=== PATIENT | male | born 1960 | race Caucasian/White ===

== ENCOUNTER 2016-07-08 11:37 | Emergency (ER) | payer BC ==
[2016-07-08 11:49] VITALS: BP 127/83
[2016-07-08] MEDS ORDERED: Albuterol 2.5 MG/3 ML NEB.SOL* (0.083%) INH ONE (12:28)
--- NOTE | 2016-07-08 12:34 | UC ---
Respiratory Complaint HPI - HPI Summary HPI Summary: patient has hx of lymphoma, was recently treated for a sinus infection with a z pack. is having sob and cough, chest feels tight. - History of Current Complaint Chief Complaint: UCRespiratory Stated Complaint: RESP COMPLAINT Time Seen by Provider: 07/08/16 12:20 Hx Obtained From: Patient Onset/Duration: Sudden Onset, Lasting Days Timing: Constant Severity Initially: Mild Severity Currently: Moderate Pain Intensity: 6 Pain Scale Used: 0-10 Numeric Character: Cough: Productive Aggravating Factors: Deep Breaths, Recumbent Position Associated Signs And Symptoms: Positive: Fever, Chills, URI - Risk Factors Pulmonary Embolism Risk Factors: Negative Cardiac Risk Factors: Negative Pseudomonas Risk Factors: Negative Tuberculosis Risk Factors: Immune Deficienty - Allergies/Home Medications Allergies/Adverse Reactions: Allergies Allergy/AdvReac Type Severity Reaction Status Date / Time Clavulanic Acid Allergy Intermediate Rash Verified 05/06/16 15:36 Tobramycin Allergy Intermediate Swelling Verified 05/06/16 15:36 Home Medications: Home Medications Albuterol HFA INHALER* [Ventolin HFA Inhaler*] 1 - 2 puff INH Q6H PRN 07/08/16 [ History Confirmed 07/08/16] Ibuprofen TAB* [Advil TAB*] 400 mg PO PRN 07/08/16 [History] PMH/Surg Hx/FS Hx/Imm Hx Previously Healthy: Yes Endocrine History Of: Denies: Diabetes, Thyroid Disease Cardiovascular History Of: Reports: Hypertension Denies: Cardiac Disorders, Congestive Heart Failure Respiratory History Of: Denies: COPD, Asthma GI/ History Of: Denies: Ulcer, Renal Disease Psychological History Of: Reports: Depression - Surgical History Surgical History: Yes Surgery Procedure, Year, and Place: Acromianplasty - Family History Known Family History: Positive: None, Cardiac Disease, Hypertension Negative: Diabetes - Social History Alcohol Use: Rare Substance Use Type: None Smoking Status (MU): Former Smoker Type: Cigarettes - Immunization History Most Recent Influenza Vaccination: 2016 Review of Systems Constitutional: Fever, Chills Skin: Negative Eyes: Negative ENT: Negative Respiratory: Shortness Of Breath, Cough Cardiovascular: Negative Gastrointestinal: Negative Genitourinary: Negative Motor: Negative Neurovascular: Negative Musculoskeletal: Myalgia Neurological: Headache Psychological: Negative All Other Systems Reviewed And Are Negative: Yes Physical Exam Triage Information Reviewed: Yes Appearance: No Pain Distress, Well-Nourished, Ill-Appearing Vital Signs: Initial Vital Signs Temp 98.7 F 07/08/16 11:45 Pulse 84 07/08/16 11:45 Resp 18 07/08/16 11:45 BP 127/83 07/08/16 11:45 Pulse Ox 98 07/08/16 11:45 Vital Signs Reviewed: Yes Eye Exam: Normal Eyes: Positive: Conjunctiva Clear ENT: Positive: Hearing grossly normal, Pharyngeal erythema, Nasal congestion, Nasal drainage, TMs normal, TM red - right Dental Exam: Normal Neck exam: Normal Neck: Positive: Supple, Nontender, No Lymphadenopathy Respiratory Exam: Normal Respiratory: Positive: Chest non-tender, No respiratory distress, No accessory muscle use, Wheezing, Inspiration Cardiovascular Exam: Normal Cardiovascular: Positive: RRR, No Murmur, Pulses Normal Abdominal Exam: Normal Abdomen Description: Positive: Nontender, No Organomegaly, Soft Bowel Sounds: Positive: Present Musculoskeletal Exam: Normal Musculoskeletal: Positive: Strength Intact, ROM Intact, No Edema Neurological Exam: Normal Neurological: Positive: Alert, Muscle Tone Normal Psychological Exam: Normal Skin Exam: Normal UC Diagnostic Evaluation - Laboratory O2 Sat by Pulse Oximetry: 98 Respiratory Course/Dx - Course Course Of Treatment: hx obtained, exam performed, albuterol treament administered with good results, flu swab obtained neg, treated with doxycycline for sinus infection and refill of ventolin given. - Differential Dx/Diagnosis Differential Diagnosis/HQI/PQRI: Asthma, Bronchitis, Influenza, Laryngitis, Sinusitis Provider Diagnoses: sinusitis. asthma. lymphoma hx Discharge - Discharge Plan Condition: Stable Disposition: HOME Patient Education Materials: Sinusitis (ED)
== END 2016-07-08 13:33 | disposition home or self-care (01) ==
LOC: UCEAST 11:37
DX: J45.909 Unspecified asthma, uncomplicated (principal); J32.9 Chronic sinusitis, unspecified; Z85.72 Personal history of non-Hodgkin lymphomas; Z88.1 Allergy status to other antibiotic agents; Z87.891 Personal history of nicotine dependence
CPT/HCPCS: 87502; 99212; G0463

== ENCOUNTER 2016-10-12 07:26 | Emergency (ER) | payer BC ==
[2016-10-12 07:51] VITALS: BP 128/65
--- NOTE | 2016-10-12 08:25 | UC ---
General HPI - HPI Summary HPI Summary: 56 yo male with the onset of severe muscle cramps that started yesterday AM worse finger/biceps/abd/inner thighs about 1 1/2 weeks ago he had a 4 day illness (n/v/d) felt dehydrated during illness has felt fatigued since them hx lymphoma no PT or chemo is follow 6 6 mos - History of Current Complaint Chief Complaint: UCGeneralIllness Stated Complaint: BODY CRAMPS Time Seen by Provider: 10/12/16 08:08 Hx Obtained From: Patient Onset/Duration: Gradual Onset, Lasting Hours Timing: Constant Onset Severity: Moderate Current Severity: Moderate Pain Intensity: 2 Pain Location at: see above discussion Associated Signs & Symptoms: Positive: Other - muscle spasms Related Hx: Recent Illness - Allergy/Home Medications Allergies/Adverse Reactions: Allergies Allergy/AdvReac Type Severity Reaction Status Date / Time Clavulanic Acid Allergy Intermediate Rash Verified 05/06/16 15:36 Tobramycin Allergy Intermediate Swelling Verified 05/06/16 15:36 Home Medications: Home Medications Hydrochlorothiazide TAB* [Hydrodiuril TAB*] 10/12/16 [History] PMH/Surg Hx/FS Hx/Imm Hx Endocrine History Of: Denies: Diabetes, Thyroid Disease Cardiovascular History Of: Reports: Cardiac Disorders - high triglycerides, Hypertension Denies: Congestive Heart Failure Respiratory History Of: Reports: Asthma Denies: COPD GI/ History Of: Denies: Ulcer, Renal Disease Psychological History Of: Reports: Depression - Surgical History Surgical History: Yes Surgery Procedure, Year, and Place: Acromianplasty right shoulder, multiple bone marrow bx - Family History Known Family History: Positive: Cardiac Disease, Hypertension Negative: Diabetes - Social History Alcohol Use: Occasionally Substance Use Type: None Smoking Status (MU): Former Smoker Type: Cigarettes - Immunization History Most Recent Influenza Vaccination: 2016 Review of Systems Constitutional: Negative Skin: Negative Eyes: Negative ENT: Negative Respiratory: Negative Cardiovascular: Negative Gastrointestinal: Negative Genitourinary: Negative Motor: Negative Neurovascular: Negative Musculoskeletal: Other: - muscle cramps Neurological: Negative Psychological: Negative All Other Systems Reviewed And Are Negative: Yes Physical Exam Triage Information Reviewed: Yes Appearance: Well-Appearing, No Pain Distress, Well-Nourished Vital Signs: Initial Vital Signs Temp 98.7 F 10/12/16 07:35 Pulse 84 10/12/16 07:35 Resp 16 10/12/16 07:35 BP 128/65 10/12/16 07:35 Pulse Ox 98 10/12/16 07:35 Vital Signs Reviewed: Yes Eyes: Positive: Conjunctiva Clear ENT: Positive: Hearing grossly normal. Negative: Nasal drainage, Tonsillar swelling, Tonsillar exudate, Trismus, Muffled/hoarse voice Dental: Negative: Gross Decay/Caries @ Neck: Positive: Supple, Nontender, No Lymphadenopathy Respiratory: Positive: Lungs clear, Normal breath sounds, No respiratory distress, No accessory muscle use Cardiovascular: Positive: RRR, No Murmur Abdomen Description: Positive: Nontender, Hepatomegaly - ??? Bowel Sounds: Positive: Present Musculoskeletal: Positive: ROM Intact, No Edema, Other: - currently no muscle spasms Neurological: Positive: Alert Psychological Exam: Normal Skin Exam: Normal Course/Dx - Differential Dx - Multi-Symptom Provider Diagnoses: muscle cramps of uncertain cause Discharge - Discharge Plan Condition: Stable Disposition: HOME Patient Education Materials: Muscle Cramp (ED) Referrals: Shemar Thacker ADMINISTRATIVE SERVICES MANAGER [Primary Care Provider] - 1 Day (if not better) Additional Instructions: I am unsure of the cause of your severe muscle cramps blood work is pending (we may have results later today) I suggest you get rechecked tomorrow
[2016-10-12 13:57] LABS: Hematocrit 42 % (42-52); Hemoglobin 14.3 g/dl (14.0-18.0); Mean Corpuscular HGB Conc 34 g/dl (31-36); Mean Corpuscular Hemoglobin 33 pg (27-31); Mean Corpuscular Volume 94 fL (80-94); Mean Platelet Volume 7 um3 (7.4-10.4); Red Cell Distribution Width 13 % (10.5-15); White Blood Count 11.4 10^3/ul (3.5-10.8)
[2016-10-12 14:06] LABS: Albumin 4.1 g/dL (3.2-5.2); Calcium 9.3 mg/dL (8.6-10.3); EGFR African American 99.4 (>60); EGFR Non-African American 77.3 (>60); Globulin 3.1 g/dL (2-4); Total Bilirubin 0.4 mg/dL (0.2-1.0); Total Protein 7.2 g/dL (6.4-8.9)
== END 2016-10-12 08:40 | disposition home or self-care (01) ==
LOC: UCEAST 07:26
DX: R25.2 Cramp and spasm (principal); E78.1 Pure hyperglyceridemia; I10 Essential (primary) hypertension; J45.909 Unspecified asthma, uncomplicated; F32.9 Major depressive disorder, single episode, unspecified; Z87.891 Personal history of nicotine dependence
CPT/HCPCS: 36415; 80053; 83735; 85025; 99212; G0463

== ENCOUNTER 2016-10-21 19:26 | Emergency (ER) | payer BC ==
[2016-10-21 19:33] VITALS: BP 118/72
--- NOTE | 2016-10-21 19:43 | UC ---
Lower Extremity/Ankle HPI - HPI Summary HPI Summary: SEVERAL DAYS OF RIGHT FOOT REDNESS AND SWELLING. HAS CHRONICALLY THICKENED SKIN ON BOTTOM OF FOOT AT METATARSAL HEADS THAT IS SPLITTING. REDNESS IS EXTENDING UP LEG. WAS HERE 10/12/16 FOR BODY CRAMPS AND HAD ABNORMAL LABS. HAS NOT FOLLOWED UP FOR REPEAT LABS YET. NO FEVER. - History of Current Complaint Chief Complaint: UCLowerExtremity Stated Complaint: RED SWOLLEN FOOT Time Seen by Provider: 10/21/16 19:36 Hx Obtained From: Patient Onset/Duration: Gradual Onset, Lasting Days, Still Present Severity Initially: Mild Severity Currently: Moderate Pain Intensity: 2 Pain Scale Used: 0-10 Numeric Aggravating Factor(s): Nothing Alleviating Factor(s): Nothing Able to Bear Weight: Yes - Allergies/Home Medications Allergies/Adverse Reactions: Allergies Allergy/AdvReac Type Severity Reaction Status Date / Time Clavulanic Acid Allergy Intermediate Rash Verified 10/21/16 19:33 Tobramycin Allergy Intermediate Swelling Verified 10/21/16 19:33 PMH/Surg Hx/FS Hx/Imm Hx Endocrine History Of: Denies: Diabetes, Thyroid Disease Cardiovascular History Of: Reports: Hypertension - LVH Denies: Cardiac Disorders, Congestive Heart Failure Respiratory History Of: Reports: Asthma Denies: COPD GI/ History Of: Denies: Ulcer, Renal Disease Psychological History Of: Reports: Depression - Surgical History Surgical History: Yes Surgery Procedure, Year, and Place: Acromianplasty - Family History Known Family History: Positive: Cardiac Disease, Hypertension Negative: Diabetes - Social History Alcohol Use: Occasionally Substance Use Type: None Smoking Status (MU): Former Smoker Type: Cigarettes - Immunization History Most Recent Influenza Vaccination: 2016 Review of Systems Constitutional: Negative Skin: Other - ERYTHEMA, CRACKED, THICKENED SKIN ON RIGHT FOOT Respiratory: Negative Cardiovascular: Negative Gastrointestinal: Negative All Other Systems Reviewed And Are Negative: Yes Physical Exam Triage Information Reviewed: Yes Appearance: Well-Appearing, No Pain Distress, Well-Nourished Vital Signs: Initial Vital Signs Temp 97.5 F 10/21/16 19:30 Pulse 88 10/21/16 19:30 Resp 16 10/21/16 19:30 BP 118/72 10/21/16 19:30 Pulse Ox 97 10/21/16 19:30 Vital Signs Reviewed: Yes Eyes: Positive: Conjunctiva Clear ENT: Positive: Hearing grossly normal Neck: Positive: Supple Respiratory: Positive: No respiratory distress, No accessory muscle use Cardiovascular: Positive: Pulses Normal Abdomen Description: Positive: Soft Musculoskeletal: Positive: Edema @ - 1+ PITTING EDEMA LEFT ANKLE/FOOT. 2+ PITTING EDEMA RIGHT ANKLE/FOOT. Neurological: Positive: Alert Psychological: Positive: Age Appropriate Behavior Skin: Positive: Other - ERYTHEMA RIGHT FOOT EXTENDING UP LEG TO JUST BELOW KNEE. PLANTAR SURFACE OF FOOT OVER METATARSAL HEADS IS THICKENED AND CRACKING. APPARENT INSECT BITE DORSUM OF RIGHT FOOT Lower Extremity Course/Dx - Differential Dx/Diagnosis Provider Diagnoses: 1. RIGHT FOOT CELLULITIS. 2. ELECTROLYE ABNORMALITIES. 3. ELEVATED TRANSAMINASES Discharge - Discharge Plan Condition: Stable Disposition: HOME Prescriptions: Cephalexin CAP* [Keflex 500 CAP*] 1,000 mg PO BID #40 cap Patient Education Materials: Cellulitis (ED) Referrals: Shemar Thacker SHAFTING WORKER [Primary Care Provider] - 1 Week Additional Instructions: SEEK FOLLOW-UP IF YOU DO NOT NOTICE IMPROVEMENT IN YOUR FOOT OVER THE NEXT 2-3 DAYS. LABS DRAWN TODAY TO RE-EVALUATE ABNORMALITIES SEEN 10/12/16 (LOW CHLORIDE, SODIUM AND ELEVATED LFTS). FOLLOW-UP WITH YOUR PCP IN 1 WEEK. FOLLOW-UP WITH PODIATRY TO DISCUSS YOUR CHRONIC FOOT WOUNDS AND SKIN THICKENING. PODIATRY IN [facility] Dr. Alejandro Eli [address] Yoandy Sue. Please call his office at [phone] to make an appointment to be seen Dr. Jason Saul. Please call his office at [phone] to make an appointment to be seen
[2016-10-22 17:33] LABS: Albumin 4.2 g/dL (3.2-5.2); Calcium 9.3 mg/dL (8.6-10.3); EGFR African American 106.8 (>60); Globulin 3.1 g/dL (2-4); Total Bilirubin 0.5 mg/dL (0.2-1.0); Total Protein 7.3 g/dL (6.4-8.9)
[2016-10-22 18:12] LABS: Potassium 6.9 mmol/L (3.5-5.0)
--- NOTE | 2016-10-22 18:28 | UC ---
Progress - Progress Note Progress Note: CMP SHOWED PERSISTENTLY LOW SODIUM AND CHLORIDE. LFTS NORMALIZED BUT POTASSIUM 6.9. SPOKE TO PT AND ADVISED IMMEDIATE PRESENTATION TO ER FOR FURTHER EVALUATION. PT STATES HE WILL GO.
== END 2016-10-21 20:17 | disposition home or self-care (01) ==
LOC: UCEAST 19:26
DX: L03.115 Cellulitis of right lower limb (principal); E87.8 Other disorders of electrolyte and fluid balance, not elsewhere classified; R74.0 Nonspecific elevation of levels of transaminase and lactic acid dehydrogenase [LDH]; I10 Essential (primary) hypertension; J45.909 Unspecified asthma, uncomplicated; F32.9 Major depressive disorder, single episode, unspecified; Z88.1 Allergy status to other antibiotic agents; Z87.891 Personal history of nicotine dependence
CPT/HCPCS: 36415; 80053; 99212; G0463

== ENCOUNTER 2016-10-22 18:30 | Emergency (ER) | payer BC ==
[2016-10-22] MEDS ORDERED: NS 0.9% 1000 ML* 1,000 ML IV ONE (19:45)
[2016-10-22] MEDS ORDERED: ceFAZolin 1 GM in Dextrose (*) 1 GM/50 ML BAG IVPB ONE (20:14)
[2016-10-22 20:36] LABS: Hematocrit 40 % (42-52); Hemoglobin 13.4 g/dl (14.0-18.0); Mean Corpuscular HGB Conc 34 g/dl (31-36); Mean Corpuscular Hemoglobin 32 pg (27-31); Mean Corpuscular Volume 94 fL (80-94); Mean Platelet Volume 7 um3 (7.4-10.4); Red Blood Count 4.22 10^6/ul (4.0-5.4); Red Cell Distribution Width 13 % (10.5-15); White Blood Count 12.1 10^3/ul (3.5-10.8)
[2016-10-22 20:52] LABS: Albumin 4.1 g/dL (3.2-5.2); BUN/Creatinine Ratio 13.5 (8-20); C Reactive Protein 15.39 mg/L (< 5.00); Calcium 9.2 mg/dL (8.6-10.3); EGFR African American 113.7 (>60); EGFR Non-African American 88.4 (>60); Globulin 3.5 g/dL (2-4); Magnesium 1.9 mg/dL (1.9-2.7); Phosphorus 3.4 mg/dL (2.5-5.0); Potassium 4.1 mmol/L (3.5-5.0); Total Bilirubin 0.4 mg/dL (0.2-1.0); Total Protein 7.6 g/dL (6.4-8.9)
--- NOTE | 2016-10-22 21:37 | ED ---
Jessica Swift Rebecca, scribed for Sherice Ochoa MD on 10/22/16 at 1954 . Complex/Multi-Sys Presentation - HPI Summary HPI Summary: Pt is a 56 y/o M who presents to the ED accompanied by a friend with a CC of abnormal labs. On October [address] [facility] with a CC of unexplained muscle cramps the day previous (October 11) during work. Labs showed slightly low sodium and normal renal function and normal potassium. Returned to [facility] yesterday, was seen by Dr. Mendoza, following up with the abnormal labs. Had a potassium of 6.9 on labs taken yesterday which were not fasting. Pt was D/C to home with a prescription for Cephalexin for cellulitis of right foot. Has taken 2 doses thus far, a total of 2 grams. C/o constant muscle cramps since October 11, currently ranked as 2/10. Cramps are diffuse, present in his back, legs and hands. Cramps are aggravated by exertion , alleviated by nothing. Additionally c/o increased urinary frequency and polyuria. Unsure of whether he has been experiencing fevers. Notes cellulitis on R foot in a crack that opened on October 11 (11 days ago). Swelling has decreased since starting Abx. PCP is Dr. Shemar Thacker. Has an appt in 5 days. Takes magnesium and potassium. PMHx HTN, stage I lymphoma. Lymphoma Dx by Dr. Dyer, has known about dx for 1 year, in his neck. Did not have any surgeries, radiation or chemotherapy. No PMHx DM. No FHx DM. - History Of Current Complaint Chief Complaint: EDGeneral Time Seen by Provider: 10/22/16 19:16 Hx Obtained From: Patient Onset/Duration: Gradual Onset, Lasting Days - 11 days, Still Present Timing: Constant Severity Currently: Mild Severity Initially: Mild Location: Pain At: - Diffuse muscle cramping Aggravating Factor(s): Exertion Alleviating Factor(s): Nothing Associated Signs And Symptoms: Positive: Other - Increased urinary frequency, polyuria, open crack in right foot, muscle cramps. Negative: Fever - Allergies/Home Medications Allergies/Adverse Reactions: Allergies Allergy/AdvReac Type Severity Reaction Status Date / Time Clavulanic Acid Allergy Intermediate Rash Verified 10/22/16 18:38 Tobramycin Allergy Intermediate Swelling Verified 10/22/16 18:38 PMH/Surg Hx/FS Hx/Imm Hx Previously Healthy: No - lymphoma, right neck Endocrine/Hematology History: Denies: Hx Diabetes, Hx Systemic Lupus Erythematosus, Hx Thyroid Disease Cardiovascular History: Reports: Hx Hypertension - LVH Denies: Hx Congestive Heart Failure Respiratory History: Reports: Hx Asthma Denies: Hx Chronic Obstructive Pulmonary Disease (COPD) GI History: Reports: Hx Gastroesophageal Reflux Disease Denies: Hx Ulcer History: Denies: Hx Dialysis, Hx Renal Disease Musculoskeletal History: Denies: Hx Rheumatoid Arthritis, Hx Osteoporosis, Hx Scoliosis Sensory History: Reports: Hx Contacts or Glasses Opthamlomology History: Reports: Hx Contacts or Glasses Neurological History: Reports: Hx Headaches Denies: Other Neuro Impairments/Disorders Psychiatric History: Reports: Hx Depression - Cancer History Cancer Type, Location and Year: LYMPHOMA 2015 - Surgical History Surgery Procedure, Year, and Place: Acromianplasty - Immunization History Date of Tetanus Vaccine: unknown Date of Influenza Vaccine: 2014 Infectious Disease History: No Infectious Disease History: Denies: Hx Clostridium Difficile, Hx Hepatitis, Hx Human Immunodeficiency Virus (HIV), Hx of Known/Suspected MRSA, Hx Shingles, Hx Tuberculosis, Hx Known/ Suspected VRE, Hx Known/Suspected VRSA, History Other Infectious Disease, Traveled Outside the [place] in Last 30 Days - Family History Known Family History: Positive: Cardiac Disease, Hypertension Negative: Diabetes - Social History Occupation: Employed Full-time Alcohol Use: Occasionally Hx Substance Use: Yes Substance Use Type: Reports: None Hx Tobacco Use: Yes Smoking Status (MU): Former Smoker Type: Cigarettes Review of Systems Constitutional: Negative Cardiovascular: Negative Respiratory: Negative Positive: frequency, other - Polyuria Positive: Myalgia - Diffuse muscle cramps (2/10) Positive: Other - Opened crack on the R foot , redness right lower leg All Other Systems Reviewed And Are Negative: Yes Physical Exam Triage Information Reviewed: Yes Vital Signs On Initial Exam: Initial Vitals Temp 98.7 F 10/22/16 18:38 Vital Signs Reviewed: Yes Appearance: Positive: No Pain Distress, Well-Nourished, Ill-Appearing - Mild Skin: Positive: Warm, Other - 3 cm abraded area on the ventral aspect of the R foot, between the great toe and 2nd toe. It is open with minimal drainage and there is redness extending from the wound to the midcalf. Eyes: Positive: Conjunctiva Clear ENT: Positive: Normal ENT inspection Neck: Positive: Supple Respiratory/Lung Sounds: Positive: Clear to Auscultation, Breath Sounds Present , Other - No respiratory distress Cardiovascular: Positive: RRR, Other - Pulses normal, brisk capillary refill. Negative: Murmur Abdomen Description: Positive: Nontender, No Organomegaly, Soft. Negative: Distended, Guarding Musculoskeletal: Positive: Strength/ROM Intact Neurological: Positive: Alert, Oriented to Person Place, Time, Other - Muscle tone normal. Negative: Focal Deficit @, Slurred Speech Psychiatric: Positive: Normal Diagnostics - Vital Signs Vital Signs Temp Pulse Resp BP Pulse Ox 10/22/16 18:41 98.7 F 88 18 164/83 98 10/22/16 18:38 98.7 F - Laboratory Lab Results: Lab Results 10/22/16 10/22/16 10/22/16 Range/Units 20:20 20:20 20:20 WBC 12.1 H (3.5-10.8) 10^3/ul RBC 4.22 (4.0-5.4) 10^6/ul Hgb 13.4 L (14.0-18.0) g/dl Hct 40 L (42-52) % MCV 94 (80-94) fL MCH 32 H (27-31) pg MCHC 34 (31-36) g/dl RDW 13 (10.5-15) % Plt Count 348 (150-450) 10^3/ul MPV 7 L (7.4-10.4) um3 Neut % (Auto) 63.7 (38-83) % Lymph % (Auto) 24.2 L (25-47) % Barber % (Auto) 9.5 H (1-9) % Eos % (Auto) 1.4 (0-6) % Baso % (Auto) 1.2 (0-2) % Absolute Neuts (auto) 7.7 (1.5-7.7) 10^3/ul Absolute Lymphs (auto) 2.9 (1.0-4.8) 10^3/ul Absolute Monos (auto) 1.1 H (0-0.8) 10^3/ul Absolute Eos (auto) 0.2 (0-0.6) 10^3/ul Absolute Basos (auto) 0.1 (0-0.2) 10^3/ul Absolute Nucleated RBC 0.01 10^3/ul Nucleated RBC % 0.1 INR (Anticoag Therapy) 0.98 (0.89-1.11) APTT 30.0 (26.0-36.3) seconds Sodium (133-145) mmol/L Potassium (3.5-5.0) mmol/L Chloride (101-111) mmol/L Carbon Dioxide (22-32) mmol/L Anion Gap (2-11) mmol/L BUN (6-24) mg/dL Creatinine (0.67-1.17) mg/dL Est GFR ( Amer) (>60) Est GFR (Non-Af Amer) (>60) BUN/Creatinine Ratio (8-20) Glucose (70-100) mg/dL Lactic Acid 2.4 H* (0.5-2.0) mmol/L Calcium (8.6-10.3) mg/dL Phosphorus (2.5-5.0) mg/dL Magnesium (1.9-2.7) mg/dL Total Bilirubin (0.2-1.0) mg/dL AST (13-39) U/L ALT (7-52) U/L Alkaline Phosphatase (34-104) U/L C-Reactive Protein (< 5.00) mg/L Total Protein (6.4-8.9) g/dL Albumin (3.2-5.2) g/dL Globulin (2-4) g/dL Albumin/Globulin Ratio (1-3) 10/22/16 Range/Units 20:20 WBC (3.5-10.8) 10^3/ul RBC (4.0-5.4) 10^6/ul Hgb (14.0-18.0) g/dl Hct (42-52) % MCV (80-94) fL MCH (27-31) pg MCHC (31-36) g/dl RDW (10.5-15) % Plt Count (150-450) 10^3/ul MPV (7.4-10.4) um3 Neut % (Auto) (38-83) % Lymph % (Auto) (25-47) % Barber % (Auto) (1-9) % Eos % (Auto) (0-6) % Baso % (Auto) (0-2) % Absolute Neuts (auto) (1.5-7.7) 10^3/ul Absolute Lymphs (auto) (1.0-4.8) 10^3/ul Absolute Monos (auto) (0-0.8) 10^3/ul Absolute Eos (auto) (0-0.6) 10^3/ul Absolute Basos (auto) (0-0.2) 10^3/ul Absolute Nucleated RBC 10^3/ul Nucleated RBC % INR (Anticoag Therapy) (0.89-1.11) APTT (26.0-36.3) seconds Sodium 129 L (133-145) mmol/L Potassium 4.1 D (3.5-5.0) mmol/L Chloride 95 L (101-111) mmol/L Carbon Dioxide 26 (22-32) mmol/L Anion Gap 8 (2-11) mmol/L BUN 12 (6-24) mg/dL Creatinine 0.89 (0.67-1.17) mg/dL Est GFR ( Amer) 113.7 (>60) Est GFR (Non-Af Amer) 88.4 (>60) BUN/Creatinine Ratio 13.5 (8-20) Glucose 102 H (70-100) mg/dL Lactic Acid (0.5-2.0) mmol/L Calcium 9.2 (8.6-10.3) mg/dL Phosphorus 3.4 (2.5-5.0) mg/dL Magnesium 1.9 (1.9-2.7) mg/dL Total Bilirubin 0.40 (0.2-1.0) mg/dL AST 31 (13-39) U/L ALT 36 (7-52) U/L Alkaline Phosphatase 66 (34-104) U/L C-Reactive Protein 15.39 H (< 5.00) mg/L Total Protein 7.6 (6.4-8.9) g/dL Albumin 4.1 (3.2-5.2) g/dL Globulin 3.5 (2-4) g/dL Albumin/Globulin Ratio 1.2 (1-3) Result Diagrams: 10/22/16 20:20 10/22/16 20:20 Lab Statement: Any lab studies that have been ordered have been reviewed, and results considered in the medical decision making process. - EKG 2031 Cardiac Rate: NL - 76 bpm EKG Rhythm: Sinus Rhythm EKG Interpretation: Normal AV and normal IV conduction times, normal axis 26 EKG Comparison: No Significant Change - No acute changes from EKG on 07/21/12 Re-Evaluation - Re-Evaluation First Eval Re-Evaluation Time: 21:13 Change: Unchanged Comment: No new complaints, advised of results. Abx are hanging. Complex Multi-Symp Course/Dx Course Of Treatment: Pt medications reviewed this visit. Allergies noted. Lactic acid 2.4. Pt is a 56 y/o M who presents to the ED with a CC of abnormal labs. Pt was evaluated on October [address] [facility] showing low sodium with normal renal function. Evaluated again yesterday to follow up on abnormal labs, showing a potassium of 6.9. Presents to ED upon advise to f/u on 6.99 K+ c/o diffuse muscle cramps since October 11, increased urinary frequency and polyuria. Lactic acid 2.4. EKG reveals no acute findings. Received fluids and Kefzol via IV. Pt will be D/C to home with Dx of cellulitis and hyponatremia with a followup with his PCP in 2 days. - Diagnoses Differential Diagnoses/HQI/PQRI: Metabolic Abnormality, Sepsis, Other - cellulitis Provider Diagnoses: Cellulitis, Hyponatremia Discharge - Discharge Plan Condition: Stable Disposition: HOME Patient Education Materials: Cellulitis (ED), Hyponatremia (ED) Referrals: Shemar Thacker, FORK TRUCK OPERATOR [Primary Care Provider] - 2 Days Additional Instructions: You were given one gram a cephazolin IV while in the ED. You were given a copy of your labs drawn today. There is no metabolic cause for your muscle cramps based on today's labs. Keep your appointment with Shemar Thacker. Continue your cephalexin as directed. We have sent a wound culture of your foot. We will notify you if you need a change in your antibiotics based on this result. Return to the ED for any new or worsening symptoms. The documentation as recorded by the Jessica dowling Rebecca accurately reflects the service I personally performed and the decisions made by , Sherice Ochoa MD.
[2016-10-22 21:51] VITALS: BP 126/65
--- NOTE | 2016-10-24 09:22 | PN ---
Progress Note - Progress Note Note: Patient was diagnosed with cellulitis while in ED. Given Kefzol IV while in ED. No antibiotics at discharge. Wound culture results were unremarkable, 1+ staph aureus preliminary growth. Will wait for final results. No further treatment necessary. Patient was aware of worsening or persisting symptoms. No changes need at this time.
== END 2016-10-22 21:55 | disposition home or self-care (01) ==
LOC: ED 18:30
DX: L03.90 Cellulitis, unspecified (principal); E87.1 Hypo-osmolality and hyponatremia; M79.1 Myalgia; Z87.891 Personal history of nicotine dependence
CPT/HCPCS: 36415; 80053; 83605; 83735; 84100; 85025; 85610; 85730; 86140; 87040; 87070; 87077; 87186; 87205; 93005; 99283; J0690

== ENCOUNTER 2016-11-26 13:42 | Emergency (ER) | payer BC ==
[2016-11-26 14:13] VITALS: BP 144/96
--- NOTE | 2016-11-27 02:30 | UC ---
Laura Swift Edward, scribed for Sherice Ochoa MD on 11/26/16 at 1502 . Throat Pain/Nasal Isaías HPI - HPI Summary HPI Summary: 56 y/o male presents to ED with throat pain and sinus pressure on the right side. Patient's symptoms worsened yesterday morning from general cold-like symptoms. Associated symptoms: eye drainage, nasal congestion, rhinorrhea, HTN and chronic diarrhea. Denies fever. PMHx lymphoma in 2016. Patient stated that he took a Pseudoephedrine for his nasal congestion and states this probably raised his BP. 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 - History of Current Complaint Chief Complaint: UCRespiratory Stated Complaint: SINUS/EYES/SORE THROAT, Time Seen by Provider: 11/26/16 14:55 Hx Obtained From: Patient Onset/Duration: Lasting Days, Still Present Severity: Moderate Pain Intensity: 5 Pain Scale Used: 0-10 Numeric Cough: Nonproductive Associated Signs & Symptoms: Positive: Sinus Discomfort, Nasal Discharge Related History: Smoking - Former smoker, Other (Noted In Comments) - Lymphoma 2016 - Allergies/Home Medications Allergies/Adverse Reactions: Allergies Allergy/AdvReac Type Severity Reaction Status Date / Time Clavulanic Acid Allergy Intermediate Rash Verified 10/22/16 18:38 Tobramycin Allergy Intermediate Swelling Verified 10/22/16 18:38 PMH/Surg Hx/FS Hx/Imm Hx Cardiovascular History: Hypertension Respiratory History: Asthma Cancer History: Other - Lymphoma 2016 Other Cancer History: lymphoma 2016 - Surgical History Surgical History: Yes Surgery Procedure, Year, and Place: Acromioplasty - Family History Known Family History: Positive: Cardiac Disease, Hypertension Negative: Diabetes - Social History Occupation: Employed Full-time Lives: With Family Alcohol Use: Occasionally Substance Use Type: None Smoking Status (MU): Former Smoker Type: Cigarettes - Immunization History Most Recent Influenza Vaccination: 2016 Review of Systems Constitutional: Negative Skin: Negative Eyes: Drainage ENT: Sore Throat - Right side, Ear Ache, Nasal Discharge, Sinus Congestion, Sinus Pain/Tenderness - Right side Respiratory: Negative Cardiovascular: Negative Gastrointestinal: Diarrhea - Chronic Genitourinary: Negative Motor: Negative Neurovascular: Negative Musculoskeletal: Negative Neurological: Negative Psychological: Negative All Other Systems Reviewed And Are Negative: Yes Physical Exam Triage Information Reviewed: Yes Appearance: Well-Appearing, Well-Nourished, Pain Distress - Mild pain distress Vital Signs: Initial Vital Signs Temp 99.1 F 11/26/16 14:10 Pulse 71 11/26/16 14:10 Resp 20 11/26/16 14:10 BP 144/96 11/26/16 14:10 Pulse Ox 98 11/26/16 14:10 Vital Signs Reviewed: Yes Eyes: Positive: Conjunctiva Clear ENT: Positive: Hearing grossly normal, Pharyngeal erythema, TMs normal, Other: - Turbinate swelling, Maxillary sinus right tenderness. Negative: Tonsillar swelling, Tonsillar exudate, Muffled/hoarse voice Neck: Positive: Supple, Nontender, No Lymphadenopathy Respiratory: Positive: Lungs clear, Normal breath sounds, No respiratory distress Cardiovascular: Positive: RRR, No Murmur, Pulses Normal, Brisk Capillary Refill Abdomen Description: Positive: Nontender, Soft. Negative: Distended, Guarding Musculoskeletal: Positive: Strength Intact, ROM Intact Neurological: Positive: Alert, Muscle Tone Normal Psychological Exam: Normal Skin Exam: Normal Throat Pain/Nasal Course/Dx - Course Course Of Treatment: High blood pressure noted Assessment/Plan: 56 y/o male presents to ED with throat pain and sinus pressure on the right side. Patient's symptoms worsened yesterday morning from general cold-like symptoms. Associated symptoms: eye drainage, nasal congestion, rhinorrhea, HTN and chronic diarrhea. Denies fever. PMHx lymphoma in 2016. Patient stated that he took a Pseudoephedrine for his nasal congestion which may have induced the HTN. After performing a full PE I diagnosed the patient with Sinunitis and prescribed DOXYcycline 100 mg PO BID. The patient understands and agrees. - Differential Dx/Diagnosis Differential Diagnosis/HQI/PQRI: Otitis Media, Pharyngitis, Sinusitis, URI Provider Diagnoses: Sinusitis, Blood pressure in poor control Discharge - Discharge Plan Condition: Stable Disposition: HOME Prescriptions: DOXYcycline CAP(*) [DOXYcycline 100MG CAP(*)] 100 mg PO BID #28 cap Patient Education Materials: Sinusitis (ED) Referrals: Shemar Thacker, [facility] [Primary Care Provider] - 2 Days The documentation as recorded by the Laura dowling Edward accurately reflects the service I personally performed and the decisions made by , Sherice Ochoa MD.
== END 2016-11-26 15:13 | disposition home or self-care (01) ==
LOC: UCEAST 13:42
DX: J32.9 Chronic sinusitis, unspecified (principal); I10 Essential (primary) hypertension; Z85.72 Personal history of non-Hodgkin lymphomas; Z87.891 Personal history of nicotine dependence
CPT/HCPCS: 99212; G0463

== ENCOUNTER 2017-04-29 09:51 | Emergency (ER) | payer BC ==
[2017-04-29 10:12] VITALS: BP 105/57
--- NOTE | 2017-04-29 11:03 | UC ---
Lower Extremity/Ankle HPI - HPI Summary HPI Summary: Pt presents with right foot pain. He tells me that he has an extensive history of plantar calluses and that every once in awhile they will crack and split - this is what happened about a month ago to the right plantar aspect. He normally just soaks the foot and it heals overtime, but it has not done so this time. He complains of redness and pain on the dorsal aspect of his right foot near the 2nd MTP. He is able to ambulate. Denies fever, chills, drainage or discharge, or recent injury. - History of Current Complaint Chief Complaint: UCLowerExtremity Stated Complaint: FOOT PAIN Time Seen by Provider: 04/29/17 11:02 Hx Obtained From: Patient Onset/Duration: Gradual Onset Severity Initially: Mild Severity Currently: Moderate - Allergies/Home Medications Allergies/Adverse Reactions: Allergies Allergy/AdvReac Type Severity Reaction Status Date / Time Clavulanic Acid Allergy Intermediate Rash Verified 10/22/16 18:38 Tobramycin Allergy Intermediate Swelling Verified 10/22/16 18:38 Home Medications: Home Medications Fluticasone NASAL SPRAY 50MCG* [Flonase NASAL SPRAY 50MCG*] 04/29/17 [History] PMH/Surg Hx/FS Hx/Imm Hx Previously Healthy: Yes Endocrine History: Dyslipidemia Cardiovascular History: Hypertension - Surgical History Surgical History: Yes Surgery Procedure, Year, and Place: Acromioplasty - Family History Known Family History: Positive: Cardiac Disease, Hypertension Negative: Diabetes - Social History Occupation: Employed Full-time Lives: With Family Alcohol Use: Weekly Substance Use Type: None Smoking Status (MU): Former Smoker Type: Cigarettes - Immunization History Most Recent Influenza Vaccination: 2016 Review of Systems Constitutional: Negative Skin: Other - callus b/l feet - right with open sore Respiratory: Negative Cardiovascular: Negative Gastrointestinal: Negative Musculoskeletal: Negative Neurological: Negative Psychological: Negative All Other Systems Reviewed And Are Negative: Yes Physical Exam Triage Information Reviewed: Yes Appearance: Well-Appearing, Well-Nourished Vital Signs: Initial Vital Signs Temp 99.4 F 04/29/17 10:06 Pulse 80 04/29/17 10:06 Resp 18 04/29/17 10:06 BP 105/57 04/29/17 10:06 Pulse Ox 96 04/29/17 10:06 Vital Signs Reviewed: Yes Musculoskeletal: Positive: Strength Intact, ROM Intact, No Edema Neurological: Positive: Alert Psychological: Positive: Age Appropriate Behavior Skin: Positive: Other - There is a significant callus on the right plantar pad measauring approx 4cm by 3cm. In the center of this callus there is a linear break in the skin approx 2cm long, 2mm wide, and 0.5mm in depth. There is no erythema, drainage, or streaking around this area. On the dorsal aspect of the right foot there is mild erythema at the base of the 2nd digit. The right dorsal forefoot is mildly warm to touch compared to left. Lower Extremity Course/Dx - Course Course Of Treatment: Foot XR dt concern for osteomyelitis - Soft tissue swelling. No compelling radiographic evidence for osteomyelitis. Pt dresses the wound himself and applies triple antibiotic ointment. Will rx for Bactrim for what appears to be early stages of cellulitis - Differential Dx/Diagnosis Differential Diagnosis/HQI/PQRI: Cellulitis, Foreign Body, Infection, Osteomyelitis Provider Diagnoses: Cellulitis right foot. Right foot callus Discharge - Discharge Plan Condition: Stable Disposition: HOME Prescriptions: Sulfamethox/Trimethoprim DS* [Bactrim DS 800/160 TAB*] 1 tab PO BID #14 tab Patient Education Materials: Cellulitis (ED) Referrals: Shemar Thacker NP [Primary Care Provider] - Additional Instructions: 1) Keep area clean and dry. Use gauze or bandage material for added cushion and support 2) Triple antibiotic ointment twice a day to area If you develop a fever, SOB, chest pain, new or worsening symptoms - please call your PCP or go to the ED.
--- NOTE | 2017-04-29 11:55 | RAD ---
Indication: Open wound bottom of RIGHT foot. Soft tissue swelling. Question osteomyelitis. Comparison: September 11, 2015 radiographs. Technique: AP, lateral, and oblique views RIGHT foot. Report: Soft tissue swelling most prominent along the plantar aspect at the metatarsal phalangeal joint region of the forefoot and at the heel fat pad. No conspicuous foreign body or subcutaneous emphysema evident. No osteolysis, aggressive periosteal reaction, suspicious osteosclerosis, acute fracture, or malalignment. Healed fracture at the diaphysis of the fifth metatarsal noted without change. Chronic accessory ossicle noted dorsal to the head of the talus. 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 IMPRESSION: Soft tissue swelling. No compelling radiographic evidence for osteomyelitis. If there is persistent clinical concern for potential osteomyelitis consider MRI or in setting of contraindication to MRI 3 phase bone scan for further assessment.
== END 2017-04-29 11:55 | disposition home or self-care (01) ==
LOC: UCEAST 09:51
DX: L03.115 Cellulitis of right lower limb (principal); L84 Corns and callosities; Z87.891 Personal history of nicotine dependence
CPT/HCPCS: 99212; G0463

== ENCOUNTER 2017-10-11 07:17 | Emergency (ER) | payer BC ==
--- NOTE | 2017-10-11 08:09 | RAD ---
INDICATION: Right foot erythema, open wound worst pain third toe. COMPARISON: Comparison is made with a prior x-ray study of the right foot from April 29, 2017. TECHNIQUE: 3 views of the right foot were obtained. FINDINGS: There is diffuse soft tissue swelling. There appears be an old healed fracture of the mid diaphysis of the fifth metatarsal which appears unchanged. No erosive changes or periosteal reaction is seen. IMPRESSION: SOFT TISSUE SWELLING, NO SPECIFIC EVIDENCE FOR OSTEOMYELITIS. IF THE CLINICAL INDEX OF SUSPICION IS HIGH FOR OSTEOMYELITIS CONSIDER MR IMAGING WITHOUT CONTRAST FOR FURTHER EVALUATION.
--- NOTE | 2017-10-11 08:49 | ED ---
Edy Swift Tiffany, scribed for Les Russell MD on 10/11/17 at 0751 . Lower Extremity - HPI Summary HPI Summary: This patient is a 57 year old M presenting to [facility] complains of right foot pain since early May 2017, worse since this last week. The pain is described as sharp, burning, stabbing. The patient rates the pain 3/10 in severity. Symptoms aggravated by nothing. Symptoms alleviated by nothing. Reports right foot swelling, right foot erythema, cut on right middle toe. Denies right foot trauma. Has been on antibiotics since May 2017. Finished his last round 3 weeks ago. Denies hx of MRSA. - History of Current Complaint Chief Complaint: EDExtremityLower Stated Complaint: RT FOOT PAIN Time Seen by Provider: 10/11/17 07:27 Hx Obtained From: Patient Onset/Duration: Still Present - Since May 2017 Severity Currently: Mild Pain Intensity: 3 Pain Scale Used: 0-10 Numeric Timing: Constant Character Of Pain: Sharp, Burning Associated Signs And Symptoms: Positive: Negative - Right foot trauma, Other - right foot swelling, right foot erythema, cut on right middle toe Aggravating Factor(s): Nothing Alleviating Factor(s): Nothing - Allergies/Home Medications Allergies/Adverse Reactions: Allergies Allergy/AdvReac Type Severity Reaction Status Date / Time clavulanic acid Allergy Rash Verified 10/11/17 07:35 tobramycin Allergy Swelling Verified 10/11/17 07:35 PMH/Surg Hx/FS Hx/Imm Hx Previously Healthy: No Endocrine/Hematology History: Denies: Hx Diabetes, Hx Systemic Lupus Erythematosus, Hx Thyroid Disease Cardiovascular History: Reports: Hx Hypertension - LVH Denies: Hx Congestive Heart Failure Respiratory History: Reports: Hx Asthma Denies: Hx Chronic Obstructive Pulmonary Disease (COPD) GI History: Reports: Hx Gastroesophageal Reflux Disease Denies: Hx Ulcer History: Denies: Hx Dialysis, Hx Renal Disease Musculoskeletal History: Denies: Hx Rheumatoid Arthritis, Hx Osteoporosis, Hx Scoliosis Sensory History: Reports: Hx Contacts or Glasses Opthamlomology History: Reports: Hx Contacts or Glasses Neurological History: Reports: Hx Headaches Denies: Other Neuro Impairments/Disorders Psychiatric History: Reports: Hx Depression - Cancer History Cancer Type, Location and Year: LYMPHOMA 2016 - Surgical History Surgery Procedure, Year, and Place: Acromioplasty - Immunization History Date of Tetanus Vaccine: unknown Date of Influenza Vaccine: 2014 Infectious Disease History: No Infectious Disease History: Denies: Hx Clostridium Difficile, Hx Hepatitis, Hx Human Immunodeficiency Virus (HIV), Hx of Known/Suspected MRSA, Hx Shingles, Hx Tuberculosis, Hx Known/ Suspected VRE, Hx Known/Suspected VRSA, History Other Infectious Disease, Traveled Outside the [place] in Last 30 Days - Family History Known Family History: Positive: Cardiac Disease, Hypertension Negative: Diabetes - Social History Alcohol Use: Weekly Hx Substance Use: Yes Substance Use Type: Reports: None Hx Tobacco Use: Yes Smoking Status (MU): Former Smoker Type: Cigarettes Review of Systems Musculoskeletal: Negative - Right foot trauma Positive: Other - right foot pain, right foot swelling, right foot erythema Positive: Other - cut on right middle toe All Other Systems Reviewed And Are Negative: Yes Physical Exam - Summary Physical Exam Summary: General: well-appearing, no pain distress Skin: warm, color reflects adequate perfusion, dry Head: normal Eyes: EOMI, MARGARET ENT: normal Neck: supple, nontender Respiratory: CTA, breath sounds present Cardiovascular: RRR Abdomen: soft, nontender Bowel: present Musculoskeletal: Erythema in all 5 toes, is all blanching. Normal capillary refill, good sensation, no drainage. Split open skin on the dorsum of the 3rd toe. Neurological: normal, sensory/motor intact, A&O x3 Psychological: affect/mood appropriate Triage Information Reviewed: Yes Vital Signs On Initial Exam: Initial Vitals Temp Pulse Resp BP Pulse Ox 97.0 F 72 18 124/81 96 10/11/17 07:26 10/11/17 07:26 10/11/17 07:26 10/11/17 07:26 10/11/17 07:26 Vital Signs Reviewed: Yes Diagnostics - Vital Signs Vital Signs Temp Pulse Resp BP Pulse Ox 10/11/17 07:26 97.0 F 72 18 124/81 96 - Laboratory Lab Statement: Any lab studies that have been ordered have been reviewed, and results considered in the medical decision making process. - Radiology Right foot Radiology Interpretation Completed By: Radiologist - SOFT TISSUE SWELLING, NO SPECIFIC EVIDENCE FOR OSTEOMYELITIS. IF THE CLINICAL INDEX OF SUSPICION IS HIGH FOR OSTEOMYELITIS CONSIDER MR IMAGING WITHOUT CONTRAST FOR FURTHER EVALUATION. ED physician has reviewed this report. Re-Evaluation - Re-Evaluation First Eval Re-Evaluation Time: 08:46 Change: Unchanged Comment: Patient given x-ray report. Discussed discharge plan. Is agreeable to discharge. Lower Extremity Course/Dx - Course Course Of Treatment: Medications reviewed. Allergies noted. RX KEFLEX, MUPIROCIN AND TINACTIN POWDER. DISCUSSED KEEPING THE FOOT DRY AND THE NEED FOR CLOSE FOLLOW UP WITH EITHER PMD, PODIATRY OR WOUND CARE CLINIC. RETURN TO [facility] IF WORSE. - Diagnoses Provider Diagnoses: Cellulitis of right foot Discharge - Sign-Out/Discharge Documenting (check all that apply): Discharge/Admit/Transfer - Discharge Plan Condition: Stable Disposition: HOME Prescriptions: Cephalexin CAP* [Keflex CAP*] 500 mg PO QID #40 cap Mupirocin 2% OINT* [Bactroban 2 % Oint*] 1 applic TOPICAL BID #30 gm Tolnaftate [Tinactin] 1 applic TOPICAL BID #108 gm Patient Education Materials: Cellulitis (ED) Referrals: Shemar Thacker NP [Primary Care Provider] - Additional Instructions: FOLLOW UP WITH YOUR DOCTOR. CONSIDER FOLLOW UP WITH PODIATRY AND/OR THE WOUND CARE CLINIC. RETURN TO THE EMERGENCY DEPARTMENT FOR ANY WORSENING OF YOUR CONDITION; FEVER, SPREAD OF INFECTION, YOU FEEL ILL OR QUESTIONS OR CONCERNS. - Billing Disposition and Condition Condition: STABLE Disposition: HOME The documentation as recorded by the Edy dowling Tiffany accurately reflects the service I personally performed and the decisions made by me, Les Russell MD.
[2017-10-11 08:56] VITALS: BP 126/79
== END 2017-10-11 08:55 | disposition home or self-care (01) ==
LOC: ED 07:17
DX: L03.115 Cellulitis of right lower limb (principal); Z85.72 Personal history of non-Hodgkin lymphomas; I10 Essential (primary) hypertension
CPT/HCPCS: 99282

== ENCOUNTER 2018-03-15 19:31 | Emergency (ER) | payer BC, OTHER ==
--- NOTE | 2018-03-15 20:07 | ED ---
Upper Extremity Pain - HPI Summary HPI Summary: 58 year male presents with left shoulder pain for the past couple days. 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 He admits to tingling in his left arm to his left hand. He denies any weakness. He states he feels better when he keeps his shoulder in to his chest. States lidocaine patch has helped with pain. He denies any neck pain. He denies any previous trauma to the area. He has full range of motion with pain. no chest pain or SOB. is right handed. no jaw pain. - History of Current Complaint Chief Complaint: EDExtremityUpper Stated Complaint: LT SHOULDER PAIN Time Seen by Provider: 03/15/18 19:50 - Allergies/Home Medications Allergies/Adverse Reactions: Allergies Allergy/AdvReac Type Severity Reaction Status Date / Time clavulanic acid Allergy Rash Verified 03/15/18 19:41 tobramycin Allergy Swelling Verified 03/15/18 19:41 PMH/Surg Hx/FS Hx/Imm Hx Endocrine/Hematology History: Denies: Hx Diabetes, Hx Systemic Lupus Erythematosus, Hx Thyroid Disease Cardiovascular History: Reports: Hx Hypertension - LVH Denies: Hx Congestive Heart Failure Respiratory History: Reports: Hx Asthma Denies: Hx Chronic Obstructive Pulmonary Disease (COPD) GI History: Reports: Hx Gastroesophageal Reflux Disease Denies: Hx Ulcer History: Denies: Hx Dialysis, Hx Renal Disease Musculoskeletal History: Denies: Hx Rheumatoid Arthritis, Hx Osteoporosis, Hx Scoliosis Sensory History: Reports: Hx Contacts or Glasses Opthamlomology History: Reports: Hx Contacts or Glasses Neurological History: Reports: Hx Headaches Denies: Other Neuro Impairments/Disorders Psychiatric History: Reports: Hx Depression - Cancer History Cancer Type, Location and Year: LYMPHOMA 2016 - Surgical History Surgery Procedure, Year, and Place: Acromioplasty - Immunization History Date of Tetanus Vaccine: unknown Date of Influenza Vaccine: 2014 Infectious Disease History: No Infectious Disease History: Denies: Hx Clostridium Difficile, Hx Hepatitis, Hx Human Immunodeficiency Virus (HIV), Hx of Known/Suspected MRSA, Hx Shingles, Hx Tuberculosis, Hx Known/ Suspected VRE, Hx Known/Suspected VRSA, History Other Infectious Disease, Traveled Outside the [place] in Last 30 Days - Family History Known Family History: Positive: Cardiac Disease, Hypertension Negative: Diabetes - Social History Alcohol Use: Weekly Hx Substance Use: Yes Substance Use Type: Reports: None Hx Tobacco Use: Yes Smoking Status (MU): Former Smoker Type: Cigarettes Review of Systems Negative: Fever Negative: Chest Pain Negative: Shortness Of Breath Positive: Myalgia - left shoulder pain All Other Systems Reviewed And Are Negative: Yes Physical Exam Triage Information Reviewed: Yes Vital Signs On Initial Exam: Initial Vitals Temp Pulse Resp BP Pulse Ox 98.0 F 104 16 153/72 97 03/15/18 19:36 03/15/18 19:36 03/15/18 19:36 03/15/18 19:36 03/15/18 19:36 Vital Signs Reviewed: Yes Appearance: Positive: Well-Appearing Skin: Positive: Warm, Dry Head/Face: Positive: Normal Head/Face Inspection Eyes: Positive: Normal, Conjunctiva Clear ENT: Positive: Pharynx normal Respiratory/Lung Sounds: Positive: Clear to Auscultation, Breath Sounds Present Cardiovascular: Positive: Normal, RRR Musculoskeletal: Positive: Strength/ROM Intact - left shoulder with pain, Other - neg drop arm, good pulses, good glass cutter helper strength, tenderness left shoulder Neurological: Positive: Reflexes Intact - biceps Psychiatric: Positive: Normal Diagnostics - Vital Signs Vital Signs Temp Pulse Resp BP Pulse Ox 03/15/18 19:36 98.0 F 104 16 153/72 97 - Laboratory Lab Statement: Any lab studies that have been ordered have been reviewed, and results considered in the medical decision making process. Course/Dx - Course Course Of Treatment: 58 year male presents with left shoulder pain for the past couple days. 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 He admits to tingling in his left arm to his left hand. He denies any weakness. He states he feels better when he keeps his shoulder in to his chest. States lidocaine patch has helped with pain. He denies any neck pain. He denies any previous trauma to the area. He has full range of motion with pain. no chest pain or SOB. is right handed. no jaw pain. on exam has tenderness left shoulder. full ROM with pain. good glass cutter helper strength, biceps reflex intact. discussed with try short course of muscle relaxer and lidocaine patch. gave referral to ortho. patient understand and agrees with plan. - Diagnoses Differential Diagnosis/HQI/PQRI: Positive: Fracture (Closed), Strain, Sprain Provider Diagnoses: Left shoulder pain Discharge - Sign-Out/Discharge Documenting (check all that apply): Patient Departure - Discharge Plan Condition: Good Disposition: HOME Prescriptions: Cyclobenzaprine TAB* [Flexeril 10 MG TAB*] 10 mg PO TID PRN #21 tab PRN Reason: Pain Lidocaine PATCH 5%* [Lidoderm 5% Patch*] 1 patch TRANSDERM DAILY #12 patch Patient Education Materials: Shoulder Pain (ED) Forms: *Work Release Referrals: Shemar Thacker NP [Primary Care Provider] - Everette Diaz MD [Medical Doctor] - Additional Instructions: Take muscle relaxers three times a day Apply lidocaine patches to area for up to 12 hours in one 24 hour period Use ibuprofen or Tylenol for pain every 6 hours ice/heat area, move as much as possible after couple days of rest Follow up with ortho Return to ED if develop any new or worsening symptoms - Billing Disposition and Condition Condition: GOOD Disposition: Home
[2018-03-15 20:27] VITALS: BP 162/80
== END 2018-03-15 20:27 | disposition home or self-care (01) ==
LOC: ED 19:31
DX: M25.512 Pain in left shoulder (principal); Z87.891 Personal history of nicotine dependence; I10 Essential (primary) hypertension
CPT/HCPCS: 99282

== ENCOUNTER 2018-03-22 10:33 | Emergency (ER) | payer BC, OTHER ==
[2018-03-22 10:57] VITALS: BP 153/96
--- NOTE | 2018-03-22 12:50 | UC ---
Skin Complaint HPI - HPI Summary HPI Summary: 58-year-old male comes in with some swelling and redness and drainage of the right distal foot. Patient's had infection in this area before. Everything improved about 5 or 6 months ago with antibiotics. Symptoms started returning in the last 1 month. She reports the Keflex makes it better. He has follow-up with the wound clinic that he plans on setting up. He is not sure if he has had fevers. - History of Current Complaint Chief Complaint: UCLowerExtremity Time Seen by Provider: 03/22/18 12:37 Stated Complaint: SWOLLEN FOOT Pain Intensity: 3 - Allergy/Home Medications Allergies/Adverse Reactions: Allergies Allergy/AdvReac Type Severity Reaction Status Date / Time clavulanic acid Allergy Rash Verified 03/22/18 10:57 tobramycin Allergy Swelling Verified 03/22/18 10:57 Review of Systems Constitutional: Other - SEE HPI Skin: Other - SEE HPI Eyes: Negative ENT: Negative Respiratory: Negative Cardiovascular: Negative Gastrointestinal: Negative Motor: Negative Neurovascular: Negative Musculoskeletal: Negative Neurological: Negative Psychological: Negative Is Patient Immunocompromised?: No All Other Systems Reviewed And Are Negative: Yes PMH/Surg Hx/FS Hx/Imm Hx Cancer History: Other - LYMPHOMA Other Cancer History: . - Surgical History Surgical History: Yes Surgery Procedure, Year, and Place: Acromioplasty - Family History Known Family History: Positive: Cardiac Disease, Hypertension Negative: Diabetes - Social History Alcohol Use: Weekly Substance Use Type: None Smoking Status (MU): Former Smoker Type: Cigarettes - Immunization History Most Recent Influenza Vaccination: 2015 Physical Exam Triage Information Reviewed: Yes Appearance: Well-Appearing, No Pain Distress, Well-Nourished Vital Signs: Initial Vital Signs Temp 98.8 F 03/22/18 10:53 Pulse 81 03/22/18 10:53 Resp 18 03/22/18 10:53 BP 153/96 03/22/18 10:53 Pulse Ox 98 03/22/18 10:53 Vital Signs Reviewed: Yes Eye Exam: Normal Eyes: Positive: Conjunctiva Clear Neck exam: Normal Neck: Positive: Supple Respiratory: Positive: No respiratory distress Cardiovascular: Positive: RRR Musculoskeletal: Positive: Strength Intact, ROM Intact, Edema @ - Distal right foot Neurological: Positive: Alert, Muscle Tone Normal Psychological Exam: Normal Psychological: Positive: Age Appropriate Behavior Skin: Positive: Other - Distal right foot has some swelling and erythema there is some crusting in between the smaller toes no drainage at this time there is no streaking. Course/Dx - Course Course Of Treatment: I discussed getting an x-ray with the patient. He declined at this time. The plan is to be on Keflex for 14 days as continue the mupirocin and follow-up for care clinic. Get reevaluated in the emergency department if worse or here if not improving. - Diagnoses Provider Diagnoses: CELLULITIS RIGHT FOOT Discharge - Sign-Out/Discharge Documenting (check all that apply): Patient Departure All imaging exams completed and their final reports reviewed: No Studies - Discharge Plan Condition: Stable Disposition: HOME Prescriptions: Cephalexin CAP* [Keflex CAP*] 500 mg PO QID #56 cap Mupirocin 1 applic TOPICAL TID #22 gm Patient Education Materials: Cellulitis (ED) Referrals: Shemar Thacker NP [Primary Care Provider] - Additional Instructions: FOLLOW UP WITH YOUR DOCTOR IF NOT COMPLETELY IMPROVED. GO TO THE EMERGENCY DEPARTMENT FOR ANY WORSENING OF YOUR CONDITION; PAIN, FEVER , SPREAD OF INFECTION, YOU FEEL ILL OR QUESTIONS OR CONCERNS. - Billing Disposition and Condition Condition: STABLE Disposition: Home
== END 2018-03-22 12:54 | disposition home or self-care (01) ==
LOC: UCEAST 10:33
DX: L03.115 Cellulitis of right lower limb (principal); Z85.72 Personal history of non-Hodgkin lymphomas; Z87.891 Personal history of nicotine dependence; Z88.1 Allergy status to other antibiotic agents
CPT/HCPCS: 99212; G0463

== ENCOUNTER 2018-04-06 06:33 | Emergency (ER) | payer BC, OTHER ==
--- OUTSIDE RECORDS SUMMARY | 2018-04-06 06:43 | XMS REPORT ---
:1960 External Reference #:[id number] Author Organization [facility] Address [address] [place] [address] [place] [address] Phone [phone] Care Team Providers Name Role Phone Maisha Us MD Primary Care Physician Unavailable Payers Type Date Identification Numbers Payment Provider Subscriber Commercial Effective: Policy Number: BS Facets Augustine Benitez 2012 [id number] PayID: [id number] [address] [address] [place] [address] Problems Date Description Provider Status Onset: 06/07/2015 Chronic lymphoid leukemia, Arcadio Evans M.D.,FACP Active disease Note: on FNA node neck Onset: 08/03/2012 FH: Cardiovascular disease Coco Stone M.D. Active Onset: 08/03/2012 Mixed hyperlipidemia Coco Stone M.D. Active Onset: 08/03/2012 Obesity Coco Stone M.D. Active Onset: 08/03/2012 Benign essential hypertension Coco Stone M.D. Active Onset: 08/03/2012 Testicular hypofunction Coco Stone M.D. Active Onset: 08/03/2012 Diarrhea Coco Stone M.D. 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 [employer] Cigarette Use cigar once per month ETOH Use Currently consumes alcohol ETOH Use consumes 3 beers per week ETOH Use former high 8 per day Recreational Drug Use Denies Drug Use Smoking Patient is a former smoker quit 1982 - less than 1/2 ppd x 1.5 yrs Daily Caffeine Consumes on average 5-10 cups of hot tea per day Exercise Type/Frequency Exercises regularly Exercise Type/Frequency walks dog 3-4 x per week Allergies, Adverse Reactions, Alerts Date Description Reaction Status Severity Comments 08/03/2012 Tobramycin Contact dermatitis, Redness, active Swelling 08/03/2012 Clavulanic Acid Nausea and Vomiting active Medications Medication Date Status Form Strength Qnty SIG Indications Ordering Provider Methylprednisolon 03/25 Active TBPK 4mg 21uni medrol M54.12 Josh ts dosepak F take as spencer Elliott MD Metoprolol 03/06 Active Tablets ER 50mg 30tab Take 1 Shemar Succinate ER 24HR s Tablet By MARY Thacker Mouth Every Day Slow Magnesium 10/[address] 70-117mg 30tab 1 by mouth Shemar Chloride/ Calcium s every day MAYR Thacker Vitamin D3 Ultra 10/27 Active Capsules 5000Unit 1 by mouth Shemar Strength /2016 every day MARY Thacker Celexa 07/19 Active Tablets 40mg 30tab Take 1 F41.1 Shemar s Tablet By MARY Thacker Mouth Every Day Hydrochlorothiazi 10/03 Active Capsules 12.5mg 30cap Take 1 I10 Shemar s Capsule By MARY Thacker Mouth Every Day as Needed Gemfibrozil 03/03 Active Tablets 600mg 180ta Take 1 E78.2 Shemar bs Tablet By MARY Thacker Mouth Two Times Daily Proair HFA 12/27 Active Aerosol 108(90Bas 1unit 2 puffs po Coco /2013 e) s q4h prkevin Kim/Christine Nguyen Lidoderm 00 Active Patches 5% 30uni topical 12 Coco / ts hours prrachel Stone M.D. Fluticasone Active Suspension 50mcg/Act 1unit 2 spray Shemar Propionate / s each MARY Thacker nostril daily as needed Ibuprofen Active Tablets 200mg as needed 0000 Lisinopril Active Tablets 10mg 90tab Take 1 Shemar s Tablet By MARY Thacker Mouth Every Day Cephalexin 05/21 Hx Tablets 500mg 56tab take one L03.115 Shemar s tablet Kedar, TEENAGE PROGRAM DIRECTOR - every 6 12/28 hours for 14 days Cephalexin 10/27 Hx Tablets 500mg 16tab take one L03.115 Shemar s tablet Kedar, TEENAGE PROGRAM DIRECTOR - every 6 12/11 hours for 4 more days Mobic 04/03 Hx Tablets 7.5mg 30tab one tablet M46.1 Shemar s once Kedar, TEENAGE PROGRAM DIRECTOR - daily. October 10 take once daily if one is ineffectiv e. With food Methocarbamol 04/03 Hx Tablets 750mg 60tab take 1 M46.1 s tablet Kedar, TEENAGE PROGRAM DIRECTOR - every six 10/27 hours as needed for pain. may take second tablet if first not effective. Medrol 03/24 Hx TBPK 4mg 21uni as M46.1 ts directed Kedar, TEENAGE PROGRAM DIRECTOR - on package 03/25 Tramadol HCL 03/24 Hx Tablets 50mg 30tab 1-2 M46.1 s tablets Kedar, TEENAGE PROGRAM DIRECTOR - every 8 04/02 hours needed for pain. Keflex 12/24 Hx Capsules 500mg 10cap 1 by mouth L03.116 Nimesh E. s twice a Inna, - day M.D. 03/24 Doxycycline 10/24 Hx Capsules 100mg 28cap 1 cap by J32.1 Marcos Hyclate s mouth D. - twice a , 03/24 day with M.D. food Astelin 09/03 Hx Solution 137mcg/Sp 30uni Use 2 ray ts Sprays In Chase, - Nose Two M.D. 03/24 Daily Doxycycline 07/23 Hx Capsules 100mg 90cap 1 cap by J32.1 Marcos Hyclate s mouth D. - twice a [place], 09/10 day with M.D. food Biaxin 07/19 Hx Tablets 250mg 20tab 1 by mouth J01.90 s twice a [place], - day M.D. 08/03 Astelin 07/19 Hx Solution 137mcg/Sp 1unit 2 sprays J01.90 ray s 2x per day James Stone M.D. 08/03 Oxygen 07/19 Hx Misc 1unit 2 l nc at G47.33 s bedtime Chase, - 414.9 dx M.D. 03/24 Azithromycin 10/27 Hx Tablets 250mg 6tabs 2 tab by mouth day Chase, - 1 then 1 M.D. 06/07 tab by mouth day 2-5 Flonase 09/09 Hx Suspension 50mcg/Act 16uni Inhale 2 ts Sprays Chase, - Into Each M.D. 02/12 Nostril One Time Daily as Needed Celexa 06/30 Hx Tablets 20mg 90tab take 1 F41.1 s tablet by Chase, - mouth one M.D. 07/19 time daily /2015 Penicillin V 01/09 Hx Tablets 500mg 28tab qid for 7 Arcadio s days James Montes M.D.,[facility] 01/16 Omeprazole 10/[address] 20mg 90cap Take 1 s Capsule By MARY Thacker - Mouth 05/18 Every Day /2016 Fish Oil Hx Capsules 1000mg 2 po qd - 03/03 Multi Vitamin Hx Tablets 1 po qd Unknown - 02/16 Slow-Mag Hx Tablets DR 1 po qd - 03/24 Folic Acid Hx Tablets 400mcg 1 po qd - 07/[address] 40mg 90cap 1 po qd Coco s James Stone M.D. 10/01 Proair HFA Hx Aerosol 108(90Bas 1unit 2 puffs po Unknown / e) mcg/ac s q4h prn - 12/27 Sudafed Hx Tablets 30mg 20tab 1 po bid Unknown / s hs - 06/30 B Complex /00 Hx Tablets every day Unknown / - 03/24 Acetaminophen-Cod Hx Tablets 300-30mg Unknown eine #3 / - 04/27 Amoxicillin 00/ Hx Capsules 500mg Unknown /0000 - 06/07 Metoprolol 00 Hx Tablets ER 25mg 90tab take 1 Shemar Succinate ER /0000 24HR s tablet by Kedar [employer]EENAGE PROGRAM DIRECTOR - mouth 03/06 Bupropion HCL ER 00/ Hx Tablets ER 300mg 90tab Take 1 Shemar (XL) /0000 24HR s Tablet By Kedar TEENAGE PROGRAM DIRECTOR - Mouth 10/27 Immunizations CPT Code Status Date Vaccine Lot # [id number] Given 08/03/2015 Pneumonia Vaccine [id number] Given 08/03/2015 Pneumonia Vaccine [id number] 99995 Given 03/12/2015 Influenza Virus Vaccine, Quadrivalent, Split, Preservative Free 23735 Given 03/03/2013 Flu Vaccine Split Virus Preservative Free For [id number] Indiv [id number] Older 98543 Given 08/03/2012 Tdap - Tetanus/Diptheria/Acellular Pertussis [id number] Vital Signs Date Vital Result Comment 03/25/2018 Weight 259.75 lb Heart Rate 72 /min BP Systolic 168 mmHg BP Diastolic 98 mmHg Respiratory Rate 16 /min Body Temperature 98.1 F 05/21/2017 Height 70 inches 5'10" Weight 255.00 lb Heart Rate 84 /min BP Systolic Sitting 116 mmHg BP Diastolic Sitting 74 mmHg Body Temperature 99.2 F O2 % BldC Oximetry 97 % BMI (Body Mass Index) 36.6 kg/m2 10/27/2016 Weight 259.50 lb Heart Rate 96 /min BP Systolic 140 mmHg BP Diastolic 70 mmHg BP Systolic Recheck 136 mmHg BP Diastolic Recheck 88 mmHg Body Temperature 97.8 F O2 % BldC Oximetry 96 % 04/03/2016 Weight 244.00 lb Heart Rate 80 /min BP Systolic Sitting 128 mmHg BP Diastolic Sitting 84 mmHg Respiratory Rate 15 /min Body Temperature 97.9 F O2 % BldC Oximetry 98 % 03/24/2016 Weight 252.00 lb Heart Rate 78 /min BP Systolic Sitting 146 mmHg BP Diastolic Sitting 84 mmHg Respiratory Rate 15 /min Body Temperature 98.4 F O2 % BldC Oximetry 98 % 12/25/2015 Height 71 inches 5'11" Weight 260.25 lb Heart Rate 80 /min BP Systolic 114 mmHg BP Diastolic 68 mmHg Body Temperature 98.7 F O2 % BldC Oximetry 98 % BMI (Body Mass Index) 36.3 kg/m2 09/19/2015 Height 71 inches 5'11" Weight 260.00 lb Heart Rate 75 /min BP Systolic 138 mmHg BP Diastolic 75 mmHg BMI (Body Mass Index) 36.3 kg/m2 09/12/2015 Height 71 inches 5'11" Weight 260.00 lb Heart Rate 76 /min BP Systolic Sitting 138 mmHg BP Diastolic Sitting 80 mmHg Respiratory Rate 14 /min Body Temperature 97.1 F BMI (Body Mass Index) 36.3 kg/m2 08/03/2015 Height 71 inches 5'11" Weight 265.50 lb Heart Rate 66 /min BP Systolic 122 mmHg BP Diastolic 84 mmHg Body Temperature 97.3 F O2 % BldC Oximetry 96 % BMI (Body Mass Index) 37.0 kg/m2 07/23/2015 Height 71 inches 5'11" Weight 259.00 lb Heart Rate 72 /min BP Systolic Sitting 142 mmHg BP Diastolic Sitting 88 mmHg Respiratory Rate 14 /min Body Temperature 97.0 F O2 % BldC Oximetry 96 % BMI (Body Mass Index) 36.1 kg/m2 07/19/2015 Weight 260.50 lb Heart Rate 78 /min BP Systolic Sitting 119 mmHg BP Diastolic Sitting 72 mmHg Body Temperature 98.1 F O2 % BldC Oximetry 93 % 10/12/2014 Height 70 inches 5'10" Weight 270.00 lb Heart Rate 66 /min BP Systolic 94 mmHg BP Diastolic 62 mmHg Pain Level 3 BMI (Body Mass Index) 38.7 kg/m2 10/03/2014 Height 70 inches 5'10" Weight 270.00 lb Heart Rate 78 /min BP Systolic Sitting 142 mmHg BP Diastolic Sitting 84 mmHg O2 % BldC Oximetry 96 % BMI (Body Mass Index) 38.7 kg/m2 04/19/2014 Height 70 inches 5'10" Weight 260.00 lb Heart Rate 105 /min BP Systolic 154 mmHg BP Diastolic 100 mmHg BMI (Body Mass Index) 37.3 kg/m2 04/06/2014 Height 70 inches 5'10" Heart Rate 82 /min BP Systolic 140 mmHg BP Diastolic 102 mmHg 03/01/2014 Height 70 inches 5'10" Heart Rate 79 /min BP Systolic 131 mmHg BP Diastolic 85 mmHg 02/13/2014 Height 70 inches 5'10" Weight 260.00 lb Heart Rate 70 /min BP Systolic 96 mmHg BP Diastolic 60 mmHg BMI (Body Mass Index) 37.3 kg/m2 06/30/2013 Weight 260.25 lb Heart Rate 75 /min BP Systolic Sitting 126 mmHg BP Diastolic Sitting 80 mmHg 03/03/2013 Height 70.75 inches 5'10.75" Weight 253.50 lb Heart Rate 79 /min BP Systolic Sitting 153 mmHg BP Diastolic Sitting 97 mmHg BMI (Body Mass Index) 35.6 kg/m2 08/03/2012 Height 70.25 inches 5'10.25" Weight 255.00 lb Heart Rate 79 /min BP Systolic Sitting 121 mmHg BP Diastolic Sitting 82 mmHg BMI (Body Mass Index) 36.3 kg/m2 Results Test Date Test Result H/L Range Note CBC Auto Diff 05/21/2017 White Blood Count 12.0 10^3/uL High 3.5-10.8 Red Blood Count 3.96 10^6/uL Low 4.0-5.4 Hemoglobin 12.7 g/dL Low 14.0-18.0 Hematocrit 38 % Low 42-52 Mean Corpuscular Volume 95 fL High 80-94 Mean Corpuscular Hemoglobin 32 pg High 27-31 Mean Corpuscular HGB Conc 34 g/dL 31-36 Red Cell Distribution Width 14 % 10.5-15 Platelet Count 439 10^3/uL 150-450 Mean Platelet Volume 7 um3 Low 7.4-10.4 Abs Neutrophils 8.6 10^3/uL High 1.5-7.7 Abs Lymphocytes 2.1 10^3/uL 1.0-4.8 Abs Monocytes 1.1 10^3/uL High 0-0.8 Abs Eosinophils 0.2 10^3/uL 0-0.6 Abs Basophils 0 10^3/uL 0-0.2 Abs Nucleated RBC 0 10^3/uL Granulocyte % 71.3 % 38-83 Lymphocyte % 17.6 % Low 25-47 Monocyte % 9.0 % 1-9 Eosinophil % 1.7 % 0-6 Basophil % 0.4 % 0-2 Nucleated Red Blood Cells % 0 Comp Metabolic Panel 05/21/2017 Sodium 132 mmol/L Low 133-145 Potassium 4.2 mmol/L 3.5-5.0 Chloride 100 mmol/L Low 101-111 Co2 Carbon Dioxide 26 mmol/L 22-32 Anion Gap 6 mmol/L 2-11 Glucose 109 mg/dL High 70-100 Blood Urea Nitrogen 12 mg/dL 6-24 Creatinine 0.79 mg/dL 0.67-1.17 BUN/Creatinine Ratio 15.2 8-20 Calcium 8.8 mg/dL 8.6-10.3 Total Protein 7.4 g/dL 6.4-8.9 Albumin 3.4 g/dL 3.2-5.2 Globulin 4.0 g/dL 2-4 Albumin/Globulin Ratio 0.9 Low 1-3 Total Bilirubin 0.50 mg/dL 0.2-1.0 Alkaline Phosphatase 69 U/L 34-104 Alt 52 U/L 7-52 Ast 54 U/L High 13-39 Egfr Non- 101.1 >60 Egfr 130.0 >60 1 Laboratory test finding 05/21/2017 Blood Culture SEE RESULT BELOW 2 Wound Culture/Sensi 10/22/2016 Wound/Misc SEE RESULT BELOW 3 Culture-Gram Stain Comp Metabolic Panel 10/21/2016 Sodium 129 mmol/L Low 133-145 4 Chloride 95 mmol/L Low 101-111 4 Co2 Carbon Dioxide 23 mmol/L 22-32 4 Glucose 93 mg/dL 70-100 4 Blood Urea Nitrogen 16 mg/dL 6-24 4 Creatinine 0.94 mg/dL 0.67-1.17 4 BUN/Creatinine Ratio 17.0 8-20 4 Calcium 9.3 mg/dL 8.6-10.3 4 Total Protein 7.3 g/dL 6.4-8.9 4 Albumin 4.2 g/dL 3.2-5.2 4 Globulin 3.1 g/dL 2-4 4 Albumin/Globulin Ratio 1.4 1-3 4 Total Bilirubin 0.50 mg/dL 0.2-1.0 4 Alkaline Phosphatase 69 U/L 34-104 4 Alt 39 U/L 7-52 4 Ast 34 U/L 13-39 4 Egfr Non- 83.0 >60 4 Egfr 106.8 >60 4, 5 Potassium 6.9 mmol/L High 3.5-5.0 4, 6 Anion Gap 11 mmol/L 2-11 4 Laboratory test finding 10/12/2016 Magnesium 2.0 mg/dL 1.9-2.7 Comp Metabolic Panel 10/12/2016 Sodium 128 mmol/L Low 133-145 Chloride 93 mmol/L Low 101-111 Co2 Carbon Dioxide 25 mmol/L 22-32 Glucose 92 mg/dL 70-100 Blood Urea Nitrogen 18 mg/dL 6-24 Creatinine 1.00 mg/dL 0.67-1.17 BUN/Creatinine Ratio 18.0 8-20 Calcium 9.3 mg/dL 8.6-10.3 7 Total Protein 7.2 g/dL 6.4-8.9 Albumin 4.1 g/dL 3.2-5.2 Globulin 3.1 g/dL 2-4 Albumin/Globulin Ratio 1.3 1-3 Total Bilirubin 0.40 mg/dL 0.2-1.0 Alkaline Phosphatase 86 U/L 34-104 Alt 55 U/L High 7-52 Egfr Non- 77.3 >60 Egfr 99.4 >60 8 Potassium 4.0 mmol/L 3.5-5.0 9 Anion Gap 10 mmol/L 2-11 Ast 46 U/L High 13-39 10 CBC Auto Diff 10/12/2016 White Blood Count 11.4 10^3/uL High 3.5-10.8 Red Blood Count 4.40 10^6/uL 4.0-5.4 Hemoglobin 14.3 g/dL 14.0-18.0 Hematocrit 42 % 42-52 Mean Corpuscular Volume 94 fL 80-94 Mean Corpuscular Hemoglobin 33 pg High 27-31 Mean Corpuscular HGB Conc 34 g/dL 31-36 Red Cell Distribution Width 13 % 10.5-15 Platelet Count 368 10^3/uL 150-450 Mean Platelet Volume 7 um3 Low 7.4-10.4 Abs Neutrophils 7.4 10^3/uL 1.5-7.7 Abs Lymphocytes 2.9 10^3/uL 1.0-4.8 Abs Monocytes 0.8 10^3/uL 0-0.8 Abs Eosinophils 0.2 10^3/uL 0-0.6 Abs Basophils 0.1 10^3/uL 0-0.2 Abs Nucleated RBC 0.01 10^3/uL Granulocyte % 65.2 % 38-83 Lymphocyte % 25.9 % 25-47 Monocyte % 6.7 % 1-9 Eosinophil % 1.3 % 0-6 Basophil % 0.9 % 0-2 Nucleated Red Blood Cells % 0.1 Laboratory test finding 09/03/2016 LDL Cholesterol Direct 53 mg/dL 11 Comp Metabolic Panel 09/03/2016 Sodium 134 mmol/L 133-145 Potassium 3.9 mmol/L 3.5-5.0 Chloride 99 mmol/L Low 101-111 Co2 Carbon Dioxide 29 mmol/L 22-32 Anion Gap 6 mmol/L 2-11 Glucose 88 mg/dL 70-100 Blood Urea Nitrogen 18 mg/dL 6-24 Creatinine 1.04 mg/dL 0.67-1.17 BUN/Creatinine Ratio 17.3 8-20 Calcium 9.3 mg/dL 8.6-10.3 Total Protein 7.1 g/dL 6.4-8.9 Albumin 4.1 g/dL 3.2-5.2 Globulin 3.0 g/dL 2-4 Albumin/Globulin Ratio 1.4 1-3 Total Bilirubin 0.30 mg/dL 0.2-1.0 Alkaline Phosphatase 56 U/L 34-104 Alt 50 U/L 7-52 Ast 36 U/L 13-39 Egfr Non- 73.9 >60 Egfr 95.0 >60 12 Lipid Profile (Trig/Chol/HDL) 09/03/2016 Triglycerides 481 mg/dL 13 Cholesterol 160 mg/dL 14 HDL Cholesterol 34.7 mg/dL 15 LDL Cholesterol (SEE NOTE) mg/dL 16 Anca Panel For Vasculitis 08/03/2015 Myeloperoxidase AB <0.2 U 17 Proteinase 3 AB <0.2 U 18 CBC Auto Diff 08/03/2015 White Blood Count 8.2 10^3/uL 3.5-10.8 Red Blood Count 4.65 10^6/uL 4.0-5.4 Hemoglobin 15.0 g/dL 14.0-18.0 Hematocrit 44 % 42-52 Mean Corpuscular Volume 94 fL 80-94 Mean Corpuscular Hemoglobin 32 pg High 27-31 Mean Corpuscular HGB Conc 34 g/dL 31-36 Red Cell Distribution Width 14 % 10.5-15 Platelet Count 333 10^3/uL 150-450 Mean Platelet Volume 7 um3 Low 7.4-10.4 Abs Neutrophils 4.4 10^3/uL 1.5-7.7 Abs Lymphocytes 2.9 10^3/uL 1.0-4.8 Abs Monocytes 0.6 10^3/uL 0-0.8 Abs Eosinophils 0.3 10^3/uL 0-0.6 Abs Basophils 0 10^3/uL 0-0.2 Abs Nucleated RBC 0.02 10^3/uL Granulocyte % 54.1 % 38-83 Lymphocyte % 34.9 % 25-47 Monocyte % 7.6 % 1-9 Eosinophil % 3.1 % 0-6 Basophil % 0.3 % 0-2 Nucleated Red Blood Cells % 0.2 Immunoglobulins Serum Quant 06/19/2015 Immunoglobulin G 2330 mg/dL 767 - 1590 19 Immunoglobulin M 61 mg/dL 37 - 286 Immunoglobulin A 299 mg/dL 61 - 356 Retic Count 06/19/2015 Retic Count 2.8 % High 0.5-1.5 Corrected Retic Count 2.6 % High 0.5-1.5 Maturation Factor Retic 1.0 Retic Index 2.60 Mean Retic Volume 111.5 Immature Retic Fraction 0.49 RBC Retic Count 4.37 10^6/uL Low 4.6-6.2 Hematocrit for Retic CNT 42 % 42-52 CBC Auto Diff 06/19/2015 White Blood Count 10.2 10^3/uL 3.5-10.8 Red Blood Count 4.37 10^6/uL 4.0-5.4 Hemoglobin 14.0 g/dL 14.0-18.0 Hematocrit 42 % 42-52 Mean Corpuscular Volume 95 fL High 80-94 Mean Corpuscular Hemoglobin 32 pg High 27-31 Mean Corpuscular HGB Conc 34 g/dL 31-36 Red Cell Distribution Width 13 % 10.5-15 Platelet Count 374 10^3/uL 150-450 Mean Platelet Volume 7 um3 Low 7.4-10.4 Abs Neutrophils 6.0 10^3/uL 1.5-7.7 Abs Lymphocytes 3.0 10^3/uL 1.0-4.8 Abs Monocytes 0.8 10^3/uL 0-0.8 Abs Eosinophils 0.3 10^3/uL 0-0.6 Abs Basophils 0.2 10^3/uL 0-0.2 Abs Nucleated RBC 0.01 10^3/uL Granulocyte % 58.8 % 38-83 Lymphocyte % 29.0 % 25-47 Monocyte % 8.2 % 1-9 Eosinophil % 2.5 % 0-6 Basophil % 1.5 % 0-2 Nucleated Red Blood Cells % 0.1 Bone Marrow Chromosomes 06/19/2015 BM Result Summary Normal BM Chromosome Specimen Bone Marrow BM Chromosome Source See Comment 20 BM Referral Reason See Comment 21 BM Chromosome Method See Comment 22 BM Chromo Banding Method See Comment 23 BM Cromosome Results See Comment 24 BM Chromosome Interpretation See Comment 25 Released By See Comment 26 CLL ([facility]) 06/19/2015 CLL Specimen Bone Marrow CLL Source See Comment 27 CLL Reason for Referral See Comment 28 CLL Method See Comment 29 CLL Result Table See Comment 30 CLL Result See Comment 31 CLL Result Summary Normal CLL Interpretation See Comment 32 CLL Disclaimer See Comment 33 CLL Released by See Comment 34 Laboratory test finding 06/19/2015 Surgical Pathology SEE RESULT BELOW 35 Leukemia/Lymphoma Flow 06/19/2015 Path Interpretation 2-8 TNP Marker Path Interpret > 16 Marker TNP Path Interpret 9-15 Marker (SEE NOTE) 36 Laboratory test finding 06/19/2015 Surgical Pathology SEE RESULT BELOW 37 Laboratory test finding 06/05/2015 Cytology Non-Head [employer] SEE RESULT BELOW 38 Leukemia/Lymphoma Flow 06/05/2015 Path Interpretation 2-8 TNP Marker Path Interpret > 16 Marker TNP Path Interpret 9-15 Marker (SEE NOTE) 39 Leukemia/Lymphoma Phenot 06/05/2015 Path Interpretation 2-8 Marker TNP Path Interpret > 16 Marker TNP Path Interpret 9-15 Marker (SEE NOTE) 40 Comp Metabolic Panel 05/29/2015 Sodium 133 mmol/L 133-145 Potassium 4.1 mmol/L 3.5-5.0 Chloride 100 mmol/L Low 101-111 Co2 Carbon Dioxide 27 mmol/L 22-32 Anion Gap 6 mmol/L 2-11 Glucose 97 mg/dL 70-100 Blood Urea Nitrogen 10 mg/dL 6-24 Creatinine 0.85 mg/dL 0.67-1.17 BUN/Creatinine Ratio 11.8 8-20 Calcium 9.4 mg/dL 8.6-10.3 Total Protein 8.2 g/dL 6.4-8.9 Albumin 4.1 g/dL 3.2-5.2 Globulin 4.1 g/dL High 2-4 Albumin/Globulin Ratio 1.0 1-3 Total Bilirubin 0.80 mg/dL 0.2-1.0 Alkaline Phosphatase 75 U/L 34-104 Alt 24 U/L 7-52 Ast 21 U/L 13-39 Egfr Non- 93.6 >60 Egfr 120.4 >60 41 Laboratory test finding 05/29/2015 C Reactive Protein 129.00 mg/L High < 5.00 42 CBC Auto Diff 05/29/2015 White Blood Count 14.4 10^3/uL High 3.5-10.8 Red Blood Count 4.41 10^6/uL 4.0-5.4 Hemoglobin 13.9 g/dL Low 14.0-18.0 Hematocrit 42 % 42-52 Mean Corpuscular Volume 95 fL High 80-94 Mean Corpuscular Hemoglobin 31 pg 27-31 Mean Corpuscular HGB Conc 33 g/dL 31-36 Red Cell Distribution Width 13 % 10.5-15 Platelet Count 285 10^3/uL 150-450 Mean Platelet Volume 7 um3 Low 7.4-10.4 Abs Neutrophils 11.1 10^3/uL High 1.5-7.7 Abs Lymphocytes 1.8 10^3/uL 1.0-4.8 Abs Monocytes 1.2 10^3/uL High 0-0.8 Abs Eosinophils 0.3 10^3/uL 0-0.6 Abs Basophils 0.1 10^3/uL 0-0.2 Abs Nucleated RBC 0 10^3/uL Granulocyte % 76.9 % 38-83 Lymphocyte % 12.6 % Low 25-47 Monocyte % 8.0 % 1-9 Eosinophil % 2.0 % 0-6 Basophil % 0.5 % 0-2 Nucleated Red Blood Cells % 0 Comp Metabolic Panel 09/28/2014 Sodium 138 mmol/L 133-145 43 Potassium 4.3 mmol/L 3.5-5.0 43 Chloride 103 mmol/L 101-111 43 Co2 Carbon Dioxide 26 mmol/L 22-32 43 Anion Gap 9 mmol/L 2-11 43 Glucose 98 mg/dL 70-100 43 Blood Urea Nitrogen 12 mg/dL 6-24 43 Creatinine 0.89 mg/dL 0.67-1.17 43 BUN/Creatinine Ratio 13.5 8-20 43 Calcium 9.3 mg/dL 8.6-10.3 43 Total Protein 7.3 g/dL 6.4-8.9 43 Albumin 4.4 g/dL 3.2-5.2 43 Globulin 2.9 g/dL 2-4 43 Albumin/Globulin Ratio 1.5 1-3 43 Total Bilirubin 0.30 mg/dL 0.2-1.0 43 Alkaline Phosphatase 62 U/L 34-104 43 Alt 79 U/L High 7-52 43 Ast 62 U/L High 13-39 43 Egfr Non- 89.1 >60 43 Egfr 114.6 >60 43, 44 Lipid Profile (Trig/Chol/HDL) 09/28/2014 Triglycerides 266 mg/dL 43, 45 Cholesterol 156 mg/dL 43, 46 HDL Cholesterol 40.5 mg/dL 43, 47 LDL Cholesterol 62 mg/dL 43, 48 Comp Metabolic Panel 06/30/2013 Sodium 136 mmol/L 133-145 Potassium 4.4 mmol/L 3.5-5.0 Chloride 101 mmol/L 101-111 Co2 Carbon Dioxide 26.0 mmol/L 22-32 Anion Gap 9.0 mmol/L 2-11 Glucose 98 mg/dL 70-100 Blood Urea Nitrogen 15 mg/dL 6-24 Creatinine 0.90 mg/dL 0.50-1.40 BUN/Creatinine Ratio 16.7 8-20 Calcium 9.4 mg/dL 8.1-9.9 Total Protein 7.1 g/dL 6.2-8.1 Albumin 4.1 g/dL 3.6-5.4 Globulin 3.0 g/dL 2-4 Albumin/Globulin Ratio 1.4 1-3 Total Bilirubin 0.8 mg/dL 0.4-1.5 Alkaline Phosphatase 66 U/L 30-110 Alt 34 U/L 14-54 Ast 30 U/L 12-42 Egfr Non- 88.3 >60 Egfr 113.5 >60 49 Lipid Profile (Trig/Chol/HDL) 06/30/2013 Triglycerides 223 mg/dL High 40- 200 Cholesterol 176 mg/dL Less than 200 HDL Cholesterol 51 mg/dL 40-60 50 Cholesterol/HDL Ratio 3.5 Average 1-4.44 LDL Cholesterol 80.4 Less Than 100 51 CBC Auto Diff 06/30/2013 White Blood Count 9.2 10^3/uL 4.8-10.8 Red Blood Count 4.74 10^6/uL 4.0-5.4 Hemoglobin 15.6 g/dL 14.0-18.0 Hematocrit 43 % 42-52 Mean Corpuscular Volume 92 fL 80-94 Mean Corpuscular Hemoglobin 33 pg High 27-31 Mean Corpuscular HGB Conc 36 g/dL 31-36 Red Cell Distribution Width 13 % 10.5-15 Platelet Count 354 10^3/uL 150-450 Mean Platelet Volume 7 um3 Low 7.4-10.4 Abs Neutrophils 5.4 10^3/uL 1.5-7.7 Abs Lymphocytes 2.7 10^3/uL 1.0-4.8 Abs Monocytes 0.7 10^3/uL 0-0.8 Abs Eosinophils 0.3 10^3/uL 0-0.6 Abs Basophils 0 10^3/uL 0-0.2 Abs Nucleated RBC 0.01 10^3/uL Granulocyte % 59.1 % 38-83 Lymphocyte % 29.9 % 25-47 Monocyte % 7.8 % 1-9 Eosinophil % 2.8 % 0-6 Basophil % 0.4 % 0-2 Nucleated Red Blood Cells % 0.1 Laboratory test finding 06/30/2013 TSH (Thyroid Stimulating 2.45 miu/mL 0.34-5.60 Horm) Laboratory test finding 06/30/2013 PSA Screening 0.636 ng/mL 0-4.000 Laboratory test finding 02/09/2013 PSA Screening 0.5 ng/mL 0-4.0 52 CMP Panel 02/09/2013 Sodium 136 mmol/L 133-145 Potassium 4.3 mmol/L 3.5-5.0 Chloride 103 mmol/L 101-111 Co2 Carbon Dioxide 26.0 mmol/L 22-32 Anion Gap 7.0 mmol/L 2-11 Glucose 95 mg/dL 70-100 Blood Urea Nitrogen 15 mg/dL 6-24 Creatinine 1.00 mg/dL 0.50-1.40 BUN/Creatinine Ratio 15.0 8-20 Calcium 9.3 mg/dL 8.1-9.9 Total Protein 6.5 g/dL 6.2-8.1 Albumin 3.8 g/dL 3.6-5.4 Globulin 2.7 g/dL 2-4 Albumin/Globulin Ratio 1.4 1-3 Total Bilirubin 0.6 mg/dL 0.4-1.5 Alkaline Phosphatase 79 U/L 30-110 Alt 45 U/L 14-54 Ast 37 U/L 12-42 Egfr Non- 78.2 >60 Egfr 100.5 >60 53 Lipid Panel 02/09/2013 Triglycerides 947 mg/dL High 40-200 Cholesterol 208 mg/dL High Less than 200 HDL Cholesterol 33 mg/dL Low 40-60 54 Cholesterol/HDL Ratio 6.3 Average High 1-4.44 LDL Cholesterol (SEE NOTE) Less Than 100 55 1 Because ethnic data is not always readily available, this report includes an eGFR for both -Americans and non- Americans. The National Kidney Disease Education Program (NKDEP) does not endorse the use of the MDRD equation for patients that are not between the ages of 18 and 70, are , have extremes of body size, muscle mass, or nutritional status, or are non- or non-. According to the National Kidney Foundation, irrespective of diagnosis, the stage of the disease is based on the level of kidney function: Stage Description GFR(mL/min/1.73 m(2)) 1 Kidney damage with normal or decreased GFR 90 2 Kidney damage with mild decrease in GFR 60-89 3 Moderate decrease in GFR 30-59 4 Severe decrease in GFR 15-29 5 Kidney failure <15 (or dialysis) 2 SEE RESULT BELOW Name: AUGUSTINE BENITEZ John : [address]: Shemar Thacker NP Acct: [id number] Unit: [id number] AGE: 57 Location: [facility] Re05/21/17 SEX: M Status: REG REF SPEC: [id number] ISSAC: 05/21/[address]: Shemar Thacker NP REQ: [id number] RECD: 05/21/17 STATUS: COMP _ SOURCE: BLOOD,VENO SPDESC: ORDERED: Blood Cult Procedure Result Reported Site Aerobic Culture Bottle Final 05/26/17- 1702 ML No Growth Day 5 Anaerobic Culture Bottle Final 05/26/17- 1702 ML No Growth Day 5 * ML - MAIN LAB (PSC1) . END OF REPORT * ML=Testing performed at Main Lab DEPARTMENT OF PATHOLOGY, [address] [place] [address] Sridhar Leung M.D. Director [facility] # [id number] 3 SEE RESULT BELOW Name: AUGUSTINE BENITEZ : [address]: Michael Fraser MD Acct: [id number] Unit: [id number] AGE: 56 Location: ED Re10/22/16 SEX: M Status: DEP ER SPEC: [id number] ISSAC: 10/22/16-[address]: Sherice Ochoa MD REQ: [id number] RECD: 10/22/16 STATUS: BLANKA GLASS DR: Shemar Thacker TEENAGE PROGRAM DIRECTOR _ SOURCE: FOOT,RIGHT SPDESC: ORDERED: Culture Stain Procedure Result Reported Site Wound/Misc Gram Stain Final 10/23/16- 0751 ML 2+ Epithelial Cells No Neutrophils Observed 1+ Gram Negative Bacilli Wound/Misc Culture Final 10/24/16- 0938 ML Organism 1 STAPHYLOCOCCUS AUREUS Quantity 1+ Organism 2 NORMAL VICENTE Quantity 1+ 1. STAPHYLOCOCCUS AUREUS M.I.C. RX --------- ------ Penicillin >=0.5 R Clindamycin <=0.25 S Erythromycin 0.5 S Gentamicin <=0.5 S Linezolid 2 S Nitrofurantoin <=16 S Oxacillin 0.5 S * Quinupristin/Dalfopristin 0.5 S Rifampin <=0.5 S Tetracycline >=16 R Trimethoprim/Sulfamethoxazole <=10 S Vancomycin 1 S Imipenem-Deduced S * Ampicillin/Sulbactam-Deduced S CONTINUED ON NEXT PAGE * ML=Testing performed at Main Lab DEPARTMENT OF PATHOLOGY, [address] [place] [address] Sridhar Leung M.D. Director [facility] # [id number] Patient: AUGUSTINE BENITEZ [id number] (Continued) Specimen: [id number] Collected: 10/22/16 Received: 10/22/16 (Continued) Procedure Result Reported Site Wound/Misc Culture Final (continued) 10/24/16- 937 1. STAPHYLOCOCCUS AUREUS (continued) M.I.C. RX --------- ------ Cefazolin-Deduced S * These antibiotics are not available in the [facility] Formulary Contact the Microbiology Department for any additional antibiotic reporting. * ML - MAIN LAB ([facility]) . END OF REPORT * ML=Testing performed at Main Lab DEPARTMENT OF PATHOLOGY, [address] [place] [address] Sridhar Leung M.D. Director [facility] # [id number] 5 Because ethnic data is not always readily available, this report includes an eGFR for both -Americans and non- Americans. The National Kidney Disease Education Program (NKDEP) does not endorse the use of the MDRD equation for patients that are not between the ages of 18 and 70, are , have extremes of body size, muscle mass, or nutritional status, or are non- or non-. According to the National Kidney Foundation, irrespective of diagnosis, the stage of the disease is based on the level of kidney function: Stage Description GFR(mL/min/1.73 m(2)) 1 Kidney damage with normal or decreased GFR 90 2 Kidney damage with mild decrease in GFR 60-89 3 Moderate decrease in GFR 30-59 4 Severe decrease in GFR 15-29 5 Kidney failure <15 (or dialysis) 6 Critical Result K:6.9 Called to [id number] at: 18:11:22 by:[id number] Read back by:[id number] 7 Specimen Lipemic. Result may not be valid. 8 Because ethnic data is not always readily available, this report includes an eGFR for both -Americans and non- Americans. The National Kidney Disease Education Program (NKDEP) does not endorse the use of the MDRD equation for patients that are not between the ages of 18 and 70, are , have extremes of body size, muscle mass, or nutritional status, or are non- or non-. According to the National Kidney Foundation, irrespective of diagnosis, the stage of the disease is based on the level of kidney function: Stage Description GFR(mL/min/1.73 m(2)) 1 Kidney damage with normal or decreased GFR 90 2 Kidney damage with mild decrease in GFR 60-89 3 Moderate decrease in GFR 30-59 4 Severe decrease in GFR 15-29 5 Kidney failure <15 (or dialysis) 9 Unable to report test result due to hemolysis. 10 Unable to report test result due to hemolysis. 11 Desirable: <100 mg/dL Near Optimal: 100-129 mg/dL Borderline High: 130-159 mg/dL High: 160-189 mg/dL Very High: >189 mg/dL 12 Because ethnic data is not always readily available, this report includes an eGFR for both -Americans and non- Americans. The National Kidney Disease Education Program (NKDEP) does not endorse the use of the MDRD equation for patients that are not between the ages of 18 and 70, are , have extremes of body size, muscle mass, or nutritional status, or are non- or non-. According to the National Kidney Foundation, irrespective of diagnosis, the stage of the disease is based on the level of kidney function: Stage Description GFR(mL/min/1.73 m(2)) 1 Kidney damage with normal or decreased GFR 90 2 Kidney damage with mild decrease in GFR 60-89 3 Moderate decrease in GFR 30-59 4 Severe decrease in GFR 15-29 5 Kidney failure <15 (or dialysis) 13 Desirable <150 Borderline high 150-199 High 200-499 Very High >500 14 Desirable <200 Borderline high 200-239 High >239 15 Low <40 Desirable: 40-60 High: >60 16 Unable to calculate LDL as triglyceride is > 400 17 REFERENCE VALUE <0.4 (Negative) 18 REFERENCE VALUE <0.4 (Negative) Test Performed by: [place] [address] Abseiling Instructor: Les Bernstein II, M.D., Ph.D. 19 Test Performed by: [place] [address] Abseiling Instructor: Les Bernstein II, M.D., Ph.D. 20 RESULT: Left posterior iliac crest 21 RESULT: small cell B-cell lymphoma 22 RESULT: Culture without mitogens 23 Band Resolution: 425 Stain Name Cells Analyzed Cells Cells Counted Karyotyped GTL 30 0 2 Total 30 0 2 24 Unstimulated cell cultures: 46,XY[20] CpG-stimulated cell culture: 46,XY[10] 25 No cytogenetic evidence of a myeloid neoplasm. All 20 metaphases from the unstimulated cultures were normal. No cytogenetic evidence of a lymphoid neoplasm. All 10 metaphases from the CpG-stimulated culture were normal. This result is consistent with the normal CLL FISH studies, reported separately. PDF Report available at: [email or web address] 26 RESULT: Sidney Shahid M.D., Ph.D. Test Performed by: [address] [place] [address] Abseiling Instructor: Les Bernstein II, M.D., Ph.D. 27 RESULT: Left posterior iliac crest 28 RESULT: small cell B-cell lymphoma 29 Locus and probes [Strategy;#Nuclei;Class] 6CEN(D6Z1),6q23.3(MYB) [COPY#;200;ASR] 11CEN(D11Z1),11q22.3(CHUYITA) [COPY#;200;ASR] 12CEN(D12Z3),12q15(MDM2) [COPY#;200;ASR] 13q14(R59R314),13q34(LAMP1) [COPY#;200;ASR] 11q13(CCND1-XT),14q32(IGH-XT) [DFISH;500;ASR] 17p13.1(TP53),17CEN(D17Z1) [COPY#;200;ASR] Probe strategies include: DFISH=dual color, double fusion; COPY#=region gain and loss. 30 Abnormality Name Result % Abn Cutoff (%) -6q23(D6Z1x2,MYBx1) Normal <4.0% -11q22.3(R16Z9k4,ATMx1) Normal <7.5% +12(D12Z3,MDM2)x3 Normal <2.5% -13q14.3(F66X068k8,AGAW8r9) Normal <7.0% -13q14.3x2(B87X857h6,LAMP1x Normal <1.5% 2) t(11;14) CCND1-XT/IGH-XT Normal <0.6% fusion -17p13.1(TP53x1,K31S3m7) Normal <9.5% -17(TP53,D17Z1)x1 Normal <5.5% 31 RESULT: Interphase FISH is normal for all loci studied. 32 The result is within normal limits for the CLL FISH panel and the CCND1 and IGH gene regions. Additional cytogenetic studies are reported separately. PDF Report available at: [email or web address] 33 Applicable to Analyte Specific Reagent (ASR) and Laboratory developed tests (LDT). This test was developed and its performance characteristics determined by [facility]. It has not been cleared or approved by the U.S. Food and Drug Administration. This FISH test does not rule out other chromosome abnormalities. 34 RESULT: Sridhar Peguero, Ph.D. Test Performed by: [place] [address] [employer]seiling Instructor: Les Bernstein II, M.D., Ph.D. 35 SEE RESULT BELOW Name: YISELAUGUSTINE PHILLIPS oJhn : [address]: Tesfaye Oleary MD Acct: [id number] Unit: [id number] AGE: 55 Location: [facility] Re06/19/15 SEX: M Status: REG REF SPEC: [id number] ISSAC: 06/19/[address]: Tesfaye Oleary MD REQ: [id number] RECD: 06/19/15 STATUS: SOUT _ ORDERED: IRON STAIN, Decal, LEVEL IV/2 CLL FISH has been performed at [facility], [place], [place]. The testing reveals: RESULT: Left posterior iliac crest RESULT: small cell B-cell lymphoma Locus and probes [Strategy;#Nuclei;Class] 6CEN(D6Z1),6q23.3(MYB) [COPY#;200;ASR] 11CEN(D11Z1),11q22.3(CHUYITA) [COPY#;200;ASR] 12CEN(D12Z3),12q15(MDM2) [COPY#;200;ASR] 13q14(W98X870),13q34(LAMP1) [COPY#;200;ASR] 11q13(CCND1-XT),14q32(IGH-XT) [DFISH;500;ASR] 17p13.1(TP53),17CEN(D17Z1) [COPY#;200;ASR] Probe strategies include: DFISH=dual color, double fusion; COPY#=region gain and loss. Abnormality Name Result % Abn Cutoff (%) -6q23(D6Z1x2,MYBx1) Normal <4.0% -11q22.3(U45D8f6,ATMx1) Normal <7.5% +12(D12Z3,MDM2)x3 Normal <2.5% -13q14.3(I55I966e0,IHZF1k2) Normal <7.0% -13q14.3x2(Y20F030t3,LAMP1x Normal <1.5% 2) t(11;14) CCND1-XT/IGH-XT Normal <0.6% fusion -17p13.1(TP53x1,K85B0u0) Normal <9.5% -17(TP53,D17Z1)x1 Normal <5.5% RESULT: Interphase FISH is normal for all loci studied. Normal The result is within normal limits for the CLL FISH panel and the CCND1 and IGH gene regions. CONTINUED ON NEXT PAGE * ML=Testing performed at Main Lab DEPARTMENT OF PATHOLOGY, [address] [place] [address] Sridhar Leung M.D. Director [facility] # [id number] RUN DATE: 06/28/15 [facility] LAB LIVE PAGE 2 Patient: ELIAUGUSTINE W [id number] (Continued) ADDENDUM (Continued) Test Performed by: [address] [address] Abseiling Instructor: Les Bernstein II, M.D., Ph.D. Addendum Signed (signature on file) Rita Rosa MD 1209 FINAL DIAGNOSIS 1. Bone marrow, left posterior iliac crest, aspirate smears and clot section: -- Normocellular bone marrow (50%) with preserved trilineage hematopoiesis and no morphologic evidence of a hematologic malignancy. -- Small clonal B-cell population (1% of total marrow cellularity) with a chronic lymphocytic leukemia immunophenotype. 2. Bone marrow, left posterior iliac crest, core needle biopsy: -- Normocellular bone marrow (50%) with preserved trilineage hematopoiesis and no morphologic evidence of a hematologic malignancy. -- Small clonal B-cell population (1% of total marrow cellularity) with a chronic lymphocytic leukemia immunophenotype. COMMENT: The immunophenotype is identical to the clonal B cell population detected in the jugular lymph node specimen ([id number]). SPECIAL STUDIES Flow cytometry has been performed at [facility], [place], [place]. The testing reveals: FINAL DIAGNOSIS: Specimen Source: Bone marrow Flow cytometry immunophenotypic analysis: Involved by a B cell lymphoproliferative disorder with immunophenotypic features of chronic lymphocytic leukemia (1% of total marrow cellularity) CONTINUED ON NEXT PAGE * ML=Testing performed at Main Lab DEPARTMENT OF PATHOLOGY, [address] [place] [address] Sridhar Leung M.D. Director [facility] # [id number] RUN DATE: 06/28/15 [facility] LAB LIVE PAGE 3 Patient: AUGUSTINE BENITEZ [id number] (Continued) SPECIAL STUDIES (Continued) SPECIAL STUDIES (Continued) Interpretative data: Blasts: 1% of gated events Lymphocytes: 14% of gated events B-cells: 20% of lymphocytes; kappa-restricted (dim), CD5 positive, CD10 negative, CD19 positive, CD20 dim, CD23 positive, CD103 negative, CD11c negative, CD38 partial (24% of B cells), CD22 positive T-cells/NK cells: No aberrant population detected. Markers tested: CD3, CD10, CD16, CD19, CD34, CD45, kappa surface light chains , lambda surface light chains, 7-AAD, CD38, CD5, CD11c, CD20, CD22, CD23, CD103. Quality Assessment: Acceptable Viability: Acceptable Viable lymphocytes (7-AAD): 98% Specimen received within validated guidelines. A Corcoran-Giemsa stained slide prepared from the flow cytometry specimen was examined for quality purposes. Electronically signed by: Rita Rosa MD Technical component performed by: [place] [address] Abseiling Instructor: Les Bernstein II, MD, PhD. CLINICAL HISTORY PRE-OPERATIVE DIAGNOSIS Dx: C83.00 GROSS DESCRIPTION 1. The specimen is received in formalin labeled, LPIC, and consists of a 1.8 x 1.1 x 0.4 cm aggregate of red-brown blood clot, which is submitted entirely in one cassette. 2. The specimen is received in formalin labeled, LPIC, and consists of a 0.8 x 0.2 cm mesa-brown bone core, which is submitted entirely in one cassette following decalcification. CONTINUED ON NEXT PAGE * ML=Testing performed at Main Lab DEPARTMENT OF PATHOLOGY, [address] [place] [address] Sridhar Leung M.D. Director [facility] # [id number] RUN DATE: 06/28/15 [facility] LAB LIVE PAGE 4 Patient: AUGUSTINE BENITEZ [id number] (Continued) MICROSCOPIC DESCRIPTION (Continued) MICROSCOPIC DESCRIPTION A CBC and peripheral smear dated 06/19/15 were reviewed. The CBC data are as follows: WBC 10.2, RBC 4.37, hemoglobin 14.0, hematocrit 42, MCV 95, MCH 32, MCHC 34, RDW 13, platelets 374, absolute neutrophils 6.0, absolute lymphocytes 3.0, absolute monocytes 0.8, absolute eosinophils 0.3, absolute basophil 0.2, absolute nucleated erythrocytes 0.01. Review of the peripheral smear shows an adequate leukocyte count with unremarkable differential and leukocyte morphology. Platelets are adequate with unremarkable morphology. Hemoglobin is adequate with unremarkable erythrocyte morphology. The aspirate smears are spicular and cellular. A 200 cell count aspirate smear differential is as follows: blasts 0%, promyelocytes 0%, myelocytes 4.5%, metamyelocytes 7.5%, neutrophils 41%, monocytes 3%, eosinophils 3.5%, basophils 0%, erythroid elements 29.5%, lymphocytes 8.5%, plasma cells 2.5%. Blasts are not increased. Elements of granulocytic lineage demonstrate curb attendant progression to mature forms. Erythroid maturation is predominantly normoblastic. Lymphocytes and plasma cells are not increased and demonstrate mature morphology. The clot section shows approximately 50% cellularity. Trilineage hematopoiesis appears preserved. Megakaryocytes are adequate with unremarkable morphology. There is no evidence of a mononuclear infiltrative cell process. The iron-stained clot section, with appropriately reacting controls, shows adequate storage iron. The core needle biopsy specimen shows approximately 50% cellularity. Trilineage hematopoiesis appears preserved. Megakaryocytes are adequate with unremarkable morphology. There is no evidence of a mononuclear infiltrative cell process. Flow cytometry shows infiltration (approximately 1% of total marrow cellularity) by a clonal B-cell population that is kappa-restricted (dim), CD19 positive, CD20 dim, CD5 positive, CD10 negative, CD38 partial (24% of B cells), CD11c negative, CD103 negative , CD23 positive, and CD22 positive. Signed (signature on file) Rita Rosa MD 9822 END OF REPORT * ML=Testing performed at Main Lab DEPARTMENT OF PATHOLOGY, [address] [place] [address] Sridhar Leung M.D. Director [facility] # [id number] 36 FINAL DIAGNOSIS: Specimen Source: Bone marrow Flow cytometry immunophenotypic analysis: Involved by a B cell lymphoproliferative disorder with immunophenotypic features of chronic lymphocytic leukemia (1% of total marrow cellularity) Interpretative data: Blasts: 1% of gated events Lymphocytes: 14% of gated events B-cells: 20% of lymphocytes; kappa-restricted (dim), CD5 positive, CD10 negative, CD19 positive, CD20 dim, CD23 positive, CD103 negative, CD11c negative, CD38 partial (24% of B cells), CD22 positive T-cells/NK cells: No aberrant population detected. Markers tested: CD3, CD10, CD16, CD19, CD34, CD45, kappa surface light chains, lambda surface light chains, 7-AAD, CD38, CD5, CD11c, CD20, CD22, CD23, CD103. Quality Assessment: Acceptable Viability: Acceptable Viable lymphocytes (7-AAD): 98% Specimen received within validated guidelines. A Corcoran-Giemsa stained slide prepared from the flow cytometry specimen was examined for quality purposes. Electronically signed by: Rita Rosa MD Technical component performed by: [place] [address] Abseiling Instructor: Les Bernstein II, MD, PhD. 37 SEE RESULT BELOW Name: AUGUSTINE BENITEZ : [address]: Tesfaye Oleary MD Acct: [id number] Unit: [id number] AGE: 55 Location: [facility] Re06/19/15 SEX: M Status: REG REF SPEC: [id number] ISSAC: 06/19/[address]: Tesfaye Oleary MD REQ: [id number] RECD: 06/19/15 STATUS: SOUT _ ORDERED: IRON STAIN, Decal, LEVEL IV/2 FINAL DIAGNOSIS 1. Bone marrow, left posterior iliac crest, aspirate smears and clot section: -- Normocellular bone marrow (50%) with preserved trilineage hematopoiesis and no morphologic evidence of a hematologic malignancy. -- Small clonal B-cell population (1% of total marrow cellularity) with a chronic lymphocytic leukemia immunophenotype. 2. Bone marrow, left posterior iliac crest, core needle biopsy: -- Normocellular bone marrow (50%) with preserved trilineage hematopoiesis and no morphologic evidence of a hematologic malignancy. -- Small clonal B-cell population (1% of total marrow cellularity) with a chronic lymphocytic leukemia immunophenotype. COMMENT: The immunophenotype is identical to the clonal B cell population detected in the jugular lymph node specimen ([id number]). SPECIAL STUDIES Flow cytometry has been performed at [facility], [place], [place]. The testing reveals: FINAL DIAGNOSIS: Specimen Source: Bone marrow Flow cytometry immunophenotypic analysis: Involved by a B cell lymphoproliferative disorder with immunophenotypic features of chronic lymphocytic leukemia (1% of total marrow cellularity) Interpretative data: Blasts: 1% of gated events Lymphocytes: 14% of gated events CONTINUED ON NEXT PAGE * ML=Testing performed at Main Lab DEPARTMENT OF PATHOLOGY, [address] [place] [address] Sridhar Leung M.D. Director CLIA # [id number] RUN DATE: 06/21/15 [facility] LAB LIVE PAGE 2 Patient: AUGUSTINE BENITEZ [id number] (Continued) SPECIAL STUDIES (Continued) SPECIAL STUDIES (Continued) B-cells: 20% of lymphocytes; kappa-restricted (dim), CD5 positive, CD10 negative, CD19 positive, CD20 dim, CD23 positive, CD103 negative, CD11c negative, CD38 partial (24% of B cells), CD22 positive T-cells/NK cells: No aberrant population detected. Markers tested: CD3, CD10, CD16, CD19, CD34, CD45, kappa surface light chains , lambda surface light chains, 7-AAD, CD38, CD5, CD11c, CD20, CD22, CD23, CD103. Quality Assessment: Acceptable Viability: Acceptable Viable lymphocytes (7-AAD): 98% Specimen received within validated guidelines. A Ocrcoran-Giemsa stained slide prepared from the flow cytometry specimen was examined for quality purposes. Electronically signed by: Rita Rosa MD Technical component performed by: [place] [address] Abseiling Instructor: Les Bernstein II, MD, PhD. CLINICAL HISTORY PRE-OPERATIVE DIAGNOSIS Dx: C83.00 GROSS DESCRIPTION 1. The specimen is received in formalin labeled, LPIC, and consists of a 1.8 x 1.1 x 0.4 cm aggregate of red-brown blood clot, which is submitted entirely in one cassette. 2. The specimen is received in formalin labeled, LPIC, and consists of a 0.8 x 0.2 cm mesa-brown bone core, which is submitted entirely in one cassette following decalcification. CONTINUED ON NEXT PAGE * ML=Testing performed at Main Lab DEPARTMENT OF PATHOLOGY, [address] [place] [address] Sridhar Leung M.D. Director [facility] # [id number] RUN DATE: 06/21/15 [facility] LAB LIVE PAGE 3 Patient: AUGUSTINE BENITEZ John [id number] (Continued) MICROSCOPIC DESCRIPTION (Continued) MICROSCOPIC DESCRIPTION A CBC and peripheral smear dated 06/19/15 were reviewed. The CBC data are as follows: WBC 10.2, RBC 4.37, hemoglobin 14.0, hematocrit 42, MCV 95, MCH 32, MCHC 34, RDW 13, platelets 374, absolute neutrophils 6.0, absolute lymphocytes 3.0, absolute monocytes 0.8, absolute eosinophils 0.3, absolute basophil 0.2, absolute nucleated erythrocytes 0.01. Review of the peripheral smear shows an adequate leukocyte count with unremarkable differential and leukocyte morphology. Platelets are adequate with unremarkable morphology. Hemoglobin is adequate with unremarkable erythrocyte morphology. The aspirate smears are spicular and cellular. A 200 cell count aspirate smear differential is as follows: blasts 0%, promyelocytes 0%, myelocytes 4.5%, metamyelocytes 7.5%, neutrophils 41%, monocytes 3%, eosinophils 3.5%, basophils 0%, erythroid elements 29.5%, lymphocytes 8.5%, plasma cells 2.5%. Blasts are not increased. Elements of granulocytic lineage demonstrate curb attendant progression to mature forms. Erythroid maturation is predominantly normoblastic. Lymphocytes and plasma cells are not increased and demonstrate mature morphology. The clot section shows approximately 50% cellularity. Trilineage hematopoiesis appears preserved. Megakaryocytes are adequate with unremarkable morphology. There is no evidence of a mononuclear infiltrative cell process. The iron-stained clot section, with appropriately reacting controls, shows adequate storage iron. The core needle biopsy specimen shows approximately 50% cellularity. Trilineage hematopoiesis appears preserved. Megakaryocytes are adequate with unremarkable morphology. There is no evidence of a mononuclear infiltrative cell process. Flow cytometry shows infiltration (approximately 1% of total marrow cellularity) by a clonal B-cell population that is kappa-restricted (dim), CD19 positive, CD20 dim, CD5 positive, CD10 negative, CD38 partial (24% of B cells), CD11c negative, CD103 negative , CD23 positive, and CD22 positive. Signed (signature on file) Rita Rosa MD 1450 END OF REPORT * ML=Testing performed at Main Lab DEPARTMENT OF PATHOLOGY, [address] [place] [address] Sridhar Leung M.D. Director [facility] # [id number] 38 SEE RESULT BELOW Name: AUGUSTINE BENITEZ John : [address]: Juvenal Jeffrey MD Acct: [id number] Unit: [id number] AGE: 55 Location: [facility] Re06/05/15 SEX: M Status: REG REF SPEC: [id number] ISSAC: 06/05/15-[address]: Yahir Dickson MD REQ: [id number] RECD: 06/05/157 STATUS: GERY GLASS DR: Juvenal Jeffrey MD _ ORDERED: FN ASP DEEP, FNA IMMEDIATE S, Leukemia/Lympho THIS IS A CORRECTED REPORT 06/07/15 Corrected Report Flow cytometry has been performed at [facility], [place], [place]. The testing reveals: FINAL DIAGNOSIS: Specimen Source: Lymph node, right jugular ([id number]) Flow cytometry immunophenotypic analysis: Involved by small lymphocytic lymphoma Interpretative data: Lymphocytes: 99% of gated events B-cells: 22% of lymphocytes; kappa-restricted (98%), CD5 positive, CD10 negative, CD23 partial, CD19 dim, CD20 partial dim T-cells/NK cells: No aberrant population detected. Markers tested: CD3, CD5, CD7, CD10, CD19, CD20, CD23, CD45, kappa surface light chains, lambda surface light chains, 7-AAD. Quality Assessment: Acceptable Viability: Acceptable Viable lymphocytes (7-AAD): 99% Specimen received within validated guidelines. A Corcoran-Giemsa stained slide prepared from the flow cytometry specimen was examined for quality purposes. Electronically signed by: Rita Rosa MD Technical component performed by: [facility] [place] [address] Abseiling Instructor: Les Bernstein II, MD, PhD. CONTINUED ON NEXT PAGE * ML=Testing performed at Main Lab DEPARTMENT OF PATHOLOGY, [address] [place] [address] Sridhar Leung M.D. Director [facility] # [id number] RUN DATE: 06/07/15 [facility] LAB LIVE PAGE 2 Patient: ELIAUGUSTINE John [id number] (Continued) ADDENDUM (Continued) Addendum Signed (signature on file) Rita Rosa MD 1621 FINAL DIAGNOSIS Lymph node, right jugular, fine needle aspiration: -- Small lymphocytic lymphoma. COMMENT: Flow cytometry shows a kappa-restricted (dim) population of CD19 dim B cells with partial dim CD20 expression, CD5 expression, partial CD23 expression, and no expression of CD10. The morphology is that of a low grade B cell lymphoproliferative disorder. There is no evidence of large cell or prolymphocytic transformation. A. JUGULAR RIGHT - US GUIDED RIGHT JUGULAR LYMPH NODE FINE NEEDLE ASPIRATION CLINICAL HISTORY Right jugular lymph node. IMMEDIATE INTERPRETATION Pass 1, and 2-adequate GROSS DESCRIPTION Ultrasound guided, fine needle aspiration x 2 passes with 1 Alcohol fixed slide(s) and Specimen sent to [facility] [facility] [place], [place] on 06/05/15 by [id number] at 1049. CONTINUED ON NEXT PAGE * ML=Testing performed at Main Lab DEPARTMENT OF PATHOLOGY, [address] [place] [address] Sridhar Leung M.D. Director [facility] # [id number] RUN DATE: 06/07/15 [facility] LAB LIVE PAGE 3 Patient: AUGUSTINE BENITEZ [id number] (Continued) GROSS DESCRIPTION (Continued) Signed (signature on file) Rita Rosa MD 1621 END OF REPORT * ML=Testing performed at Main Lab DEPARTMENT OF PATHOLOGY, [address] [place] [address] Sridhar Leung M.D. Director [facility] # [id number] 39 FINAL DIAGNOSIS: Specimen Source: Lymph node, right jugular ([id number]) Flow cytometry immunophenotypic analysis: Involved by small lymphocytic lymphoma Interpretative data: Lymphocytes: 99% of gated events B-cells: 22% of lymphocytes; kappa-restricted (98%), CD5 positive, CD10 negative, CD23 partial, CD19 dim, CD20 partial dim T-cells/NK cells: No aberrant population detected. Markers tested: CD3, CD5, CD7, CD10, CD19, CD20, CD23, CD45, kappa surface light chains, lambda surface light chains, 7-AAD. Quality Assessment: Acceptable Viability: Acceptable Viable lymphocytes (7-AAD): 99% Specimen received within validated guidelines. A Corcoran-Giemsa stained slide prepared from the flow cytometry specimen was examined for quality purposes. Electronically signed by: Rita Rosa MD Technical component performed by: [place] [address] [employer]seiling Instructor: Les Bernstein II, MD, PhD. --- 06/07/15 1518 --- Path 02-20 previously reported as: FINAL DIAGNOSIS: Specimen Source: Lymph node, right jugular ([id number]) Flow cytometry immunophenotypic analysis: Involved by chronic lymphocytic leukemia Interpretative data: Lymphocytes: 99% of gated events B-cells: 22% of lymphocytes; kappa-restricted (98%), CD5 positive, CD10 negative, CD23 partial, CD19 dim, CD20 partial dim T-cells/NK cells: No aberrant population detected. Markers tested: CD3, CD5, CD7, CD10, CD19, CD20, CD23, CD45, kappa surface light chains, lambda surface light chains, 7-AAD. Quality Assessment: Acceptable Viability: Acceptable Viable lymphocytes (7-AAD): 99% Specimen received within validated guidelines. A Corcoran-Giemsa stained slide prepared from the flow cytometry specimen was examined for quality purposes. Electronically signed by: Rita Rosa MD Technical component performed by: [place] [address] [employer]seiling Instructor: Les Bernstein II, MD, PhD. 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 Markers tested: CD3, CD5, CD7, CD10, CD19, CD20, CD23, CD45, kappa surface light chains, lambda surface light chains, 7-AAD. Quality Assessment: Acceptable Viability: Acceptable Viable lymphocytes (7-AAD): 99% Specimen received within validated guidelines. A Corcoran-Giemsa stained slide prepared from the flow cytometry specimen was examined for quality purposes. Electronically signed by: Rita Rosa MD Technical component performed by: [place] [address] [employer]seiling Instructor: Les Bernstein II, MD, PhD. --- 06/07/15 1518 --- Path Inter 02-20 previously reported as: FINAL DIAGNOSIS: Specimen Source: Lymph node, right jugular ([id number]) Flow cytometry immunophenotypic analysis: Involved by chronic lymphocytic leukemia Interpretative data: Lymphocytes: 99% of gated events B-cells: 22% of lymphocytes; kappa-restricted (98%), CD5 positive, CD10 negative, CD23 partial, CD19 dim, CD20 partial dim T-cells/NK cells: No aberrant population detected. Markers tested: CD3, CD5, CD7, CD10, CD19, CD20, CD23, CD45, kappa surface light chains, lambda surface light chains, 7-AAD. Quality Assessment: Acceptable Viability: Acceptable Viable lymphocytes (7-AAD): 99% Specimen received within validated guidelines. A Corcoran-Giemsa stained slide prepared from the flow cytometry specimen was examined for quality purposes. Electronically signed by: Rita Rosa MD Technical component performed by: [place] [address] [employer]seiling Instructor: Les Bernstein II, MD, PhD. 41 Because ethnic data is not always readily available, this report includes an eGFR for both -Americans and non- Americans. The National Kidney Disease Education Program (NKDEP) does not endorse the use of the MDRD equation for patients that are not between the ages of 18 and 70, are , have extremes of body size, muscle mass, or nutritional status, or are non- or non-. According to the National Kidney Foundation, irrespective of diagnosis, the stage of the disease is based on the level of kidney function: Stage Description GFR(mL/min/1.73 m(2)) 1 Kidney damage with normal or decreased GFR 90 2 Kidney damage with mild decrease in GFR 60-89 3 Moderate decrease in GFR 30-59 4 Severe decrease in GFR 15-29 5 Kidney failure <15 (or dialysis) 42 Acute inflammation: >10.00 43 FASTING 10 HOUR 44 Because ethnic data is not always readily available, this report includes an eGFR for both -Americans and non- Americans. The National Kidney Disease Education Program (NKDEP) does not endorse the use of the MDRD equation for patients that are not between the ages of 18 and 70, are , have extremes of body size, muscle mass, or nutritional status, or are non- or non-. According to the National Kidney Foundation, irrespective of diagnosis, the stage of the disease is based on the level of kidney function: Stage Description GFR(mL/min/1.73 m(2)) 1 Kidney damage with normal or decreased GFR 90 2 Kidney damage with mild decrease in GFR 60-89 3 Moderate decrease in GFR 30-59 4 Severe decrease in GFR 15-29 5 Kidney failure <15 (or dialysis) 45 Desirable <150 Borderline high 150-199 High 200-499 Very High >500 46 Desirable <200 Borderline high 200-239 High >239 47 Low <40 Desirable: 40-60 High: >60 48 Desirable: <100 mg/dL Near Optimal: 100-129 mg/dL Borderline High: 130-159 mg/dL High: 160-189 mg/dL Very High: >189 mg/dL 49 Because ethnic data is not always readily available, this report includes an eGFR for both -Americans and non- Americans. The National Kidney Disease Education Program (NKDEP) does not endorse the use of the MDRD equation for patients that are not between the ages of 18 and 70, are , have extremes of body size, muscle mass, or nutritional status, or are non- or non-. According to the National Kidney Foundation, irrespective of diagnosis, the stage of the disease is based on the level of kidney function: Stage Description GFR(mL/min/1.73 m(2)) 1 Kidney damage with normal or decreased GFR 90 2 Kidney damage with mild decrease in GFR 60-89 3 Moderate decrease in GFR 30-59 4 Severe decrease in GFR 15-29 5 Kidney failure <15 (or dialysis) 50 HDL Interpretation: Undesirable: High Risk: Less than 40 mg/dL Desirable: Low Risk: Greater than 60 mg/dL 51 LDL Interpretation: Low Risk Optimal Level: LDL Less than 100 mg/dL Near or Above Optimal: LDL 100-129 mg/dL Borderline High Risk: LDL 130-159 mg/dL High Risk: LDL 160-189 mg/dL Very High Risk: LDL Greater than 189 mg/dL 52 Serum levels of PSA measured using the Joanne Radha DXI Hybritech immunoassay should not be interpreted as absolute evidence of the presence or absence of disease. The PSA value should be used in conjunction with other pertinent clinical diagnostic procedures. A PSA value in the range of 0.1 to 0.6 ng/ml is indeterminate if being used as an indicator of recurrent or residual disease. The values obtained with different assay methods or kits cannot be used interchangeably. 53 Because ethnic data is not always readily available, this report includes an eGFR for both -Americans and non- Americans. The National Kidney Disease Education Program (NKDEP) does not endorse the use of the MDRD equation for patients that are not between the ages of 18 and 70, are , have extremes of body size, muscle mass, or nutritional status, or are non- or non-. According to the National Kidney Foundation, irrespective of diagnosis, the stage of the disease is based on the level of kidney function: Stage Description GFR(mL/min/1.73 m(2)) 1 Kidney damage with normal or decreased GFR 90 2 Kidney damage with mild decrease in GFR 60-89 3 Moderate decrease in GFR 30-59 4 Severe decrease in GFR 15-29 5 Kidney failure <15 (or dialysis) 54 HDL Interpretation: Undesirable: High Risk: Less than 40 mg/dL Desirable: Low Risk: Greater than 60 mg/dL 55 Unable to calculate LDL as triglyceride is > 400 Procedures Date CPT Code Description Status 10/18/2014 47949 ECHO Transthoracic, Real-Time 2D With Doppler And Color Completed Flow 10/11/2014 Bone Mineral Density Test Completed 04/06/2014 43937 Rad Exam; Foot Comp Completed 03/01/2014 98564 Rad Exam; Foot Comp Completed 02/13/2014 48615 Rad Exam; Foot Comp Completed 02/13/2014 61941 FX Metatarsal Care Completed Encounters Type Date Location Provider CPT E/M Dx Office Visit 03/25/2018 [facility], [address] M54.12 8:45a Diego SARAVIA M75.52 Office Visit 05/21/2017 4:00p [facility] [place] [address] L03.115 [place] Office Visit 10/27/2016 10:00a [facility] - Shemar Kedar, TEENAGE PROGRAM DIRECTOR 58576 L03.115 [place] I10 E78.5 Office Visit 04/03/2016 11:40a [facility] Shemar Kedar, TEENAGE PROGRAM DIRECTOR 71551 M46.1 - [place] Office Visit 03/24/2016 1:40p [facility] Shemar Kedar, MARY 37987 M46.1 - [place] Office Visit 12/25/2015 2:20p [facility] Nimesh RobJaden Keith, 58642 L03.116 - [place] M.D. Office Visit 09/19/2015 3:30p [facility] [place], [address] M76.821 Diego Nguyen M76.71 Office Visit 09/12/2015 3:00p [facility] Marcos Prakash, [address]25 J32.1 Infectious Diseases M.D. Office Visit 07/23/2015 3:00p [facility] Marcos Prakash, 63866 J32.1 Infectious Diseases M.D. Office Visit 07/19/2015 7:40a [facility] Coco Stone M.D. 54427 G47.33 - [place] C83.00 J01.90 K58.0 F43.21 Office Visit 10/12/2014 3:50p [facility], [address] 815.02 CAnne Nguyen 733.94 Office Visit 10/03/2014 10:00a [facility] Coco Stone M.D. 72026 V70.0 - [place] 272.4 401.1 278.00 257.2 780.79 825.20 327.23 V73.89 V76.44 V76.51 429.3 Office Visit 06/30/2013 4:00p [facility] Coco Stone M.D. 59491 401.1 - [place] 272.2 300.02 Office Visit 03/03/2013 3:00p [facility] Coco Stone M.D. 79421 V70.0 - [place] 278.00 401.1 257.2 461.8 272.2 V76.41 V04.81 Office Visit 08/03/2012 3:00p [facility] Coco Stone M.D. 87386 V17.49 - [place] 272.2 278.00 401.1 257.2 787.91 v06.1 Plan of Care Future Appointment(s):03/31/2018 3:40 pm - Shemar Thacker NP at [facility] - [facility]26/18/2018 - Josh Elliott, MDM54.12 Radiculopathy, cervical regionNew Medication:Methylprednisolone 4 mgNew Xrays:SP Cervical 4+ VWSShoulder Left 2+ VWSNew Therapy:Physical TherapyFollow up:Follow up: 3 nqwpcK14.52 Bursitis of left shoulder
--- NOTE | 2018-04-06 06:54 | ED ---
Throat Pain/Nasal Congestion - HPI Summary HPI Summary: Pt. is a 58 y.o male who presents to the ER for complaints of sore throat and sinus congestion x 1 week. Pt. states that he has been having a lot of post nasal drip at that night that has been very irritating to him and not allowing him to sleep. Pt. states he has been using OTC cough medications. He notes dry cough without SOB or CP. Denies fever but notes chills. Symptoms are mild in severity. No current modifying factors. Hx of strep pharyngitis. - History of Current Complaint Chief Complaint: EDUpperRespComplaint Time Seen by Provider: 04/06/18 06:45 Hx Obtained From: Patient - Allergies/Home Medications Allergies/Adverse Reactions: Allergies Allergy/AdvReac Type Severity Reaction Status Date / Time clavulanic acid Allergy Rash Verified 04/06/18 06:38 tobramycin Allergy Swelling Verified 04/06/18 06:38 PMH/Surg Hx/FS Hx/Imm Hx Previously Healthy: Yes Endocrine/Hematology History: Denies: Hx Diabetes, Hx Systemic Lupus Erythematosus, Hx Thyroid Disease Cardiovascular History: Reports: Hx Hypertension - LVH Denies: Hx Congestive Heart Failure Respiratory History: Reports: Hx Asthma Denies: Hx Chronic Obstructive Pulmonary Disease (COPD) GI History: Reports: Hx Gastroesophageal Reflux Disease Denies: Hx Ulcer History: Denies: Hx Dialysis, Hx Renal Disease Musculoskeletal History: Denies: Hx Rheumatoid Arthritis, Hx Osteoporosis, Hx Scoliosis Sensory History: Reports: Hx Contacts or Glasses Opthamlomology History: Reports: Hx Contacts or Glasses Neurological History: Reports: Hx Headaches Denies: Other Neuro Impairments/Disorders Psychiatric History: Reports: Hx Depression - Cancer History Cancer Type, Location and Year: LYMPHOMA 2016 - Surgical History Surgery Procedure, Year, and Place: Acromioplasty - Immunization History Date of Tetanus Vaccine: unknown Date of Influenza Vaccine: 2014 Infectious Disease History: No Infectious Disease History: Denies: Hx Clostridium Difficile, Hx Hepatitis, Hx Human Immunodeficiency Virus (HIV), Hx of Known/Suspected MRSA, Hx Shingles, Hx Tuberculosis, Hx Known/ Suspected VRE, Hx Known/Suspected VRSA, History Other Infectious Disease, Traveled Outside the [place] in Last 30 Days - Family History Known Family History: Positive: Cardiac Disease, Hypertension Negative: Diabetes - Social History Occupation: Employed Full-time Lives: With Family Alcohol Use: Weekly Hx Substance Use: Yes Substance Use Type: Reports: None Hx Tobacco Use: Yes Smoking Status (MU): Former Smoker Type: Cigarettes Review of Systems Positive: Chills. Negative: Fever Eyes: Negative Positive: Sore Throat, Nasal Discharge Cardiovascular: Negative Negative: Chest Pain Positive: Cough - Dry, nonproductive.. Negative: Shortness Of Breath Skin: Negative Neurological: Negative All Other Systems Reviewed And Are Negative: Yes Physical Exam Triage Information Reviewed: Yes Vital Signs On Initial Exam: Initial Vitals Temp Pulse Resp BP Pulse Ox 96.9 F 78 14 134/70 98 04/06/18 06:34 04/06/18 06:34 04/06/18 06:34 04/06/18 06:34 04/06/18 06:34 Vital Signs Reviewed: Yes Appearance: Positive: Well-Appearing - Pt. sitting on edge of bed in NAD. Skin: Positive: Warm, Dry Head/Face: Positive: Normal Head/Face Inspection Eyes: Positive: Normal, EOMI, Conjunctiva Clear ENT: Positive: TMs normal, Other - Nasal congestion noted. Oral pharynx is injected with mild bilateral tonsilar edema without excudates. Uvula is midline without edema or deviation. Neck: Positive: Supple, Nontender, No Lymphadenopathy. Negative: Nuchal Rigidity Respiratory/Lung Sounds: Positive: Clear to Auscultation, Breath Sounds Present. Negative: Rales, Rhonchi, Wheezes Cardiovascular: Positive: Normal, RRR Neurological: Positive: Normal, CN Intact II-III Psychiatric: Positive: Affect/Mood Appropriate Diagnostics - Vital Signs Vital Signs Temp Pulse Resp BP Pulse Ox 04/06/18 06:34 96.9 F 78 14 134/70 98 - Laboratory Lab Statement: Any lab studies that have been ordered have been reviewed, and results considered in the medical decision making process. EENT Course/Dx - Course Course Of Treatment: Patient presenting with sore throat, sinus congestion and postnasal drip causing a dry cough. He is afebrile with stable vital signs. Negative rapid strep. Suspect viral etiology. Tessalon Perles prescribed for cough. Advised to continue [id number] medication as directed. To increase fluids and rest. Close follow-up with PCP and return to the ear symptoms change or worsen. Patient understands and agrees with plan. - Differential Diagnoses Differential Diagnoses: Laryngitis, Pharyngitis, Sinusitis - Diagnoses Provider Diagnoses: URI (upper respiratory infection), Post-nasal drainage Discharge - Sign-Out/Discharge Documenting (check all that apply): Patient Departure - Discharge Plan Condition: Good Disposition: HOME Prescriptions: Benzonatate CAP* [Tessalon 100 MG CAP*] 100 mg PO TID #20 cap Patient Education Materials: Upper Respiratory Infection (ED), Postnasal Drip ( DC) Referrals: Shemar Thacker PANMAN [Primary Care Provider] - Additional Instructions: Schedule a follow up appointment with PCP if symptoms persist Increase fluids and rest Can continue OTC cold medications as directed Return to ER if symptoms change or worsen - Billing Disposition and Condition Condition: GOOD Disposition: Home
[2018-04-06 08:26] VITALS: BP 124/86
== END 2018-04-06 08:24 | disposition home or self-care (01) ==
LOC: ED 06:33
DX: J06.9 Acute upper respiratory infection, unspecified (principal); R09.82 Postnasal drip; Z85.72 Personal history of non-Hodgkin lymphomas; F32.9 Major depressive disorder, single episode, unspecified; Z87.891 Personal history of nicotine dependence
CPT/HCPCS: 87651; 99282

== ENCOUNTER 2018-04-06 13:52 | Emergency (ER) | payer BC ==
[2018-04-06 14:11] VITALS: BP 131/70
--- NOTE | 2018-04-06 14:39 | UC ---
Throat Pain/Nasal Isaías HPI - HPI Summary HPI Summary: 58 yo M, hx of lymphoma (not currently in treatment) and HTN, p/w 1 week of nasal congestion, nasal drip, cough productive of sputum and sore throat. Patient has been awaking at night gasping and feeling he has difficulty breathing until he is able to cough out mucous glob. States that the gasping sometimes makes him feel he will pass out. He is taking sudaphed, guaifenesin, cough medications. Does not wish to take claritin or zyrtec b/c in past has resulted in sinus infections although it does successfully relieve his nasal drip. He was seen in the ED this morning and discharged w jori castorena and diagnosis of viral pharyngitis. He and his significant other question whether he may have epiglotitis. He is fully vaccinated, has no drooling, intolerance to supine position or voice change - History of Current Complaint Chief Complaint: UCGeneralIllness Stated Complaint: HEAD CONGESTION SORE THROAT Time Seen by Provider: 04/06/18 14:05 Onset/Duration: Gradual Onset Severity: Severe Pain Intensity: 3 Cough: Productive Associated Signs & Symptoms: Positive: Fever. Negative: Drooling, Wheezing, Hoarseness, Sinus Discomfort Related History: Seasonal Allergies - Allergies/Home Medications Allergies/Adverse Reactions: Allergies Allergy/AdvReac Type Severity Reaction Status Date / Time clavulanic acid Allergy Rash Verified 04/06/18 13:59 tobramycin Allergy Swelling Verified 04/06/18 13:59 Home Medications: Home Medications Lidocaine PATCH 5%* [Lidoderm 5% Patch*] 1 patch TRANSDERM DAILY PRN 04/06/18 [ History Confirmed 04/06/18] Vitamin B Complex CAP* [B Complex CAP*] 1 cap PO DAILY 04/06/18 [History Confirmed 04/06/18] PMH/Surg Hx/FS Hx/Imm Hx Cardiovascular History: Hypertension - Surgical History Surgical History: Yes Surgery Procedure, Year, and Place: Acromioplasty 2007 - Family History Known Family History: Positive: Cardiac Disease, Hypertension Negative: Diabetes - Social History Alcohol Use: None Substance Use Type: None Smoking Status (MU): Former Smoker Type: Cigarettes - Immunization History Most Recent Influenza Vaccination: 2016 Review of Systems Constitutional: Fever ENT: Sore Throat Respiratory: Negative Cardiovascular: Negative Gastrointestinal: Negative Neurovascular: Negative Musculoskeletal: Negative All Other Systems Reviewed And Are Negative: Yes Physical Exam Triage Information Reviewed: Yes Appearance: Well-Appearing, No Pain Distress, Well-Nourished Vital Signs: Initial Vital Signs Temp 99.8 F 04/06/18 14:04 Pulse 86 04/06/18 14:04 Resp 22 04/06/18 14:04 BP 131/70 04/06/18 14:04 Pulse Ox 94 04/06/18 14:04 Vital Signs Reviewed: Yes Eyes: Positive: Conjunctiva Clear ENT: Positive: Nasal congestion, Uvula midline. Negative: Pharyngeal erythema, Nasal drainage, TM bulging, TM dull, TM red, Tonsillar swelling, Tonsillar exudate, Trismus, Muffled voice, Hoarse voice, Sinus tenderness Neck exam: Normal Neck: Positive: Supple, Nontender, No Lymphadenopathy Respiratory Exam: Normal Respiratory: Positive: Lungs clear Cardiovascular Exam: Normal Neurological: Positive: Alert Psychological Exam: Normal Throat Pain/Nasal Course/Dx - Differential Dx/Diagnosis Differential Diagnosis/HQI/PQRI: Pharyngitis, Sinusitis, URI Provider Diagnoses: viral pharyngitis, post-nasal drip Discharge - Sign-Out/Discharge Documenting (check all that apply): Patient Departure All imaging exams completed and their final reports reviewed: No Studies - Discharge Plan Condition: Stable Disposition: HOME Referrals: Shemar Thacker NP [Primary Care Provider] - Additional Instructions: Recommend scheduling follow up appointment with ENT given history of recurrent sinusitis and post-nasal drip, and feeling of significant throat pain despite well-appearing pharynx. - Billing Disposition and Condition Condition: STABLE Disposition: Home
== END 2018-04-06 15:08 | disposition home or self-care (01) ==
LOC: UCEAST 13:52
DX: J02.9 Acute pharyngitis, unspecified (principal); R09.82 Postnasal drip; R05 Cough; R09.81 Nasal congestion; I10 Essential (primary) hypertension; Z88.1 Allergy status to other antibiotic agents; Z87.891 Personal history of nicotine dependence
CPT/HCPCS: 99211; G0463

== ENCOUNTER → 2018-06-29 07:22 | Emergency (ER) | payer BC ==
[2018-06-29 08:27] VITALS: BP 122/97
--- NOTE | 2018-06-29 08:58 | UC ---
Skin Complaint HPI - HPI Summary HPI Summary: Patient is a 58-year-old male presenting to the ED with erythematous left foot pain, worse to the heel, however diffuse. He has had cellulitis in his foot several times due to fissures on the plantar side of the foot. He endorses pain with ambulation, but continues to remain ambulatory. He is done well with Keflex in the past. He does have a follow-up to the wound care clinic. He has also seen a software developer mid level for this, however the fissures and cracked skin to the plantar surface of the foot has never been debrided. He endorses redness, pain , swelling with no fevers sweats or chills. He does have B cell lymphoma and has history of complicated wound infections. He has also seen Dr. Prakash in the past. He states he has been feeling otherwise well, however feels due to the fissures there was an introduction of infection into the area causing sxs. - History of Current Complaint Chief Complaint: EDExtremityLower Time Seen by Provider: 06/29/18 07:34 Stated Complaint: POSS INF.IN RIGHT FOOT Hx Obtained From: Patient Onset/Duration: Sudden Onset Skin Exposure Onset/Duration: Hours Ago Timing: Constant Onset Severity: Moderate Current Severity: Moderate Pain Intensity: 3 Pain Scale Used: 0-10 Numeric Location: Diffuse Character: Swelling, Pruritus, Pain, Redness, Raised, Painful Aggravating Factor(s): Nothing Alleviating Factor(s): Nothing Associated Signs & Symptoms: Positive: Negative - Allergy/Home Medications Allergies/Adverse Reactions: Allergies Allergy/AdvReac Type Severity Reaction Status Date / Time clavulanic acid Allergy Rash Verified 06/29/18 07:33 tobramycin Allergy Swelling Verified 06/29/18 07:33 Home Medications: Home Medications Furosemide [Lasix] 20 mg PO DAILY 06/29/18 [History Confirmed 06/29/18] Potassium Chlor TAB* [Klor Con ER TAB*] 20 meq PO DAILY 06/29/18 [History Confirmed 06/29/18] PMH/Surg Hx/FS Hx/Imm Hx Previously Healthy: Yes - Surgical History Surgical History: Yes Surgery Procedure, Year, and Place: Acromioplasty 2007 - Family History Known Family History: Positive: Cardiac Disease, Hypertension Negative: Diabetes - Social History Occupation: Employed Full-time Lives: With Family Alcohol Use: Weekly Alcohol Amount: 3x weekly Substance Use Type: None Smoking Status (MU): Former Smoker Type: Cigarettes - Immunization History Most Recent Influenza Vaccination: 2016 Review of Systems All Other Systems Reviewed And Are Negative: Yes Constitutional: Positive: Negative Skin: Positive: Other - plantar surface foot fissures/ dorsum of the foot with erythema and warmth ENT: Positive: Negative Respiratory: Positive: Negative Motor: Positive: Negative Neurovascular: Positive: Negative Musculoskeletal: Positive: Negative Is Patient Immunocompromised?: Yes Physical Exam Triage Information Reviewed: Yes Appearance: Well-Appearing, Well-Nourished Vital Signs: Initial Vital Signs Temp 98.5 F 06/29/18 07:29 Pulse 77 06/29/18 07:29 Resp 16 06/29/18 07:29 BP 133/81 06/29/18 07:29 Pulse Ox 96 06/29/18 07:29 Vital Signs Reviewed: Yes Eye Exam: Normal Eyes: Positive: Conjunctiva Clear Neck exam: Normal Neck: Positive: Supple, No Lymphadenopathy Respiratory Exam: Normal Respiratory: Positive: Chest non-tender, Lungs clear Cardiovascular Exam: Normal Cardiovascular: Positive: RRR Musculoskeletal Exam: Normal Musculoskeletal: Positive: Strength Intact Psychological: Positive: Normal Response To Family Skin: Positive: Other - plantar surface foot fissures/ dorsum of the foot with erythema and warmth Course/Dx - Course Course Of Treatment: Patient is evaluated for left foot cellulitis. He has had this several times in the past which has always improved with Keflex. He is a follow-up to the wound care clinic. He has also seen Dr. Prakash in the past. He denies any fevers, sweats, chills. Patient has a history of B-cell lymphoma, however denies any fatigue or recent illness. For this, labs were not obtained on this visit. He is given Keflex upon discharge. Discussed with patient at length his return precautions and the possible need for labs and strict follow-up, specifically if symptoms worsen. He understands these and is okay for discharge at this time. - Diagnoses Provider Diagnosis: Cellulitis Discharge - Sign-Out/Discharge Documenting (check all that apply): Patient Departure - Discharge Plan Condition: Stable Disposition: HOME Prescriptions: Cephalexin CAP* [Keflex CAP*] 500 mg PO QID #28 cap MDD 4 Referrals: Shemar Thacker NP [Primary Care Provider] - Additional Instructions: Please follow up with software developer mid level or wound care clinic for further evaluation Keflex 500mg four times daily x 7 days If symptoms become worse, return to the ED - Billing Disposition and Condition Condition: STABLE Disposition: Home
== END | disposition home or self-care (01) ==
LOC: ED 07:22
DX: L03.116 Cellulitis of left lower limb (principal); M79.672 Pain in left foot; Z87.891 Personal history of nicotine dependence
CPT/HCPCS: 99282

== ENCOUNTER 2018-07-17 09:20 | Emergency (ER) | payer BC ==
[2018-07-17 10:01] VITALS: BP 157/81
--- NOTE | 2018-07-17 10:04 | UC ---
Lower Extremity/Ankle HPI - HPI Summary HPI Summary: Patient presents to urgent care with recurrent cellulitis of his right foot. Patient states several years ago he broke his foot. Patient states since that time he has deep fissures and sometimes infected. Patient states at least 4 times a year any sputum antibiotics. Patient states he has lymphoma so he usually requires a longer course of antibiotics. Patient was in the emergency department approximately 3 weeks ago for cellulitis. Patient is a 7 day course of cephalexin. Patient states the redness and swelling resolved. Patient states this past Thursday evening he has some discomfort in the foot. Patient states progressively since Thursday he's had increased redness in the dorsum of his foot and toes. Patient states this is in the same areas last time. No fevers or chills. Patient has not taken any antipyretics. No drainage. Patient states this is typical and how it presents. Patient states locations the same as previous. Patient never had a history of osteomyelitis. Pt did not follow-up with PCP following ED eval. Patient's not on any treatment for his lymphoma. Patient is not a diabetic. No diagnosis of MRSA. 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 Patient's medications reviewed this visit. - History of Current Complaint Chief Complaint: UCLowerExtremity Stated Complaint: FOOT PAIN Time Seen by Provider: 07/17/18 10:03 Hx Obtained From: Patient, Medical Records Onset/Duration: Gradual Onset Severity Initially: Moderate Pain Intensity: 4 Pain Scale Used: 0-10 Numeric Aggravating Factor(s): Ambulation Alleviating Factor(s): Nothing Able to Bear Weight: Yes - Allergies/Home Medications Allergies/Adverse Reactions: Allergies Allergy/AdvReac Type Severity Reaction Status Date / Time clavulanic acid Allergy Rash Verified 07/17/18 09:54 tobramycin Allergy Swelling Verified 07/17/18 09:54 Home Medications: Home Medications Mupirocin 1 applic TOPICAL DAILY 07/17/18 [History] PMH/Surg Hx/FS Hx/Imm Hx Previously Healthy: No Cardiovascular History: Hypertension Cancer History: Other - lymphoma - Surgical History Surgical History: Yes Surgery Procedure, Year, and Place: Acromioplasty 2007 - Family History Known Family History: Positive: Cardiac Disease, Hypertension Negative: Diabetes - Social History 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 Alcohol Use: Weekly Alcohol Amount: 3x weekly Substance Use Type: None Smoking Status (MU): Former Smoker Type: Cigarettes - Immunization History Most Recent Influenza Vaccination: 2016 Review of Systems All Other Systems Reviewed And Are Negative: Yes Constitutional: Positive: Negative Skin: Positive: Other - erythema, dorsum right foot; skin fissures Is Patient Immunocompromised?: Yes - lymphoma - no active treatment Physical Exam - Summary Physical Exam Summary: Vital Signs Reviewed: Yes A+Ox3, no distress Eyes: Conjunctiva Clear ENT: Hearing grossly normal neck: supple Respiratory: Positive: No respiratory distress, No accessory muscle use Cardiovascular: skin color reflect adequate perfusion Musculoskeletal Exam: MENSAH x 4 without difficulty + flex/ext knee, ankle. No pain in calf, ankle, roshan. no crepitus Neurological: Positive: Alert, ambulatory without difficulty Psychological: Positive: Normal Response To Family Skin: Positive: no rash, no ecchymosis, PT with deep, dry, fissures on the bottom of foot No drainage, no erythema. Pt with erythema dorsum right middle, 4th, and 5th toe extending to MTP same. Mild warmth. No fluctuance. Triage Information Reviewed: Yes Vital Signs: Initial Vital Signs Temp 98.4 F 07/17/18 09:56 Pulse 80 07/17/18 09:56 Resp 18 07/17/18 09:56 BP 157/81 07/17/18 09:56 Pulse Ox 98 07/17/18 09:56 Lower Extremity Course/Dx - Course Course Of Treatment: Patient presents for recurrent sinusitis on his right foot. Patient states she's had this previously. Patient recently had a seven- day course of Keflex. Patient states near resolution of erythema. Patient states typically he doesn't 14 day course. Patient states erythema returned and has progressively. Patient has any paresthesias. No fevers or chills. No Pain. Patient is not inial compromise. Discussed with patient at length. We' ll prescribe a course of doxycycline. Patient's taken this in the past without difficulty. Recommend elevation. Patient works night. This will need to be rechecked Thursday or Thursday PCP. Strict return precautions discussed with patient. Patient aware that if erythema increases, been demarcated here. Has fevers or any other concern is reemerged department for lab work and further evaluation. Patient states agreement and is comfortable with plan. - Differential Dx/Diagnosis Provider Diagnosis: Cellulitis Discharge - Sign-Out/Discharge Documenting (check all that apply): Patient Departure All imaging exams completed and their final reports reviewed: No Studies - Discharge Plan Condition: Stable Disposition: HOME Prescriptions: DOXYcycline CAP(*) [DOXYcycline 100MG CAP(*)] 100 mg PO BID #20 cap Patient Education Materials: Cellulitis (ED) Forms: *Work Release Referrals: Shemar Thacker FIXER SUPERVISOR [Primary Care Provider] - Additional Instructions: - Take antibiotics exactly as prescribed until gone - elevate your foot to help with swelling - Take Tylenol every 6 hours as needed for pain - If you develop increased reddness, red streaking, pain, or any other concerns it is recommended you go directly to the emergency department for further evaluation and treatment - You should have your wound rechecked this week - contact your provider on Thursday morning to schedule a re-evaluation - Billing Disposition and Condition Condition: STABLE Disposition: Home
== END 2018-07-17 10:42 | disposition home or self-care (01) ==
LOC: UCEAST 09:20
DX: L03.115 Cellulitis of right lower limb (principal); I10 Essential (primary) hypertension; Z87.891 Personal history of nicotine dependence; Z88.1 Allergy status to other antibiotic agents; Z88.8 Allergy status to other drugs, medicaments and biological substances
CPT/HCPCS: 99212; G0463

== ENCOUNTER 2018-10-17 07:12 | Emergency (ER) | payer BC ==
[2018-10-17] MEDS ORDERED: NS 0.9% 1000 ML** 1,000 ML IV ONE (07:45)
[2018-10-17] MEDS ORDERED: ED Vancomycin 1 GM/250 ML 1 GM/250 ML PREMIX.SET IVPB ONE (07:48)
--- NOTE | 2018-10-17 07:49 | ED ---
Lower Extremity - HPI Summary HPI Summary: This patient is a 58 year old male presenting to [facility] with a chief complaint of right foot swelling and pain since 2 weeks ago. Patient states that he normally gets some sort of foot infection and has had recurring edema issues. Patients right foot has 2 open fissures at the base, which he thinks may be the cause. Patient states that he has gone to the ED and retail sales vitamin consultant for this before and blood clots were ruled out. The pain is rated 5/10 in severity. Symptoms aggravated by nothing. Symptoms alleviated by nothing. Patient additionally reports right foot erythema. - History of Current Complaint Chief Complaint: EDExtremityLower Stated Complaint: POSS INFECTION IN RIGHT ANKLE OR FOOT PER PT Time Seen by Provider: 10/17/18 07:33 Hx Obtained From: Patient Onset of Pain: Days Onset/Duration: Weeks Severity Currently: Moderate Pain Intensity: 5 Pain Scale Used: 0-10 Numeric Timing: Constant Location: Is Discrete @ - right foot/ankle Associated Signs And Symptoms: Positive: Swelling, Redness Aggravating Factor(s): Nothing Alleviating Factor(s): Nothing - Allergies/Home Medications Allergies/Adverse Reactions: Allergies Allergy/AdvReac Type Severity Reaction Status Date / Time clavulanic acid Allergy Rash Verified 10/17/18 07:21 tobramycin Allergy Swelling Verified 10/17/18 07:21 Home Medications: Home Medications Magnesium Oxide [Magnesium] 400 mg PO DAILY 10/17/18 [History Confirmed 10/17/18 ] PMH/Surg Hx/FS Hx/Imm Hx Previously Healthy: No Endocrine/Hematology History: Reports: Hx Blood Disorders - CLL Denies: Hx Diabetes, Hx Systemic Lupus Erythematosus, Hx Thyroid Disease Cardiovascular History: Reports: Hx Hypertension Denies: Hx Congestive Heart Failure Respiratory History: Reports: Hx Asthma Denies: Hx Chronic Obstructive Pulmonary Disease (COPD) GI History: Reports: Hx Gastroesophageal Reflux Disease Denies: Hx Ulcer History: Denies: Hx Dialysis, Hx Renal Disease Musculoskeletal History: Reports: Other Musculoskeletal History - Right Acriomionplasty Denies: Hx Rheumatoid Arthritis, Hx Osteoporosis, Hx Scoliosis Sensory History: Reports: Hx Contacts or Glasses Denies: Hx Hearing Aid Opthamlomology History: Reports: Hx Contacts or Glasses Neurological History: Reports: Hx Headaches Denies: Other Neuro Impairments/Disorders Psychiatric History: Reports: Hx Anxiety, Hx Depression - Cancer History Cancer Type, Location and Year: LYMPHOMA 2016 - Surgical History Surgery Procedure, Year, and Place: Acromioplasty 2007 - Immunization History Date of Tetanus Vaccine: unknown Date of Influenza Vaccine: 2014 Infectious Disease History: No Infectious Disease History: Denies: Hx Clostridium Difficile, Hx Hepatitis, Hx Human Immunodeficiency Virus (HIV), Hx of Known/Suspected MRSA, Hx Shingles, Hx Tuberculosis, Hx Known/ Suspected VRE, Hx Known/Suspected VRSA, History Other Infectious Disease, Traveled Outside the [place] in Last 30 Days - Family History Known Family History: Positive: Cardiac Disease, Hypertension Negative: Diabetes - Social History Lives: With Family Alcohol Use: Weekly Alcohol Amount: 3x weekly Hx Substance Use: No Substance Use Type: Reports: None Hx Tobacco Use: Yes Smoking Status (MU): Former Smoker Type: Cigarettes Review of Systems Negative: Fever Positive: Other - right foot erythema, swelling, pain All Other Systems Reviewed And Are Negative: Yes Physical Exam - Summary Physical Exam Summary: Appearance: The patient is well-nourished in no acute distress and in no acute pain. Skin: The skin is warm and dry and skin color reflects adequate perfusion. HEENT: The head is normocephalic and atraumatic. The pupils are equal and reactive. The conjunctivae are clear and without drainage. Nares are patent and without drainage. Mouth reveals moist mucous membranes and the throat is without erythema and exudate. The external ears are intact. The ear canals are patent and without drainage. The tympanic membranes are intact. Neck: The neck is supple with full range of motion and non-tender. There are no carotid bruits. There is no neck vein distension. Respiratory: Chest is non-tender. Lungs are clear to auscultation and breath sounds are symmetrical and equal. Cardiovascular: Heart is regular rate and rhythm. There is no murmur or rub auscultated. Pulses are symmetrical and equal. Abdomen: The abdomen is soft and non-tender. There are normal bowel sounds heard in all four quadrants and there is no organomegaly palpated. Musculoskeletal: There is no back tenderness noted. Extremities exhibit full range of motion. There is good capillary refill. Edematous right lower extremity , distal to the knee. Erythematous, warm to touch. Few fissures on the plantar surface of foot. Tender to palpation Neurological: Patient is alert and oriented to person, place and time. The patient has symmetrical motor strength in all four extremities. Cranial nerves are grossly intact. Deep tendon reflexes are symmetrical and equal in all four extremities. Psychiatric: The patient has an appropriate affect and does not exhibit any anxiety or depression. Triage Information Reviewed: Yes Vital Signs On Initial Exam: Initial Vitals Temp Pulse Resp BP Pulse Ox 97.6 F 70 16 131/70 99 10/17/18 07:16 10/17/18 07:16 10/17/18 07:16 10/17/18 07:16 10/17/18 07:16 Vital Signs Reviewed: Yes Diagnostics - Vital Signs Vital Signs Temp Pulse Resp BP Pulse Ox 10/17/18 07:16 97.6 F 70 16 131/70 99 - Laboratory Result Diagrams: 10/17/18 07:59 10/17/18 07:59 Lab Statement: Any lab studies that have been ordered have been reviewed, and results considered in the medical decision making process. Lower Extremity Course/Dx - Course Course Of Treatment: Mr. Akins presented complaining of about 2 weeks of right foot gradual swelling, pain and erythema. He has a history of multiple episodes of cellulitis in that leg which is chronically swollen. He's been tested for DVT many times in the past and assures me that that is not the problem. He was nontoxic in appearance with stable vitals but did have an obvious cellulitis developing on his right lower extremity below the knee. He has a couple of open areas on the plantar aspect of his foot. Labs were obtained and were unremarkable, an IV was established and he was given IV vancomycin. He is stable and will be discharged on by mouth Keflex with recommendations for follow-up with his PCP this week. - Diagnoses Provider Diagnoses: Cellulitis Discharge - Sign-Out/Discharge Documenting (check all that apply): Patient Departure Patient Received Moderate/Deep Sedation with Procedure: No - Discharge Plan Condition: Stable Disposition: HOME Prescriptions: Cephalexin CAP* [Keflex CAP*] 500 mg PO QID #40 cap Patient Education Materials: Cellulitis (ED) Referrals: Shemar Thacker NP [Primary Care Provider] - 1 Week Additional Instructions: Return to the ED for any new or worsening symptoms. - Billing Disposition and Condition Condition: STABLE Disposition: Home - Attestation Statements Document Initiated by Scribe: Yes Documenting Scribe: Nivia Wiggins Provider For Whom Scribe is Documenting (Include Credential): Michael Fraser MD Scribe Attestation: INivia, scribed for Michael Fraser MD on 10/17/18 at 1038. Tanoibmorgan Documentation Reviewed: Yes Provider Attestation: The documentation as recorded by the Nivia dowling accurately reflects the service I personally performed and the decisions made by me, Michael Fraser MD Status of Scribmorgan Document: Viewed
[2018-10-17] MEDS ORDERED: Vancomycin(*) 1,000 MG BAG/ADDV IVPB ONE (07:58)
[2018-10-17 08:11] LABS: ABS Basophils 0.1 10^3/ul (0-0.2); ABS Eosinophils 0.3 10^3/ul (0-0.6); ABS Lymphocytes 2.5 10^3/ul (1.0-4.8); ABS Monocytes 0.9 10^3/ul (0-0.8); ABS Neutrophils 5.8 10^3/ul (1.5-7.7); Eosinophil % 3.3 %; Hematocrit 40 % (42-52); Hemoglobin 13.8 g/dL (14.0-18.0); Lymphocyte % 25.8 %; Mean Corpuscular HGB Conc 35 g/dL (31-36); Mean Corpuscular Hemoglobin 32 pg (27-31); Mean Corpuscular Volume 93 fL (80-94); Mean Platelet Volume 6.5 fL (7.4-10.4); Platelet Count 332 10^3/uL (150-450); Red Cell Distribution Width 13 % (10.5-15); White Blood Count 9.6 10^3/uL (3.5-10.8)
[2018-10-17 08:13] LABS: INR 1.09 (0.82-1.09)
[2018-10-17 08:24] LABS: Albumin/Globulin Ratio 1.1 (1-3); BUN/Creatinine Ratio 18.1 (8-20); C Reactive Protein 21.94 mg/L (<8.01); Calcium 9.1 mg/dL (8.6-10.3); EGFR African American 115.1 (>60); EGFR Non-African American 95.2 (>60); Globulin 3.8 g/dL (2-4); Potassium 3.7 mmol/L (3.5-5.0); Total Bilirubin 0.4 mg/dL (0.2-1.0); Total Protein 7.8 g/dL (6.4-8.9)
[2018-10-17 10:44] VITALS: BP 125/65
== END 2018-10-17 10:44 | disposition home or self-care (01) ==
LOC: ED 07:12
DX: L03.115 Cellulitis of right lower limb (principal); I10 Essential (primary) hypertension; Z87.891 Personal history of nicotine dependence; Z85.6 Personal history of leukemia
CPT/HCPCS: 36415; 80053; 83605; 85025; 85610; 86140; 87040; 96361; 96365; 96366; 99282; J3370

== ENCOUNTER 2018-11-19 23:47 | Emergency (ER) | payer BC ==
--- NOTE | 2018-11-20 01:17 | ED ---
HPI Febrile Illness - HPI Summary HPI Summary: This patient is a 58 year old male presenting to [facility] with a chief complaint of fever and chills since one hour ago. The patient states it may be sinusitis. He was diagnosed with a lymphoma but it is still premature to treat. He states he gets infections in his feet and sinuses often. He states he feels pain in his left ankle associated with a progressive neuropathy. He rates his pain 5/10 in severity. - History of Current Complaint Chief Complaint: EDGeneral Time Seen by Provider: 11/20/18 01:06 Hx Obtained From: Patient Onset/Duration: Started Hours Ago Timing: Lasting Hours Initial Severity: Moderate Current Severity: Moderate Pain Intensity: 5 Pain Scale Used: 0-10 Numeric - Additional Pertinent History Primary Care Physician: GURU - Allergy/Home Medications Allergies/Adverse Reactions: Allergies Allergy/AdvReac Type Severity Reaction Status Date / Time clavulanic acid Allergy Rash Verified 10/17/18 07:21 tobramycin Allergy Swelling Verified 10/17/18 07:21 PMH/Surg Hx/FS Hx/Imm Hx Endocrine/Hematology History: Reports: Hx Blood Disorders - CLL Denies: Hx Diabetes, Hx Systemic Lupus Erythematosus, Hx Thyroid Disease Cardiovascular History: Reports: Hx Hypertension Denies: Hx Congestive Heart Failure Respiratory History: Reports: Hx Asthma Denies: Hx Chronic Obstructive Pulmonary Disease (COPD) GI History: Reports: Hx Gastroesophageal Reflux Disease Denies: Hx Ulcer History: Denies: Hx Dialysis, Hx Renal Disease Musculoskeletal History: Reports: Other Musculoskeletal History - Right Acriomionplasty Denies: Hx Rheumatoid Arthritis, Hx Osteoporosis, Hx Scoliosis Sensory History: Reports: Hx Contacts or Glasses Denies: Hx Hearing Aid Opthamlomology History: Reports: Hx Contacts or Glasses Neurological History: Reports: Hx Headaches Denies: Other Neuro Impairments/Disorders Psychiatric History: Reports: Hx Anxiety, Hx Depression - Cancer History Cancer Type, Location and Year: LYMPHOMA 2016 - Surgical History Surgery Procedure, Year, and Place: Acromioplasty 2007 - Immunization History Date of Tetanus Vaccine: unknown Date of Influenza Vaccine: 2014 Infectious Disease History: No Infectious Disease History: Denies: Hx Clostridium Difficile, Hx Hepatitis, Hx Human Immunodeficiency Virus (HIV), Hx of Known/Suspected MRSA, Hx Shingles, Hx Tuberculosis, Hx Known/ Suspected VRE, Hx Known/Suspected VRSA, History Other Infectious Disease, Traveled Outside the [place] in Last 30 Days - Family History Known Family History: Positive: Cardiac Disease, Hypertension Negative: Diabetes - Social History Alcohol Use: Weekly Alcohol Amount: 3x weekly Hx Substance Use: No Substance Use Type: Reports: None Hx Tobacco Use: Yes Smoking Status (MU): Former Smoker Type: Cigarettes Review of Systems Positive: Fever, Chills Positive: Other - right ankle pain All Other Systems Reviewed And Are Negative: Yes Physical Exam - Summary Physical Exam Summary: VITAL SIGNS: Reviewed. GENERAL: Patient is a well-developed and nourished MALE who is lying comfortable in the stretcher. Patient is not in any acute respiratory distress. HEAD AND FACE: No signs of trauma. No ecchymosis, hematomas or skull depressions. No sinus tenderness. left maxillary tenderness. EYES: PERRLA, EOMI x 2, No injected conjunctiva, no nystagmus. EARS: Hearing grossly intact. Ear canals and tympanic membranes are within normal limits. MOUTH: Oropharynx within normal limits. NECK: Supple, trachea is midline, no adenopathy, no JVD, no carotid bruit, no c- spine tenderness, neck with full ROM. CHEST: Symmetric, no tenderness at palpation LUNGS: Clear to auscultation bilaterally. No wheezing or crackles. CVS: Regular rate and rhythm, S1 and S2 present, no murmurs or gallops appreciated. ABDOMEN: Soft, non-tender. No signs of distention. No rebound no guarding, and no masses palpated. Bowel sounds are normal. EXTREMITIES: FROM in all major joints, no edema, no cyanosis or clubbing. Bilateral lower edema with redness. NEURO: Alert and oriented x 3. No acute neurological deficits. Speech is normal and follows commands. SKIN: Dry and warm Triage Information Reviewed: Yes Vital Signs On Initial Exam: Initial Vitals Temp Pulse Resp BP Pulse Ox 102 F 101 20 154/81 95 11/19/18 23:52 11/19/18 23:52 11/19/18 23:52 11/19/18 23:52 11/19/18 23:52 Vital Signs Reviewed: Yes Diagnostics - Vital Signs Vital Signs Temp Pulse Resp BP Pulse Ox 11/19/18 23:52 102 F 101 20 154/81 95 - Laboratory Result Diagrams: 11/20/18 01:50 11/20/18 01:50 Lab Statement: Any lab studies that have been ordered have been reviewed, and results considered in the medical decision making process. - Radiology CXR Radiology Interpretation Completed By: ED Physician Summary of Radiographic Findings: No acute process. Pending official radiologist report. - CT Maxillofacial, Sinus CT Interpretation Completed By: Radiologist Summary of CT Findings: Chronic right maxillary sinusitis. Course/Dx - Course Course Of Treatment: This patient is a 58 year old male presenting to [facility] with a chief complaint of fever and chills since one hour ago. Sinus CT revealed chronic maxillary sinusitis. CXR revealed no acute process. Labs reveal WBC 14.1 H, Absolut Neuts 12.3 H, C-Reactive Protein 78.04 H. The patient will be prescribed antibiotics, nasal spray, ibuprofen, and prednisone and discharged. A plan for discharge was discussed with the patient and he was agreeable with this plan. - Diagnoses Provider Diagnoses: Sinusitis Discharge - Sign-Out/Discharge Documenting (check all that apply): Patient Departure - Discharge Patient Received Moderate/Deep Sedation with Procedure: No - Discharge Plan Condition: Stable Disposition: HOME Prescriptions: Clindamycin Cap(NF) [Clindamycin Cap 300 mg Cap(NF)] 300 mg PO Q6H #40 cap Fluticasone NASAL SPRAY 50MCG* [Flonase NASAL SPRAY 50MCG*] 2 spray BOTH NARES DAILY #1 btl Ibuprofen TAB* [Motrin TAB* 800 MG] 800 mg PO Q6H PRN #30 tab PRN Reason: Pain Or Fever predniSONE TAB* [Deltasone TAB*] 50 mg PO DAILY #5 tab Patient Education Materials: Sinusitis (ED) Forms: *Work Release Referrals: Shemar Thacker, [employer] [Primary Care Provider] - Additional Instructions: Return to ED with any new or worsening symptoms. - Attestation Statements Document Initiated by Scribe: Yes Documenting Scribe: Everette Jose Provider For Whom Mauricio is Documenting (Include Credential): MD Tano Ledezmaibmorgan Attestation: Everette Swift scribed for Marcelina Garcia MD on 11/20/18 at 0420. Status of Scribe Document: Ready
[2018-11-20] MEDS ORDERED: Ketorolac INJ* 30 MG/ML 1 ML VIAL IV PUSH ONE (01:28)
[2018-11-20] MEDS ORDERED: NS 0.9% 1000 ML** 2,000 ML IV ONE (01:28)
[2018-11-20] MEDS ORDERED: Acetaminophen TAB* 325 MG PO ONE (01:28)
[2018-11-20] MEDS ORDERED: Piperacillin/Tazobac ADVAN(*) 3.375 GM in NS 0.9% 100 ML* 100 ML IVPB ONE (01:29)
[2018-11-20 01:57] LABS: ABS Basophils 0.1 10^3/ul (0-0.2); ABS Eosinophils 0.1 10^3/ul (0-0.6); ABS Monocytes 0.7 10^3/ul (0-0.8); ABS Neutrophils 12.3 10^3/ul (1.5-7.7); Eosinophil % 0.4 %; Hematocrit 38 % (42-52); Hemoglobin 13.2 g/dL (14.0-18.0); Lymphocyte % 7.2 %; Mean Corpuscular HGB Conc 35 g/dL (31-36); Mean Corpuscular Hemoglobin 32 pg (27-31); Mean Corpuscular Volume 93 fL (80-94); Mean Platelet Volume 6.7 fL (7.4-10.4); Nucleated Red Blood Cells % 0.1; Platelet Count 280 10^3/uL (150-450); Red Blood Count 4.12 10^6 /uL (4.18-5.48); Red Cell Distribution Width 13 % (10-15); White Blood Count 14.1 10^3/uL (3.5-10.8)
[2018-11-20 02:06] LABS: Activated Partial Thrombo Time 29.3 seconds (26.0-38.0); INR 1.14 (0.82-1.09)
[2018-11-20 02:13] LABS: Albumin 3.8 g/dL (3.2-5.2); BUN/Creatinine Ratio 13.4 (8-20); C Reactive Protein 78.04 mg/L (<8.01); Calcium 8.9 mg/dL (8.6-10.3); EGFR African American 96.2 (>60); EGFR Non-African American 79.5 (>60); Globulin 3.9 g/dL (2-4); Total Bilirubin 0.7 mg/dL (0.2-1.0); Total Protein 7.7 g/dL (6.4-8.9)
[2018-11-20 02:38] LABS: Urine Appearance Cloudy; Urine Bilirubin Negative (Negative); Urine Blood Negative (Negative); Urine Color Yellow; Urine Glucose Negative (Negative); Urine Ketones Negative (Negative); Urine Nitrite Negative (Negative); Urine Protein Negative (Negative); Urine Urobilinogen Negative (Negative)
[2018-11-20] MEDS ORDERED: methylPREDNISolone 125 MG* 2 ML VIAL IV ONE (03:43)
[2018-11-20 04:01] LABS: Influenza A Molecular NEGATIVE (Negative); Influenza B Molecular NEGATIVE (Negative)
[2018-11-20 04:26] VITALS: BP 102/55
== END 2018-11-20 04:25 | disposition home or self-care (01) ==
LOC: ED 23:47
DX: J32.9 Chronic sinusitis, unspecified (principal); R50.9 Fever, unspecified; K21.9 Gastro-esophageal reflux disease without esophagitis; Z85.72 Personal history of non-Hodgkin lymphomas; Z87.891 Personal history of nicotine dependence; M25.571 Pain in right ankle and joints of right foot
CPT/HCPCS: 36415; 70486; 71045; 80053; 81003; 83605; 85025; 85610; 85730; 86140; 87040; 96365; 96375; 99284; A9270-GY; J1885; J2543; J2930

== ENCOUNTER 2018-12-30 20:01 | Emergency (ER) | payer BC ==
--- OUTSIDE RECORDS SUMMARY | 2018-12-30 20:23 | XMS REPORT | Continuity of Care Document ---
:1960 External Reference #:[id number] Author Name Kasie Whitney Care Team Providers Name Role Phone Maisha Us MD Primary Care Physician Unavailable Payers Date Identification Numbers Payment Provider Subscriber Effective: 2012 Policy Number: [id number] [employer] Augustine Benitez PayID: [id number] [address] [address] [place] [address] Onset: 2018 Policy Number: [id number] [facility] Ppo Augustine Benitez Group Name: [address] [place] [address]. [address] PayID: [id number] [place], [place] Problems Active Problems Provider Date Chronic lymphoid leukemia, disease Arcadio Evans M.D.,FACP Onset: 2014 Note: on FNA node neck FH: Cardiovascular disease Coco Stone M.D. Onset: 08/03/2012 Mixed hyperlipidemia Coco Stone M.D. Onset: 08/03/2012 Obesity Coco Stone M.D. Onset: 08/03/2012 Benign essential hypertension Coco Stone M.D. Onset: 08/03/2012 Testicular hypofunction Coco Stone M.D. Onset: 08/03/2012 Diarrhea Coco Stone M.D. 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 Tobacco Use Start: Unknown cigar once per month ETOH Use Currently consumes alcohol ETOH Use consumes 3 beers per week ETOH Use former high 8 per day Recreational Drug Use Denies Drug Use Tobacco Use Start: Unknown End: Patient is a former quit 1983 - less Unknown smoker than 1/2 ppd x 1.5 yrs Smoking Status Reviewed: 12/14/18 Patient is a former quit 1983 - less smoker than 1/2 ppd x 1.5 yrs Exercise Type/Frequency Exercises regularly Exercise Type/Frequency walks dog 3-4 x per week Allergies, Adverse Reactions, Alerts Active Allergies Reaction Severity Comments Date Tobramycin Contact dermatitis, Redness, Swelling 08/03/2012 Clavulanic Acid Rash 08/03/2012 Medications Active Medications SIG Qnty Indications Ordering Provider Date Omeprazole 1 by mouth every 90caps Shemar Thacker NP 11/30/2018 20mg other day Capsules Metoprolol Succinate 1 by mouth every 30tabs Shemar Thacker NP 09/27/2018 ER day 50mg Tablets ER 24HR Potassium Chloride Take 1 Tablet By 30tabs R60.0 Shemar Thacker NP 06/15/2018 Naty ER Mouth Every Day 20Meq Tablets ER Furosemide Take 1 Tablet By 30tabs R60.0 Shemar Thacker NP 04/21/2018 20mg Tablets Mouth Every Day as Needed For Edema Slow Magnesium 1 by mouth every 30tabs Shemar Thacker NP 10/27/2016 Chloride/ Calcium day 70-117mg Tablets Vitamin D3 Ultra 1 by mouth every 30caps Shemar Thacker NP 10/27/2016 Strength day 5000Unit Capsules Proair HFA 2 puffs by mouth 1units Shemar Thacker NP 12/27/2012 108(90Base) every 4 hours as mcg/Act Aerosol needed Fluticasone 2 spray each 1units Shemar Thacker NP Propionate nostril daily as 50mcg/Act needed Suspension Ibuprofen as needed Unknown 200mg Tablets Lisinopril Take 1 Tablet By 90tabs Shemar Thacker NP 10mg Tablets Mouth Every Day Vitamin B Complex 1 by mouth every Unknown day Tablets History Medications Levofloxacin one by mouth 10tabs J32.0 Shemar Thacker 11/30/2018 - 500mg Tablets daily for 10 [employer] 12/05/2018 days Potassium Chloride ER 1 by mouth every 30tabs R60.0 Shemar Thacker, 2017 - 20Meq day for two [employer] 06/15/2018 Tablets ER weeks Methylprednisolone medrol dosepak 21units M54.12 Josh F 03/25/2018 - 4mg TBPK take as MD Lexi 04/21/2018 instructed Cephalexin take one tablet 56tabs L03.115 Shemar Thacker, 05/21/2017 - 500mg Tablets every 6 hours [employer] 06/04/2017 for 14 days Metoprolol Succinate ER take 1 tablet by 30tabs Shemar Thacker, 03/06/2017 - 50mg mouth every day [employer] 09/26/2018 Tablets ER 24HR Cephalexin take one tablet 16tabs L03.115 Shemar Thacker, 10/27/2016 - 500mg Tablets every 6 hours [employer] 05/18/2017 for 4 more days Mobic one tablet once 30tabs M46.1 Shemar Thacker, 04/03/2016 - 7.5mg Tablets daily. May take [employer] 10/27/2016 two once daily if one is ineffective. With food Methocarbamol take 1 tablet 60tabs M46.1 Shemar Thacker, 04/03/2016 - 750mg Tablets every six hours [employer] 10/27/2016 as needed for pain. may take second tablet if first not effective. Medrol as directed on 21units M46.1 Shemar Thacker, 03/24/2016 - 4mg TBPK package [employer] 03/25/2016 Tramadol HCL 1-2 tablets 30tabs M46.1 Shemar Thacker, 03/24/2016 - 50mg Tablets every 8 hours as [employer] 04/02/2016 needed for pain. Keflex 1 by mouth twice 10caps L03.116 Nimesh Cline 12/25/2015 - 500mg Capsules a day Wendy Keith 03/24/2016 Doxycycline Hyclate 1 cap by mouth 28caps J32.1 Marcos Silva 10/25/2015 - 100mg twice a day with Olinda, 03/24/2016 Jeff flynn M.D. Astelin Use 2 Sprays In 30units Coco 09/04/2015 - 137mcg/[place] Solution Nose Two Times Wendy Stone 03/24/2016 Daily Doxycycline Hyclate 1 cap by mouth 90caps J32.1 Marcos Silva 07/23/2015 - 100mg twice a day with Olinda 09/11/2015 Capsules food Wendy Celexa Take 1 Tablet By 30tabs F41.1 Shemar Thacker, 07/19/2015 - 40mg Tablets Mouth Every Day [employer] 04/21/2018 Oxygen 2 l nc at 1units G47.33 Coco 07/19/2015 - [facility] [place] bedtime 414.9 dx Wendy Stone 03/24/2016 Astelin 2 sprays 2x per 1units J01.90 Coco 07/19/2015 - 137mcg/[place] Solution day Wendy Stone 08/03/2015 Biaxin 1 by mouth twice 20tabs J01.90 Coco 07/19/2015 - 250mg Tablets a day Wendy Stone 08/03/2015 Azithromycin 2 tab by mouth 6tabs Coco 10/27/2014 - 250mg Tablets day 1 then 1 tab Wendy Stone 06/07/2015 by mouth day 2-5 Hydrochlorothiazide Take 1 Capsule 30caps R60.0 Shemar Thacker, 10/03/2014 - 12.5mg By Mouth Every [employer] 04/21/2018 Capsules Day as Needed Flonase Inhale 2 Sprays 16units Coco 09/09/2013 - 50mcg/Act Suspension Into Each Wendy Stone 02/12/2014 Nostril One Time Daily as Needed Celexa take 1 tablet by 90tabs F41.1 Coco 06/30/2013 - 20mg Tablets mouth one time Wendy Stone 07/19/2015 daily Gemfibrozil Take 1 Tablet By 180tabs E78.2 Shemar Thacker, 03/03/2013 - 600mg Tablets Mouth Two Times [employer] 04/21/2018 Daily Penicillin V Potassium qid for 7 days 28tabs Arcadio Silva 01/09/2013 - 500mg [place], 01/16/2013 Tablets Wendy,FACP Omeprazole Take 1 Capsule 90caps Shemar Thacker, 10/01/2012 - 20mg Capsules DR By Mouth Every [employer] 05/18/2017 Day Floranex 2 by mouth daily Unknown - Tablets for 12 days 11/30/2018 Clindamycin HCL 11/2 by mouth Unknown - 300mg Capsules three times a 11/30/2018 day for 7 days Pantoprazole Sodium 1 by mouth every Unknown - 40mg day 11/30/[address] Cardenaspirocjean claude apply once daily Unknown - 2% Ointment to rash 11/30/2018 Bupropion HCL ER (XL) Take 1 Tablet By 90tabs Shemar Kedar, - 300mg Mouth Every Day [employer] 10/27/2016 Tablets ER 24HR Metoprolol Succinate ER take 1 tablet by 90tabs Shemar Kedar, - 25mg mouth every day [employer] 03/06/2017 Tablets ER 24HR Amoxicillin Unknown - 500mg Capsules 06/07/2015 Acetaminophen-Codeine #3 Unknown - 04/27/2015 300-30mg Tablets B Complex every day Unknown - Tablets 03/24/2016 Sudafed 1 po bid hs 20tabs Unknown - 30mg Tablets 06/30/2013 Proair HFA 2 puffs po q4h 1units Unknown - 108(90Base) mcg/ac prn 12/27/2012 Aerosol Omeprazole 1 po qd 90caps Coco - 40mg Capsules DR Chase M.D. 10/01/2012 Lidoderm topical 12 hours 30units Shemar Kedar, - 5% Patches as needed [employer] 07/27/2018 Folic Acid 1 po qd Unknown - 400mcg Tablets 07/19/2015 Slow-Mag 1 po qd Unknown - Tablets 03/24/2016 Multi Vitamin Mens 1 po qd Unknown - Tablets 02/16/2015 Fish Oil 2 po qd Unknown - 1000mg Capsules 03/03/2013 Immunizations CPT Code Status Date Vaccine Lot # [id number] Given 08/03/2015 Pneumonia Vaccine [id number] Given 08/03/2015 Pneumonia Vaccine [id number] Given 03/12/2015 Influenza Virus Vaccine, Quadrivalent, Split, Preservative Free [id number] Given 03/03/2013 Flu Vaccine Split Virus Preservative Free For [id number] Indiv [id number] Older [id number] Given 08/03/2012 Tdap - Tetanus/Diptheria/Acellular Pertussis [id number] Vital Signs Date Vital Result Comment 12/14/2018 10:05am Height 70 inches 5'10" Weight 270.00 lb Heart Rate 75 /min Body Temperature 97.6 F O2 % BldC Oximetry 97 % BMI (Body Mass Index) 38.7 kg/m2 11/30/2018 11:02am Height 70 inches 5'10" Weight 272.00 lb Heart Rate 84 /min BP Systolic 146 mmHg 138/72 BP Diastolic 81 mmHg 138/72 Body Temperature 98.0 F O2 % BldC Oximetry 95 % BMI (Body Mass Index) 39.0 kg/m2 04/21/2018 9:32am Height 70 inches 5'10" Weight 259.00 lb Heart Rate 85 /min BP Systolic 117 mmHg BP Diastolic 72 mmHg Body Temperature 97.2 F O2 % BldC Oximetry 96 % BMI (Body Mass Index) 37.2 kg/m2 03/25/2018 9:27am Weight 259.75 lb Heart Rate 72 /min BP Systolic 168 mmHg BP Diastolic 98 mmHg Respiratory Rate 16 /min Body Temperature 98.1 F 05/21/2017 4:19pm Height 70 inches 5'10" Weight 255.00 lb Heart Rate 84 /min BP Systolic Sitting 116 mmHg BP Diastolic Sitting 74 mmHg Body Temperature 99.2 F O2 % BldC Oximetry 97 % BMI (Body Mass Index) 36.6 kg/m2 10/27/2016 9:49am Weight 259.50 lb Heart Rate 96 /min BP Systolic 140 mmHg BP Diastolic 70 mmHg BP Systolic Recheck 136 mmHg BP Diastolic Recheck 88 mmHg Body Temperature 97.8 F O2 % BldC Oximetry 96 % 04/03/2016 11:40am Weight 244.00 lb Heart Rate 80 /min BP Systolic Sitting 128 mmHg BP Diastolic Sitting 84 mmHg Respiratory Rate 15 /min Body Temperature 97.9 F O2 % BldC Oximetry 98 % 03/24/2016 1:37pm Weight 252.00 lb Heart Rate 78 /min BP Systolic Sitting 146 mmHg BP Diastolic Sitting 84 mmHg Respiratory Rate 15 /min Body Temperature 98.4 F O2 % BldC Oximetry 98 % 12/25/2015 2:28pm Height 71 inches 5'11" Weight 260.25 lb Heart Rate 80 /min BP Systolic 114 mmHg BP Diastolic 68 mmHg Body Temperature 98.7 F O2 % BldC Oximetry 98 % BMI (Body Mass Index) 36.3 kg/m2 09/19/2015 3:43pm Height 71 inches 5'11" Weight 260.00 lb Heart Rate 75 /min BP Systolic 138 mmHg BP Diastolic 75 mmHg BMI (Body Mass Index) 36.3 kg/m2 09/12/2015 2:53pm Height 71 inches 5'11" Weight 260.00 lb Heart Rate 76 /min BP Systolic Sitting 138 mmHg BP Diastolic Sitting 80 mmHg Respiratory Rate 14 /min Body Temperature 97.1 F BMI (Body Mass Index) 36.3 kg/m2 08/03/2015 4:41pm Height 71 inches 5'11" Weight 265.50 lb Heart Rate 66 /min BP Systolic 122 mmHg BP Diastolic 84 mmHg Body Temperature 97.3 F O2 % BldC Oximetry 96 % BMI (Body Mass Index) 37.0 kg/m2 07/23/2015 3:24pm Height 71 inches 5'11" Weight 259.00 lb Heart Rate 72 /min BP Systolic Sitting 142 mmHg BP Diastolic Sitting 88 mmHg Respiratory Rate 14 /min Body Temperature 97.0 F O2 % BldC Oximetry 96 % BMI (Body Mass Index) 36.1 kg/m2 07/19/2015 7:46am Weight 260.50 lb Heart Rate 78 /min BP Systolic Sitting 119 mmHg BP Diastolic Sitting 72 mmHg Body Temperature 98.1 F O2 % BldC Oximetry 93 % 10/12/2014 3:23pm Height 70 inches 5'10" Weight 270.00 lb Heart Rate 66 /min BP Systolic 94 mmHg BP Diastolic 62 mmHg Pain Level 3 BMI (Body Mass Index) 38.7 kg/m2 10/03/2014 10:03am Height 70 inches 5'10" Weight 270.00 lb Heart Rate 78 /min BP Systolic Sitting 142 mmHg BP Diastolic Sitting 84 mmHg O2 % BldC Oximetry 96 % BMI (Body Mass Index) 38.7 kg/m2 04/19/2014 10:50am Height 70 inches 5'10" Weight 260.00 lb Heart Rate 105 /min BP Systolic 154 mmHg BP Diastolic 100 mmHg BMI (Body Mass Index) 37.3 kg/m2 04/06/2014 3:12pm Height 70 inches 5'10" Heart Rate 82 /min BP Systolic 140 mmHg BP Diastolic 102 mmHg 03/01/2014 1:11pm Height 70 inches 5'10" Heart Rate 79 /min BP Systolic 131 mmHg BP Diastolic 85 mmHg 02/13/2014 3:33pm Height 70 inches 5'10" Weight 260.00 lb Heart Rate 70 /min BP Systolic 96 mmHg BP Diastolic 60 mmHg BMI (Body Mass Index) 37.3 kg/m2 06/30/2013 4:03pm Weight 260.25 lb Heart Rate 75 /min BP Systolic Sitting 126 mmHg BP Diastolic Sitting 80 mmHg 03/03/2013 3:20pm Height 70.75 inches 5'10.75" Weight 253.50 lb Heart Rate 79 /min BP Systolic Sitting 153 mmHg BP Diastolic Sitting 97 mmHg BMI (Body Mass Index) 35.6 kg/m2 08/03/2012 2:56pm Height 70.25 inches 5'10.25" Weight 255.00 lb Heart Rate 79 /min BP Systolic Sitting 121 mmHg BP Diastolic Sitting 82 mmHg BMI (Body Mass Index) 36.3 kg/m2 Results Test Date Facility Test Result H/L Range Note Laboratory test 11/20/2018 [facility] Blood Culture SEE RESULT [address] [place] [address] [phone] CBC Auto Diff 11/20/2018 [facility] White Blood 14.1 10^3/uL High 3.5-10.[address] [place] [address] [phone] Red Blood Count 4.12 10^6/uL Low 4.18-5.48 Hemoglobin 13.2 g/dL Low 14.0-18.0 Hematocrit 38 % Low 42-52 Mean Corpuscular Volume 93 fL N 80-94 Mean Corpuscular Hemoglobin 32 pg High 27-31 Mean Corpuscular HGB Conc 35 g/dL N 31-36 Red Cell Distribution Width 13 % N 10-15 Platelet Count 280 10^3/uL N 150-450 Mean Platelet Volume 6.7 fL Low 7.4-10.4 Abs Neutrophils 12.3 10^3/uL High 1.5-7.7 Abs Lymphocytes 1.0 10^3/uL N 1.0-4.8 Abs Monocytes 0.7 10^3/uL N 0-0.8 Abs Eosinophils 0.1 10^3/uL N 0-0.6 Abs Basophils 0.1 10^3/uL N 0-0.2 Abs Nucleated RBC 0.0 10^3/uL Granulocyte % 86.9 % Lymphocyte % 7.2 % Monocyte % 5.0 % Eosinophil % 0.4 % Basophil % 0.5 % Nucleated Red Blood Cells % 0.1 Laboratory test 11/20/2018 [facility] Lactic Acid 1.4 mmol/L N 0.5-2.0 2 finding [address] [place] [address] [phone] Influenza A & B 11/20/2018 [facility] Influenza A NEGATIVE Negative 3 Request [address] [facility] [place] [address] [phone] Influenza B Molecular NEGATIVE Negative Inr/Protime 11/20/2018 [facility] Inr 1.14 High 0.82-1.09 4 [address] [place] [address] [phone] Laboratory test 11/20/2018 [facility] Partial 29.3 N 26.0- 38.0 finding [address] [facility] [place] [place] [address] Time PTT [phone] Urinalysis 11/20/2018 [facility] Urine Color Yellow Profile [address] [place] [address] [phone] Urine Appearance Cloudy Urine Specific [place] 1.010 N 1.010-1.030 Urine pH 6.0 N 5-9 Urine Urobilinogen Negative Negative Urine Ketones Negative Negative Urine Protein Negative Negative Urine Leukocytes Negative Negative Urine Blood Negative Negative Urine Nitrite Negative Negative Urine Bilirubin Negative Negative Urine Glucose Negative Negative Laboratory test 11/20/2018 [facility] C Reactive 78.04 mg/L High <8.01 finding [address] [facility] [place] [address] [phone] Comp Metabolic 11/20/2018 [facility] Sodium 133 mmol/L Low 135 -145 Panel [address] [place] [address] [phone] Potassium 4.0 mmol/L N 3.5-5.0 Chloride 101 mmol/L N 101-111 Co2 Carbon Dioxide 22 mmol/L N 22-32 Anion Gap 10 mmol/L N 2-11 Glucose 113 mg/dL High 70-100 Blood Urea Nitrogen 13 mg/dL N 6-24 Creatinine 0.97 mg/dL N 0.67-1.17 BUN/Creatinine Ratio 13.4 N 8-20 Calcium 8.9 mg/dL N 8.6-10.3 Total Protein 7.7 g/dL N 6.4-8.9 Albumin 3.8 g/dL N 3.2-5.2 Globulin 3.9 g/dL N 2-4 Albumin/Globulin Ratio 1.0 N 1-3 Total Bilirubin 0.70 mg/dL N 0.2-1.0 Alkaline Phosphatase 80 U/L N 34-104 Alt 34 U/L N 7-52 Ast 33 U/L N 13-39 Egfr Non- 79.5 >60 Egfr 96.2 >60 5 CBC Auto Diff 10/17/2018 [facility] White Blood 9.6 10^3/uL N 3.5-10.[address] [place] [address] [phone] Red Blood Count 4.30 10^6/uL N 4.18-5.48 Hemoglobin 13.8 g/dL Low 14.0-18.0 Hematocrit 40 % Low 42-52 Mean Corpuscular Volume 93 fL N 80-94 Mean Corpuscular Hemoglobin 32 pg High 27-31 Mean Corpuscular HGB Conc 35 g/dL N 31-36 Red Cell Distribution Width 13 % N 10.5-15 Platelet Count 332 10^3/uL N 150-450 Mean Platelet Volume 6.5 fL Low 7.4-10.4 Abs Neutrophils 5.8 10^3/uL N 1.5-7.7 Abs Lymphocytes 2.5 10^3/uL N 1.0-4.8 Abs Monocytes 0.9 10^3/uL High 0-0.8 Abs Eosinophils 0.3 10^3/uL N 0-0.6 Abs Basophils 0.1 10^3/uL N 0-0.2 Abs Nucleated RBC 0.0 10^3/uL Granulocyte % 60.4 % Lymphocyte % 25.8 % Monocyte % 9.7 % Eosinophil % 3.3 % Basophil % 0.8 % Nucleated Red Blood Cells % 0.0 Inr/Protime 10/17/2018 [facility] Inr 1.09 N 0.82-1.[address] [place] [address] [phone] Comp Metabolic 10/17/2018 [facility] Sodium 134 mmol/L Low 135 -[address] [place] [address] [phone] Potassium 3.7 mmol/L N 3.5-5.0 Chloride 101 mmol/L N 101-111 Co2 Carbon Dioxide 26 mmol/L N 22-32 Anion Gap 7 mmol/L N 2-11 Glucose 99 mg/dL N 70-100 Blood Urea Nitrogen 15 mg/dL N 6-24 Creatinine 0.83 mg/dL N 0.67-1.17 BUN/Creatinine Ratio 18.1 N 8-20 Calcium 9.1 mg/dL N 8.6-10.3 Total Protein 7.8 g/dL N 6.4-8.9 Albumin 4.0 g/dL N 3.2-5.2 Globulin 3.8 g/dL N 2-4 Albumin/Globulin Ratio 1.1 N 1-3 Total Bilirubin 0.40 mg/dL N 0.2-1.0 Alkaline Phosphatase 75 U/L N 34-104 Alt 40 U/L N 7-52 Ast 36 U/L N 13-39 Egfr Non- 95.2 >60 Egfr 115.1 >60 7 Laboratory test 10/17/2018 [facility] C Reactive 21.94 mg/L High <8.[address] [place] [address] [phone] Lactic Acid 1.3 mmol/L N 0.5-2.0 8 Blood Culture SEE RESULT BELOW 9 Comp Metabolic Panel 07/24/2018 [facility] Sodium 134 mmol/L Low 135-[address] [place] [address] [phone] Potassium 4.0 mmol/L N 3.5-5.0 Chloride 101 mmol/L N 101-111 Co2 Carbon Dioxide 25 mmol/L N 22-32 Anion Gap 8 mmol/L N 2-11 Glucose 97 mg/dL N 70-100 Blood Urea Nitrogen 17 mg/dL N 6-24 Creatinine 0.95 mg/dL N 0.67-1.17 BUN/Creatinine Ratio 17.9 N 8-20 Calcium 9.3 mg/dL N 8.6-10.3 Total Protein 8.0 g/dL N 6.4-8.9 Albumin 3.8 g/dL N 3.2-5.2 Globulin 4.2 g/dL High 2-4 Albumin/Globulin Ratio 0.9 Low 1-3 Total Bilirubin 0.50 mg/dL N 0.2-1.0 Alkaline Phosphatase 75 U/L N 34-104 Alt 42 U/L N 7-52 Ast 51 U/L High 13-39 Egfr Non- 81.4 >60 Egfr 98.5 >60 10 Laboratory test 07/24/2018 [facility] Erythrocyte Sed 33 mm/Hr High 0-20 [address] [place] [address] [phone] Blood Culture SEE RESULT BELOW 12 Laboratory test 07/24/2018 [facility] C Reactive 20.76 mg/L High <8.[address] [place] [address] [phone] Lactic Acid 1.3 mmol/L N 0.5-2.0 13 Inr/Protime 07/24/2018 [facility] Inr 1.05 High 0.77-1.[address] [place] [address] [phone] CBC Auto Diff 07/24/2018 [facility] White Blood 9.6 N 3.5- 10.[address] Count 10^3/uL [place], [place] [id number] [phone] Red Blood Count 4.38 10^6/uL N 4.00-5.40 Hemoglobin 14.0 g/dL N 14.0-18.0 Hematocrit 41 % Low 42-52 Mean Corpuscular Volume 94 fL N 80-94 Mean Corpuscular Hemoglobin 32 pg High 27-31 Mean Corpuscular HGB Conc 34 g/dL N 31-36 Red Cell Distribution Width 13 % N 10.5-15 Platelet Count 341 10^3/uL N 150-450 Mean Platelet Volume 6.8 fL Low 7.4-10.4 Abs Neutrophils 5.7 10^3/uL N 1.5-7.7 Abs Lymphocytes 2.6 10^3/uL N 1.0-4.8 Abs Monocytes 0.9 10^3/uL High 0-0.8 Abs Eosinophils 0.4 10^3/uL N 0-0.6 Abs Basophils 0.1 10^3/uL N 0-0.2 Abs Nucleated RBC 0 10^3/uL Granulocyte % 59.1 % Lymphocyte % 26.9 % Monocyte % 9.1 % Eosinophil % 4.3 % Basophil % 0.6 % Nucleated Red Blood Cells % 0 Laboratory test 07/24/2018 [facility] Partial 31.7 seconds N 26.0-36.[address] [place] [address] PTT [phone] Hemoglobin A1c (Glyco HGB) 5.3 % N 4.0-5.6 14 Lipid Profile 04/26/2018 [facility] Triglycerides 282 mg/dL 15 (Trig/Chol/HDL) [address] [place] [address] [phone] Cholesterol 141 mg/dL 16 HDL Cholesterol 46.5 mg/dL 17 LDL Cholesterol 38 mg/dL 18 Comp Metabolic Panel 04/26/2018 [facility] Sodium 136 mmol/L N 135-[address] [place] [address] [phone] Potassium 4.5 mmol/L N 3.5-5.0 Chloride 99 mmol/L Low 101-111 Co2 Carbon Dioxide 30 mmol/L N 22-32 Anion Gap 7 mmol/L N 2-11 Glucose 99 mg/dL N 70-100 Blood Urea Nitrogen 14 mg/dL N 6-24 Creatinine 0.75 mg/dL N 0.67-1.17 BUN/Creatinine Ratio 18.7 N 8-20 Calcium 9.3 mg/dL N 8.6-10.3 Total Protein 7.1 g/dL N 6.4-8.9 Albumin 3.8 g/dL N 3.2-5.2 Globulin 3.3 g/dL N 2-4 Albumin/Globulin Ratio 1.2 N 1-3 Total Bilirubin 0.30 mg/dL N 0.2-1.0 Alkaline Phosphatase 68 U/L N 34-104 Alt 39 U/L N 7-52 Ast 41 U/L High 13-39 Egfr Non- 107.0 >60 Egfr 129.4 >60 19 CBC Auto Diff 04/26/2018 [facility] White Blood 9.6 10^3/uL N 3.5-10.[address] [place] [address] [phone] Red Blood Count 3.97 10^6/uL Low 4.00-5.40 Hemoglobin 13.0 g/dL Low 14.0-18.0 Hematocrit 38 % Low 42-52 Mean Corpuscular Volume 95 fL High 80-94 Mean Corpuscular Hemoglobin 33 pg High 27-31 Mean Corpuscular HGB Conc 34 g/dL N 31-36 Red Cell Distribution Width 14 % N 10.5-15 Platelet Count 400 10^3/uL N 150-450 Mean Platelet Volume 7.0 fL Low 7.4-10.4 Abs Neutrophils 5.6 10^3/uL N 1.5-7.7 Abs Lymphocytes 2.6 10^3/uL N 1.0-4.8 Abs Monocytes 0.9 10^3/uL High 0-0.8 Abs Eosinophils 0.4 10^3/uL N 0-0.6 Abs Basophils 0 10^3/uL N 0-0.2 Abs Nucleated RBC 0 10^3/uL Granulocyte % 58.5 % N 38-83 Lymphocyte % 27.1 % N 25-47 Monocyte % 9.7 % High 0-7 Eosinophil % 4.3 % N 0-6 Basophil % 0.4 % N 0-2 Nucleated Red Blood Cells % 0.1 Laboratory test 04/26/2018 [facility] B-Type 19 pg/mL <=[address] [place] [address] Peptide BNP [phone] TSH (Thyroid Stim Horm) 3.59 mcIU/mL N 0.34-5.60 Laboratory 04/06/2018 [facility] Rapid Strep Negative Negative 20 test finding [address] Molecular [place], [place] [id number] [phone] Laboratory 04/06/2018 [facility] Rapid Strep A SEE RESULT 21 test finding [address] [place] [address] [phone] CBC Auto Diff 05/21/2017 [facility] White Blood 12.0 10^3/uL High 3.5-10.[address] [place] [address] [phone] Red Blood Count 3.96 10^6/uL Low 4.0-5.4 Hemoglobin 12.7 g/dL Low 14.0-18.0 Hematocrit 38 % Low 42-52 Mean Corpuscular Volume 95 fL High 80-94 Mean Corpuscular Hemoglobin 32 pg High 27-31 Mean Corpuscular HGB Conc 34 g/dL N 31-36 Red Cell Distribution Width 14 % N 10.5-15 Platelet Count 439 10^3/uL N 150-450 Mean Platelet Volume 7 um3 Low 7.4-10.4 Abs Neutrophils 8.6 10^3/uL High 1.5-7.7 Abs Lymphocytes 2.1 10^3/uL N 1.0-4.8 Abs Monocytes 1.1 10^3/uL High 0-0.8 Abs Eosinophils 0.2 10^3/uL N 0-0.6 Abs Basophils 0 10^3/uL N 0-0.2 Abs Nucleated RBC 0 10^3/uL Granulocyte % 71.3 % N 38-83 Lymphocyte % 17.6 % Low 25-47 Monocyte % 9.0 % N 1-9 Eosinophil % 1.7 % N 0-6 Basophil % 0.4 % N 0-2 Nucleated Red Blood Cells % 0 Comp Metabolic Panel 05/21/2017 [facility] Sodium 132 mmol/L Low 133-[address] [place] [id number] [phone] Potassium 4.2 mmol/L N 3.5-5.0 Chloride 100 mmol/L Low 101-111 Co2 Carbon Dioxide 26 mmol/L N 22-32 Anion Gap 6 mmol/L N 2-11 Glucose 109 mg/dL High 70-100 Blood Urea Nitrogen 12 mg/dL N 6-24 Creatinine 0.79 mg/dL N 0.67-1.17 BUN/Creatinine Ratio 15.2 N 8-20 Calcium 8.8 mg/dL N 8.6-10.3 Total Protein 7.4 g/dL N 6.4-8.9 Albumin 3.4 g/dL N 3.2-5.2 Globulin 4.0 g/dL N 2-4 Albumin/Globulin Ratio 0.9 Low 1-3 Total Bilirubin 0.50 mg/dL N 0.2-1.0 Alkaline Phosphatase 69 U/L N 34-104 Alt 52 U/L N 7-52 Ast 54 U/L High 13-39 Egfr Non- 101.1 >60 Egfr 130.0 >60 22 Laboratory test 05/21/2017 [facility] Blood Culture SEE RESULT [address] [place], [place] [id number] [phone] Wound 10/22/2016 [facility] Wound/Misc SEE RESULT 24 Culture/Sensi [address] [address] Stain [phone] Comp Metabolic 10/21/2016 [facility] Sodium 129 mmol/L Low 133 -14 [address] [place] [address] [phone] Chloride 95 mmol/L Low 101-111 Co2 Carbon Dioxide 23 mmol/L N 22-32 Glucose 93 mg/dL N 70-100 Blood Urea Nitrogen 16 mg/dL N 6-24 Creatinine 0.94 mg/dL N 0.67-1.17 BUN/Creatinine Ratio 17.0 N 8-20 Calcium 9.3 mg/dL N 8.6-10.3 Total Protein 7.3 g/dL N 6.4-8.9 Albumin 4.2 g/dL N 3.2-5.2 Globulin 3.1 g/dL N 2-4 Albumin/Globulin Ratio 1.4 N 1-3 Total Bilirubin 0.50 mg/dL N 0.2-1.0 Alkaline Phosphatase 69 U/L N 34-104 Alt 39 U/L N 7-52 Ast 34 U/L N 13-39 Egfr Non- 83.0 N >60 Egfr 106.8 N >60 26 Potassium 6.9 mmol/L High 3.5-5.0 27 Anion Gap 11 mmol/L N 2-11 CBC Auto 10/12/2016 [facility] White Blood 11.4 10^3/uL High 3.5-10.[address] [place] [address] [phone] Red Blood Count 4.40 10^6/uL N 4.0-5.4 Hemoglobin 14.3 g/dL N 14.0-18.0 Hematocrit 42 % N 42-52 Mean Corpuscular Volume 94 fL N 80-94 Mean Corpuscular Hemoglobin 33 pg High 27-31 Mean Corpuscular HGB Conc 34 g/dL N 31-36 Red Cell Distribution Width 13 % N 10.5-15 Platelet Count 368 10^3/uL N 150-450 Mean Platelet Volume 7 um3 Low 7.4-10.4 Abs Neutrophils 7.4 10^3/uL N 1.5-7.7 Abs Lymphocytes 2.9 10^3/uL N 1.0-4.8 Abs Monocytes 0.8 10^3/uL N 0-0.8 Abs Eosinophils 0.2 10^3/uL N 0-0.6 Abs Basophils 0.1 10^3/uL N 0-0.2 Abs Nucleated RBC 0.01 10^3/uL N Granulocyte % 65.2 % N 38-83 Lymphocyte % 25.9 % N 25-47 Monocyte % 6.7 % N 1-9 Eosinophil % 1.3 % N 0-6 Basophil % 0.9 % N 0-2 Nucleated Red Blood Cells % 0.1 N Comp Metabolic Panel 10/12/2016 [facility] Sodium 128 mmol/L Low 133-145 [address] [place] [address] [phone] Chloride 93 mmol/L Low 101-111 Co2 Carbon Dioxide 25 mmol/L N 22-32 Glucose 92 mg/dL N 70-100 Blood Urea Nitrogen 18 mg/dL N 6-24 Creatinine 1.00 mg/dL N 0.67-1.17 BUN/Creatinine Ratio 18.0 N 8-20 Calcium 9.3 mg/dL N 8.6-10.3 28 Total Protein 7.2 g/dL N 6.4-8.9 Albumin 4.1 g/dL N 3.2-5.2 Globulin 3.1 g/dL N 2-4 Albumin/Globulin Ratio 1.3 N 1-3 Total Bilirubin 0.40 mg/dL N 0.2-1.0 Alkaline Phosphatase 86 U/L N 34-104 Alt 55 U/L High 7-52 Egfr Non- 77.3 N >60 Egfr 99.4 N >60 29 Potassium 4.0 mmol/L N 3.5-5.0 30 Anion Gap 10 mmol/L N 2-11 Ast 46 U/L High 13-39 31 Laboratory test 10/12/2016 [facility] Magnesium 2.0 mg/dL N 1.9-2.7 finding [address] [place] [address] [phone] Lipid Profile 09/03/2016 [facility] Triglycerides 481 mg/dL N 32 (Trig/Chol/HDL) [address] [place] [address] [phone] Cholesterol 160 mg/dL N 33 HDL Cholesterol 34.7 mg/dL N 34 LDL Cholesterol (SEE NOTE) mg/dL N 35 Comp Metabolic Panel 09/03/2016 [facility] Sodium 134 mmol/L N 133-[address] [place] [address] [phone] Potassium 3.9 mmol/L N 3.5-5.0 Chloride 99 mmol/L Low 101-111 Co2 Carbon Dioxide 29 mmol/L N 22-32 Anion Gap 6 mmol/L N 2-11 Glucose 88 mg/dL N 70-100 Blood Urea Nitrogen 18 mg/dL N 6-24 Creatinine 1.04 mg/dL N 0.67-1.17 BUN/Creatinine Ratio 17.3 N 8-20 Calcium 9.3 mg/dL N 8.6-10.3 Total Protein 7.1 g/dL N 6.4-8.9 Albumin 4.1 g/dL N 3.2-5.2 Globulin 3.0 g/dL N 2-4 Albumin/Globulin Ratio 1.4 N 1-3 Total Bilirubin 0.30 mg/dL N 0.2-1.0 Alkaline Phosphatase 56 U/L N 34-104 Alt 50 U/L N 7-52 Ast 36 U/L N 13-39 Egfr Non- 73.9 N >60 Egfr 95.0 N >60 36 Laboratory test 09/03/2016 [facility] LDL Cholesterol 53 mg/dL N [address] [place] [address] [phone] CBC Auto Diff 08/03/2015 [facility] White Blood Count 8.2 10^3/ uL N 3.5-[address] 0.8 [place] [address] [phone] Red Blood Count 4.65 10^6/uL N 4.0-5.4 Hemoglobin 15.0 g/dL N 14.0-18.0 Hematocrit 44 % N 42-52 Mean Corpuscular Volume 94 fL N 80-94 Mean Corpuscular Hemoglobin 32 pg High 27-31 Mean Corpuscular HGB Conc 34 g/dL N 31-36 Red Cell Distribution Width 14 % N 10.5-15 Platelet Count 333 10^3/uL N 150-450 Mean Platelet Volume 7 um3 Low 7.4-10.4 Abs Neutrophils 4.4 10^3/uL N 1.5-7.7 Abs Lymphocytes 2.9 10^3/uL N 1.0-4.8 Abs Monocytes 0.6 10^3/uL N 0-0.8 Abs Eosinophils 0.3 10^3/uL N 0-0.6 Abs Basophils 0 10^3/uL N 0-0.2 Abs Nucleated RBC 0.02 10^3/uL N Granulocyte % 54.1 % N 38-83 Lymphocyte % 34.9 % N 25-47 Monocyte % 7.6 % N 1-9 Eosinophil % 3.1 % N 0-6 Basophil % 0.3 % N 0-2 Nucleated Red Blood Cells % 0.2 N Anca Panel For 08/03/2015 [facility] Myeloperoxidase AB <0.2 U N [address] [place], [place] [phone] Proteinase 3 AB <0.2 U N 39 Leukemia/Lymphoma Flow 06/19/2015 [facility] Path Interpretation TNP N [address] 2-8 Marker [place], [place] [address] [phone] Path Interpret > 16 Marker TNP N Path Interpret 9-15 Marker (SEE NOTE) N 40 Laboratory test 06/19/2015 [facility] Surgical SEE RESULT [address] Pathology BELOW [place], [place] [address] [phone] Laboratory test 06/19/2015 [facility] Surgical SEE RESULT [address] Pathology BELOW [place], [place] [address] [phone] CLL (US Labs) 06/19/2015 [facility] CLL Specimen Bone Marrow N [address] [place], [place] [address] [phone] CLL Source See Comment N 43 CLL Reason for Referral See Comment N 44 CLL Method See Comment N 45 CLL Result Table See Comment N 46 CLL Result See Comment N 47 CLL Result Summary Normal N CLL Interpretation See Comment N 48 CLL Disclaimer See Comment N 49 CLL Released by See Comment N 50 Bone Marrow 06/19/2015 [facility] BM Result Summary Normal N Chromosomes [address] [place], [place] [phone] [phone] BM Chromosome Specimen Bone Marrow N BM Chromosome Source See Comment N 51 BM Referral Reason See Comment N 52 BM Chromosome Method See Comment N 53 BM Chromo Banding Method See Comment N 54 BM Cromosome Results See Comment N 55 BM Chromosome Interpretation See Comment N 56 Released By See Comment N 57 CBC Auto Diff 06/19/2015 [facility] White Blood 10.2 10^3/uL N 3.5-10.[address] [place] [address] [phone] Red Blood Count 4.37 10^6/uL N 4.0-5.4 Hemoglobin 14.0 g/dL N 14.0-18.0 Hematocrit 42 % N 42-52 Mean Corpuscular Volume 95 fL High 80-94 Mean Corpuscular Hemoglobin 32 pg High 27-31 Mean Corpuscular HGB Conc 34 g/dL N 31-36 Red Cell Distribution Width 13 % N 10.5-15 Platelet Count 374 10^3/uL N 150-450 Mean Platelet Volume 7 um3 Low 7.4-10.4 Abs Neutrophils 6.0 10^3/uL N 1.5-7.7 Abs Lymphocytes 3.0 10^3/uL N 1.0-4.8 Abs Monocytes 0.8 10^3/uL N 0-0.8 Abs Eosinophils 0.3 10^3/uL N 0-0.6 Abs Basophils 0.2 10^3/uL N 0-0.2 Abs Nucleated RBC 0.01 10^3/uL N Granulocyte % 58.8 % N 38-83 Lymphocyte % 29.0 % N 25-47 Monocyte % 8.2 % N 1-9 Eosinophil % 2.5 % N 0-6 Basophil % 1.5 % N 0-2 Nucleated Red Blood Cells % 0.1 N Retic Count 06/19/2015 [facility] Retic Count 2.8 % High 0.5- 1.[address] [place] [address] [phone] Corrected Retic Count 2.6 % High 0.5-1.5 Maturation Factor Retic 1.0 N Retic Index 2.60 N Mean Retic Volume 111.5 N Immature Retic Fraction 0.49 N RBC Retic Count 4.37 10^6/uL Low 4.6-6.2 Hematocrit for Retic CNT 42 % N 42-52 Immunoglobulins 06/19/2015 [facility] Immunoglobulin G 2330 Abnormal 767 - 58 Serum Quant [address] mg/dL [address] [place] [address] [phone] Immunoglobulin M 61 mg/dL N 37 - 286 Immunoglobulin A 299 mg/dL N 61 - 356 Laboratory test 06/05/2015 [facility] Cytology Non-Sailing Master SEE RESULT [address] [place] [address] [phone] Leukemia/Lymphom 06/05/2015 [facility] Path Interpretation TNP N a Flow [address] 2-[address] [place] [address] [phone] Path Interpret > 16 Marker TNP N Path Interpret 9-15 Marker (SEE NOTE) N 60 Leukemia/Lymphoma 06/05/2015 [facility] Path Interpretation TNP N Phenot [address] 2-[address] [place] [address] [phone] Path Interpret > 16 Marker TNP N Path Interpret 9-15 Marker (SEE NOTE) N 61 Laboratory test 05/29/2015 [facility] C Reactive 129.00 mg/L High < 5.00 [address] [place] [address] [phone] CBC Auto Diff 05/29/2015 [facility] White Blood 14.4 High 3.5- 10.[address] Count 10^3/[place] [address] [phone] Red Blood Count 4.41 10^6/uL N 4.0-5.4 Hemoglobin 13.9 g/dL Low 14.0-18.0 Hematocrit 42 % N 42-52 Mean Corpuscular Volume 95 fL High 80-94 Mean Corpuscular Hemoglobin 31 pg N 27-31 Mean Corpuscular HGB Conc 33 g/dL N 31-36 Red Cell Distribution Width 13 % N 10.5-15 Platelet Count 285 10^3/uL N 150-450 Mean Platelet Volume 7 um3 Low 7.4-10.4 Abs Neutrophils 11.1 10^3/uL High 1.5-7.7 Abs Lymphocytes 1.8 10^3/uL N 1.0-4.8 Abs Monocytes 1.2 10^3/uL High 0-0.8 Abs Eosinophils 0.3 10^3/uL N 0-0.6 Abs Basophils 0.1 10^3/uL N 0-0.2 Abs Nucleated RBC 0 10^3/uL N Granulocyte % 76.9 % N 38-83 Lymphocyte % 12.6 % Low 25-47 Monocyte % 8.0 % N 1-9 Eosinophil % 2.0 % N 0-6 Basophil % 0.5 % N 0-2 Nucleated Red Blood Cells % 0 N Comp Metabolic Panel 05/29/2015 [facility] Sodium 133 mmol/L N 133-145 [address] [place] [address] [phone] Potassium 4.1 mmol/L N 3.5-5.0 Chloride 100 mmol/L Low 101-111 Co2 Carbon Dioxide 27 mmol/L N 22-32 Anion Gap 6 mmol/L N 2-11 Glucose 97 mg/dL N 70-100 Blood Urea Nitrogen 10 mg/dL N 6-24 Creatinine 0.85 mg/dL N 0.67-1.17 BUN/Creatinine Ratio 11.8 N 8-20 Calcium 9.4 mg/dL N 8.6-10.3 Total Protein 8.2 g/dL N 6.4-8.9 Albumin 4.1 g/dL N 3.2-5.2 Globulin 4.1 g/dL High 2-4 Albumin/Globulin Ratio 1.0 N 1-3 Total Bilirubin 0.80 mg/dL N 0.2-1.0 Alkaline Phosphatase 75 U/L N 34-104 Alt 24 U/L N 7-52 Ast 21 U/L N 13-39 Egfr Non- 93.6 N >60 Egfr 120.4 N >60 63 Comp Metabolic Panel 09/28/2014 [facility] Sodium 138 mmol/L N 133-145 64 [address] [place] [address] [phone] Potassium 4.3 mmol/L N 3.5-5.0 Chloride 103 mmol/L N 101-111 Co2 Carbon Dioxide 26 mmol/L N 22-32 Anion Gap 9 mmol/L N 2-11 Glucose 98 mg/dL N 70-100 Blood Urea Nitrogen 12 mg/dL N 6-24 Creatinine 0.89 mg/dL N 0.67-1.17 BUN/Creatinine Ratio 13.5 N 8-20 Calcium 9.3 mg/dL N 8.6-10.3 Total Protein 7.3 g/dL N 6.4-8.9 Albumin 4.4 g/dL N 3.2-5.2 Globulin 2.9 g/dL N 2-4 Albumin/Globulin Ratio 1.5 N 1-3 Total Bilirubin 0.30 mg/dL N 0.2-1.0 Alkaline Phosphatase 62 U/L N 34-104 Alt 79 U/L High 7-52 Ast 62 U/L High 13-39 Egfr Non- 89.1 N >60 Egfr 114.6 N >60 65 Lipid Profile 09/28/2014 [facility] Triglycerides 266 mg/dL N 66 (Trig/Chol/HDL) [address] [place], [place] [address] [phone] Cholesterol 156 mg/dL N 67 HDL Cholesterol 40.5 mg/dL N 68 LDL Cholesterol 62 mg/dL N 69 Comp Metabolic Panel 06/30/2013 [facility] Sodium 136 mmol/L 133-145 [address] [place] [address] [phone] Potassium 4.4 mmol/L 3.5-5.0 Chloride 101 mmol/L [...] Egfr Non- 88.3 >60 Egfr 113.5 >60 70 Lipid Profile 06/30/2013 [facility] Triglycerides 223 mg/dL High 40-200 (Trig/Chol/HDL) [address] [place] [address] [phone] Cholesterol 176 mg/dL Less than 200 HDL Cholesterol 51 mg/dL 40-60 71 Cholesterol/HDL Ratio 3.5 Average 1-4.44 LDL Cholesterol 80.4 Less Than 100 72 CBC Auto Diff 06/30/2013 [facility] White Blood 9.2 10^3/uL 4.8-10.[address] [place] [address] [phone] Red Blood Count 4.74 10^6/uL 4.0-5.4 Hemoglobin [...] Nucleated Red Blood Cells % 0.1 Laboratory 06/30/2013 [facility] TSH (Thyroid 2.45 0.34-5.60 test finding [address] Stimulating miu/[place] [address] Horm) [phone] Laboratory 06/30/2013 [facility] PSA Screening 0.636 0-4.000 test finding [address] ng/[place] [address] [phone] Lipid Panel 02/09/2013 [facility] Triglycerides 947 mg/dL High 40-[address] [place], [place] [address] [phone] Cholesterol 208 mg/dL High Less than 200 HDL Cholesterol 33 mg/dL Low 40-60 73 Cholesterol/HDL Ratio 6.3 Average High 1-4.44 LDL Cholesterol (SEE NOTE) Less Than 100 74 Laboratory test 02/09/2013 [facility] PSA Screening 0.5 ng/mL 0-4.0 [address] [place] [address] [phone] CMP Panel 02/09/2013 [facility] Sodium 136 mmol/L 133-[address] [place] [address] [phone] Potassium 4.3 mmol/L 3.5-5.0 Chloride 103 mmol/L [...] Egfr Non- 78.2 >60 Egfr 100.5 >60 76 1 SEE RESULT BELOW Name: AUGUSTINE BENITEZ : [address]: Marcelina Garcia MD Acct: [id number] Unit: [id number] AGE: 58 Location: ED Re11/19/18 SEX: M Status: DEP ER SPEC: [id number] ISSAC: 11/20/18-[address] [facility] [address]: Marcelina Garcia MD REQ: [id number] RECD: 11/20/18 STATUS: RES OTHR DR: Shemar Thacker GRANT OFFICER _ SOURCE: BLOOD,VENO SPDES: ORDERED: Blood Cult Procedure Result Reported Site Aerobic Culture Bottle Preliminary 11/24/18- 0207 ML No Growth Day 4 Anaerobic Culture Bottle Final 11/25/18- 0205 ML No Growth Day 5 * ML - Main Lab . END OF REPORT DEPARTMENT OF PATHOLOGY, [address] [place] [address] Sridhar Leung M.D. Director [facility] # [id number] 2 [facility] Severe Sepsis and Septic Shock Management Bundle Measure requires all lactic acids initially measuring >2.0 mmol/L be repeated. 3 Assembly Line Driver: [id number] 4 Standard intensity warfarin therapeutic range: 2.0-3.0 High intensity warfarin therapeutic range: 2.5-3.5 5 Because ethnic data is not always [...] 5 Kidney failure <15 (or dialysis) 6 Standard intensity warfarin therapeutic range: 2.0-3.0 High intensity warfarin therapeutic range: 2.5-3.5 7 Because ethnic data is not always readily [...] 15-29 5 Kidney failure <15 (or dialysis) 8 [facility] Severe Sepsis and Septic Shock Management Bundle Measure requires all lactic acids initially measuring >2.0 mmol/L be repeated. 9 SEE RESULT BELOW Name: AUGUSTINE BENITEZ : [address]: Michael Fraser MD Acct: [id number] Unit: [id number] AGE: 58 Location: ED Re10/17/18 SEX: M Status: DEP ER SPEC: [id number] ISSAC: 10/17/[address]: Michael Fraser MD REQ: [id number] RECD: 10/17/18 STATUS: COMP MARIA LUISA DR: Shemar Thacker GRANT OFFICER _ SOURCE: BLOOD,VENO SPDESC: ORDERED: Blood Cult Procedure Result Reported Site Aerobic Culture Bottle Final 10/22/18818 ML No Growth Day 5 * ML - Main Lab . END OF REPORT DEPARTMENT OF PATHOLOGY, [address] [place] [address] Sridhar Leung M.D. Director [facility] # [id number] 10 Because ethnic data is not always readily [...] 15-29 5 Kidney failure <15 (or dialysis) 11 Test Performed by: [facility] [address] [place] [address] Sridhar Leung M.D. Director of Laboratory 12 SEE RESULT BELOW Name: AUGUSTINE BENITEZ : [address]: Munir Basurto MD Acct: [id number] Unit: [id number] AGE: 58 Location: [place] [address] Re07/24/18 Dis: 07/26/18 SEX: M Status: DIS Rhonda SPEC: [id number] ISSAC: 07/24/[address]: Min Middleton MD REQ: [id number] RECD: 07/24/18 STATUS: BLANKA GLASS DR: Shemar Thacker GRANT OFFICER _ SOURCE: BLOOD,VENO SPDESC: ORDERED: Blood Cult Procedure Result Reported Site Aerobic Culture Bottle Final 07/29/18- 0850 ML No Growth Day 5 Anaerobic Culture Bottle Final 07/29/18- 0850 ML No Growth Day 5 * ML - Main Lab . END OF REPORT DEPARTMENT OF PATHOLOGY, [address] [place] [address] Sridhar Leung M.D. Director [facility] # [id number] 13 [facility] Severe Sepsis and Septic Shock Management Bundle Measure requires all lactic acids initially measuring >2.0 mmol/L be repeated. 14 Therapeutic target for the treatment of diabetes mellitus patients is <7% HBA1C, and in selective patients <6.0%. Please refer to [place] [employer] diabetic care guidelines for further information. 15 Desirable: <150 Borderline High: 150-199 High: 200-499 Very High: >500 16 Desirable: <200 Borderline High: 200-239 High: >239 17 Low: <40 Desirable: 40-60 High: >60 18 Desirable: <100 Near Optimal: 100-129 Borderline High: 130-159 High: 160-189 Very High: >189 19 Because ethnic data is not always readily [...] 15-29 5 Kidney failure <15 (or dialysis) 20 Assembly Line Driver: [id number] 21 SEE RESULT BELOW Name: AUGUSTINE BENITEZ : [address]: Mo Xiao MD Acct: [id number] Unit: [id number] AGE: 58 Location: ED Re04/06/18 SEX: M Status: REG ER SPEC: [id number] ISSAC: 04/06/[address]: Ronal ROBB REQ: [id number] RECD: 04/06/18 STATUS: BLANKA GLASS DR: [facility] Shemar Thacker GRANT OFFICER _ SOURCE: THROAT SPDESC: ORDERED: Strep A Request Procedure Result Reported Site Rapid Strep A Request Final 04/06/18- 1319 ML Specimen received for Rapid Strep A Molecular testing * ML - Main Lab . END OF REPORT DEPARTMENT OF PATHOLOGY, [address] [place] [address] Sridhra Leung M.D. Director [facility] # [id number] 22 Because ethnic data is not always readily [...] 15-29 5 Kidney failure <15 (or dialysis) 23 SEE RESULT BELOW Name: AUGUSTINE BENITEZ : [address]: Shemar Thacker NP Acct: [id number] Unit: [id number] AGE: 57 Location: [facility] Re05/21/17 SEX: M Status: REG REF SPEC: [id number] ISSAC: 05/21/17-[address]: Shemar Thacker NP REQ: [id number] RECD: 05/21/17 STATUS: COMP _ SOURCE: BLOOD,VENO [facility]: ORDERED: Blood Cult Procedure Result Reported Site Aerobic Culture Bottle Final 05/26/17- 2 ML No Growth Day 5 Anaerobic Culture Bottle Final 05/26/17- 1702 ML No Growth Day 5 * ML - MAIN LAB ([facility]) . END OF REPORT * ML=Testing performed at Main Lab DEPARTMENT OF PATHOLOGY, [address] [place] [address] Sridhar Leung M.D. Director [facility] # [id number] 24 SEE RESULT BELOW Name: AUGUSTINE BENITEZ : [address]: Michael Fraser MD Acct: [id number] Unit: [id number] AGE: 56 Location: ED Re10/22/16 SEX: M Status: DEP ER SPEC: [id number] ISSAC: 10/22/16-[address]: Sherice Ochoa MD REQ: [id number] RECD: 10/22/16 STATUS: BLANKA GLASS DR: Shemar Thacker GRANT OFFICER _ SOURCE: FOOT,RIGHT SPDESC: ORDERED: Culture Stain [...] performed at Main Lab DEPARTMENT OF PATHOLOGY, [address] [place] [address] Sridhar Leung M.D. Director [facility] # [id number] Patient: AUGUSTINE BENITEZ [id number] (Continued) Specimen: [id number] Collected: 10/22/16 Received: 10/22/16 (Continued) Procedure Result Reported Site Wound/Misc Culture Final (continued) 10/24/16937 1. STAPHYLOCOCCUS AUREUS (continued) M.I.C. RX --------- ------ Cefazolin-Deduced S * These antibiotics are not available in the [facility] Formulary Contact the Microbiology Department for any additional antibiotic reporting. * ML - MAIN LAB ([facility]) . END OF REPORT * ML=Testing performed at Main Lab DEPARTMENT OF PATHOLOGY, [address] [place] [address] Sridhar Leung M.D. Director [facility] # [id number] 25 [id number] 26 Because ethnic data is not always readily [...] 15-29 5 Kidney failure <15 (or dialysis) 27 Critical Result K:6.9 Called to [id number] at: 18:11:22 by:[id number] Read back by:[id number] 28 Specimen Lipemic. Result may not be valid. 29 Because ethnic data is not always readily [...] 15-29 5 Kidney failure <15 (or dialysis) 30 Unable to report test result due to hemolysis. 31 Unable to report test result due to hemolysis. 32 Desirable <150 Borderline high 150-199 High 200-499 Very High >500 33 Desirable <200 Borderline high 200-239 High >239 34 Low <40 Desirable: 40-60 High: >60 35 Unable to calculate LDL as triglyceride is > 400 36 Because ethnic data is not always readily [...] 15-29 5 Kidney failure <15 (or dialysis) 37 Desirable: <100 mg/dL Near Optimal: 100-129 mg/dL Borderline High: 130-159 mg/dL High: 160-189 mg/dL Very High: >189 mg/dL 38 REFERENCE VALUE <0.4 (Negative) 39 REFERENCE VALUE <0.4 (Negative) Test Performed by: [place] [address] Business Services Sales Agent: Les Bernstein II, M.D., Ph.D. 40 FINAL DIAGNOSIS: Specimen Source: Bone marrow Flow [...] Rita Rosa MD Technical component performed by: [address] [address] Business Services Sales Agent: Les Bernstein II, MD, PhD. 41 SEE RESULT BELOW Name: AUGUSTINE BENITEZ : [address]: Tesfaye Oleary MD Acct: [id number] Unit: [id number] AGE: 55 Location: [facility] Re06/19/15 SEX: M Status: REG REF SPEC: [id number] ISSAC: 06/19/[address]: Tesfaye Oleary MD REQ: [id number] RECD: 06/19/15 STATUS: SOUT _ ORDERED: IRON STAIN, Janette, LEVEL IV/2 CLL FISH has been performed at [facility], [place], [place]. The testing reveals: RESULT: Left posterior iliac crest RESULT: small cell B-cell lymphoma Locus and probes [Strategy;#Nuclei;Class] 6CEN(D6Z1),6q23.3(MYB) [COPY#;200;ASR] 11CEN(D11Z1),11q22.3(CHUYITA) [COPY#;200;ASR] 12CEN(D12Z3),12q15(MDM2) [COPY#;200;ASR] 13q14(N27I426),13q34(LAMP1) [COPY#;200;ASR] 11q13(CCND1-XT),14q32(IGH-XT) [DFISH;500;ASR] 17p13.1(TP53),17CEN(D17Z1) [COPY#;200;ASR] Probe strategies include: DFISH=dual color, double fusion; COPY#=region gain and loss. Abnormality Name Result % Abn Cutoff (%) -6q23(D6Z1x2,MYBx1) Normal <4.0% -11q22.3(D48A2e3,ATMx1) Normal <7.5% +12(D12Z3,MDM2)x3 Normal <2.5% -13q14.3(X99U883q4,YFRN1t3) Normal <7.0% -13q14.3x2(M28O920f8,LAMP1x Normal <1.5% 2) t(11;14) CCND1-XT/IGH-XT Normal <0.6% fusion -17p13.1(TP53x1,S18N6c6) Normal <9.5% -17(TP53,D17Z1)x1 Normal <5.5% RESULT: Interphase FISH is normal for all loci studied. Normal The result is within normal limits for the CLL FISH panel and the CCND1 and IGH gene regions. CONTINUED ON NEXT PAGE * ML=Testing performed at Main Lab DEPARTMENT OF PATHOLOGY, [address] [place] [address] Sridhar Leung M.D. Director [facility] # [id number] RUN DATE: 06/28/15 [facility] LAB LIVE PAGE 2 Patient: AUGUSTINE BENITEZ [id number] (Continued) ADDENDUM (Continued) Test Performed by: [place] [address] Business Services Sales Agent: Les Bernstein II, M.D., Ph.D. Addendum Signed [...] detected in the jugular lymph node specimen ([id number]). SPECIAL STUDIES Flow cytometry has been performed at [facility], [place], [place]. 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 Director [facility] # [id number] RUN DATE: 06/28/15 [facility] LAB LIVE PAGE 3 Patient: AUGUSTINE BENITEZ [id number] (Continued) SPECIAL STUDIES (Continued) SPECIAL STUDIES (Continued) [...] Rita Rosa MD Technical component performed by: [place] [address] Business Services Sales Agent: Les Bernstein II, MD, PhD. CLINICAL HISTORY [...] performed at Main Lab DEPARTMENT OF PATHOLOGY, [address] [place] [address] Sridhar Leung M.D. Director CLIA # [id number] RUN DATE: 06/28/15 [facility] LAB LIVE PAGE 4 Patient: AUGUSTINE BENITEZ John [id number] (Continued) MICROSCOPIC DESCRIPTION (Continued) MICROSCOPIC DESCRIPTION A [...] not increased. Elements of granulocytic lineage demonstrate java project manager progression to mature forms. Erythroid maturation is [...] performed at Main Lab DEPARTMENT OF PATHOLOGY, [address] [place] [address] Sridhar Leung M.D. Director [facility] # [id number] 42 SEE RESULT BELOW Name: AUGUSTINE BENITEZ : [address]: Tesfaye Oleary MD Acct: [id number] Unit: [id number] AGE: 55 Location: [facility] Re06/19/15 SEX: M Status: REG REF SPEC: [id number] ISSAC: 06/19/[address]: Tesfaye Oleary MD REQ: [id number] RECD: 06/19/15 STATUS: SOUT _ ORDERED: IRON [...] detected in the jugular lymph node specimen ([id number]). SPECIAL STUDIES Flow cytometry has been performed at [facility], [place], [place]. The testing reveals: FINAL DIAGNOSIS: Specimen Source: Bone marrow Flow cytometry immunophenotypic analysis: Involved by a B cell lymphoproliferative disorder with immunophenotypic features of chronic lymphocytic leukemia (1% of total marrow cellularity) Interpretative data: Blasts: 1% of gated events Lymphocytes: 14% of gated events CONTINUED ON NEXT PAGE * ML=Testing performed at Main Lab DEPARTMENT OF PATHOLOGY, [address] [place] [address] Sridhar Leung M.D. Director [facility] # [id number] RUN DATE: 06/21/15 [facility] LAB LIVE PAGE 2 Patient: AUGUSTINE BENITEZ [id number] (Continued) SPECIAL STUDIES (Continued) SPECIAL STUDIES (Continued) [...] Rita Rosa MD Technical component performed by: [place] [address] Business Services Sales Agent: Les Bernstein II, MD, PhD. CLINICAL HISTORY [...] performed at Main Lab DEPARTMENT OF PATHOLOGY, [address] [place] [address] Sridhar Leung M.D. Director [facility] # [id number] RUN DATE: 06/21/15 [facility] LAB LIVE PAGE 3 Patient: AUGUSTINE BENITEZ [id number] (Continued) MICROSCOPIC DESCRIPTION (Continued) MICROSCOPIC DESCRIPTION A [...] not increased. Elements of granulocytic lineage demonstrate java project manager progression to mature forms. Erythroid maturation is [...] performed at Main Lab DEPARTMENT OF PATHOLOGY, [address] [place] [address] Sridhar Leung M.D. Director [facility] # [id number] 43 RESULT: Left posterior iliac crest 44 RESULT: small cell B-cell lymphoma 45 Locus and probes [Strategy;#Nuclei;Class] 6CEN(D6Z1),6q23.3(MYB) [COPY#;200;ASR] 11CEN(D11Z1),11q22.3(CHUYITA) [COPY#;200;ASR] 12CEN(D12Z3),12q15(MDM2) [COPY#;200;ASR] 13q14(Z18Q724),13q34(LAMP1) [COPY#;200;ASR] 11q13(CCND1-XT),14q32(IGH-XT) [DFISH;500;ASR] 17p13.1(TP53),17CEN(D17Z1) [COPY#;200;ASR] Probe strategies include: DFISH=dual color, double fusion; COPY#=region gain and loss. 46 Abnormality Name Result % Abn Cutoff (%) -6q23(D6Z1x2,MYBx1) Normal <4.0% -11q22.3(Z90V5m0,ATMx1) Normal <7.5% +12(D12Z3,MDM2)x3 Normal <2.5% -13q14.3(E16C387i3,QOYQ2b6) Normal <7.0% -13q14.3x2(B34U083o8,LAMP1x Normal <1.5% 2) t(11;14) CCND1-XT/IGH-XT Normal <0.6% fusion -17p13.1(TP53x1,I50J6l0) Normal <9.5% -17(TP53,D17Z1)x1 Normal <5.5% 47 RESULT: Interphase FISH is normal for all loci studied. 48 The result is within normal limits for the CLL FISH panel and the CCND1 and IGH gene regions. Additional cytogenetic studies are reported separately. PDF Report available at: [email or web address] 49 Applicable to Analyte Specific Reagent (ASR) and Laboratory developed tests (LDT). This test was developed and its performance characteristics determined by [facility]. It has not been cleared or approved by the U.S. Food and Drug Administration. This FISH test does not rule out other chromosome abnormalities. 50 RESULT: Sridhar Peguero, Ph.D. Test Performed by: [place] [id number] Business Services Sales Agent: Les Bernstein II, M.D., Ph.D. 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 All 20 metaphases from the unstimulated cultures were normal. No cytogenetic evidence of a lymphoid neoplasm. All 10 metaphases from the CpG-stimulated culture were normal. This result is consistent with the normal CLL FISH studies, reported separately. PDF Report available at: [email or web address] 57 RESULT: Sidney Shahid M.D., Ph.D. Test Performed by: [place] [address] Business Services Sales Agent: Les Bernstein II, M.D., Ph.D. 58 Test Performed by: [place] [address] Business Services Sales Agent: Les Bernstein II, M.D., Ph.D. 59 SEE RESULT BELOW Name: AUGUSTINE BENITEZ : [address]: Jvuenal Jeffrey MD Acct: [id number] Unit: [id number] AGE: 55 Location: Re06/05/15 SEX: M Status: REG REF SPEC: [id number] ISSAC: 06/05/[address] [facility] [address]: Yahir Dickson MD REQ: [id number] RECD: 06/05/15 STATUS: GREY [facility] DR: Juvenal Jeffrey MD _ ORDERED: FN ASP DEEP, FNA IMMEDIATE S, Leukemia/Lympho THIS IS A CORRECTED REPORT 06/07/15 Corrected Report Flow cytometry has been performed at [place], [place]. The testing reveals: FINAL DIAGNOSIS: Specimen Source: Lymph node, right jugular ([id number]) Flow cytometry immunophenotypic analysis: Involved by small [...] Rita Rosa MD Technical component performed by: [facility] [place] [address] Business Services Sales Agent: Les Bernstein II, MD, PhD. CONTINUED ON NEXT PAGE * ML=Testing performed at Main Lab DEPARTMENT OF PATHOLOGY, [address] [place] [address] Sridhar Leung M.D. Director [facility] # [id number] RUN DATE: 06/07/15 [facility] LAB LIVE PAGE 2 Patient: AUGUSTINE BENITEZ [id number] (Continued) ADDENDUM (Continued) Addendum Signed (signature on [...] Alcohol fixed slide(s) and Specimen sent to [facility] for Flow cytometry [place], [place] on 06/05/15 by [id number] at 1049. CONTINUED ON NEXT PAGE * ML=Testing performed at Main Lab DEPARTMENT OF PATHOLOGY, [address] [place] [address] Sridhar Leung M.D. Director [facility] # [id number] RUN DATE: 06/07/15 [facility] LAB LIVE PAGE 3 Patient: AUGUSTINE BENITEZ [id number] (Continued) GROSS DESCRIPTION (Continued) Signed (signature on file) Rita Rosa MD 1621 END OF REPORT * ML=Testing performed at Main Lab DEPARTMENT OF PATHOLOGY, [address] [place] [address] Sridhar Leung M.D. Director [facility] # [id number] 60 FINAL DIAGNOSIS: Specimen Source: Lymph node, right jugular ([id number]) Flow cytometry immunophenotypic analysis: Involved by small [...] Rita Rosa MD Technical component performed by: [place] [address] Business Services Sales Agent: Les Bernstein II, MD, PhD. --- 06/07/15 1518 --- 02-20 previously reported as: FINAL DIAGNOSIS: Specimen Source: Lymph node, right jugular ([id number]) Flow cytometry immunophenotypic analysis: Involved by chronic [...] Rita Rosa MD Technical component performed by: [place] [address] Business Services Sales Agent: Les Bernstein II, MD, PhD. 61 FINAL DIAGNOSIS: Specimen Source: Lymph node, right jugular ([id number]) Flow cytometry immunophenotypic analysis: Involved by small [...] Rita Rosa MD Technical component performed by: [place] [address] Business Services Sales Agent: Les Bernstein II, MD, PhD. --- 06/07/15 1518 --- Path Inter 02-20 previously reported as: FINAL DIAGNOSIS: Specimen Source: Lymph node, right jugular ([id number]) Flow cytometry immunophenotypic analysis: Involved by chronic [...] Rita Rosa MD Technical component performed by: [place] [address] Business Services Sales Agent: Les Bernstein II, MD, PhD. 62 Acute inflammation: >10.00 63 Because ethnic data is not always readily [...] 15-29 5 Kidney failure <15 (or dialysis) 64 FASTING 10 HOUR 65 Because ethnic data is not always readily [...] 15-29 5 Kidney failure <15 (or dialysis) 66 Desirable <150 Borderline high 150-199 High 200-499 Very High >500 67 Desirable <200 Borderline high 200-239 High >239 68 Low <40 Desirable: 40-60 High: >60 69 Desirable: <100 mg/dL Near Optimal: 100-129 mg/dL Borderline High: 130-159 mg/dL High: 160-189 mg/dL Very High: >189 mg/dL 70 Because ethnic data is not always readily [...] 15-29 5 Kidney failure <15 (or dialysis) 71 HDL Interpretation: Undesirable: High Risk: Less than 40 mg/dL Desirable: Low Risk: Greater than 60 mg/dL 72 LDL Interpretation: Low Risk Optimal Level: LDL Less than 100 mg/dL Near or Above Optimal: LDL 100-129 mg/dL Borderline High Risk: LDL 130-159 mg/dL High Risk: LDL 160-189 mg/dL Very High Risk: LDL Greater than 189 mg/dL 73 HDL Interpretation: Undesirable: High Risk: Less than 40 mg/dL Desirable: Low Risk: Greater than 60 mg/dL 74 Unable to calculate LDL as triglyceride is > 400 75 Serum levels of PSA measured using the [employer] DXI Hybritech immunoassay should not be interpreted [...] methods or kits cannot be used interchangeably. 76 Because ethnic data is not always readily [...] 15-29 5 Kidney failure <15 (or dialysis) Procedures Date Code Description Status 07/27/2018 83913 Removal Devitalized Tissue Wound Greater Than 20 Completed Square CM 07/27/2018 51048 Removal Devitalization Tissue Wound Less Than Equal 20 Completed Square CM 04/26/2018 82322 ECHO Transthoracic, Real-Time 2D With Doppler And Completed Color Flow 04/26/2018 99641 ECHO Transthoracic, Real-Time 2D With Doppler And Completed Color Flow 10/18/2014 10220 ECHO Transthoracic, Real-Time 2D With Doppler And Completed Color Flow 10/11/2014 [id number] Bone Mineral Density Test Completed 04/06/2014 43232 Rad Exam; Foot Comp Completed 03/01/2014 31421 Rad Exam; Foot Comp Completed 02/13/2014 99972 Rad Exam; Foot Comp Completed 02/13/2014 49064 FX Metatarsal Care Completed Encounters Type Date Location Provider Dx Diagnosis Office Visit 11/30/2018 [facility] Shemar Thacker NP Z00.00 Encntr for [facility] w/o abnormal findings I10 Essential (primary) hypertension K21.9 Gastro-esophageal reflux disease without esophagitis 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 ulcer oth prt right foot w unsp severity S91.301A Unspecified open wound, right foot, initial encounter G60.3 Idiopathic progressive neuropathy L03.115 Cellulitis of right lower limb S91.302A Unspecified open wound, left foot, initial encounter Office Visit 07/26/2018 [facility] Munir Montiel L03.115 Cellulitis of 10:17a irma Roche MD right lower limb Hospitalists I10 Essential (primary) hypertension Office Visit 07/24/2018 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 M75.52 Bursitis of left shoulder S43.402A Unspecified sprain of left shoulder joint, initial encounter Office Visit 03/25/2018 [facility] Josh Ledbetter M54.12 Radiculopathy, 8:45a Services Of MD [facility]i cervical region [facility] M75.52 Bursitis of left shoulder S43.402A Unspecified sprain of left shoulder joint, initial encounter Office Visit 05/21/2017 4:00p [facility] Shemar Thacker, L03.115 Cellulitis of Medicine - [facility] GRANT OFFICER right lower limb Office Visit 10/27/2016 10:00a [facility] Shemar Thacker L03.115 [facility]ul[facility] right lower limb I10 Essential (primary) hypertension E78.5 Hyperlipidemia, unspecified Office Visit 04/03/2016 [facility] Shemar Thacker, M46.1 Sacroiliitis, not 11:40a [facility] OFFICER elsewhere classified Office Visit 03/24/2016 [facility] Shemar Thacker M46.1 Sacroiliitis, not 1:40p Medicine [facility] GRANT OFFICER elsewhere classified Office Visit 12/25/2015 [facility] Nimesh Cline L03.116 Cellulitis of left 2:20p [facility] lower limb Office Visit 09/19/2015 [facility] [place] M76.821 Posterior tibial 3:30p Services Of Wnedy Diaz tendinitis, right [facility] leg M76.71 Peroneal tendinitis, right leg Office Visit 09/12/2015 3:00p 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 Bone(S) Closed 733.94 Stress Fracture Of The Metatarsals Office Visit 10/03/2014 10:00a [facility] Coco Stone, V70.0 Examination [facility] General Medical Routine AT Health Care Facility 272.4 Hyperlipidemia Other Unspec 401.1 Hypertension Benign 278.00 Obesity Unspec 257.2 Testicular Hypofunction Other 780.79 Malaise And Fatigue Other 825.20 FX Foot Bones (Except Toes) Unspec Closed 327.23 Obstructive Sleep Apnea Adult & Pediatric V73.89 Screening Examination Viral Diseases Other Spec V76.44 Screening For Malig Fernando Prostate V76.51 Special Screening For Malignant Neoplasms Colon 429.3 Cardiomegaly Office Visit 06/30/2013 4:00p [facility] Coco Stone, 401.1 Hypertension Benign Medicine - [facility] 272.2 Hyperlipidemia Mixed 300.02 Anxiety Disorder Generalized Office Visit 03/03/2013 3:00p [facility] Coco Stone, V70.0 [facility] General Medical Routine AT Health Care Facility 278.00 Obesity Unspec 401.1 Hypertension Benign 257.2 Testicular Hypofunction Other 461.8 Sinusitis Acute Other 272.2 Hyperlipidemia Mixed V76.41 Screening Malignant Neoplasm Rectum V04.81 Need For Prophylactic Vaccination & Inoculation/Influenza Office Visit 08/03/2012 3:00p [facility] Coco V17.49 Family HX Of Other Medicine - Wendy Stone Cardiovascular Ccmob Diseases 272.2 Hyperlipidemia Mixed 278.00 Obesity Unspec 401.1 Hypertension Benign 257.2 Testicular Hypofunction Other 787.91 Diarrhea v06.1 Kafplcyell-Zjchysd-Dtgsrjel Combined (DTaP) Plan of Treatment Future Appointment(s):01/04/2019 9:00 am - [place] Diaz M.D. at [facility]12/28/2018 8:00 am - Austin Shields MD at [facility]12/14/2018 - [place] Diaz M.D.M25.571 Pain in right ankle and joints of right footNew Xrays:Ankle Right 2VWS, Ordered: 12/14/18Foot Right 3+ VWS, Ordered: 12/14/18Follow up:3 weeks
--- OUTSIDE RECORDS SUMMARY | 2018-12-30 20:23 | XMS REPORT | Continuity of Care Document ---
:1960 External Reference #:[id number] Author Name Kasie Whitney Care Team Providers Name Role Phone Maisha Us MD Primary Care Physician Unavailable Payers Date Identification Numbers Payment Provider Subscriber Effective: 2012 Policy Number: [id number] [employer] Augustine Benitez PayID: [id number] [address] [address] [place] [address] Onset: 2018 Policy Number: [id number] [facility] Ppo Augustine Benitez Group Name: [address] [place] [address]. 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 days Potassium Chloride ER 1 by mouth every 30tabs R60.0 Shemar Thacker, 2017 - 20Meq day for two TRUCK DISPATCHER 06/15/2018 Tablets ER weeks Methylprednisolone medrol dosepak 21units M54.12 Josh F 03/25/2018 - 4mg TBPK take as MD Lexi 04/21/2018 instructed Cephalexin take one tablet 56tabs L03.115 Shemar Thacker, 05/21/2017 - 500mg Tablets every 6 hours TRUCK DISPATCHER 06/04/2017 for 14 days Metoprolol Succinate ER take 1 tablet by 30tabs Shemar Thacker, 03/06/2017 - 50mg mouth every day TRUCK DISPATCHER 09/26/2018 Tablets ER 24HR Cephalexin take one tablet 16tabs L03.115 Shemar Thacker, 10/27/2016 - 500mg Tablets every 6 hours TRUCK DISPATCHER 05/18/2017 for 4 more days Mobic one tablet once 30tabs M46.1 Shemar Thacker, 04/03/2016 - 7.5mg Tablets daily. May take TRUCK DISPATCHER 10/27/2016 two once daily if one is ineffective. With food Methocarbamol take 1 tablet 60tabs M46.1 Shemar Thacker, 04/03/2016 - 750mg Tablets every six hours TRUCK DISPATCHER 10/27/2016 as needed for pain. may take second tablet if first not effective. Medrol as directed on 21units M46.1 Shemar Thacker, 03/24/2016 - 4mg TBPK package TRUCK DISPATCHER 03/25/2016 Tramadol HCL 1-2 tablets 30tabs M46.1 Shemar Thacker, 03/24/2016 - 50mg Tablets every 8 hours as TRUCK DISPATCHER 04/02/2016 needed for pain. Keflex 1 by mouth twice 10caps L03.116 Nimesh Cline 12/25/2015 - 500mg Capsules a day Wendy Keith 03/24/2016 Doxycycline Hyclate 1 cap by mouth 28caps J32.1 Marcos Silva 10/25/2015 - 100mg twice a day with Olinda, 03/24/2016 Jeff flynn M.D. Astelin Use 2 Sprays In 30units Coco 09/04/2015 - 137mcg/Goodrich Solution Nose Two Times Wendy Stone 03/24/2016 Daily Doxycycline Hyclate 1 cap by mouth 90caps J32.1 Marcos Silva 07/23/2015 - 100mg twice a day with Olinda 09/11/2015 Capsules food Wendy Celexa Take 1 Tablet By 30tabs F41.1 Shemar Thacker, 07/19/2015 - 40mg Tablets Mouth Every Day TRUCK DISPATCHER 04/21/2018 Oxygen 2 l nc at 1units G47.33 Coco 07/19/2015 - [facility] bedtime 414.9 dx Wendy Stone 03/24/2016 Astelin 2 sprays 2x per 1units J01.90 Coco 07/19/2015 - 137mcg/Goodrich Solution day Wendy Stone 08/03/2015 Biaxin 1 by mouth twice 20tabs J01.90 Coco 07/19/2015 - 250mg Tablets a day Wendy Stone 08/03/2015 Azithromycin 2 tab by mouth 6tabs Coco 10/27/2014 - 250mg Tablets day 1 then 1 tab Wendy Stone 06/07/2015 by mouth day 2-5 Hydrochlorothiazide Take 1 Capsule 30caps R60.0 Shemar Thacker, 10/03/2014 - 12.5mg By Mouth Every TRUCK DISPATCHER 04/21/2018 Capsules Day as Needed Flonase Inhale 2 Sprays 16units Coco 09/09/2013 - 50mcg/Act Suspension Into Each Wendy Stone 02/12/2014 Nostril One Time Daily as Needed Celexa take 1 tablet by 90tabs F41.1 Coco 06/30/2013 - 20mg Tablets mouth one time Wendy Stone 07/19/2015 daily Gemfibrozil Take 1 Tablet By 180tabs E78.2 Shemar Thacker, 03/03/2013 - 600mg Tablets Mouth Two Times TRUCK DISPATCHER 04/21/2018 Daily Penicillin V Potassium qid for 7 days 28tabs Arcadio Silva 01/09/2013 - 500mg [place], 01/16/2013 Tablets Wendy,FACP Omeprazole Take 1 Capsule 90caps Shemar Thacker, 10/01/2012 - 20mg Capsules DR By Mouth Every TRUCK DISPATCHER 05/18/2017 Day Floranex 2 by mouth daily [...] Shemar Kedar, - 300mg Mouth Every Day TRUCK DISPATCHER 10/27/2016 Tablets ER 24HR Metoprolol Succinate ER take 1 tablet by 90tabs Shemar Kedar, - 25mg mouth every day TRUCK DISPATCHER 03/06/2017 Tablets ER 24HR Amoxicillin Unknown - [...] Shemar Kedar, - 5% Patches as needed TRUCK DISPATCHER 07/27/2018 Folic Acid 1 po qd Unknown - 400mcg Tablets 07/19/2015 Slow-Mag 1 po qd Unknown - Tablets 03/24/2016 Multi Vitamin Mens 1 po qd Unknown - Tablets 02/16/2015 Fish Oil 2 po qd Unknown - 1000mg Capsules 03/03/2013 Immunizations CPT Code Status Date Vaccine Lot # [id number] Given 08/03/2015 Pneumonia Vaccine [id number] Given 08/03/2015 Pneumonia Vaccine [id number] Given 03/12/2015 Influenza Virus Vaccine, Quadrivalent, Split, Preservative Free [id number] Given 03/03/2013 Flu Vaccine Split Virus Preservative Free For [id number] Indiv [id number] Older 60503 Given 08/03/2012 Tdap - Tetanus/Diptheria/Acellular Pertussis [id number] Vital Signs Date Vital Result Comment 12/14/2018 [...] Result H/L Range Note Laboratory test 11/20/2018 [facility] Blood Culture SEE RESULT [address] [place] [address] [phone] CBC Auto Diff 11/20/2018 [facility] White Blood 14.1 10^3/uL High 3.5-10.[address] [place] [address] [phone] Red Blood Count 4.12 10^6/uL Low 4.18-5.48 [...] Blood Cells % 0.1 Laboratory test 11/20/2018 [facility] Lactic Acid 1.4 mmol/L N 0.5-2.0 2 finding [address] [place] [address] [phone] Influenza A & B 11/20/2018 [facility] Influenza A NEGATIVE Negative 3 Request 101 [facility] [place] [place] [address] [phone] Influenza B Molecular NEGATIVE Negative Inr/Protime 11/20/2018 [facility] Inr 1.14 High 0.82-1.09 4 [address] [place] [address] [phone] Laboratory test 11/20/2018 [facility] Partial 29.3 N 26.0- 38.0 finding 101 [facility] [place] [address] Time PTT [phone] Urinalysis 11/20/2018 [facility] Urine Color Yellow Profile [address] [place] [address] [phone] Urine Appearance Cloudy Urine Specific Pillager 1.010 N 1.010-1.030 Urine pH 6.0 N 5-9 Urine Urobilinogen Negative Negative Urine Ketones Negative Negative Urine Protein Negative Negative Urine Leukocytes Negative Negative Urine Blood Negative Negative Urine Nitrite Negative Negative Urine Bilirubin Negative Negative Urine Glucose Negative Negative Laboratory test 11/20/2018 [facility] C Reactive 78.04 mg/L High <8.01 finding 101 [facility] [place] [place] [address] [phone] Comp Metabolic 11/20/2018 [facility] Sodium 133 mmol/L Low 135 -145 Panel [address] [place] [address] [phone] Potassium 4.0 mmol/L N 3.5-5.0 Chloride 101 [...] 96.2 >60 5 CBC Auto Diff 10/17/2018 [facility] White Blood 9.6 10^3/uL N 3.5-10.[address] [place] [address] [phone] Red Blood Count 4.30 10^6/uL N 4.18-5.48 [...] Red Blood Cells % 0.0 Inr/Protime 10/17/2018 [facility] Inr 1.09 N 0.82-1.[address] [place] [address] [phone] Comp Metabolic 10/17/2018 [facility] Sodium 134 mmol/L Low 135 -[address] [place] [address] [phone] Potassium 3.7 mmol/L N 3.5-5.0 Chloride 101 [...] Egfr 115.1 >60 7 Laboratory test 10/17/2018 [facility] C Reactive 21.94 mg/L High <8.[address] [place] [address] [phone] Lactic Acid 1.3 mmol/L N 0.5-2.0 8 Blood Culture SEE RESULT BELOW 9 Comp Metabolic Panel 07/24/2018 [facility] Sodium 134 mmol/L Low 135-[address] [place] [address] [phone] Potassium 4.0 mmol/L N 3.5-5.0 Chloride 101 [...] Egfr 98.5 >60 10 Laboratory test 07/24/2018 [facility] Erythrocyte Sed 33 mm/Hr High 0-20 [address] [place] [address] [phone] Blood Culture SEE RESULT BELOW 12 Laboratory test 07/24/2018 [facility] C Reactive 20.76 mg/L High <8.[address] [place] [address] [phone] Lactic Acid 1.3 mmol/L N 0.5-2.0 13 Inr/Protime 07/24/2018 [facility] Inr 1.05 High 0.77-1.[address] [place] [address] [phone] CBC Auto Diff 07/24/2018 [facility] White Blood 9.6 N 3.5- 10.[address] Count 10^3/uL [place], [place] [address] [phone] Red Blood Count 4.38 10^6/uL N 4.00-5.40 [...] Blood Cells % 0 Laboratory test 07/24/2018 [facility] Partial 31.7 seconds N 26.0-36.[address] [place] [address] PTT [phone] Hemoglobin A1c (Glyco HGB) 5.3 % N 4.0-5.6 14 Lipid Profile 04/26/2018 [facility] Triglycerides 282 mg/dL 15 (Trig/Chol/HDL) [address] [place] [address] [phone] Cholesterol 141 mg/dL 16 HDL Cholesterol 46.5 mg/dL 17 LDL Cholesterol 38 mg/dL 18 Comp Metabolic Panel 04/26/2018 [facility] Sodium 136 mmol/L N 135-[address] [place] [address] [phone] Potassium 4.5 mmol/L N 3.5-5.0 Chloride 99 [...] 129.4 >60 19 CBC Auto Diff 04/26/2018 [facility] White Blood 9.6 10^3/uL N 3.5-10.[address] [place] [address] [phone] Red Blood Count 3.97 10^6/uL Low 4.00-5.40 [...] Blood Cells % 0.1 Laboratory test 04/26/2018 [facility] B-Type 19 pg/mL <=[address] [place] [address] Peptide BNP [phone] TSH (Thyroid Stim Horm) 3.59 mcIU/mL N 0.34-5.60 Laboratory 04/06/2018 [facility] Rapid Strep Negative Negative 20 test finding [address] Molecular [place], [place] [address] [phone] Laboratory 04/06/2018 [facility] Rapid Strep A SEE RESULT 21 test finding [address] [place] [address] [phone] CBC Auto Diff 05/21/2017 [facility] White Blood 12.0 10^3/uL High 3.5-10.[address] [place] [address] [phone] Red Blood Count 3.96 10^6/uL Low 4.0-5.4 [...] Cells % 0 Comp Metabolic Panel 05/21/2017 [facility] Sodium 132 mmol/L Low 133-[address] [place] [id number] [phone] Potassium 4.2 mmol/L N 3.5-5.0 Chloride 100 [...] Egfr 130.0 >60 22 Laboratory test 05/21/2017 [facility] Blood Culture SEE RESULT [address] [place], [place] [address] [phone] Wound 10/22/2016 [facility] Wound/Misc SEE RESULT 24 Culture/Sensi [address] [place] [address] Stain [phone] Comp Metabolic 10/21/2016 [facility] Sodium 129 mmol/L Low 133 -14 [address] [place] [address] [phone] Chloride 95 mmol/L Low 101-111 Co2 Carbon [...] 11 mmol/L N 2-11 CBC Auto 10/12/2016 [facility] White Blood 11.4 10^3/uL High 3.5-10.[address] [place] [address] [phone] Red Blood Count 4.40 10^6/uL N 4.0-5.4 [...] % 0.1 N Comp Metabolic Panel 10/12/2016 [facility] Sodium 128 mmol/L Low 133-145 [address] [place] [address] [phone] Chloride 93 mmol/L Low 101-111 Co2 Carbon [...] U/L High 13-39 31 Laboratory test 10/12/2016 [facility] Magnesium 2.0 mg/dL N 1.9-2.7 finding 101 [place] [address] [phone] Lipid Profile 09/03/2016 [facility] Triglycerides 481 mg/dL N 32 (Trig/Chol/HDL) [address] [place] [address] [phone] Cholesterol 160 mg/dL N 33 HDL Cholesterol 34.7 mg/dL N 34 LDL Cholesterol (SEE NOTE) mg/dL N 35 Comp Metabolic Panel 09/03/2016 [facility] Sodium 134 mmol/L N 133-[address] [place] [address] [phone] Potassium 3.9 mmol/L N 3.5-5.0 Chloride 99 [...] 95.0 N >60 36 Laboratory test 09/03/2016 [facility] LDL Cholesterol 53 mg/dL N [address] [place] [address] [phone] CBC Auto Diff 08/03/2015 [facility] White Blood Count 8.2 10^3/ uL N 3.5-[address] 0.8 [place] [address] [phone] Red Blood Count 4.65 10^6/uL N 4.0-5.4 [...] % 0.2 N Anca Panel For 08/03/2015 [facility] Myeloperoxidase AB <0.2 U N [address] [place], [place] [phone] Proteinase 3 AB <0.2 U N 39 Leukemia/Lymphoma Flow 06/19/2015 [facility] Path Interpretation TNP N [address] 2-8 [address]er [place], [place] [address] [phone] Path Interpret > 16 Marker TNP N Path Interpret 9-15 Marker (SEE NOTE) N 40 Laboratory test 06/19/2015 [facility] Surgical SEE RESULT [address] Pathology BELOW [place], [place] [address] [phone] Laboratory test 06/19/2015 [facility] Surgical SEE RESULT [address] Pathology BELOW [place], [place] [address] [phone] CLL (US Labs) 06/19/2015 [facility] CLL Specimen Bone Marrow N [address] [place], [place] [address] [phone] CLL Source See Comment N 43 CLL Reason for Referral See Comment N 44 CLL Method See Comment N 45 CLL Result Table See Comment N 46 CLL Result See Comment N 47 CLL Result Summary Normal N CLL Interpretation See Comment N 48 CLL Disclaimer See Comment N 49 CLL Released by See Comment N 50 Bone Marrow 06/19/2015 [facility] BM Result Summary Normal N Chromosomes [address] [place], [place] [address] [phone] BM Chromosome Specimen Bone Marrow N BM Chromosome Source See Comment N 51 BM Referral Reason See Comment N 52 BM Chromosome Method See Comment N 53 BM Chromo Banding Method See Comment N 54 BM Cromosome Results See Comment N 55 BM Chromosome Interpretation See Comment N 56 Released By See Comment N 57 CBC Auto Diff 06/19/2015 [facility] White Blood 10.2 10^3/uL N 3.5-10.[address] [place] [address] [phone] Red Blood Count 4.37 10^6/uL N 4.0-5.4 [...] Cells % 0.1 N Retic Count 06/19/2015 [facility] Retic Count 2.8 % High 0.5- 1.[address] [place] [address] [phone] Corrected Retic Count 2.6 % High 0.5-1.5 Maturation Factor Retic 1.0 N Retic Index 2.60 N Mean Retic Volume 111.5 N Immature Retic Fraction 0.49 N RBC Retic Count 4.37 10^6/uL Low 4.6-6.2 Hematocrit for Retic CNT 42 % N 42-52 Immunoglobulins 06/19/2015 [facility] Immunoglobulin G 2330 Abnormal 767 - 58 Serum Quant [address] mg/dL 1590 [place] [address] [phone] Immunoglobulin M 61 mg/dL N 37 - 286 Immunoglobulin A 299 mg/dL N 61 - 356 Laboratory test 06/05/2015 [facility] Cytology Non-Associate Professor Of Sociology SEE RESULT [address] [place] [address] [phone] Leukemia/Lymphom 06/05/2015 [facility] Path Interpretation TNP N a Flow [address] 2-[address] [place] [address] [phone] Path Interpret > 16 Marker TNP N Path Interpret 9-15 Marker (SEE NOTE) N 60 Leukemia/Lymphoma 06/05/2015 [facility] Path Interpretation TNP N Phenot [address] 2-[address] [place] [address] [phone] Path Interpret > 16 Marker TNP N Path Interpret 9-15 Marker (SEE NOTE) N 61 Laboratory test 05/29/2015 [facility] C Reactive 129.00 mg/L High < 5.00 [address] [place] [address] [phone] CBC Auto Diff 05/29/2015 [facility] White Blood 14.4 High 3.5- 10.[address] Count 10^3/[place] [address] [phone] Red Blood Count 4.41 10^6/uL N 4.0-5.4 [...] % 0 N Comp Metabolic Panel 05/29/2015 [facility] Sodium 133 mmol/L N 133-145 [address] [place] [address] [phone] Potassium 4.1 mmol/L N 3.5-5.0 Chloride 100 [...] N >60 63 Comp Metabolic Panel 09/28/2014 [facility] Sodium 138 mmol/L N 133-145 64 [address] [place] [address] [phone] Potassium 4.3 mmol/L N 3.5-5.0 Chloride 103 [...] 114.6 N >60 65 Lipid Profile 09/28/2014 [facility] Triglycerides 266 mg/dL N 66 (Trig/Chol/HDL) [address] [place], [place] [address] [phone] Cholesterol 156 mg/dL N 67 HDL Cholesterol 40.5 mg/dL N 68 LDL Cholesterol 62 mg/dL N 69 Comp Metabolic Panel 06/30/2013 [facility] Sodium 136 mmol/L 133-145 [address] [place] [address] [phone] Potassium 4.4 mmol/L 3.5-5.0 Chloride 101 mmol/L [...] Egfr 113.5 >60 70 Lipid Profile 06/30/2013 [facility] Triglycerides 223 mg/dL High 40-200 (Trig/Chol/HDL) [address] [place] [address] [phone] Cholesterol 176 mg/dL Less than 200 HDL Cholesterol 51 mg/dL 40-60 71 Cholesterol/HDL Ratio 3.5 Average 1-4.44 LDL Cholesterol 80.4 Less Than 100 72 CBC Auto Diff 06/30/2013 [facility] White Blood 9.2 10^3/uL 4.8-10.[address] [place] [address] [phone] Red Blood Count 4.74 10^6/uL 4.0-5.4 Hemoglobin [...] Red Blood Cells % 0.1 Laboratory 06/30/2013 [facility] TSH (Thyroid 2.45 0.34-5.60 test finding [address] Stimulating miu/[place] [address] Horm) [phone] Laboratory 06/30/2013 [facility] PSA Screening 0.636 0-4.000 test finding [address] ng/[place] [address] [phone] Lipid Panel 02/09/2013 [facility] Triglycerides 947 mg/dL High 40-[address] [place], [place] [address] [phone] Cholesterol 208 mg/dL High Less than 200 HDL Cholesterol 33 mg/dL Low 40-60 73 Cholesterol/HDL Ratio 6.3 Average High 1-4.44 LDL Cholesterol (SEE NOTE) Less Than 100 74 Laboratory test 02/09/2013 [facility] PSA Screening 0.5 ng/mL 0-4.0 [address] [place] [address] [phone] CMP Panel 02/09/2013 [facility] Sodium 136 mmol/L 133-[address] [place] [address] [phone] Potassium 4.3 mmol/L 3.5-5.0 Chloride 103 mmol/L [...] [address]: Marcelina Garcia MD Acct: [id number] Unit: [id number] AGE: 58 Location: ED Re11/19/18 SEX: M Status: DEP ER SPEC: [id number] ISSAC: 11/20/18-01[address] [facility] [address]: Marcelina Garcia MD REQ: [id number] RECD: 11/20/18 STATUS: RES OTHR DR: Shemar Thacker TRUCK DISPATCHER _ SOURCE: BLOOD,VENO SPDES: ORDERED: Blood Cult Procedure Result Reported Site Aerobic Culture Bottle Preliminary 11/24/18- 0207 ML No Growth Day 4 Anaerobic Culture Bottle Final 11/25/18- 0205 ML No Growth Day 5 * ML - Main Lab . END OF REPORT DEPARTMENT OF PATHOLOGY, [address] [place] [address] Sridhar Leung M.D. Director [facility] # [id number] 2 [facility] Severe Sepsis and Septic Shock Management Bundle Measure requires all lactic acids initially measuring >2.0 mmol/L be repeated. 3 [employer]iconductor Wafer Inspector: [id number] 4 Standard intensity warfarin therapeutic range: 2.0-3.0 [...] 5 Kidney failure <15 (or dialysis) 8 [facility] Severe Sepsis and Septic Shock Management Bundle Measure requires all lactic acids initially measuring >2.0 mmol/L be repeated. 9 SEE RESULT BELOW Name: AUGUSTINE BENITEZ : [address]: Michael Fraser MD Acct: [id number] Unit: [id number] AGE: 58 Location: ED Re10/17/18 SEX: M Status: DEP ER SPEC: [id number] ISSAC: 10/17/[address]: Michael Fraser MD REQ: [id number] RECD: 10/17/18 STATUS: COMP MARIA LUISA DR: Shemar Thacker TRUCK DISPATCHER _ SOURCE: BLOOD,VENO SPDESC: ORDERED: Blood Cult Procedure Result Reported Site Aerobic Culture Bottle Final 10/22/18818 ML No Growth Day 5 * ML - Main Lab . END OF REPORT DEPARTMENT OF PATHOLOGY, [address] [place] [address] Sridhar Leung M.D. Director [facility] # [id number] 10 Because ethnic data is not always [...] <15 (or dialysis) 11 Test Performed by: [facility] [address] [place] [address] Sridhar Leung M.D. Director of Laboratory 12 SEE RESULT BELOW Name: AUGUSTINE BENITEZ : [address]: Munir Basurto MD Acct: [id number] Unit: [id number] AGE: 58 Location: [place] [address] Re07/24/18 Dis: 07/26/18 SEX: M Status: DIS Rhonda SPEC: [id number] ISSAC: 07/24/[address]: Min Middleton MD REQ: [id number] RECD: 07/24/18 STATUS: BLANKA GLASS DR: Shemar Thacker TRUCK DISPATCHER _ SOURCE: BLOOD,VENO SPDESC: ORDERED: Blood Cult Procedure Result Reported Site Aerobic Culture Bottle Final 07/29/18- 0850 ML No Growth Day 5 Anaerobic Culture Bottle Final 07/29/18- 0850 ML No Growth Day 5 * ML - Main Lab . END OF REPORT DEPARTMENT OF PATHOLOGY, [address] [place] [address] Sridhar Leung M.D. Director [facility] # [id number] 13 [facility] Severe Sepsis and Septic Shock Management Bundle Measure requires all lactic acids initially measuring >2.0 mmol/L be repeated. 14 Therapeutic target for the treatment of diabetes mellitus patients is <7% HBA1C, and in selective patients <6.0%. Please refer to [place] [employer] diabetic care guidelines for further [...] 5 Kidney failure <15 (or dialysis) 20 [employer]icon[employer] Wafer Inspector: [id number] 21 SEE RESULT BELOW Name: AUGUSTINE BENITEZ : [address]: Mo Xiao MD Acct: [id number] Unit: [id number] AGE: 58 Location: ED Re04/06/18 SEX: M Status: REG ER SPEC: [id number] ISSAC: 04/06/[address]: Ronal ROBB REQ: [id number] RECD: 04/06/18 STATUS: BLANKA GLASS DR: [facility] Shemar Thacker TRUCK DISPATCHER _ SOURCE: THROAT SPDESC: ORDERED: Strep A Request Procedure Result Reported Site Rapid Strep A Request Final 04/06/18- 3683 ML Specimen received for Rapid Strep A Molecular testing * ML - Main Lab . END OF REPORT DEPARTMENT OF PATHOLOGY, [address] [place] [address] Sridhar Leung M.D. Director [facility] # [id number] 22 Because ethnic data is not always [...] [address]: Shemar Thacker NP Acct: [id number] Unit: [id number] AGE: 57 Location: [facility] Re05/21/17 SEX: M Status: REG REF SPEC: [id number] ISSAC: 05/21/17-[address]: Shemar Thacker NP REQ: [id number] RECD: 05/21/17 STATUS: COMP _ SOURCE: BLOOD,VENO [facility]: ORDERED: Blood Cult Procedure Result Reported Site Aerobic Culture Bottle Final 05/26/17- 2 ML No Growth Day 5 Anaerobic Culture Bottle Final 05/26/17- 1702 ML No Growth Day 5 * ML - MAIN LAB ([facility]) . END OF REPORT * ML=Testing performed at Main Lab DEPARTMENT OF PATHOLOGY, [address] [place] [address] Sridhar Leung M.D. Director [facility] # [id number] 24 SEE RESULT BELOW Name: AUGUSTINE BENITEZ : [address]: Michael Fraser MD Acct: [id number] Unit: [id number] AGE: 56 Location: ED Re10/22/16 SEX: M Status: DEP ER SPEC: [id number] ISSAC: 10/22/16-[address]: Sherice Ochoa MD REQ: [id number] RECD: 10/22/16 STATUS: BLANKA GLASS DR: Shemar Tahcker TRUCK DISPATCHER _ SOURCE: FOOT,RIGHT SPDESC: ORDERED: Culture Stain [...] performed at Main Lab DEPARTMENT OF PATHOLOGY, [address] [place] [address] Sridhar Leung M.D. Director [facility] # [id number] Patient: AUGUSTINE BENITEZ [id number] (Continued) Specimen: [id number] Collected: 10/22/16 Received: 10/22/16 (Continued) Procedure Result Reported Site Wound/Misc Culture Final (continued) 10/24/16937 1. STAPHYLOCOCCUS AUREUS (continued) M.I.C. RX --------- ------ Cefazolin-Deduced S * These antibiotics are not available in the [facility] Formulary Contact the Microbiology Department for any additional antibiotic reporting. * ML - MAIN LAB ([facility]) . END OF REPORT * ML=Testing performed at Main Lab DEPARTMENT OF PATHOLOGY, [address] [place] [address] Sridhar Leung M.D. Director [facility] # [id number] 26 Because ethnic data is not always [...] dialysis) 27 Critical Result K:6.9 Called to [id number] at: 18:11:22 by:[id number] Read back by:[id number] 28 Specimen Lipemic. Result may not be [...] REFERENCE VALUE <0.4 (Negative) Test Performed by: [place] [address] [address] Seamer: Les Bernstein II, M.D., Ph.D. 40 FINAL [...] Rita Rosa MD Technical component performed by: [address] [address] Sole Seamer: Les Bernstein II, MD, PhD. 41 SEE RESULT BELOW Name: AUGUSTINE BENITEZ : [address]: Tesfaye Oleary MD Acct: [id number] Unit: [id number] AGE: 55 Location: [facility] Re06/19/15 SEX: M Status: REG REF SPEC: [id number] ISSAC: 06/19/[address]: Tesfaye Oleary MD REQ: [id number] RECD: 06/19/15 STATUS: SOUT _ ORDERED: IRON STAIN, Janette, LEVEL IV/2 CLL FISH has been performed at [facility], [place], [place]. 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 Abnormality Name Result % Abn Cutoff (%) -6q23(D6Z1x2,MYBx1) Normal <4.0% -11q22.3(E63Y8m0,ATMx1) Normal <7.5% +12(D12Z3,MDM2)x3 Normal <2.5% -13q14.3(Y47V606b2,NLDN2k3) Normal <7.0% -13q14.3x2(I18A546r1,LAMP1x Normal <1.5% 2) t(11;14) CCND1-XT/IGH-XT Normal <0.6% fusion -17p13.1(TP53x1,Z03W9a6) Normal <9.5% -17(TP53,D17Z1)x1 Normal <5.5% RESULT: Interphase FISH is normal for all loci studied. Normal The result is within normal limits for the CLL FISH panel and the CCND1 and IGH gene regions. CONTINUED ON NEXT PAGE * ML=Testing performed at Main Lab DEPARTMENT OF PATHOLOGY, [address] [place] [address] Sridhar Leung M.D. Director NELLIE # [id number] RUN DATE: 06/28/15 [facility] LAB LIVE PAGE 2 Patient: AUGUSTINE BENITEZ [id number] (Continued) ADDENDUM (Continued) Test Performed by: [place] [address] Sole Seamer: Les Bernstein II, M.D., Ph.D. Addendum Signed [...] detected in the jugular lymph node specimen ([id number]). SPECIAL STUDIES Flow cytometry has been performed at [facility], [place], [place]. 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 Director [facility] # [id number] RUN DATE: 06/28/15 [facility] LAB LIVE PAGE 3 Patient: AUGUSTINE BENITEZ [id number] (Continued) SPECIAL STUDIES (Continued) SPECIAL STUDIES (Continued) [...] Rita Rosa MD Technical component performed by: [place] [address] Sole Seamer: Les Bernstein II, MD, PhD. CLINICAL HISTORY [...] performed at Main Lab DEPARTMENT OF PATHOLOGY, [address] [place] [address] Sridhar Leung M.D. Director CLIA # [id number] RUN DATE: 06/28/15 [facility] LAB LIVE PAGE 4 Patient: AUGUSTINE BENITEZ John [id number] (Continued) MICROSCOPIC DESCRIPTION (Continued) MICROSCOPIC DESCRIPTION A [...] not increased. Elements of granulocytic lineage demonstrate elementary supervisor progression to mature forms. Erythroid maturation is [...] performed at Main Lab DEPARTMENT OF PATHOLOGY, [address] [place] [address] Sridhar Leung M.D. Director [facility] # [id number] 42 SEE RESULT BELOW Name: AUGUSTINE BENITEZ : [address]: Tesfaye Oleary MD Acct: [id number] Unit: [id number] AGE: 55 Location: [facility] Re06/19/15 SEX: M Status: REG REF SPEC: [id number] ISSAC: 06/19/[address]: Tesfaye Oleary MD REQ: [id number] RECD: 06/19/15 STATUS: SOUT _ ORDERED: IRON [...] detected in the jugular lymph node specimen ([id number]). SPECIAL STUDIES Flow cytometry has been performed at [facility], [place], [place]. The testing reveals: FINAL DIAGNOSIS: Specimen Source: Bone marrow Flow cytometry immunophenotypic analysis: Involved by a B cell lymphoproliferative disorder with immunophenotypic features of chronic lymphocytic leukemia (1% of total marrow cellularity) Interpretative data: Blasts: 1% of gated events Lymphocytes: 14% of gated events CONTINUED ON NEXT PAGE * ML=Testing performed at Main Lab DEPARTMENT OF PATHOLOGY, [address] [place] [address] Sridhar Leung M.D. Director [facility] # [id number] RUN DATE: 06/21/15 [facility] LAB LIVE PAGE 2 Patient: AUGUSTINE BENITEZ [id number] (Continued) SPECIAL STUDIES (Continued) SPECIAL STUDIES (Continued) [...] Rita Rosa MD Technical component performed by: [place] [address] Sole Seamer: Les Bernstein II, MD, PhD. CLINICAL HISTORY [...] performed at Main Lab DEPARTMENT OF PATHOLOGY, [address] [place] [address] Sridhar Leung M.D. Director [facility] # [id number] RUN DATE: 06/21/15 [facility] LAB LIVE PAGE 3 Patient: AUGUSTINE BENITEZ [id number] (Continued) MICROSCOPIC DESCRIPTION (Continued) MICROSCOPIC DESCRIPTION A [...] not increased. Elements of granulocytic lineage demonstrate elementary supervisor progression to mature forms. Erythroid maturation is [...] performed at Main Lab DEPARTMENT OF PATHOLOGY, [address] [place] [address] Sridhar Leung M.D. 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 46 Abnormality Name Result % Abn Cutoff (%) -6q23(D6Z1x2,MYBx1) Normal <4.0% -11q22.3(W00U6h5,ATMx1) Normal <7.5% +12(D12Z3,MDM2)x3 Normal <2.5% -13q14.3(C39L429v8,QLDW5t3) Normal <7.0% -13q14.3x2(J04G584m5,LAMP1x Normal <1.5% 2) t(11;14) CCND1-XT/IGH-XT Normal <0.6% fusion -17p13.1(TP53x1,N76G6c6) Normal <9.5% -17(TP53,D17Z1)x1 Normal <5.5% 47 RESULT: Interphase FISH is normal for all loci studied. 48 The result is within normal limits for the CLL FISH panel and the CCND1 and IGH gene regions. Additional cytogenetic studies are reported separately. PDF Report available at: [email or web address] 49 Applicable to Analyte Specific Reagent (ASR) and Laboratory developed tests (LDT). This test was developed and its performance characteristics determined by [facility]. It has not been cleared or approved by the U.S. Food and Drug Administration. This FISH test does not rule out other chromosome abnormalities. 50 RESULT: Sridhar Peguero, Ph.D. Test Performed by: [place] [id number] Sole Seamer: Les Bernstein II, M.D., Ph.D. 51 RESULT: [...] studies, reported separately. PDF Report available at: [email or web address] 57 RESULT: Sidney Shahid M.D., Ph.D. Test Performed by: [place] [address] Sole Seamer: Les Bernstein II, M.D., Ph.D. 58 Test Performed by: [place] [address] Sole Seamer: Les Bernstein II, M.D., Ph.D. 59 SEE RESULT BELOW Name: AUGUSTINE BENITEZ : [address]: Juvenal Jeffrey MD Acct: [id number] Unit: [id number] AGE: 55 Location: Re06/05/15 SEX: M Status: REG REF SPEC: [id number] ISSAC: 06/05/15 [facility] DR: Yahir Dickson MD REQ: [id number] RECD: 06/05/15 STATUS: GREY GLASS DR: Juvenal Jeffrey MD _ ORDERED: FN ASP DEEP, FNA IMMEDIATE S, Leukemia/Lympho THIS IS A CORRECTED REPORT 06/07/15 Corrected Report Flow cytometry has been performed at [place], [place]. The testing reveals: FINAL DIAGNOSIS: Specimen Source: Lymph node, right jugular ([id number]) Flow cytometry immunophenotypic analysis: Involved by small [...] Rita Rosa MD Technical component performed by: [facility] [place] [address] Sole Seamer: Les Bernstein II, MD, PhD. CONTINUED ON NEXT PAGE * ML=Testing performed at Main Lab DEPARTMENT OF PATHOLOGY, [address] [place] [address] Sridhar Leung M.D. Director [facility] # [id number] RUN DATE: 06/07/15 [facility] LAB LIVE PAGE 2 Patient: AUGUSTINE BENITEZ [id number] (Continued) ADDENDUM (Continued) Addendum Signed (signature on [...] Alcohol fixed slide(s) and Specimen sent to [facility] [employer] for Flow cytometry [place], [place] on 06/05/15 by [id number] at 1049. CONTINUED ON NEXT PAGE * ML=Testing performed at Main Lab DEPARTMENT OF PATHOLOGY, [address] [place] [address] Sridhar Leung M.D. Director [facility] # [id number] RUN DATE: 06/07/15 [facility] LAB LIVE PAGE 3 Patient: AUGUSTINE BENITEZ [id number] (Continued) GROSS DESCRIPTION (Continued) Signed (signature on file) Rita Rosa MD 1621 END OF REPORT * ML=Testing performed at Main Lab DEPARTMENT OF PATHOLOGY, [address] [place] [address] Sridhar Leung M.D. Director [facility] # [id number] 60 FINAL DIAGNOSIS: Specimen Source: Lymph node, right jugular ([id number]) Flow cytometry immunophenotypic analysis: Involved by small [...] Rita Rosa MD Technical component performed by: [place] [address] Sole Seamer: Les Bernstein II, MD, PhD. --- 06/07/15 1518 --- 02-20 previously reported as: FINAL DIAGNOSIS: Specimen Source: Lymph node, right jugular ([id number]) Flow cytometry immunophenotypic analysis: Involved by chronic [...] Rita Rosa MD Technical component performed by: [place] [address] Sole Seamer: Les Bernstein II, MD, PhD. 61 FINAL DIAGNOSIS: Specimen Source: Lymph node, right jugular ([id number]) Flow cytometry immunophenotypic analysis: Involved by small [...] Rita Rosa MD Technical component performed by: [place] [address] Sole Seamer: Les Bernstein II, MD, PhD. --- 06/07/15 1518 --- Path Inter 02-20 previously reported as: FINAL DIAGNOSIS: Specimen Source: Lymph node, right jugular ([id number]) Flow cytometry immunophenotypic analysis: Involved by chronic [...] Rita Rosa MD Technical component performed by: [place] [address] Sole Seamer: Les Bernstein II, MD, PhD. 62 Acute [...] levels of PSA measured using the [employer] DXI Hybritech immunoassay should not be interpreted [...] dialysis) Procedures Date Code Description Status 07/27/2018 67132 Removal Devitalized Tissue Wound Greater Than 20 Completed Square CM 07/27/2018 81306 Removal Devitalization Tissue Wound Less Than Equal 20 Completed Square CM 04/26/2018 48096 ECHO Transthoracic, Real-Time 2D With Doppler And Completed Color Flow 04/26/2018 76277 ECHO Transthoracic, Real-Time 2D With Doppler And Completed Color Flow 10/18/2014 50711 ECHO Transthoracic, Real-Time 2D With Doppler And Completed Color Flow 10/11/2014 [id number] Bone Mineral Density Test Completed 04/06/2014 46058 Rad Exam; Foot Comp Completed 03/01/2014 58539 Rad Exam; Foot Comp Completed 02/13/2014 95897 Rad Exam; Foot Comp Completed 02/13/2014 09180 FX Metatarsal Care Completed Encounters Type Date Location Provider Dx Diagnosis Office Visit 11/30/2018 [facility] Shemar Thacker NP Z00.00 Encntr for general [facility] w/o abnormal findings I10 Essential (primary) hypertension K21.9 Gastro-esophageal reflux disease without esophagitis 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, 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 Office Visit 04/21/2018 9:40a [facility] Shemar Thacker, I10 Essential ( primary) [facility] hypertension E78.5 Hyperlipidemia, unspecified R60.0 Localized edema [...] joint, initial encounter Office Visit 05/21/2017 4:00p [facility] Shemar Thacker, L03.115 Cellulitis of Medicine - [facility] 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 Office Visit 10/27/2016 10:00a [facility] Shemar Thacker L03.115 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 I10 Essential (primary) hypertension E78.5 Hyperlipidemia, unspecified Office Visit 04/03/2016 [facility] Shemar Thacker, M46.1 Sacroiliitis, not 11:40a [facility] TR[facility] DISPATCHER elsewhere classified Office Visit 03/24/2016 [facility] Shemar Thacker M46.1 Sacroiliitis, not 1:40p Medicine [facility] TRUCK DISPATCHER elsewhere classified Office Visit 12/25/2015 [facility] Nimesh Cline L03.116 Cellulitis of left 2:20p [facility] lower limb Office Visit 09/19/2015 [facility] M76.821 Posterior tibial 3:30p [facility] tendinitis, right [facility] 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 Bone(S) Closed 733.94 Stress Fracture Of The Metatarsals Office Visit 10/03/2014 10:00a [facility] Coco Stone, V70.0 [facility] General Medical Routine AT Health [...] Colon 429.3 Cardiomegaly Office Visit 06/30/2013 4:00p [facility] Coco Stone, 401.1 Hypertension Benign Medicine - [facility] 272.2 Hyperlipidemia Mixed 300.02 Anxiety Disorder Generalized Office Visit 03/03/2013 3:00p [facility] Coco Stone, V70.0 [facility] General Medical Routine AT [facility] 278.00 Obesity Unspec 401.1 Hypertension Benign 257.2 Testicular Hypofunction Other 461.8 Sinusitis Acute Other 272.2 Hyperlipidemia Mixed V76.41 Screening Malignant Neoplasm Rectum V04.81 Need For Prophylactic Vaccination & Inoculation/Influenza Office Visit 08/03/2012 3:00p [facility] Coco V17.49 Family HX Of Other Medicine - Wendy Stone Cardiovascular Ccmob Diseases 272.2 Hyperlipidemia Mixed 278.00 Obesity Unspec 401.1 Hypertension Benign 257.2 Testicular Hypofunction Other 787.91 Diarrhea v06.1 Hwaronecni-Jfmcpxo-Yrdeprtb Combined (DTaP) Plan of Treatment Future Appointment(s):01/04/2019 9:00 am - [place] Diaz M.D. at [facility]12/28/2018 8:00 am - Austin Shields MD at [facility]12/14/2018 - [place] Diaz M.D.M25.571 Pain in right ankle and joints of right footNew Xrays:Ankle Right 2VWS, Ordered: 12/14/18Foot Right 3+ VWS, Ordered: 12/14/18Follow up:3 weeks
--- OUTSIDE RECORDS SUMMARY | 2018-12-30 20:24 | XMS REPORT | Continuity of Care Document ---
:1960 External Reference #:[id number] Author Name Kasie Whitney Care Team Providers Name Role Phone Maisha Us MD Primary Care Physician Unavailable Payers Date Identification Numbers Payment Provider Subscriber Effective: 2012 Policy Number: [id number] [employer] Augustine Benitez PayID: [id number] [address] [address] [place] [address] Onset: 2018 Policy Number: [id number] [facility] Ppo Augustine Benitez Group Name: [address] [place] [address]. [address] PayID: [id number] [place], [place] Problems Active Problems Provider Date Chronic [...] 11/30/2018 - 500mg Tablets daily for 10 AUCTION BLOCK CLERK 12/05/2018 days Potassium Chloride ER 1 by mouth every 30tabs R60.0 Shemar Thacker, 2017 - 20Meq day for two AUCTION BLOCK CLERK 06/15/2018 Tablets ER weeks Methylprednisolone medrol dosepak 21units M54.12 Josh F 03/25/2018 - 4mg TBPK take as MD Lexi 04/21/2018 instructed Cephalexin take one tablet 56tabs L03.115 Shemar Thacker, 05/21/2017 - 500mg Tablets every 6 hours AUCTION BLOCK CLERK 06/04/2017 for 14 days Metoprolol Succinate ER take 1 tablet by 30tabs Shemar Thacker, 03/06/2017 - 50mg mouth every day AUCTION BLOCK CLERK 09/26/2018 Tablets ER 24HR Cephalexin take one tablet 16tabs L03.115 Shemar Thacker, 10/27/2016 - 500mg Tablets every 6 hours AUCTION BLOCK CLERK 05/18/2017 for 4 more days Mobic one tablet once 30tabs M46.1 Shemar Thacker, 04/03/2016 - 7.5mg Tablets daily. May take AUCTION BLOCK CLERK 10/27/2016 two once daily if one is ineffective. With food Methocarbamol take 1 tablet 60tabs M46.1 Shemar Thacker, 04/03/2016 - 750mg Tablets every six hours AUCTION BLOCK CLERK 10/27/2016 as needed for pain. may take second tablet if first not effective. Medrol as directed on 21units M46.1 Shemar Thacker, 03/24/2016 - 4mg TBPK package AUCTION BLOCK CLERK 03/25/2016 Tramadol HCL 1-2 tablets 30tabs M46.1 Shemar Thacker, 03/24/2016 - 50mg Tablets every 8 hours as AUCTION BLOCK CLERK 04/02/2016 needed for pain. Keflex 1 by mouth twice 10caps L03.116 Nimesh Cline 12/25/2015 - 500mg Capsules a day Wendy Keith 03/24/2016 Doxycycline Hyclate 1 cap by mouth 28caps J32.1 Marcos Silva 10/25/2015 - 100mg twice a day with Olinda, 03/24/2016 Jeff flynn M.D. Astelin Use 2 Sprays In 30units Coco 09/04/2015 - 137mcg/Piffard Solution Nose Two Times Wendy Stone 03/24/2016 Daily Doxycycline Hyclate 1 cap by mouth 90caps J32.1 Marcos Silva 07/23/2015 - 100mg twice a day with Olinda 09/11/2015 Capsules food Wendy Celexa Take 1 Tablet By 30tabs F41.1 Shemar Thacker, 07/19/2015 - 40mg Tablets Mouth Every Day AUCTION BLOCK CLERK 04/21/2018 Oxygen 2 l nc at 1units G47.33 Coco 07/19/2015 - [facility] bedtime 414.9 dx Wendy Stone 03/24/2016 Astelin 2 sprays 2x per 1units J01.90 Coco 07/19/2015 - 137mcg/Piffard Solution day Wendy Stone 08/03/2015 Biaxin 1 by mouth twice 20tabs J01.90 Coco 07/19/2015 - 250mg Tablets a day Wendy Stone 08/03/2015 Azithromycin 2 tab by mouth 6tabs Coco 10/27/2014 - 250mg Tablets day 1 then 1 tab Wendy Sotne 06/07/2015 by mouth day 2-5 Hydrochlorothiazide Take 1 Capsule 30caps R60.0 Shemar Thacker, 10/03/2014 - 12.5mg By Mouth Every AUCTION BLOCK CLERK 04/21/2018 Capsules Day as Needed Flonase Inhale 2 Sprays 16units Coco 09/09/2013 - 50mcg/Act Suspension Into Each Wendy Stone 02/12/2014 Nostril One Time Daily as Needed Celexa take 1 tablet by 90tabs F41.1 Coco 06/30/2013 - 20mg Tablets mouth one time Wendy Stone 07/19/2015 daily Gemfibrozil Take 1 Tablet By 180tabs E78.2 Shemar Thacker, 03/03/2013 - 600mg Tablets Mouth Two Times AUCTION BLOCK CLERK 04/21/2018 Daily Penicillin V Potassium qid for 7 days 28tabs Arcadio Silva 01/09/2013 - 500mg Norris, 01/16/2013 Tablets Wendy,FACP Omeprazole Take 1 Capsule 90caps Shemar Thacker, 10/01/2012 - 20mg Capsules DR By Mouth Every AUCTION BLOCK CLERK 05/18/2017 Day Floranex 2 by mouth daily [...] Shemar Kedar, - 300mg Mouth Every Day AUCTION BLOCK CLERK 10/27/2016 Tablets ER 24HR Metoprolol Succinate ER take 1 tablet by 90tabs Shemar Kedar, - 25mg mouth every day AUCTION BLOCK CLERK 03/06/2017 Tablets ER 24HR Amoxicillin Unknown - [...] Shemar Kedar, - 5% Patches as needed AUCTION BLOCK CLERK 07/27/2018 Folic Acid 1 po qd Unknown - 400mcg Tablets 07/19/2015 Slow-Mag 1 po qd Unknown - Tablets 03/24/2016 Multi Vitamin Mens 1 po qd Unknown - Tablets 02/16/2015 Fish Oil 2 po qd Unknown - 1000mg Capsules 03/03/2013 Immunizations CPT Code Status Date Vaccine Lot # [id number] Given 08/03/2015 Pneumonia Vaccine [id number] Given 08/03/2015 Pneumonia Vaccine [id number] 76914 Given 03/12/2015 Influenza Virus Vaccine, Quadrivalent, Split, Preservative Free [id number] Given 03/03/2013 Flu Vaccine Split Virus Preservative Free For [id number] Indiv [id number] Older [id number] Given 08/03/2012 Tdap - Tetanus/Diptheria/Acellular Pertussis [id number] Vital Signs Date Vital Result Comment 12/14/2018 [...] Result H/L Range Note Laboratory test 11/20/2018 [facility] Blood Culture SEE RESULT [address] [place] [address] [phone] CBC Auto Diff 11/20/2018 [facility] White Blood 14.1 10^3/uL High 3.5-10.[address] [place] [address] [phone] Red Blood Count 4.12 10^6/uL Low 4.18-5.48 [...] Blood Cells % 0.1 Laboratory test 11/20/2018 [facility] Lactic Acid 1.4 mmol/L N 0.5-2.0 2 finding [address] [place] [address] [phone] Influenza A & B 11/20/2018 [facility] Influenza A NEGATIVE Negative 3 Request [address] [facility] [place] [address] [phone] Influenza B Molecular NEGATIVE Negative Inr/Protime 11/20/2018 [facility] Inr 1.14 High 0.82-1.09 4 [address] [place] [address] [phone] Laboratory test 11/20/2018 [facility] Partial 29.3 N 26.0- 38.0 finding 101 [facility] [place] [address] Time PTT [phone] Urinalysis 11/20/2018 [facility] Urine Color Yellow Profile [address] [place] [address] [phone] Urine Appearance Cloudy Urine Specific Huntley 1.010 N 1.010-1.030 Urine pH 6.0 N 5-9 Urine Urobilinogen Negative Negative Urine Ketones Negative Negative Urine Protein Negative Negative Urine Leukocytes Negative Negative Urine Blood Negative Negative Urine Nitrite Negative Negative Urine Bilirubin Negative Negative Urine Glucose Negative Negative Laboratory test 11/20/2018 [facility] C Reactive 78.04 mg/L High <8.01 finding [address] [facility] [place] [address] [phone] Comp Metabolic 11/20/2018 [facility] Sodium 133 mmol/L Low 135 -145 Panel [address] [place] [address] [phone] Potassium 4.0 mmol/L N 3.5-5.0 Chloride 101 [...] 96.2 >60 5 CBC Auto Diff 10/17/2018 [facility] White Blood 9.6 10^3/uL N 3.5-10.[address] [place] [address] [phone] Red Blood Count 4.30 10^6/uL N 4.18-5.48 [...] Red Blood Cells % 0.0 Inr/Protime 10/17/2018 [facility] Inr 1.09 N 0.82-1.[address] [place] [address] [phone] Comp Metabolic 10/17/2018 [facility] Sodium 134 mmol/L Low 135 -[address] [place] [address] [phone] Potassium 3.7 mmol/L N 3.5-5.0 Chloride 101 [...] Egfr 115.1 >60 7 Laboratory test 10/17/2018 [facility] C Reactive 21.94 mg/L High <8.[address] [place] [address] [phone] Lactic Acid 1.3 mmol/L N 0.5-2.0 8 Blood Culture SEE RESULT BELOW 9 Comp Metabolic Panel 07/24/2018 [facility] Sodium 134 mmol/L Low 135-[address] [place] [address] [phone] Potassium 4.0 mmol/L N 3.5-5.0 Chloride 101 [...] Egfr 98.5 >60 10 Laboratory test 07/24/2018 [facility] Erythrocyte Sed 33 mm/Hr High 0-20 [address] [place] [address] [phone] Blood Culture SEE RESULT BELOW 12 Laboratory test 07/24/2018 [facility] C Reactive 20.76 mg/L High <8.[address] [place] [address] [phone] Lactic Acid 1.3 mmol/L N 0.5-2.0 13 Inr/Protime 07/24/2018 [facility] Inr 1.05 High 0.77-1.[address] [place] [address] [phone] CBC Auto Diff 07/24/2018 [facility] White Blood 9.6 N 3.5- 10.[address] Count 10^3/uL [place], [place] [address] [phone] Red Blood Count 4.38 10^6/uL N 4.00-5.40 [...] Blood Cells % 0 Laboratory test 07/24/2018 [facility] Partial 31.7 seconds N 26.0-36.[address] [place] [address] PTT [phone] Hemoglobin A1c (Glyco HGB) 5.3 % N 4.0-5.6 14 Lipid Profile 04/26/2018 [facility] Triglycerides 282 mg/dL 15 (Trig/Chol/HDL) [address] [place] [address] [phone] Cholesterol 141 mg/dL 16 HDL Cholesterol 46.5 mg/dL 17 LDL Cholesterol 38 mg/dL 18 Comp Metabolic Panel 04/26/2018 [facility] Sodium 136 mmol/L N 135-[address] [place] [address] [phone] Potassium 4.5 mmol/L N 3.5-5.0 Chloride 99 [...] 129.4 >60 19 CBC Auto Diff 04/26/2018 [facility] White Blood 9.6 10^3/uL N 3.5-10.[address] [place] [address] [phone] Red Blood Count 3.97 10^6/uL Low 4.00-5.40 [...] Blood Cells % 0.1 Laboratory test 04/26/2018 [facility] B-Type 19 pg/mL <=[address] [place] [address] Peptide BNP [phone] TSH (Thyroid Stim Horm) 3.59 mcIU/mL N 0.34-5.60 Laboratory 04/06/2018 [facility] Rapid Strep Negative Negative 20 test finding [address] Molecular [place], [place] [address] [phone] Laboratory 04/06/2018 [facility] Rapid Strep A SEE RESULT 21 test finding [address] [place] [address] [phone] CBC Auto Diff 05/21/2017 [facility] White Blood 12.0 10^3/uL High 3.5-10.[address] [place] [address] [phone] Red Blood Count 3.96 10^6/uL Low 4.0-5.4 [...] Cells % 0 Comp Metabolic Panel 05/21/2017 [facility] Sodium 132 mmol/L Low 133-[address] [place] [address] [phone] Potassium 4.2 mmol/L N 3.5-5.0 Chloride 100 [...] Egfr 130.0 >60 22 Laboratory test 05/21/2017 [facility] Blood Culture SEE RESULT [address] BEL[address] [place], [place] [address] [phone] Wound 10/22/2016 [facility] Wound/Misc SEE RESULT 24 Culture/Sensi [address] [place] [address] Stain [phone] Comp Metabolic 10/21/2016 [facility] Sodium 129 mmol/L Low 133 -14 [address] 5 [place] [address] [phone] Chloride 95 mmol/L Low 101-111 Co2 Carbon [...] 11 mmol/L N 2-11 CBC Auto 10/12/2016 [facility] White Blood 11.4 10^3/uL High 3.5-10.[address] [place] [address] [phone] Red Blood Count 4.40 10^6/uL N 4.0-5.4 [...] % 0.1 N Comp Metabolic Panel 10/12/2016 [facility] Sodium 128 mmol/L Low 133-145 [address] [place] [address] [phone] Chloride 93 mmol/L Low 101-111 Co2 Carbon [...] U/L High 13-39 31 Laboratory test 10/12/2016 [facility] Magnesium 2.0 mg/dL N 1.9-2.7 finding [address] [place] [address] [phone] Lipid Profile 09/03/2016 [facility] Triglycerides 481 mg/dL N 32 (Trig/Chol/HDL) [address] [place] [address] [phone] Cholesterol 160 mg/dL N 33 HDL Cholesterol 34.7 mg/dL N 34 LDL Cholesterol (SEE NOTE) mg/dL N 35 Comp Metabolic Panel 09/03/2016 [facility] Sodium 134 mmol/L N 133-[address] [place] [address] [phone] Potassium 3.9 mmol/L N 3.5-5.0 Chloride 99 [...] 95.0 N >60 36 Laboratory test 09/03/2016 [facility] LDL Cholesterol 53 mg/dL N [address] [place] [address] [phone] CBC Auto Diff 08/03/2015 [facility] White Blood Count 8.2 10^3/ uL N 3.5-[address] 0.8 [place] [address] [phone] Red Blood Count 4.65 10^6/uL N 4.0-5.4 [...] % 0.2 N Anca Panel For 08/03/2015 [facility] Myeloperoxidase AB <0.2 U N [address] [place], [place] [address] [phone] Proteinase 3 AB <0.2 U N 39 Leukemia/Lymphoma Flow 06/19/2015 [facility] Path Interpretation TNP N [address] 2-8 Marker [place], [place] [address] [phone] Path Interpret > 16 Marker TNP N Path Interpret 9-15 Marker (SEE NOTE) N 40 Laboratory test 06/19/2015 [facility] Surgical SEE RESULT [address] Pathology BELOW [place], [place] [address] [phone] Laboratory test 06/19/2015 [facility] Surgical SEE RESULT [address] Pathology BELOW [place], [place] [address] [phone] CLL (US Labs) 06/19/2015 [facility] CLL Specimen Bone Marrow N [address] [place], [place] [address] [phone] CLL Source See Comment N 43 CLL Reason for Referral See Comment N 44 CLL Method See Comment N 45 CLL Result Table See Comment N 46 CLL Result See Comment N 47 CLL Result Summary Normal N CLL Interpretation See Comment N 48 CLL Disclaimer See Comment N 49 CLL Released by See Comment N 50 Bone Marrow 06/19/2015 [facility] BM Result Summary Normal N Chromosomes [address] [place], [place] [address] [phone] BM Chromosome Specimen Bone Marrow N BM Chromosome Source See Comment N 51 BM Referral Reason See Comment N 52 BM Chromosome Method See Comment N 53 BM Chromo Banding Method See Comment N 54 BM Cromosome Results See Comment N 55 BM Chromosome Interpretation See Comment N 56 Released By See Comment N 57 CBC Auto Diff 06/19/2015 [facility] White Blood 10.2 10^3/uL N 3.5-10.[address] [place] [address] [phone] Red Blood Count 4.37 10^6/uL N 4.0-5.4 [...] Cells % 0.1 N Retic Count 06/19/2015 [facility] Retic Count 2.8 % High 0.5- 1.[address] [place] [address] [phone] Corrected Retic Count 2.6 % High 0.5-1.5 Maturation Factor Retic 1.0 N Retic Index 2.60 N Mean Retic Volume 111.5 N Immature Retic Fraction 0.49 N RBC Retic Count 4.37 10^6/uL Low 4.6-6.2 Hematocrit for Retic CNT 42 % N 42-52 Immunoglobulins 06/19/2015 [facility] Immunoglobulin G 2330 Abnormal 767 - 58 Serum Quant [address] mg/dL 1590 [place] [address] [phone] Immunoglobulin M 61 mg/dL N 37 - 286 Immunoglobulin A 299 mg/dL N 61 - 356 Laboratory test 06/05/2015 [facility] Cytology Non-Timber Hand SEE RESULT [address] [place] [address] [phone] Leukemia/Lymphom 06/05/2015 [facility] Path Interpretation TNP N a Flow [address] 2-8 [place] [address] [phone] Path Interpret > 16 Marker TNP N Path Interpret 9-15 Marker (SEE NOTE) N 60 Leukemia/Lymphoma 06/05/2015 [facility] Path Interpretation TNP N Phenot [address] 2-8 [place] [address] [phone] Path Interpret > 16 Marker TNP N Path Interpret 9-15 Marker (SEE NOTE) N 61 Laboratory test 05/29/2015 [facility] C Reactive 129.00 mg/L High < 5.00 [address] [place] [address] [phone] CBC Auto Diff 05/29/2015 [facility] White Blood 14.4 High 3.5- 10.[address] Count 10^3/[place] [address] [phone] Red Blood Count 4.41 10^6/uL N 4.0-5.4 [...] % 0 N Comp Metabolic Panel 05/29/2015 [facility] Sodium 133 mmol/L N 133-145 [address] [place] [address] [phone] Potassium 4.1 mmol/L N 3.5-5.0 Chloride 100 [...] N >60 63 Comp Metabolic Panel 09/28/2014 [facility] Sodium 138 mmol/L N 133-145 64 [address] [place] [address] [phone] Potassium 4.3 mmol/L N 3.5-5.0 Chloride 103 [...] 114.6 N >60 65 Lipid Profile 09/28/2014 [facility] Triglycerides 266 mg/dL N 66 (Trig/Chol/HDL) [address] [place], [place] [address] [phone] Cholesterol 156 mg/dL N 67 HDL Cholesterol 40.5 mg/dL N 68 LDL Cholesterol 62 mg/dL N 69 Comp Metabolic Panel 06/30/2013 [facility] Sodium 136 mmol/L 133-145 [address] [place] [address] [phone] Potassium 4.4 mmol/L 3.5-5.0 Chloride 101 mmol/L [...] Egfr 113.5 >60 70 Lipid Profile 06/30/2013 [facility] Triglycerides 223 mg/dL High 40-200 (Trig/Chol/HDL) [address] [place] [address] [phone] Cholesterol 176 mg/dL Less than 200 HDL Cholesterol 51 mg/dL 40-60 71 Cholesterol/HDL Ratio 3.5 Average 1-4.44 LDL Cholesterol 80.4 Less Than 100 72 CBC Auto Diff 06/30/2013 [facility] White Blood 9.2 10^3/uL 4.8-10.[address] [place] [address] [phone] Red Blood Count 4.74 10^6/uL 4.0-5.4 Hemoglobin [...] Red Blood Cells % 0.1 Laboratory 06/30/2013 [facility] TSH (Thyroid 2.45 0.34-5.60 test finding [address] Stimulating miu/[place] [address] Horm) [phone] Laboratory 06/30/2013 [facility] PSA Screening 0.636 0-4.000 test finding [address] ng/[place] [address] [phone] Lipid Panel 02/09/2013 [facility] Triglycerides 947 mg/dL High 40-[address] [place], [place] [address] [phone] Cholesterol 208 mg/dL High Less than 200 HDL Cholesterol 33 mg/dL Low 40-60 73 Cholesterol/HDL Ratio 6.3 Average High 1-4.44 LDL Cholesterol (SEE NOTE) Less Than 100 74 Laboratory test 02/09/2013 [facility] PSA Screening 0.5 ng/mL 0-4.0 [address] [place] [address] [phone] CMP Panel 02/09/2013 [facility] Sodium 136 mmol/L 133-[address] [place] [address] [phone] Potassium 4.3 mmol/L 3.5-5.0 Chloride 103 mmol/L [...] [address]: Marcelina Garcia MD Acct: [id number] Unit: [id number] AGE: 58 Location: ED Re11/19/18 SEX: M Status: DEP ER SPEC: [id number] ISSAC: 11/20/18-0150 [facility] DR: Marcelina Garcia MD REQ: [id number] RECD: 11/20/18 STATUS: RES OTHR DR: Shemar Thacker AUCTION BLOCK CLERK _ SOURCE: BLOOD,VENO SPDES: ORDERED: Blood Cult Procedure Result Reported Site Aerobic Culture Bottle Preliminary 11/24/18- 0207 ML No Growth Day 4 Anaerobic Culture Bottle Final 11/25/18- 0205 ML No Growth Day 5 * ML - Main Lab . END OF REPORT DEPARTMENT OF PATHOLOGY, [address] [place] [address] Sridhar Leung M.D. Director [facility] # [id number] 2 [facility] Severe Sepsis and Septic Shock Management Bundle Measure requires all lactic acids initially measuring >2.0 mmol/L be repeated. 3 Cereal Supervisor: [id number] 4 Standard intensity warfarin therapeutic range: 2.0-3.0 [...] 5 Kidney failure <15 (or dialysis) 8 [facility] Severe Sepsis and Septic Shock Management Bundle Measure requires all lactic acids initially measuring >2.0 mmol/L be repeated. 9 SEE RESULT BELOW Name: AUGUSTINE BENITEZ : [address]: Michael Fraser MD Acct: [id number] Unit: [id number] AGE: 58 Location: ED Re10/17/18 SEX: M Status: DEP ER SPEC: [id number] ISSAC: 10/17/[address]: Michael Fraser MD REQ: [id number] RECD: 10/17/18 STATUS: COMP MARIA LUISA DR: Shemar Thacker AUCTION BLOCK CLERK _ SOURCE: BLOOD,VENO SPDESC: ORDERED: Blood Cult Procedure Result Reported Site Aerobic Culture Bottle Final 10/22/18818 ML No Growth Day 5 * ML - Main Lab . END OF REPORT DEPARTMENT OF PATHOLOGY, [address] [place] [address] Sridhar Leung M.D. Director [facility] # [id number] 10 Because ethnic data is not always [...] <15 (or dialysis) 11 Test Performed by: [facility] [address] [place] [address] Sridhar Leung M.D. Director of Laboratory 12 SEE RESULT BELOW Name: AUGUSTINE BENITEZ : [address]: Munir Basurto MD Acct: [id number] Unit: [id number] AGE: 58 Location: [place] [address] Re07/24/18 Dis: 07/26/18 SEX: M Status: DIS Rhonda SPEC: [id number] ISSAC: 07/24/[address]: Min Middleton MD REQ: [id number] RECD: 07/24/18 STATUS: BLANKA GLASS DR: Shemar Thacker AUCTION BLOCK CLERK _ SOURCE: BLOOD,VENO SPDESC: ORDERED: Blood Cult Procedure Result Reported Site Aerobic Culture Bottle Final 07/29/18- 0850 ML No Growth Day 5 Anaerobic Culture Bottle Final 07/29/18- 0850 ML No Growth Day 5 * ML - Main Lab . END OF REPORT DEPARTMENT OF PATHOLOGY, [address] [place] [address] Sridhar Leung M.D. Director [facility] # [id number] 13 [facility] Severe Sepsis and Septic Shock Management Bundle Measure requires all lactic acids initially measuring >2.0 mmol/L be repeated. 14 Therapeutic target for the treatment of diabetes mellitus patients is <7% HBA1C, and in selective patients <6.0%. Please refer to [place] [employer] diabetic care guidelines for further [...] 5 Kidney failure <15 (or dialysis) 20 Cereal Supervisor: [id number] 21 SEE RESULT BELOW Name: AUGUSTINE BENITEZ : [address]: Mo Xiao MD Acct: [id number] Unit: [id number] AGE: 58 Location: ED Re04/06/18 SEX: M Status: REG ER SPEC: [id number] ISSAC: 04/06/[address]: Ronal ROBB REQ: [id number] RECD: 04/06/18 STATUS: BLANKA GLASS DR: [facility] Shemar Thacker AUCTION BLOCK CLERK _ SOURCE: THROAT SPDESC: ORDERED: Strep A Request Procedure Result Reported Site Rapid Strep A Request Final 04/06/18- 7508 ML Specimen received for Rapid Strep A Molecular testing * ML - Main Lab . END OF REPORT DEPARTMENT OF PATHOLOGY, [address] [place] [address] Sridhar Leung M.D. Director [facility] # [id number] 22 Because ethnic data is not always [...] [address]: Shemar Thacker NP Acct: [id number] Unit: [id number] AGE: 57 Location: [facility] Re05/21/17 SEX: M Status: REG REF SPEC: [id number] ISSAC: 05/21/17-[address]: Shemar Thacker NP REQ: [id number] RECD: 05/21/17 STATUS: COMP _ SOURCE: BLOOD,VENO [facility]: ORDERED: Blood Cult Procedure Result Reported Site Aerobic Culture Bottle Final 05/26/17- 2 ML No Growth Day 5 Anaerobic Culture Bottle Final 05/26/17- 1702 ML No Growth Day 5 * ML - MAIN LAB ([facility]) . END OF REPORT * ML=Testing performed at Main Lab DEPARTMENT OF PATHOLOGY, [address] [place] [address] Sridhar Leung M.D. Director [facility] # [id number] 24 SEE RESULT BELOW Name: AUGUSTINE BENITEZ : [address]: Michael Fraser MD Acct: [id number] Unit: [id number] AGE: 56 Location: ED Re10/22/16 SEX: M Status: DEP ER SPEC: [id number] ISSAC: 10/22/16-[address]: Sherice Ochoa MD REQ: [id number] RECD: 10/22/16 STATUS: BLANKA GLASS DR: Shemar Thacker AUCTION BLOCK CLERK _ SOURCE: FOOT,RIGHT SPDESC: ORDERED: Culture Stain [...] performed at Main Lab DEPARTMENT OF PATHOLOGY, [address] [place] [address] Sridhar Leung M.D. Director [facility] # [id number] Patient: AUGUSTINE BENITEZ [id number] (Continued) Specimen: [id number] Collected: 10/22/16 Received: 10/22/16 (Continued) Procedure Result Reported Site Wound/Misc Culture Final (continued) 10/24/16937 1. STAPHYLOCOCCUS AUREUS (continued) M.I.C. RX --------- ------ Cefazolin-Deduced S * These antibiotics are not available in the [facility] Formulary Contact the Microbiology Department for any additional antibiotic reporting. * ML - MAIN LAB ([facility]) . END OF REPORT * ML=Testing performed at Main Lab DEPARTMENT OF PATHOLOGY, [address] [place] [address] Sridhar Leung M.D. Director [facility] # [id number] 26 Because ethnic data is not always [...] dialysis) 27 Critical Result K:6.9 Called to [id number] at: 18:11:22 by:[id number] Read back by:[id number] 28 Specimen Lipemic. Result may not be [...] REFERENCE VALUE <0.4 (Negative) Test Performed by: [place] [address] Furniture Mover Helper: Les Bernstein II, M.D., Ph.D. 40 FINAL [...] Rita Rosa MD Technical component performed by: [address] [address] Furniture Mover Helper: Les Bernstein II, MD, PhD. 41 SEE RESULT BELOW Name: AUGUSTINE BENITEZ : [address]: Tesfaye Oleary MD Acct: [id number] Unit: [id number] AGE: 55 Location: [facility] Re06/19/15 SEX: M Status: REG REF SPEC: [id number] ISSAC: 06/19/[address]: Tesfaye Oleary MD REQ: [id number] RECD: 06/19/15 STATUS: SOUT _ ORDERED: IRON STAIN, Janette, LEVEL IV/2 CLL FISH has been performed at [facility], [place], [place]. 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 Abnormality Name Result % Abn Cutoff (%) -6q23(D6Z1x2,MYBx1) Normal <4.0% -11q22.3(W30P6t0,ATMx1) Normal <7.5% +12(D12Z3,MDM2)x3 Normal <2.5% -13q14.3(H34J071j6,VVPG4v0) Normal <7.0% -13q14.3x2(Z39X037v2,LAMP1x Normal <1.5% 2) t(11;14) CCND1-XT/IGH-XT Normal <0.6% fusion -17p13.1(TP53x1,C54K9b5) Normal <9.5% -17(TP53,D17Z1)x1 Normal <5.5% RESULT: Interphase FISH is normal for all loci studied. Normal The result is within normal limits for the CLL FISH panel and the CCND1 and IGH gene regions. CONTINUED ON NEXT PAGE * ML=Testing performed at Main Lab DEPARTMENT OF PATHOLOGY, [address] [place] [address] Sridhar Leung M.D. Director NELLIE # [id number] RUN DATE: 06/28/15 [facility] LAB LIVE PAGE 2 Patient: AUGUSTINE BENITEZ [id number] (Continued) ADDENDUM (Continued) Test Performed by: [place] [address] Furniture Mover Helper: Les Bernstein II, M.D., Ph.D. Addendum Signed [...] detected in the jugular lymph node specimen ([id number]). SPECIAL STUDIES Flow cytometry has been performed at [facility], [place], [place]. 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 Director [facility] # [id number] RUN DATE: 06/28/15 [facility] LAB LIVE PAGE 3 Patient: AUGUSTINE BENITEZ [id number] (Continued) SPECIAL STUDIES (Continued) SPECIAL STUDIES (Continued) [...] Rita Rosa MD Technical component performed by: [place] [address] Furniture Mover Helper: Les Bernstein II, MD, PhD. CLINICAL HISTORY [...] performed at Main Lab DEPARTMENT OF PATHOLOGY, [address] [place] [address] Sridhar Leung M.D. Director CLIA # [id number] RUN DATE: 06/28/15 [facility] LAB LIVE PAGE 4 Patient: AUGUSTINE BENITEZ John [id number] (Continued) MICROSCOPIC DESCRIPTION (Continued) MICROSCOPIC DESCRIPTION A [...] not increased. Elements of granulocytic lineage demonstrate transition mgr rn progression to mature forms. Erythroid maturation is [...] performed at Main Lab DEPARTMENT OF PATHOLOGY, [address] [place] [address] Sridhar Leung M.D. Director [facility] # [id number] 42 SEE RESULT BELOW Name: AUGUSTINE BENITEZ : [address]: Tesfaye Oleary MD Acct: [id number] Unit: [id number] AGE: 55 Location: [facility] Re06/19/15 SEX: M Status: REG REF SPEC: [id number] ISSAC: 06/19/[address]: Tesfaye Oleary MD REQ: [id number] RECD: 06/19/15 STATUS: SOUT _ ORDERED: IRON [...] detected in the jugular lymph node specimen ([id number]). SPECIAL STUDIES Flow cytometry has been performed at [facility], [place], [place]. The testing reveals: FINAL DIAGNOSIS: Specimen Source: Bone marrow Flow cytometry immunophenotypic analysis: Involved by a B cell lymphoproliferative disorder with immunophenotypic features of chronic lymphocytic leukemia (1% of total marrow cellularity) Interpretative data: Blasts: 1% of gated events Lymphocytes: 14% of gated events CONTINUED ON NEXT PAGE * ML=Testing performed at Main Lab DEPARTMENT OF PATHOLOGY, [address] [place] [address] Sridhar Leung M.D. Director [facility] # [id number] RUN DATE: 06/21/15 [facility] LAB LIVE PAGE 2 Patient: AUGUSTINE BENITEZ [id number] (Continued) SPECIAL STUDIES (Continued) SPECIAL STUDIES (Continued) [...] Rita Rosa MD Technical component performed by: [place] [address] Furniture Mover Helper: Les Bernstein II, MD, PhD. CLINICAL HISTORY [...] performed at Main Lab DEPARTMENT OF PATHOLOGY, [address] [place] [address] Sridhar Leung M.D. Director [facility] # [id number] RUN DATE: 06/21/15 [facility] LAB LIVE PAGE 3 Patient: AUGUSTINE BENITEZ [id number] (Continued) MICROSCOPIC DESCRIPTION (Continued) MICROSCOPIC DESCRIPTION A [...] not increased. Elements of granulocytic lineage demonstrate transition mgr rn progression to mature forms. Erythroid maturation is [...] performed at Main Lab DEPARTMENT OF PATHOLOGY, [address] [place] [address] Sridhar Leung M.D. 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 46 Abnormality Name Result % Abn Cutoff (%) -6q23(D6Z1x2,MYBx1) Normal <4.0% -11q22.3(N82Z2i8,ATMx1) Normal <7.5% +12(D12Z3,MDM2)x3 Normal <2.5% -13q14.3(U07Z550s0,VQSJ2p2) Normal <7.0% -13q14.3x2(B18L346n3,LAMP1x Normal <1.5% 2) t(11;14) CCND1-XT/IGH-XT Normal <0.6% fusion -17p13.1(TP53x1,R48X6d4) Normal <9.5% -17(TP53,D17Z1)x1 Normal <5.5% 47 RESULT: Interphase FISH is normal for all loci studied. 48 The result is within normal limits for the CLL FISH panel and the CCND1 and IGH gene regions. Additional cytogenetic studies are reported separately. PDF Report available at: https://wikifolio.com/[email or web address].ashx 49 Applicable to Analyte Specific Reagent (ASR) and Laboratory developed tests (LDT). This test was developed and its performance characteristics determined by [facility]. It has not been cleared or approved by the U.S. Food and Drug Administration. This FISH test does not rule out other chromosome abnormalities. 50 RESULT: Sridhar Peguero, Ph.D. Test Performed by: [place] [id number] Furniture Mover Helper: Les Bernstein II, M.D., Ph.D. 51 RESULT: [...] studies, reported separately. PDF Report available at: [email or web address]://wikifolio.[employer]/[email or web address].[email or web address] 57 RESULT: Sidney Shahid M.D., Ph.D. Test Performed by: [place] [address] Furniture Mover Helper: Les Bernstein II, M.D., Ph.D. 58 Test Performed by: [place] [address] Furniture Mover Helper: Les Bernstein II, M.D., Ph.D. 59 SEE RESULT BELOW Name: AUGUSTINE BENITEZ : [address]: Juvenal Jeffrey MD Acct: [id number] Unit: [id number] AGE: 55 Location: Re06/05/15 SEX: M Status: REG REF SPEC: [id number] ISSAC: 06/05/15 [facility] DR: Yahir Dickson MD REQ: [id number] RECD: 06/05/15 STATUS: GREY GLASS DR: Juvenal Jeffrey MD _ ORDERED: FN ASP DEEP, FNA IMMEDIATE S, Leukemia/Lympho THIS IS A CORRECTED REPORT 06/07/15 Corrected Report Flow cytometry has been performed at [place], [place]. The testing reveals: FINAL DIAGNOSIS: Specimen Source: Lymph node, right jugular ([id number]) Flow cytometry immunophenotypic analysis: Involved by small [...] MD Technical component performed by: [facility] [place] [address] Furniture Mover Helper: Les Bernstein II, MD, PhD. CONTINUED ON NEXT PAGE * ML=Testing performed at Main Lab DEPARTMENT OF PATHOLOGY, [address] [place] [address] Sridhar Leung M.D. Director [facility] # [id number] RUN DATE: 06/07/15 [facility] LAB LIVE PAGE 2 Patient: AUGUSTINE BENITEZ [id number] (Continued) ADDENDUM (Continued) Addendum Signed (signature on [...] Alcohol fixed slide(s) and Specimen sent to [facility] for Flow cytometry [place], [place] on 06/05/15 by [id number] at 1049. CONTINUED ON NEXT PAGE * ML=Testing performed at Main Lab DEPARTMENT OF PATHOLOGY, [address] [place] [address] Sridhar Leung M.D. Director [facility] # [id number] RUN DATE: 06/07/15 [facility] LAB LIVE PAGE 3 Patient: AUGUSTINE BENITEZ [id number] (Continued) GROSS DESCRIPTION (Continued) Signed (signature on file) Rita Rosa MD 1621 END OF REPORT * ML=Testing performed at Main Lab DEPARTMENT OF PATHOLOGY, [address] [place] [address] Sridhar Leung M.D. Director [facility] # [id number] 60 FINAL DIAGNOSIS: Specimen Source: Lymph node, right jugular ([id number]) Flow cytometry immunophenotypic analysis: Involved by small [...] Rita Rosa MD Technical component performed by: [place] [address] Furniture Mover Helper: Les Bernstein II, MD, PhD. --- 06/07/15 1518 --- 02-20 previously reported as: FINAL DIAGNOSIS: Specimen Source: Lymph node, right jugular ([id number]) Flow cytometry immunophenotypic analysis: Involved by chronic [...] Rita Rosa MD Technical component performed by: [place] [address] Furniture Mover Helper: Les Bernstein II, MD, PhD. 61 FINAL DIAGNOSIS: Specimen Source: Lymph node, right jugular ([id number]) Flow cytometry immunophenotypic analysis: Involved by small [...] Rita Rosa MD Technical component performed by: [place] [address] Furniture Mover Helper: Les Bernstein II, MD, PhD. --- 06/07/15 1518 --- Path Inter 02-20 previously reported as: FINAL DIAGNOSIS: Specimen Source: Lymph node, right jugular ([id number]) Flow cytometry immunophenotypic analysis: Involved by chronic [...] Rita Rosa MD Technical component performed by: [place] [address] Furniture Mover Helper: Les Bernstein II, MD, PhD. 62 Acute [...] levels of PSA measured using the [employer] DXI Hybritech immunoassay should not be interpreted [...] dialysis) Procedures Date Code Description Status 07/27/2018 56040 Removal Devitalized Tissue Wound Greater Than 20 Completed Square CM 07/27/2018 16256 Removal Devitalization Tissue Wound Less Than Equal 20 Completed Square CM 04/26/2018 86760 ECHO Transthoracic, Real-Time 2D With Doppler And Completed Color Flow 04/26/2018 28309 ECHO Transthoracic, Real-Time 2D With Doppler And Completed Color Flow 10/18/2014 78650 ECHO Transthoracic, Real-Time 2D With Doppler And Completed Color Flow 10/11/2014 467106451 Bone Mineral Density Test Completed 04/06/2014 09568 Rad Exam; Foot Comp Completed 03/01/2014 33898 Rad Exam; Foot Comp Completed 02/13/2014 15784 Rad Exam; Foot Comp Completed 02/13/2014 25116 FX Metatarsal Care Completed Encounters Type Date Location Provider Dx Diagnosis Office Visit 12/14/2018 Orthopedic Everette Diaz, M25.571 Pain in right 9:30a Services Of Diego Nguyen ankle and joints of right foot Office Visit 11/30/2018 [facility] Internal Shemar Thacker NP Z00.00 [facility]cn[facility] w/o abnormal findings I10 Essential (primary) hypertension K21.9 Gastro-esophageal reflux disease without esophagitis 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, 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 Munir Montiel L03.115 Cellulitis of 10:17a Associrma MD right lower limb Hospitalists I10 Essential (primary) hypertension Office Visit 07/24/2018 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 Office Visit 04/21/2018 9:40a [facility] Internal Shemar Thacker I10 Essential ( primary) [facility] hypertension E78.5 Hyperlipidemia, unspecified R60.0 Localized edema [...] joint, initial encounter Office Visit 05/21/2017 4:00p [facility] Internal Shemar Thacker L03.115 Cellulitis of [facility] AU[facility] BLOCK CLERK right lower limb Office Visit 10/27/2016 10:00a [facility] Internal Shemar Thacker L03.115 Cellulitis [facility] CLERK right lower limb I10 Essential (primary) hypertension E78.5 Hyperlipidemia, unspecified Office Visit 04/03/2016 [facility] Internal Shemar Thacker M46.1 Sacroiliitis, not 11:40a [facility] AU[facility] BLOCK CLERK elsewhere classified Office Visit 03/24/2016 [facility] Internal Shemar Thacker M46.1 Sacroiliitis, not 1:40p [facility] BLOCK CLERK elsewhere classified Office Visit 12/25/2015 [facility] Internal Nimesh Cline L03.116 Cellulitis of [facility] 2:[facility] lower limb Office Visit 09/19/2015 Orthopedic Everette M76.821 Posterior tibial 3:30p Services Of Wendy Diaz tendinitis, right [facility] 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 Bone(S) Closed 733.94 Stress Fracture Of The Metatarsals Office Visit 10/03/2014 10:00a [facility] Internal Coco Stone, V70.0 Examination Medicine - [facility] M.D. General Medical Routine AT Health Care [...] Colon 429.3 Cardiomegaly Office Visit 06/30/2013 4:00p [facility] Internal Coco Stone, 401.1 Hypertension Benign Medicine - M.DJaden Ccmob 272.2 Hyperlipidemia Mixed 300.02 Anxiety Disorder Generalized Office Visit 03/03/2013 3:00p [facility] Internal Coco Stone, V70.0 Examination [facility] General Medical Routine AT Health Care Facility 278.00 Obesity Unspec 401.1 Hypertension Benign 257.2 Testicular Hypofunction Other 461.8 Sinusitis Acute Other 272.2 Hyperlipidemia Mixed V76.41 Screening Malignant Neoplasm Rectum V04.81 Need For Prophylactic Vaccination & Inoculation/Influenza Office Visit 08/03/2012 3:00p [facility] Internal Coco V17.49 Family HX Of Other Medicine - Wendy Stone Cardiovascular Ccmob Diseases 272.2 Hyperlipidemia Mixed 278.00 Obesity Unspec 401.1 Hypertension Benign 257.2 Testicular Hypofunction Other 787.91 Diarrhea v06.1 Prutgkjyrv-Buwbkeg-Lcjybsoh Combined (DTaP) Plan of Treatment Future Appointment(s):01/04/2019 8:45 am - Everette Diaz M.D. at [facility]12/14/2018 - Everette Diaz M.D.M25.571 Pain in right ankle and joints of right footNew Xrays:Ankle Right 2VWS, Ordered: 12/14/18Foot Right 3+ VWS, Ordered: 12/14/18Follow up:3 weeks
--- NOTE | 2018-12-30 21:22 | ED ---
Lower Extremity - HPI Summary HPI Summary: This patient is a 58 year old M presenting to [facility] with a chief complaint of edema and redness left leg since 11/30/18. Pt reports his leg was Noonan and swollen when he went to bed. Pt was recently on cephalex, and levaquin for sinus infection. Pt has had a lower extremity edema on the right leg for 4 weeks. Pt recently had a stress fracture and is wearing a boot. Pt also has thick callous, and they crack, so he wears compression sock. So pt has a cut on the bottom of his left foot, that predates edema. Pt has Hx lymphoma, HTN. Pt takes lisinopril, Lasix, toprol, and potassium. Pt denies having diabetes. Patient reports chills, and he denies fever. Per triage, the patient rates the pain 4/10 in severity. - History of Current Complaint Chief Complaint: EDExtremityLower Stated Complaint: LT LEG CELLULITIS PER PT Time Seen by Provider: 12/30/18 20:47 Hx Obtained From: Patient Onset of Pain: Days Onset/Duration: Still Present Severity Initially: Moderate Severity Currently: Moderate Pain Intensity: 4 Pain Scale Used: 0-10 Numeric Timing: Constant Location: Is Discrete @ - left leg Associated Signs And Symptoms: Positive: Swelling, Redness - Allergies/Home Medications Allergies/Adverse Reactions: Allergies Allergy/AdvReac Type Severity Reaction Status Date / Time clavulanic acid Allergy Rash Verified 12/30/18 20:15 tobramycin Allergy Swelling Verified 12/30/18 20:15 PMH/Surg Hx/FS Hx/Imm Hx Endocrine/Hematology History: Reports: Hx Blood Disorders - CLL Denies: Hx Diabetes, Hx Systemic Lupus Erythematosus, Hx Thyroid Disease Cardiovascular History: Reports: Hx Hypertension Denies: Hx Congestive Heart Failure Respiratory History: Reports: Hx Asthma Denies: Hx Chronic Obstructive Pulmonary Disease (COPD) GI History: Reports: Hx Gastroesophageal Reflux Disease Denies: Hx Ulcer History: Denies: Hx Dialysis, Hx Renal Disease Musculoskeletal History: Reports: Other Musculoskeletal History - Right Acriomionplasty Denies: Hx Rheumatoid Arthritis, Hx Osteoporosis, Hx Scoliosis Sensory History: Reports: Hx Contacts or Glasses Denies: Hx Hearing Aid Opthamlomology History: Reports: Hx Contacts or Glasses Neurological History: Reports: Hx Headaches Denies: Other Neuro Impairments/Disorders Psychiatric History: Reports: Hx Anxiety, Hx Depression - Cancer History Cancer Type, Location and Year: LYMPHOMA 2016 - Surgical History Surgery Procedure, Year, and Place: Acromioplasty 2007 - Immunization History Date of Tetanus Vaccine: unknown Date of Influenza Vaccine: 2014 Infectious Disease History: No Infectious Disease History: Denies: Hx Clostridium Difficile, Hx Hepatitis, Hx Human Immunodeficiency Virus (HIV), Hx of Known/Suspected MRSA, Hx Shingles, Hx Tuberculosis, Hx Known/ Suspected VRE, Hx Known/Suspected VRSA, History Other Infectious Disease, Traveled Outside the [place] in Last 30 Days - Family History Known Family History: Positive: Cardiac Disease, Hypertension Negative: Diabetes - Social History Occupation: Employed Full-time Lives: With Family Alcohol Use: Weekly Alcohol Amount: 3x weekly Hx Substance Use: No Substance Use Type: Reports: None Hx Tobacco Use: Yes Smoking Status (MU): Former Smoker Type: Cigarettes Review of Systems Positive: Chills. Negative: Fever Positive: Edema - pos - legs, Other - pos - has cracked thick callous, redness on left leg All Other Systems Reviewed And Are Negative: Yes Physical Exam - Summary Physical Exam Summary: Constitutional: Well-developed, Well-nourished, Alert. (-) Distressed Skin: Warm, Dry HENT: Normocephalic; Atraumatic Eyes: Conjunctiva normal Neck: Musculoskeletal ROM normal neck. (-) JVD, (-) Stridor, (-) Tracheal deviation Cardio: Rhythm regular, rate normal, Heart sounds normal; Intact distal pulses; The pedal pulses are 2+ and symmetric. Radial pulses are 2+ and symmetric. Pulmonary/Chest wall: Effort normal. (-) Respiratory distress, (-) Wheezes, (-) Rales Abd: Soft, (-) tenderness, (-) Distension, (-) Guarding, (-) Rebound Musculoskeletal: Dry skin pad of left foot, 3 cm healing open wound, 1 to 2+ pitting edema on bilateral legs, Significant cellulitis ankle to mid lower leg, warm tender, glaringly consistent with cellulitis in the situation of edema, Good pulses, circulation intact, Capillary refill intact Neuro: Alert, Oriented x3 Psych: Mood and affect Normal Triage Information Reviewed: Yes Vital Signs On Initial Exam: Initial Vitals Temp Pulse Resp BP Pulse Ox 98.7 F 85 16 150/94 96 12/30/18 20:10 12/30/18 20:10 12/30/18 20:10 12/30/18 20:10 12/30/18 20:10 Vital Signs Reviewed: Yes Diagnostics - Vital Signs Vital Signs Temp Pulse Resp BP Pulse Ox 12/30/18 20:10 98.7 F 85 16 150/94 96 - Laboratory Lab Statement: Any lab studies that have been ordered have been reviewed, and results considered in the medical decision making process. Re-Evaluation - Re-Evaluation First Eval Re-Evaluation Time: 21:35 Comment: Discussed plan of care with pt. Lower Extremity Course/Dx - Course Course Of Treatment: This patient is a 58 year old M presenting to [facility] with a chief complaint of edema and redness left leg since 11/30/18. Pt reports his leg was Noonan and swollen when he went to bed. Pt was recently on cephalex, and levaquin for sinus infection. Pt has had a lower extremity edema on the right leg for 4 weeks. Pt recently had a stress fracture and is wearing a boot. Pt also has thick callous, and they crack, so he wears compression sock. So pt has a cut on the bottom of his left foot, that predates edema. Pt has Hx lymphoma, and HTN. Pt takes lisinopril, Lasix, toprol, and potassium. Patient reports chills, and he denies fever. Per triage, the patient rates the pain 4/10 in severity. Pt will be prescribed Bactrim, however pt is also taking potassium supplements. Bactrim can increase potassium levels, and the combination could increase potassium too high. Pt will be told to take half a dose and not to take potassium supplement today. He should call his PCP and manage potassium levels as an outpatient. He will need more than 7 day supply, and I will write 10 day supply, and let PCP decide whether to continue or not at 10 days. But 10- days will probably be a bare minimum. Pt will be discharged, with prescription for cephalexin and Bactrim. Pt should follow up from PCP. Pt is agreeable to this plan. - Diagnoses Provider Diagnoses: Lymphangitis Discharge - Sign-Out/Discharge Documenting (check all that apply): Patient Departure - Discharge Patient Received Moderate/Deep Sedation with Procedure: No - Discharge Plan Condition: Good Disposition: HOME Prescriptions: Cephalexin CAP* [Keflex CAP*] 500 mg PO QID 10 Days #40 cap Sulfamethox/Trimethoprim DS* [Bactrim DS 800/160 TAB*] 1 tab PO BID 10 Days #20 tab Patient Education Materials: Lymphangitis (ED) Forms: *Work Release Referrals: Shemar Thacker, MAINTENANCE CONTROLLER [Primary Care Provider] - - Billing Disposition and Condition Condition: GOOD Disposition: Home - Attestation Statements Document Initiated by Scribe: Yes Documenting Scribe: Mady Arreaga Provider For Whom Mauricio is Documenting (Include Credential): Dr. Carlos Schroeder MD Scribe Attestation: Mady Swift, scribed for Dr. Carlos Schroeder MD on 12/31/18 at 0600. Scribe Documentation Reviewed: Yes Provider Attestation: The documentation as recorded by the marvaibe, Mady Arreaga accurately reflects the service I personally performed and the decisions made by me, Dr. Carlos Schroeder MD Status of Scribe Document: Viewed
[2018-12-30] MEDS ORDERED: Cephalexin CAP* 500 MG PO ONE (21:34)
[2018-12-30] MEDS ORDERED: Sulfamethox/Trimethoprim DS 800/160* TAB PO ONE (21:35)
[2018-12-30 21:47] VITALS: BP 152/97
== END 2018-12-30 21:47 | disposition home or self-care (01) ==
LOC: ED 20:01
DX: I89.1 Lymphangitis (principal); I10 Essential (primary) hypertension; C91.10 Chronic lymphocytic leukemia of B-cell type not having achieved remission; J45.909 Unspecified asthma, uncomplicated; K21.9 Gastro-esophageal reflux disease without esophagitis; F41.9 Anxiety disorder, unspecified; F32.9 Major depressive disorder, single episode, unspecified; Z88.1 Allergy status to other antibiotic agents; Z79.899 Other long term (current) drug therapy; Z87.891 Personal history of nicotine dependence
CPT/HCPCS: 99282; A9270-GY

== ENCOUNTER 2019-01-17 08:20 | Emergency (ER) | payer BC ==
--- OUTSIDE RECORDS SUMMARY | 2019-01-17 08:35 | XMS REPORT | Continuity of Care Document ---
:1960 External Reference #:[id number] Author Name Kasie Whitney Care Team Providers Name Role Phone Maisha Us MD Primary Care Physician Unavailable Payers Date Identification Numbers Payment Provider Subscriber Effective: 2012 Policy Number: [id number] [employer] Augustine Benitez PayID: [id number] [address] [address] [place] [address] Onset: 2018 Policy Number: [id number] [facility] Augustine Benitez Group Name: [address] [place] [address]. [address] PayID: [id number] [place], [place] Problems Active Problems Provider Date Chronic [...] ppd x 1.5 yrs Smoking Status Reviewed: 01/04/19 Patient is a former quit 1983 - [...] 1 by mouth every Unknown day Tablets Keflex Unknown Bactrim Unknown History Medications Levofloxacin one by mouth 10tabs J32.0 Shemar Thacker 11/30/2018 - 500mg Tablets daily for 10 [employer] 12/05/2018 days Potassium Chloride ER 1 by mouth every 30tabs R60.0 Shemar Thacker, 2017 - 20Meq day for two [employer] 06/15/2018 Tablets ER weeks Methylprednisolone medrol dosepak 21units M54.12 Josh F 03/25/2018 - 4mg TBPK take as MD Lexi 04/21/2018 instructed Cephalexin take one tablet 56tabs L03.115 Shemar Thacker, 05/21/2017 - 500mg Tablets every 6 hours [employer] 06/04/2017 for 14 days Metoprolol Succinate ER take 1 tablet by 30tabs Shemar Thacker, 03/06/2017 - 50mg mouth every day [employer] 09/26/2018 Tablets ER 24HR Cephalexin take one tablet 16tabs L03.115 Shemar Thacker, 10/27/2016 - 500mg Tablets every 6 hours [employer] 05/18/2017 for 4 more days Mobic one tablet once 30tabs M46.1 Shemar Thacker, 04/03/2016 - 7.5mg Tablets daily. May take [employer] 10/27/2016 two once daily if one is ineffective. With food Methocarbamol take 1 tablet 60tabs M46.1 Shemar Thacker, 04/03/2016 - 750mg Tablets every six hours [employer] 10/27/2016 as needed for pain. may take second tablet if first not effective. Medrol as directed on 21units M46.1 Shemar Thacker, 03/24/2016 - 4mg TBPK package [employer] 03/25/2016 Tramadol HCL 1-2 tablets 30tabs M46.1 Shemar Thacker, 03/24/2016 - 50mg Tablets every 8 hours as [employer] 04/02/2016 needed for pain. Keflex 1 by mouth twice 10caps L03.116 Nimesh Cline 12/25/2015 - 500mg Capsules a day Wendy Keith 03/24/2016 Doxycycline Hyclate 1 cap by mouth 28caps J32.1 Marcos Silva 10/25/2015 - 100mg twice a day with Olinda, 03/24/2016 Jeff Abrahamelin Use 2 Sprays In 30units Coco 09/04/2015 - 137mcg/Sneads Solution Nose Two Times Wendy Stone 03/24/2016 Daily Doxycycline Hyclate 1 cap by mouth 90caps J32.1 Marcos Silva 07/23/2015 - 100mg twice a day with Olinda 09/11/2015 Jeff flynn M.D. Celexa Take 1 Tablet By 30tabs F41.1 Shemar Thacker, 07/19/2015 - 40mg Tablets Mouth Every Day [employer] 04/21/2018 Oxygen 2 l nc at 1units G47.33 Coco 07/19/2015 - [facility] bedtime 414.9 dx Wendy Stone 03/24/2016 Astelin 2 sprays 2x per 1units J01.90 Coco 07/19/2015 - 137mcg/Sneads Solution day Wendy Stone 08/03/2015 Biaxin 1 by mouth twice 20tabs J01.90 Coco 07/19/2015 - 250mg Tablets a day Wendy Stone 08/03/2015 Azithromycin 2 tab by mouth 6tabs Coco 10/27/2014 - 250mg Tablets day 1 then 1 tab Wendy Stone 06/07/2015 by mouth day 2-5 Hydrochlorothiazide Take 1 Capsule 30caps R60.0 Shemar Thacker 10/03/2014 - 12.5mg By Mouth Every [employer] 04/21/2018 Capsules Day as Needed Flonase Inhale 2 Sprays 16units Coco 09/09/2013 - 50mcg/Act Suspension Into Each Wendy Stone 02/12/2014 Nostril One Time Daily as Needed Celexa take 1 tablet by 90tabs F41.1 Coco 06/30/2013 - 20mg Tablets mouth one time Wendy Stone 07/19/2015 daily Gemfibrozil Take 1 Tablet By 180tabs E78.2 Shemar Thacker, 03/03/2013 - 600mg Tablets Mouth Two Times [employer] 04/21/2018 Daily Penicillin V Potassium qid for 7 days 28tabs Arcadio Silva 01/09/2013 - 500mg [place], 01/16/2013 Britt Nguyen,FACP Omeprazole Take 1 Capsule 90caps Shemar Thacker, 10/01/2012 - 20mg Capsules DR By Mouth Every [employer] 05/18/2017 Day Floranex 2 by mouth daily Unknown - Tablets for 12 days 11/30/2018 Clindamycin HCL 11/2 by mouth Unknown - 300mg Capsules three times a 11/30/2018 day for 7 days Pantoprazole Sodium 1 by mouth every Unknown - 40mg day 11/30/[address] Chacko apply once daily Unknown - 2% Ointment to rash 11/30/2018 Bupropion HCL ER (XL) Take 1 Tablet By 90tabs Shemar Thacker, - 300mg Mouth Every Day [employer] 10/27/2016 Tablets ER 24HR Metoprolol Succinate ER take 1 tablet by 90tabs Shemar Thacker, - 25mg mouth every day [employer] 03/06/2017 Tablets ER 24HR Amoxicillin Unknown - [...] Shemar Kedar, - 5% Patches as needed [employer] 07/27/2018 Folic Acid 1 po qd Unknown - 400mcg Tablets 07/19/2015 Slow-Mag 1 po qd Unknown - Tablets 03/24/2016 Multi Vitamin Mens 1 po qd Unknown - Tablets 02/16/2015 Fish Oil 2 po qd Unknown - 1000mg Capsules 03/03/2013 Immunizations CPT Code Status Date Vaccine Lot # [id number] Given 08/03/2015 Pneumonia Vaccine [id number] Given 08/03/2015 Pneumonia Vaccine [id number] Given 03/12/2015 Influenza Virus Vaccine, Quadrivalent, Split, Preservative Free 61967 Given 03/03/2013 Flu Vaccine Split Virus Preservative Free For [id number] Indiv [id number] Older [id number] Given 08/03/2012 Tdap - Tetanus/Diptheria/Acellular Pertussis [id number] Vital Signs Date Vital Result Comment 01/04/2019 9:02am Height 70 inches 5'10" Weight 270.00 lb BP Systolic 120 mmHg BP Diastolic 64 mmHg Respiratory Rate 16 /min Body Temperature 96.9 F Pain Level 1 BMI (Body Mass Index) 38.7 kg/m2 12/14/2018 10:05am Height 70 inches 5'10" Weight [...] Result H/L Range Note Laboratory test 11/20/2018 [facility] Blood Culture SEE RESULT [address] [place] [address] [phone] CBC Auto Diff 11/20/2018 [facility] White Blood 14.1 10^3/uL High 3.5-10.[address] [place] [address] [phone] Red Blood Count 4.12 10^6/uL Low 4.18-5.48 Hemoglobin 13.2 g/dL Low 14.0-18.0 Hematocrit 38 % Low 42-52 Mean Corpuscular Volume 93 fL Normal 80-94 Mean Corpuscular Hemoglobin 32 pg High 27-31 Mean Corpuscular HGB Conc 35 g/dL Normal 31-36 Red Cell Distribution Width 13 % Normal 10-15 Platelet Count 280 10^3/uL Normal 150-450 Mean Platelet Volume 6.7 fL Low 7.4-10.4 Abs Neutrophils 12.3 10^3/uL High 1.5-7.7 Abs Lymphocytes 1.0 10^3/uL Normal 1.0-4.8 Abs Monocytes 0.7 10^3/uL Normal 0-0.8 Abs Eosinophils 0.1 10^3/uL Normal 0-0.6 Abs Basophils 0.1 10^3/uL Normal 0-0.2 Abs Nucleated RBC 0.0 10^3/uL Granulocyte % 86.9 % Lymphocyte % 7.2 % Monocyte % 5.0 % Eosinophil % 0.4 % Basophil % 0.5 % Nucleated Red Blood Cells % 0.1 Laboratory 11/20/2018 [facility] Lactic Acid 1.4 mmol/L Normal 0.5-2.0 2 test finding [address] [place] [address] [phone] Influenza A & 11/20/2018 [facility] Influenza A NEGATIVE Negative 3 B Request [address] [facility] [place] [place] [address] [phone] Influenza B Molecular NEGATIVE Negative Inr/Protime 11/20/2018 [facility] Inr 1.14 High 0.82-1.09 4 [address] [place] [address] [phone] Laboratory test 11/20/2018 [facility] Partial 29.3 Normal 26.0 -38.0 finding [address] [facility] [place] [place] [address] Time PTT [phone] Urinalysis 11/20/2018 [facility] Urine Color Yellow Profile [address] [place] [address] [phone] Urine Appearance Cloudy Urine Specific [place] 1.010 Normal 1.010-1.030 Urine pH 6.0 Normal 5-9 Urine Urobilinogen Negative Negative Urine Ketones Negative Negative Urine Protein Negative Negative Urine Leukocytes Negative Negative Urine Blood Negative Negative Urine Nitrite Negative Negative Urine Bilirubin Negative Negative Urine Glucose Negative Negative Laboratory test 11/20/2018 [facility] C Reactive 78.04 mg/L High <8.01 finding [address] [facility] [place] [place] [address] [phone] Comp Metabolic 11/20/2018 [facility] Sodium 133 mmol/L Low 135 -145 Panel [address] [place] [address] [phone] Potassium 4.0 mmol/L Normal 3.5-5.0 Chloride 101 mmol/L Normal 101-111 Co2 Carbon Dioxide 22 mmol/L Normal 22-32 Anion Gap 10 mmol/L Normal 2-11 Glucose 113 mg/dL High 70-100 Blood Urea Nitrogen 13 mg/dL Normal 6-24 Creatinine 0.97 mg/dL Normal 0.67-1.17 BUN/Creatinine Ratio 13.4 Normal 8-20 Calcium 8.9 mg/dL Normal 8.6-10.3 Total Protein 7.7 g/dL Normal 6.4-8.9 Albumin 3.8 g/dL Normal 3.2-5.2 Globulin 3.9 g/dL Normal 2-4 Albumin/Globulin Ratio 1.0 Normal 1-3 Total Bilirubin 0.70 mg/dL Normal 0.2-1.0 Alkaline Phosphatase 80 U/L Normal 34-104 Alt 34 U/L Normal 7-52 Ast 33 U/L Normal 13-39 Egfr Non- 79.5 >60 Egfr 96.2 >60 5 CBC Auto 10/17/2018 [facility] White Blood 9.6 10^3/uL Normal 3.5-10.[address] [place] [address] [phone] Red Blood Count 4.30 10^6/uL Normal 4.18-5.48 Hemoglobin 13.8 g/dL Low 14.0-18.0 Hematocrit 40 % Low 42-52 Mean Corpuscular Volume 93 fL Normal 80-94 Mean Corpuscular Hemoglobin 32 pg High 27-31 Mean Corpuscular HGB Conc 35 g/dL Normal 31-36 Red Cell Distribution Width 13 % Normal 10.5-15 Platelet Count 332 10^3/uL Normal 150-450 Mean Platelet Volume 6.5 fL Low 7.4-10.4 Abs Neutrophils 5.8 10^3/uL Normal 1.5-7.7 Abs Lymphocytes 2.5 10^3/uL Normal 1.0-4.8 Abs Monocytes 0.9 10^3/uL High 0-0.8 Abs Eosinophils 0.3 10^3/uL Normal 0-0.6 Abs Basophils 0.1 10^3/uL Normal 0-0.2 Abs Nucleated RBC 0.0 10^3/uL Granulocyte % 60.4 % Lymphocyte % 25.8 % Monocyte % 9.7 % Eosinophil % 3.3 % Basophil % 0.8 % Nucleated Red Blood Cells % 0.0 Inr/Protime 10/17/2018 [facility] Inr 1.09 Normal 0.82-1.09 6 [address] [place] [address] [phone] Comp Metabolic 10/17/2018 [facility] Sodium 134 mmol/L Low 135 -145 Panel [address] [place] [address] [phone] Potassium 3.7 mmol/L Normal 3.5-5.0 Chloride 101 mmol/L Normal 101-111 Co2 Carbon Dioxide 26 mmol/L Normal 22-32 Anion Gap 7 mmol/L Normal 2-11 Glucose 99 mg/dL Normal 70-100 Blood Urea Nitrogen 15 mg/dL Normal 6-24 Creatinine 0.83 mg/dL Normal 0.67-1.17 BUN/Creatinine Ratio 18.1 Normal 8-20 Calcium 9.1 mg/dL Normal 8.6-10.3 Total Protein 7.8 g/dL Normal 6.4-8.9 Albumin 4.0 g/dL Normal 3.2-5.2 Globulin 3.8 g/dL Normal 2-4 Albumin/Globulin Ratio 1.1 Normal 1-3 Total Bilirubin 0.40 mg/dL Normal 0.2-1.0 Alkaline Phosphatase 75 U/L Normal 34-104 Alt 40 U/L Normal 7-52 Ast 36 U/L Normal 13-39 Egfr Non- 95.2 >60 Egfr 115.1 >60 7 Laboratory test 10/17/2018 [facility] C Reactive 21.94 mg/L High <8.01 finding 101 [facility] [place] [address] [phone] Lactic Acid 1.3 mmol/L Normal 0.5-2.0 8 Blood Culture SEE RESULT BELOW 9 Comp Metabolic Panel 07/24/2018 [facility] Sodium 134 mmol/L Low 135-145 [address] [place] [address] [phone] Potassium 4.0 mmol/L Normal 3.5-5.0 Chloride 101 mmol/L Normal 101-111 Co2 Carbon Dioxide 25 mmol/L Normal 22-32 Anion Gap 8 mmol/L Normal 2-11 Glucose 97 mg/dL Normal 70-100 Blood Urea Nitrogen 17 mg/dL Normal 6-24 Creatinine 0.95 mg/dL Normal 0.67-1.17 BUN/Creatinine Ratio 17.9 Normal 8-20 Calcium 9.3 mg/dL Normal 8.6-10.3 Total Protein 8.0 g/dL Normal 6.4-8.9 Albumin 3.8 g/dL Normal 3.2-5.2 Globulin 4.2 g/dL High 2-4 Albumin/Globulin Ratio 0.9 Low 1-3 Total Bilirubin 0.50 mg/dL Normal 0.2-1.0 Alkaline Phosphatase 75 U/L Normal 34-104 Alt 42 U/L Normal 7-52 Ast 51 U/L High 13-39 Egfr Non- 81.4 >60 Egfr 98.5 >60 10 Laboratory test 07/24/2018 [facility] Erythrocyte Sed 33 mm/Hr High 0-20 [address] [place] [address] [phone] Blood Culture SEE RESULT BELOW 12 Laboratory test 07/24/2018 [facility] C Reactive 20.76 mg/L High <8.[address] [place] [address] [phone] Lactic Acid 1.3 mmol/L Normal 0.5-2.0 13 Inr/Protime 07/24/2018 [facility] Inr 1.05 High 0.77-1.[address] [place] [address] [phone] CBC Auto Diff 07/24/2018 [facility] White Blood 9.6 Normal 3.5 -10.[address] Count 10^3/[place] [address] [phone] Red Blood Count 4.38 10^6/uL Normal 4.00-5.40 Hemoglobin 14.0 g/dL Normal 14.0-18.0 Hematocrit 41 % Low 42-52 Mean Corpuscular Volume 94 fL Normal 80-94 Mean Corpuscular Hemoglobin 32 pg High 27-31 Mean Corpuscular HGB Conc 34 g/dL Normal 31-36 Red Cell Distribution Width 13 % Normal 10.5-15 Platelet Count 341 10^3/uL Normal 150-450 Mean Platelet Volume 6.8 fL Low 7.4-10.4 Abs Neutrophils 5.7 10^3/uL Normal 1.5-7.7 Abs Lymphocytes 2.6 10^3/uL Normal 1.0-4.8 Abs Monocytes 0.9 10^3/uL High 0-0.8 Abs Eosinophils 0.4 10^3/uL Normal 0-0.6 Abs Basophils 0.1 10^3/uL Normal 0-0.2 Abs Nucleated RBC 0 10^3/uL Granulocyte % 59.1 % Lymphocyte % 26.9 % Monocyte % 9.1 % Eosinophil % 4.3 % Basophil % 0.6 % Nucleated Red Blood Cells % 0 Laboratory test 07/24/2018 [facility] Partial 31.7 Normal 26.0 -36.[address] [place] [address] Time PTT [phone] Hemoglobin A1c (Glyco HGB) 5.3 % Normal 4.0-5.6 14 Lipid Profile 04/26/2018 [facility] Triglycerides 282 mg/dL 15 (Trig/Chol/HDL) [address] [place] [address] [phone] Cholesterol 141 mg/dL 16 HDL Cholesterol 46.5 mg/dL 17 LDL Cholesterol 38 mg/dL 18 Comp Metabolic 04/26/2018 [facility] Sodium 136 mmol/L Normal 135-[address] [place] [address] [phone] Potassium 4.5 mmol/L Normal 3.5-5.0 Chloride 99 mmol/L Low 101-111 Co2 Carbon Dioxide 30 mmol/L Normal 22-32 Anion Gap 7 mmol/L Normal 2-11 Glucose 99 mg/dL Normal 70-100 Blood Urea Nitrogen 14 mg/dL Normal 6-24 Creatinine 0.75 mg/dL Normal 0.67-1.17 BUN/Creatinine Ratio 18.7 Normal 8-20 Calcium 9.3 mg/dL Normal 8.6-10.3 Total Protein 7.1 g/dL Normal 6.4-8.9 Albumin 3.8 g/dL Normal 3.2-5.2 Globulin 3.3 g/dL Normal 2-4 Albumin/Globulin Ratio 1.2 Normal 1-3 Total Bilirubin 0.30 mg/dL Normal 0.2-1.0 Alkaline Phosphatase 68 U/L Normal 34-104 Alt 39 U/L Normal 7-52 Ast 41 U/L High 13-39 Egfr Non- 107.0 >60 Egfr 129.4 >60 19 CBC Auto 04/26/2018 [facility] White Blood 9.6 10^3/uL Normal 3.5-10.[address] [place] [address] [phone] Red Blood Count 3.97 10^6/uL Low 4.00-5.40 Hemoglobin 13.0 g/dL Low 14.0-18.0 Hematocrit 38 % Low 42-52 Mean Corpuscular Volume 95 fL High 80-94 Mean Corpuscular Hemoglobin 33 pg High 27-31 Mean Corpuscular HGB Conc 34 g/dL Normal 31-36 Red Cell Distribution Width 14 % Normal 10.5-15 Platelet Count 400 10^3/uL Normal 150-450 Mean Platelet Volume 7.0 fL Low 7.4-10.4 Abs Neutrophils 5.6 10^3/uL Normal 1.5-7.7 Abs Lymphocytes 2.6 10^3/uL Normal 1.0-4.8 Abs Monocytes 0.9 10^3/uL High 0-0.8 Abs Eosinophils 0.4 10^3/uL Normal 0-0.6 Abs Basophils 0 10^3/uL Normal 0-0.2 Abs Nucleated RBC 0 10^3/uL Granulocyte % 58.5 % Normal 38-83 Lymphocyte % 27.1 % Normal 25-47 Monocyte % 9.7 % High 0-7 Eosinophil % 4.3 % Normal 0-6 Basophil % 0.4 % Normal 0-2 Nucleated Red Blood Cells % 0.1 Laboratory test 04/26/2018 [facility] B-Type 19 pg/mL <=[address] [place] [address] Peptide BNP [phone] TSH (Thyroid Stim Horm) 3.59 mcIU/mL Normal 0.34-5.60 Laboratory 04/06/2018 [facility] Rapid Strep Negative Negative 20 test finding [address] [place] [address] [phone] Laboratory 04/06/2018 [facility] Rapid Strep A SEE RESULT 21 test finding [address] [place] [address] [phone] CBC Auto Diff 05/21/2017 [facility] White Blood 12.0 10^3/uL High 3.5-10.[address] [place] [address] [phone] Red Blood Count 3.96 10^6/uL Low 4.0-5.4 Hemoglobin 12.7 g/dL Low 14.0-18.0 Hematocrit 38 % Low 42-52 Mean Corpuscular Volume 95 fL High 80-94 Mean Corpuscular Hemoglobin 32 pg High 27-31 Mean Corpuscular HGB Conc 34 g/dL Normal 31-36 Red Cell Distribution Width 14 % Normal 10.5-15 Platelet Count 439 10^3/uL Normal 150-450 Mean Platelet Volume 7 um3 Low 7.4-10.4 Abs Neutrophils 8.6 10^3/uL High 1.5-7.7 Abs Lymphocytes 2.1 10^3/uL Normal 1.0-4.8 Abs Monocytes 1.1 10^3/uL High 0-0.8 Abs Eosinophils 0.2 10^3/uL Normal 0-0.6 Abs Basophils 0 10^3/uL Normal 0-0.2 Abs Nucleated RBC 0 10^3/uL Granulocyte % 71.3 % Normal 38-83 Lymphocyte % 17.6 % Low 25-47 Monocyte % 9.0 % Normal 1-9 Eosinophil % 1.7 % Normal 0-6 Basophil % 0.4 % Normal 0-2 Nucleated Red Blood Cells % 0 Comp Metabolic Panel 05/21/2017 [facility] Sodium 132 mmol/L Low 133-[address] [place] [address] [phone] Potassium 4.2 mmol/L Normal 3.5-5.0 Chloride 100 mmol/L Low 101-111 Co2 Carbon Dioxide 26 mmol/L Normal 22-32 Anion Gap 6 mmol/L Normal 2-11 Glucose 109 mg/dL High 70-100 Blood Urea Nitrogen 12 mg/dL Normal 6-24 Creatinine 0.79 mg/dL Normal 0.67-1.17 BUN/Creatinine Ratio 15.2 Normal 8-20 Calcium 8.8 mg/dL Normal 8.6-10.3 Total Protein 7.4 g/dL Normal 6.4-8.9 Albumin 3.4 g/dL Normal 3.2-5.2 Globulin 4.0 g/dL Normal 2-4 Albumin/Globulin Ratio 0.9 Low 1-3 Total Bilirubin 0.50 mg/dL Normal 0.2-1.0 Alkaline Phosphatase 69 U/L Normal 34-104 Alt 52 U/L Normal 7-52 Ast 54 U/L High 13-39 Egfr Non- 101.1 >60 Egfr 130.0 >60 22 Laboratory test 05/21/2017 [facility] Blood Culture SEE RESULT [address] [place] [address] [phone] Wound 10/22/2016 [facility] Wound/Misc SEE RESULT 24 Culture/Sensi [address] [place] [address] Stain [phone] Comp Metabolic 10/21/2016 [facility] Sodium 129 mmol/L Low 133 -14 [address] [place] [address] [phone] Chloride 95 mmol/L Low 101-111 Co2 Carbon Dioxide 23 mmol/L Normal 22-32 Glucose 93 mg/dL Normal 70-100 Blood Urea Nitrogen 16 mg/dL Normal 6-24 Creatinine 0.94 mg/dL Normal 0.67-1.17 BUN/Creatinine Ratio 17.0 Normal 8-20 Calcium 9.3 mg/dL Normal 8.6-10.3 Total Protein 7.3 g/dL Normal 6.4-8.9 Albumin 4.2 g/dL Normal 3.2-5.2 Globulin 3.1 g/dL Normal 2-4 Albumin/Globulin Ratio 1.4 Normal 1-3 Total Bilirubin 0.50 mg/dL Normal 0.2-1.0 Alkaline Phosphatase 69 U/L Normal 34-104 Alt 39 U/L Normal 7-52 Ast 34 U/L Normal 13-39 Egfr Non- 83.0 Normal >60 Egfr 106.8 Normal >60 26 Potassium 6.9 mmol/L Critical high 3.5-5.0 27 Anion Gap 11 mmol/L Normal 2-11 CBC Auto 10/12/2016 [facility] White Blood 11.4 10^3/uL High 3.5-10.[address] [place] [address] [phone] Red Blood Count 4.40 10^6/uL Normal 4.0-5.4 Hemoglobin 14.3 g/dL Normal 14.0-18.0 Hematocrit 42 % Normal 42-52 Mean Corpuscular Volume 94 fL Normal 80-94 Mean Corpuscular Hemoglobin 33 pg High 27-31 Mean Corpuscular HGB Conc 34 g/dL Normal 31-36 Red Cell Distribution Width 13 % Normal 10.5-15 Platelet Count 368 10^3/uL Normal 150-450 Mean Platelet Volume 7 um3 Low 7.4-10.4 Abs Neutrophils 7.4 10^3/uL Normal 1.5-7.7 Abs Lymphocytes 2.9 10^3/uL Normal 1.0-4.8 Abs Monocytes 0.8 10^3/uL Normal 0-0.8 Abs Eosinophils 0.2 10^3/uL Normal 0-0.6 Abs Basophils 0.1 10^3/uL Normal 0-0.2 Abs Nucleated RBC 0.01 10^3/uL Normal Granulocyte % 65.2 % Normal 38-83 Lymphocyte % 25.9 % Normal 25-47 Monocyte % 6.7 % Normal 1-9 Eosinophil % 1.3 % Normal 0-6 Basophil % 0.9 % Normal 0-2 Nucleated Red Blood Cells % 0.1 Normal Comp Metabolic Panel 10/12/2016 [facility] Sodium 128 mmol/L Low 133-145 [address] [place] [address] [phone] Chloride 93 mmol/L Low 101-111 Co2 Carbon Dioxide 25 mmol/L Normal 22-32 Glucose 92 mg/dL Normal 70-100 Blood Urea Nitrogen 18 mg/dL Normal 6-24 Creatinine 1.00 mg/dL Normal 0.67-1.17 BUN/Creatinine Ratio 18.0 Normal 8-20 Calcium 9.3 mg/dL Normal 8.6-10.3 28 Total Protein 7.2 g/dL Normal 6.4-8.9 Albumin 4.1 g/dL Normal 3.2-5.2 Globulin 3.1 g/dL Normal 2-4 Albumin/Globulin Ratio 1.3 Normal 1-3 Total Bilirubin 0.40 mg/dL Normal 0.2-1.0 Alkaline Phosphatase 86 U/L Normal 34-104 Alt 55 U/L High 7-52 Egfr Non- 77.3 Normal >60 Egfr 99.4 Normal >60 29 Potassium 4.0 mmol/L Normal 3.5-5.0 30 Anion Gap 10 mmol/L Normal 2-11 Ast 46 U/L High 13-39 31 Laboratory test 10/12/2016 [facility] Magnesium 2.0 mg/dL Normal 1.9-2.7 finding [address] [place] [address] [phone] Lipid Profile 09/03/2016 [facility] Triglycerides 481 mg/dL Normal 32 (Trig/Chol/HDL) [address] [place] [address] [phone] Cholesterol 160 mg/dL Normal 33 HDL Cholesterol 34.7 mg/dL Normal 34 LDL Cholesterol (SEE NOTE) mg/dL Normal 35 Comp Metabolic 09/03/2016 [facility] Sodium 134 mmol/L Normal 133-[address] [place] [address] [phone] Potassium 3.9 mmol/L Normal 3.5-5.0 Chloride 99 mmol/L Low 101-111 Co2 Carbon Dioxide 29 mmol/L Normal 22-32 Anion Gap 6 mmol/L Normal 2-11 Glucose 88 mg/dL Normal 70-100 Blood Urea Nitrogen 18 mg/dL Normal 6-24 Creatinine 1.04 mg/dL Normal 0.67-1.17 BUN/Creatinine Ratio 17.3 Normal 8-20 Calcium 9.3 mg/dL Normal 8.6-10.3 Total Protein 7.1 g/dL Normal 6.4-8.9 Albumin 4.1 g/dL Normal 3.2-5.2 Globulin 3.0 g/dL Normal 2-4 Albumin/Globulin Ratio 1.4 Normal 1-3 Total Bilirubin 0.30 mg/dL Normal 0.2-1.0 Alkaline Phosphatase 56 U/L Normal 34-104 Alt 50 U/L Normal 7-52 Ast 36 U/L Normal 13-39 Egfr Non- 73.9 Normal >60 Egfr 95.0 Normal >60 36 Laboratory test 09/03/2016 [facility] LDL Cholesterol 53 mg/dL Normal [address] [place] [address] [phone] CBC Auto Diff 08/03/2015 [facility] White Blood 8.2 Normal 3.5 - [address] Count 10^3/uL 10.8 [place] [address] [phone] Red Blood Count 4.65 10^6/uL Normal 4.0-5.4 Hemoglobin 15.0 g/dL Normal 14.0-18.0 Hematocrit 44 % Normal 42-52 Mean Corpuscular Volume 94 fL Normal 80-94 Mean Corpuscular Hemoglobin 32 pg High 27-31 Mean Corpuscular HGB Conc 34 g/dL Normal 31-36 Red Cell Distribution Width 14 % Normal 10.5-15 Platelet Count 333 10^3/uL Normal 150-450 Mean Platelet Volume 7 um3 Low 7.4-10.4 Abs Neutrophils 4.4 10^3/uL Normal 1.5-7.7 Abs Lymphocytes 2.9 10^3/uL Normal 1.0-4.8 Abs Monocytes 0.6 10^3/uL Normal 0-0.8 Abs Eosinophils 0.3 10^3/uL Normal 0-0.6 Abs Basophils 0 10^3/uL Normal 0-0.2 Abs Nucleated RBC 0.02 10^3/uL Normal Granulocyte % 54.1 % Normal 38-83 Lymphocyte % 34.9 % Normal 25-47 Monocyte % 7.6 % Normal 1-9 Eosinophil % 3.1 % Normal 0-6 Basophil % 0.3 % Normal 0-2 Nucleated Red Blood Cells % 0.2 Normal Anca Panel For 08/03/2015 [facility] Myeloperoxidase AB <0.2 U Normal [address] [place] [address] [phone] Proteinase 3 AB <0.2 U Normal 39 Laboratory test 06/19/2015 [facility] Surgical Pathology SEE RESULT [address] [place] [address] [phone] Leukemia/Lympho 06/19/2015 [facility] Path TNP Normal ma Flow [address] Interpretation 2-8 [place] [address] Marker [phone] Path Interpret > 16 Marker TNP Normal Path Interpret 9-15 Marker (SEE NOTE) Normal 41 Laboratory test 06/19/2015 [facility] Surgical SEE RESULT [address] [address] [phone] CLL (US Labs) 06/19/2015 [facility] CLL Specimen Bone Marrow Normal [address] [place] [address] [phone] CLL Source See Comment Normal 43 CLL Reason for Referral See Comment Normal 44 CLL Method See Comment Normal 45 CLL Result Table See Comment Normal 46 CLL Result See Comment Normal 47 CLL Result Summary Normal Normal CLL Interpretation See Comment Normal 48 CLL Disclaimer See Comment Normal 49 CLL Released by See Comment Normal 50 Bone Marrow 06/19/2015 [facility] BM Result Normal Normal Chromosomes [address] [place] [address] [phone] BM Chromosome Specimen Bone Marrow Normal BM Chromosome Source See Comment Normal 51 BM Referral Reason See Comment Normal 52 BM Chromosome Method See Comment Normal 53 BM Chromo Banding Method See Comment Normal 54 BM Cromosome Results See Comment Normal 55 BM Chromosome Interpretation See Comment Normal 56 Released By See Comment Normal 57 CBC Auto 06/19/2015 [facility] White Blood 10.2 10^3/uL Normal 3.5-10.[address] [place] [address] [phone] Red Blood Count 4.37 10^6/uL Normal 4.0-5.4 Hemoglobin 14.0 g/dL Normal 14.0-18.0 Hematocrit 42 % Normal 42-52 Mean Corpuscular Volume 95 fL High 80-94 Mean Corpuscular Hemoglobin 32 pg High 27-31 Mean Corpuscular HGB Conc 34 g/dL Normal 31-36 Red Cell Distribution Width 13 % Normal 10.5-15 Platelet Count 374 10^3/uL Normal 150-450 Mean Platelet Volume 7 um3 Low 7.4-10.4 Abs Neutrophils 6.0 10^3/uL Normal 1.5-7.7 Abs Lymphocytes 3.0 10^3/uL Normal 1.0-4.8 Abs Monocytes 0.8 10^3/uL Normal 0-0.8 Abs Eosinophils 0.3 10^3/uL Normal 0-0.6 Abs Basophils 0.2 10^3/uL Normal 0-0.2 Abs Nucleated RBC 0.01 10^3/uL Normal Granulocyte % 58.8 % Normal 38-83 Lymphocyte % 29.0 % Normal 25-47 Monocyte % 8.2 % Normal 1-9 Eosinophil % 2.5 % Normal 0-6 Basophil % 1.5 % Normal 0-2 Nucleated Red Blood Cells % 0.1 Normal Retic Count 06/19/2015 [facility] Retic Count 2.8 % High 0.5- 1.[address] [place] [address] [phone] Corrected Retic Count 2.6 % High 0.5-1.5 Maturation Factor Retic 1.0 Normal Retic Index 2.60 Normal Mean Retic Volume 111.5 Normal Immature Retic Fraction 0.49 Normal RBC Retic Count 4.37 10^6/uL Low 4.6-6.2 Hematocrit for Retic CNT 42 % Normal 42-52 Immunoglobulins 06/19/2015 [facility] Immunoglobulin G 2330 Abnormal 767 - 58 Serum Quant [address] mg/dL 1590 [place], [place] [id number] [phone] Immunoglobulin M 61 mg/dL Normal 37 - 286 Immunoglobulin A 299 mg/dL Normal 61 - 356 Leukemia/Lymphoma Flow 06/05/2015 [facility] Path TNP Normal [address] Interpretation 2-8 [place] [address] Marker [phone] Path Interpret > 16 Marker TNP Normal Path Interpret 9-15 Marker (SEE NOTE) Normal 59 Laboratory test 06/05/2015 [facility] Cytology Non-Brine Tank Tender SEE RESULT [address] [place] [address] [phone] Leukemia/Lympho 06/05/2015 [facility] Path TNP Normal ma Phenot [address] Interpretation 2-8 [place] [address] Marker [phone] Path Interpret > 16 Marker TNP Normal Path Interpret 9-15 Marker (SEE NOTE) Normal 61 CBC Auto 05/29/2015 [facility] White Blood 14.4 10^3/uL High 3.5-10.[address] [place] [address] [phone] Red Blood Count 4.41 10^6/uL Normal 4.0-5.4 Hemoglobin 13.9 g/dL Low 14.0-18.0 Hematocrit 42 % Normal 42-52 Mean Corpuscular Volume 95 fL High 80-94 Mean Corpuscular Hemoglobin 31 pg Normal 27-31 Mean Corpuscular HGB Conc 33 g/dL Normal 31-36 Red Cell Distribution Width 13 % Normal 10.5-15 Platelet Count 285 10^3/uL Normal 150-450 Mean Platelet Volume 7 um3 Low 7.4-10.4 Abs Neutrophils 11.1 10^3/uL High 1.5-7.7 Abs Lymphocytes 1.8 10^3/uL Normal 1.0-4.8 Abs Monocytes 1.2 10^3/uL High 0-0.8 Abs Eosinophils 0.3 10^3/uL Normal 0-0.6 Abs Basophils 0.1 10^3/uL Normal 0-0.2 Abs Nucleated RBC 0 10^3/uL Normal Granulocyte % 76.9 % Normal 38-83 Lymphocyte % 12.6 % Low 25-47 Monocyte % 8.0 % Normal 1-9 Eosinophil % 2.0 % Normal 0-6 Basophil % 0.5 % Normal 0-2 Nucleated Red Blood Cells % 0 Normal Laboratory test 05/29/2015 [facility] C Reactive 129.00 High < 5.00 62 finding 101 [facility] Protein mg/[place] [address] [phone] Comp Metabolic 05/29/2015 [facility] Sodium 133 mmol/L Normal 133-145 Panel [address] [place] [address] [phone] Potassium 4.1 mmol/L Normal 3.5-5.0 Chloride 100 mmol/L Low 101-111 Co2 Carbon Dioxide 27 mmol/L Normal 22-32 Anion Gap 6 mmol/L Normal 2-11 Glucose 97 mg/dL Normal 70-100 Blood Urea Nitrogen 10 mg/dL Normal 6-24 Creatinine 0.85 mg/dL Normal 0.67-1.17 BUN/Creatinine Ratio 11.8 Normal 8-20 Calcium 9.4 mg/dL Normal 8.6-10.3 Total Protein 8.2 g/dL Normal 6.4-8.9 Albumin 4.1 g/dL Normal 3.2-5.2 Globulin 4.1 g/dL High 2-4 Albumin/Globulin Ratio 1.0 Normal 1-3 Total Bilirubin 0.80 mg/dL Normal 0.2-1.0 Alkaline Phosphatase 75 U/L Normal 34-104 Alt 24 U/L Normal 7-52 Ast 21 U/L Normal 13-39 Egfr Non- 93.6 Normal >60 Egfr 120.4 Normal >60 63 Comp Metabolic 09/28/2014 [facility] Sodium 138 mmol/L Normal 133-145 64 Panel [address] [place] [address] [phone] Potassium 4.3 mmol/L Normal 3.5-5.0 Chloride 103 mmol/L Normal 101-111 Co2 Carbon Dioxide 26 mmol/L Normal 22-32 Anion Gap 9 mmol/L Normal 2-11 Glucose 98 mg/dL Normal 70-100 Blood Urea Nitrogen 12 mg/dL Normal 6-24 Creatinine 0.89 mg/dL Normal 0.67-1.17 BUN/Creatinine Ratio 13.5 Normal 8-20 Calcium 9.3 mg/dL Normal 8.6-10.3 Total Protein 7.3 g/dL Normal 6.4-8.9 Albumin 4.4 g/dL Normal 3.2-5.2 Globulin 2.9 g/dL Normal 2-4 Albumin/Globulin Ratio 1.5 Normal 1-3 Total Bilirubin 0.30 mg/dL Normal 0.2-1.0 Alkaline Phosphatase 62 U/L Normal 34-104 Alt 79 U/L High 7-52 Ast 62 U/L High 13-39 Egfr Non- 89.1 Normal >60 Egfr 114.6 Normal >60 65 Lipid Profile 09/28/2014 [facility] Triglycerides 266 mg/dL Normal 66 (Trig/Chol/HDL) [address] [place] [address] [phone] Cholesterol 156 mg/dL Normal 67 HDL Cholesterol 40.5 mg/dL Normal 68 LDL Cholesterol 62 mg/dL Normal 69 Comp Metabolic Panel 06/30/2013 [facility] Sodium 136 mmol/L 133-[address] [place] [address] [phone] Potassium 4.4 mmol/L 3.5-5.0 Chloride 101 mmol/L [...] Egfr 113.5 >60 70 Lipid Profile 06/30/2013 [facility] Triglycerides 223 mg/dL High 40-200 (Trig/Chol/HDL) [address] [place] [address] [phone] Cholesterol 176 mg/dL Less than 200 HDL Cholesterol 51 mg/dL 40-60 71 Cholesterol/HDL Ratio 3.5 Average 1-4.44 LDL Cholesterol 80.4 Less Than 100 72 CBC Auto Diff 06/30/2013 [facility] White Blood 9.2 10^3/uL 4.8-10.[address] [place] [address] [phone] Red Blood Count 4.74 10^6/uL 4.0-5.4 Hemoglobin [...] Red Blood Cells % 0.1 Laboratory 06/30/2013 [facility] TSH (Thyroid 2.45 0.34-5.60 test finding [address] Stimulating miu/[place] [address] Horm) [phone] Laboratory 06/30/2013 [facility] PSA Screening 0.636 0-4.000 test finding [address] ng/[place] [address] [phone] Lipid Panel 02/09/2013 [facility] Triglycerides 947 mg/dL High 40-[address] [place] [address] [phone] Cholesterol 208 mg/dL High Less than 200 HDL Cholesterol 33 mg/dL Low 40-60 73 Cholesterol/HDL Ratio 6.3 Average High 1-4.44 LDL Cholesterol (SEE NOTE) Less Than 100 74 Laboratory test 02/09/2013 [facility] PSA Screening 0.5 ng/mL 0-4.0 75 finding [address] [place] [address] [phone] CMP Panel 02/09/2013 [facility] Sodium 136 mmol/L 133-145 [address] [place] [address] [phone] Potassium 4.3 mmol/L 3.5-5.0 Chloride 103 mmol/L [...] >60 76 1 SEE RESULT BELOW Name: YISELLUIZA PHILLIPSJorge Lopez : [address]: Marcelina Garcia MD Acct: [id number] Unit: [id number] AGE: 58 Location: ED Re11/19/18 SEX: M Status: DEP ER SPEC: [id number] ISSAC: 11/20/[address] [facility] [address]: Marcelina Garcia MD REQ: [id number] RECD: 11/20/18 STATUS: RES DAVIDHR DR: Shemar Thacker CUTTER OPERATOR BRICK _ SOURCE: BLOOD,VENO SPDESC: ORDERED: Blood Cult Procedure Result Reported Site Aerobic Culture Bottle Preliminary 11/24/18206 ML No Growth Day 4 Anaerobic Culture Bottle Final 11/25/18- 204 ML No Growth Day 5 * ML - Main Lab . END OF REPORT DEPARTMENT OF PATHOLOGY, [address] [place] [address] Sridhar Leung M.D. Director [facility] # [id number] Severe Sepsis and Septic Shock Management Bundle Measure requires all lactic acids initially measuring >2.0 mmol/L be repeated. 3 Armored Service Technician: [id number] 4 Standard intensity warfarin therapeutic range: 2.0-3.0 [...] 5 Kidney failure <15 (or dialysis) 8 [facility] Severe Sepsis and Septic Shock Management Bundle Measure requires all lactic acids initially measuring >2.0 mmol/L be repeated. 9 SEE RESULT BELOW Name: AUGUSTINE BENITEZ : [address]: Michael Fraser MD Acct: [id number] Unit: [id number] AGE: 58 Location: ED Re10/17/18 SEX: M Status: DEP ER SPEC: [id number] ISSAC: 10/17/[address]: Michael Fraser MD REQ: [id number] RECD: 10/17/18 STATUS: BLANKA GLASS DR: Shemar Thacker CUTTER OPERATOR BRICK _ SOURCE: BLOOD,VENO SPDESC: ORDERED: Blood Cult Procedure Result Reported Site Aerobic Culture Bottle Final 10/22/18818 ML No Growth Day 5 * - [facility] . END OF REPORT DEPARTMENT OF PATHOLOGY, [address] [place] [address] Sridhar Leung M.D. Director [facility] # [id number] 10 Because ethnic data is not always [...] <15 (or dialysis) 11 Test Performed by: [facility] [address] [place] [address] Sridhar Leung M.D. Director of Laboratory 12 SEE RESULT BELOW Name: AUGUSTINE BENITEZ : [address]: Munir Basurto MD Acct: [id number] Unit: [id number] AGE: 58 Location: [facility] 421- Re07/24/18 Dis: 07/26/18 SEX: M Status: DIS Rhonda SPEC: [id number] ISSAC: 07/24/[address] [facility] [address]: Min Middleton MD REQ: [id number] RECD: 07/24/18 STATUS: BLANKA GLASS DR: Shemar Thacker CUTTER OPERATOR BRICK _ SOURCE: BLOOD,VENO SPDESC: ORDERED: Blood Cult Procedure Result Reported Site Aerobic Culture Bottle Final 07/29/18- 0850 ML No Growth Day 5 Anaerobic Culture Bottle Final 07/29/18- 0850 ML No Growth Day 5 * ML - Main Lab . END OF REPORT DEPARTMENT OF PATHOLOGY, [address] [place] [address], [place] [address] Sridhar Leung M.D. Director [facility] # [id number] 13 [facility] Severe Sepsis and Septic Shock Management Bundle Measure requires all lactic acids initially measuring >2.0 mmol/L be repeated. 14 Therapeutic target for the treatment of diabetes mellitus patients is <7% HBA1C, and in selective patients <6.0%. Please refer to [place] [employer] diabetic care guidelines for further [...] 5 Kidney failure <15 (or dialysis) 20 Armored Service Technician: [id number] 21 SEE RESULT BELOW Name: AUGUSTINE BENITEZ : [address]: Mo Xiao MD Acct: [id number] Unit: [id number] AGE: 58 Location: ED Re04/06/18 SEX: M Status: REG ER SPEC: [id number] ISSAC: 04/06/[address]: Ronal ROBB REQ: [id number] RECD: 04/06/18 STATUS: BLANKA GLASS DR: [facility] Shemar Thacker CUTTER OPERATOR BRICK _ SOURCE: THROAT SPDESC: ORDERED: Strep A Request Procedure Result Reported Site Rapid Strep A Request Final 04/06/18- 0757 ML Specimen received for Rapid Strep A Molecular testing * [facility] . END OF REPORT DEPARTMENT OF PATHOLOGY, [address] [place] [address] Sridhar Leung M.D. Director [facility] # [id number] 22 Because ethnic data is not always [...] [address]: Shemar Thacker NP Acct: [id number] Unit: [id number] AGE: 57 Location: [facility] Re05/21/17 SEX: M Status: REG REF SPEC: [id number] ISSAC: 05/21/[address]: Shemar Thacker NP REQ: [id number] RECD: 05/21/17 STATUS: COMP _ SOURCE: BLOOD,VENO SPDESC: ORDERED: Blood Cult Procedure Result Reported Site Aerobic Culture Bottle Final 05/26/17- 1702 ML No Growth Day 5 Anaerobic Culture Bottle Final 05/26/17- 1702 ML No Growth Day 5 * ML - MAIN LAB ([id number]) . END OF REPORT * ML=Testing performed at Main Lab DEPARTMENT OF PATHOLOGY, [address] [place] [address] Sridhar Leung M.D. Director [facility] # [id number] 24 SEE RESULT BELOW Name: AUGUSTINE BENITEZ : [address]: Michael Fraser MD Acct: [id number] Unit: [id number] AGE: 56 Location: ED Re10/22/16 SEX: M Status: DEP ER SPEC: [id number] ISSAC: 10/22/16-[address]: Sherice Ochoa MD REQ: [id number] RECD: 10/22/16 STATUS: BLANKA GLASS DR: Shemar Thacker CUTTER OPERATOR BRICK _ SOURCE: FOOT,RIGHT SPDESC: ORDERED: Culture Stain Procedure Result Reported Site Wound/Misc Gram Stain Final 10/23/16- 0751 ML 2+ Epithelial Cells No Neutrophils Observed 1+ Gram Negative Bacilli Wound/Misc Culture Final 10/24/16- 38 ML Organism 1 STAPHYLOCOCCUS AUREUS Quantity 1+ [...] performed at Main Lab DEPARTMENT OF PATHOLOGY, [address] [place] [address] Sridhar Leung M.D. Director [facility] # [id number] Patient: AUGUSTINE BENITEZ [id number] (Continued) Specimen: [id number] Collected: 10/22/16 Received: 10/22/16 (Continued) Procedure Result Reported Site Wound/Misc Culture Final (continued) 10/24/16937 1. STAPHYLOCOCCUS AUREUS (continued) M.I.C. RX --------- ------ Cefazolin-Deduced S * These antibiotics are not available in the [facility] Formulary Contact the Microbiology Department for any additional antibiotic reporting. * ML - [facility] ([facility]) . END OF REPORT * ML=Testing performed at Main Lab DEPARTMENT OF PATHOLOGY, [address] [place] [address] Sridhar Leung M.D. Director [facility] # [id number] 26 Because ethnic data is not always [...] dialysis) 27 Critical Result K:6.9 Called to [id number] at: 18:11:22 by:[id number] Read back by:[id number] 28 Specimen Lipemic. Result may not be [...] REFERENCE VALUE <0.4 (Negative) Test Performed by: [place] [address] [employer] Power[employer] Mechanic: Les Bernstein II, M.D., Ph.D. 40 SEE RESULT BELOW Name: AUGUSTINE BENITEZ : [address]: Tesfaye Oleary MD Acct: [id number] Unit: [id number] AGE: 55 Location: [facility] Re06/19/15 SEX: M Status: REG REF SPEC: [id number] ISSAC: 06/19/[address]: Tesfaye Oleary MD REQ: [id number] RECD: 06/19/15 STATUS: SOUT _ ORDERED: IRON [...] detected in the jugular lymph node specimen ([id number]). SPECIAL STUDIES Flow cytometry has been performed at [facility], [place], [place]. The testing reveals: FINAL DIAGNOSIS: Specimen Source: Bone marrow Flow cytometry immunophenotypic analysis: Involved by a B cell lymphoproliferative disorder with immunophenotypic features of chronic lymphocytic leukemia (1% of total marrow cellularity) Interpretative data: Blasts: 1% of gated events Lymphocytes: 14% of gated events CONTINUED ON NEXT PAGE * ML=Testing performed at Main Lab DEPARTMENT OF PATHOLOGY, [address] [place] [address] Sridhar Leung M.D. Director [facility] # [id number] RUN DATE: 06/21/15 [facility] LAB LIVE PAGE 2 Patient: AUGUSTINE BENITEZ [id number] (Continued) SPECIAL STUDIES (Continued) SPECIAL STUDIES (Continued) [...] Rita Rosa MD Technical component performed by: [place] [address] [employer] Power[employer] Mechanic: Les Bernstein II, MD, PhD. CLINICAL HISTORY [...] ON NEXT PAGE * ML=Testing performed at [facility] DEPARTMENT OF PATHOLOGY, [address] [place] [address] Sridhar Leung M.D. Director [facility] # [id number] RUN DATE: 06/21/15 [facility] LAB LIVE PAGE 3 Patient: AUGUSTINE BENITEZ [id number] (Continued) MICROSCOPIC DESCRIPTION (Continued) MICROSCOPIC DESCRIPTION A [...] not increased. Elements of granulocytic lineage demonstrate daub color mixer progression to mature forms. Erythroid maturation is [...] performed at Main Lab DEPARTMENT OF PATHOLOGY, [address] [place] [address] Sridhar Leung M.D. Director [facility] # [id number] 41 FINAL DIAGNOSIS: Specimen Source: Bone marrow Flow [...] Rita Rosa MD Technical component performed by: [place] [address] [employer]frame [employer] Powerplant Mechanic: Les Bernstein II, MD, PhD. 42 SEE RESULT BELOW Name: AUGUSTINE BENITEZ : [address]: Tesfaye Oleary MD Acct: [id number] Unit: [id number] AGE: 55 Location: [facility] Re06/19/15 SEX: M Status: REG REF SPEC: [id number] ISSAC: 06/19/[address] [facility] [address]: Tesfaye Oleary MD REQ: [id number] RECD: 06/19/15 STATUS: SOUT _ ORDERED: IRON STAIN, Janette, LEVEL IV/2 CLL FISH has been performed at [facility], [place], [place]. The testing reveals: RESULT: Left posterior iliac crest RESULT: small cell B-cell lymphoma Locus and probes [Strategy;#Nuclei;Class] 6CEN(D6Z1),6q23.3(MYB) [COPY#;200;ASR] 11CEN(D11Z1),11q22.3(CHUYITA) [COPY#;200;ASR] 12CEN(D12Z3),12q15(MDM2) [COPY#;200;ASR] 13q14(M89P427),13q34(LAMP1) [COPY#;200;ASR] 11q13(CCND1-XT),14q32(IGH-XT) [DFISH;500;ASR] 17p13.1(TP53),17CEN(D17Z1) [COPY#;200;ASR] Probe strategies include: DFISH=dual color, double fusion; COPY#=region gain and loss. Abnormality Name Result % Abn Cutoff (%) -6q23(D6Z1x2,MYBx1) Normal <4.0% -11q22.3(V14D1l6,ATMx1) Normal <7.5% +12(D12Z3,MDM2)x3 Normal <2.5% -13q14.3(S82Q122s8,YJGE4u8) Normal <7.0% -13q14.3x2(U07C040x9,LAMP1x Normal <1.5% 2) t(11;14) CCND1-XT/IGH-XT Normal <0.6% fusion -17p13.1(TP53x1,Q08D1e8) Normal <9.5% -17(TP53,D17Z1)x1 Normal <5.5% RESULT: Interphase FISH is normal for all loci studied. Normal The result is within normal limits for the CLL FISH panel and the CCND1 and IGH gene regions. CONTINUED ON NEXT PAGE * ML=Testing performed at Main Lab DEPARTMENT OF PATHOLOGY, [address] [place] [address] Sridhar Leung M.D. Director [facility] # [id number] RUN DATE: 06/28/15 [facility] LAB LIVE PAGE 2 Patient: AUGUSTINE BENITEZ [id number] (Continued) ADDENDUM (Continued) Test Performed by: [address] [address] [employer] Powerplant Mechanic: Les Bernstein II, M.D., Ph.D. Addendum Signed [...] detected in the jugular lymph node specimen ([id number]). SPECIAL STUDIES Flow cytometry has been performed at [facility], [place], [place]. The testing reveals: FINAL DIAGNOSIS: Specimen Source: Bone marrow Flow cytometry immunophenotypic analysis: Involved by a B cell lymphoproliferative disorder with immunophenotypic features of chronic lymphocytic leukemia (1% of total marrow cellularity) CONTINUED ON NEXT PAGE * ML=Testing performed at Main Lab DEPARTMENT OF PATHOLOGY, [address] [place] [address] Sridhar Leung M.D. Director [facility] # [id number] RUN DATE: 06/28/15 [facility] LAB LIVE PAGE 3 Patient: AUGUSTINE BENITEZ [id number] (Continued) SPECIAL STUDIES (Continued) SPECIAL STUDIES (Continued) [...] Rita Rosa MD Technical component performed by: [place] [address] [employer] Power[employer] Mechanic: Les Bernstein II, MD, PhD. CLINICAL HISTORY [...] performed at Main Lab DEPARTMENT OF PATHOLOGY, [address] [place] [address] Sridhar Leung M.D. Director [facility] # [id number] RUN DATE: 06/28/15 [facility] LAB LIVE PAGE 4 Patient: AUGUSTINE BENITEZ [id number] (Continued) MICROSCOPIC DESCRIPTION (Continued) MICROSCOPIC DESCRIPTION A [...] not increased. Elements of granulocytic lineage demonstrate daub color mixer progression to mature forms. Erythroid maturation is [...] performed at Main Lab DEPARTMENT OF PATHOLOGY, [address] [place] [address] Sridhar Leung M.D. Director [facility] # [id number] 43 RESULT: Left posterior iliac crest 44 RESULT: small cell B-cell lymphoma 45 Locus and probes [Strategy;#Nuclei;Class] 6CEN(D6Z1),6q23.3(MYB) [COPY#;200;ASR] 11CEN(D11Z1),11q22.3(CHUYITA) [COPY#;200;ASR] 12CEN(D12Z3),12q15(MDM2) [COPY#;200;ASR] 13q14(Z14Z400),13q34(LAMP1) [COPY#;200;ASR] 11q13(CCND1-XT),14q32(IGH-XT) [DFISH;500;ASR] 17p13.1(TP53),17CEN(D17Z1) [COPY#;200;ASR] Probe strategies include: DFISH=dual color, double fusion; COPY#=region gain and loss. 46 Abnormality Name Result % Abn Cutoff (%) -6q23(D6Z1x2,MYBx1) Normal <4.0% -11q22.3(H05D4x8,ATMx1) Normal <7.5% +12(D12Z3,MDM2)x3 Normal <2.5% -13q14.3(D06C264o8,XXMC2n3) Normal <7.0% -13q14.3x2(G84G040r9,LAMP1x Normal <1.5% 2) t(11;14) CCND1-XT/IGH-XT Normal <0.6% fusion -17p13.1(TP53x1,K31F3t2) Normal <9.5% -17(TP53,D17Z1)x1 Normal <5.5% 47 RESULT: Interphase FISH is normal for all loci studied. 48 The result is within normal limits for the CLL FISH panel and the CCND1 and IGH gene regions. Additional cytogenetic studies are reported separately. PDF Report available at: [email or web address] 49 Applicable to Analyte Specific Reagent (ASR) and Laboratory developed tests (LDT). This test was developed and its performance characteristics determined by [facility]. It has not been cleared or approved by the U.S. Food and Drug Administration. This FISH test does not rule out other chromosome abnormalities. 50 RESULT: Sridhar Peguero, Ph.D. Test Performed by: [address] [address] [employer] Powerplant Mechanic: Les Bernstein II, M.D., Ph.D. 51 RESULT: [...] studies, reported separately. PDF Report available at: [email or web address] 57 RESULT: Sidney Shahid M.D., Ph.D. Test Performed by: [place] [address] [employer] Power[employer] Mechanic: Les Bernstein II, M.D., Ph.D. 58 Test Performed by: [place] [address] [employer] Powerplant Mechanic: Les Bernstein II, M.D., Ph.D. 59 FINAL DIAGNOSIS: Specimen Source: Lymph node, right jugular ([id number]) Flow cytometry immunophenotypic analysis: Involved by small [...] Rita Rosa MD Technical component performed by: [place] [id number] [employer] Powerplant Mechanic: Les Bernstein II, MD, PhD. --- 06/07/15 1518 --- Path Inter 02-20 previously reported as: FINAL DIAGNOSIS: Specimen Source: Lymph node, right jugular ([id number]) Flow cytometry immunophenotypic analysis: Involved by chronic [...] Rita Rosa MD Technical component performed by: [facility] [place] [address] [employer] Power[employer] Mechanic: Les Bernstein II, MD, PhD. 60 SEE RESULT BELOW Name: AUGUSTINE BENITEZ : [address]: Juvenal Jeffrey MD Acct: [id number] Unit: [id number] AGE: 55 Location: Re06/05/15 SEX: M Status: REG REF SPEC: [id number] ISSAC: 06/05/[address] [facility] [address]: Yahir Dickson MD REQ: [id number] RECD: 06/05/15 STATUS: GREY GLASS DR: Juvenal Jeffrey MD _ ORDERED: FN ASP DEEP, FNA IMMEDIATE S, Leukemia/Lympho THIS IS A CORRECTED REPORT 06/07/15 Corrected Report Flow cytometry has been performed at [facility], [place], [place]. The testing reveals: FINAL DIAGNOSIS: Specimen Source: Lymph node, right jugular ([id number]) Flow cytometry immunophenotypic analysis: Involved by small [...] Rita Rosa MD Technical component performed by: [facility] [address] [employer] Mechanic: Les Bernstein II, MD, PhD. CONTINUED ON NEXT PAGE * ML=Testing performed at Main Lab DEPARTMENT OF PATHOLOGY, [address] [place] [address] Sridhar Leung M.D. Director [facility] # [id number] RUN DATE: 06/07/15 [facility] LAB LIVE PAGE 2 Patient: AUGUSTINE BENITEZ [id number] (Continued) ADDENDUM (Continued) Addendum Signed (signature on [...] Alcohol fixed slide(s) and Specimen sent to [employer] for Flow cytometry [place], [place] on 06/05/15 by [id number] at 1049. CONTINUED ON NEXT PAGE * ML=Testing performed at Main Lab DEPARTMENT OF PATHOLOGY, [address] [place] [address] Sridhar Leung M.D. Director [facility] # [id number] RUN DATE: 06/07/15 [facility] LAB LIVE PAGE 3 Patient: AUGUSTINE BENITEZ John [id number] (Continued) GROSS DESCRIPTION (Continued) Signed (signature on file) Rita Rosa MD 1621 END OF REPORT * ML=Testing performed at Main Lab DEPARTMENT OF PATHOLOGY, [address] [place] [address] Sridhar Leung M.D. Director [facility] # [id number] 61 FINAL DIAGNOSIS: Specimen Source: Lymph node, right jugular ([id number]) Flow cytometry immunophenotypic analysis: Involved by small [...] Rita Rosa MD Technical component performed by: [place] [address] [employer] Mechanic: Les Bernstein II, MD, PhD. --- 06/07/15 1518 --- Path Inter 02-20 previously reported as: FINAL DIAGNOSIS: Specimen Source: Lymph node, right jugular ([id number]) Flow cytometry immunophenotypic analysis: Involved by chronic [...] Rita Rosa MD Technical component performed by: [place] [id number] [employer] Mechanic: Les Bernstein II, MD, PhD. 62 Acute [...] Serum levels of PSA measured using the [employer] DXI Hybritech immunoassay should not be interpreted [...] dialysis) Procedures Date Code Description Status 07/27/2018 50484 Removal Devitalized Tissue Wound Greater Than 20 Completed Square CM 07/27/2018 12698 Removal Devitalization Tissue Wound Less Than Equal 20 Completed Square CM 04/26/2018 85758 ECHO Transthoracic, Real-Time 2D With Doppler And Completed Color Flow 04/26/2018 14788 ECHO Transthoracic, Real-Time 2D With Doppler And Completed Color Flow 10/18/2014 60592 ECHO Transthoracic, Real-Time 2D With Doppler And Completed Color Flow 10/11/2014 [id number] Bone Mineral Density Test Completed 04/06/2014 38141 Rad Exam; Foot Comp Completed 03/01/2014 96257 Rad Exam; Foot Comp Completed 02/13/2014 98411 Rad Exam; Foot Comp Completed 02/13/2014 98968 FX Metatarsal Care Completed Encounters Type Date Location Provider Dx Diagnosis Office Visit 12/14/2018 [facility] Eve[facility] Diaz, M25.571 Pain in right 9:30a Services Of [facility] Nguyen ankle and joints of right foot Office Visit 11/30/2018 Delmy Thacker NP Z00.00 Encntr for 11:00a Medicine - [facility] general adult medical exam w/o abnormal findings I10 Essential (primary) hypertension K21.9 Gastro-esophageal reflux disease without esophagitis 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 Wendy Myers ulcer oth prt right foot w unsp severity S91.301A Unspecified open wound, right foot, initial encounter G60.3 Idiopathic progressive neuropathy L03.115 Cellulitis of right lower limb S91.302A Unspecified open wound, left foot, initial encounter Office Visit 07/26/2018 [facility] Munir Montiel L03.115 Cellulitis of 10:17a irma Roche MD right lower limb Hospitalists I10 Essential (primary) hypertension Office Visit 07/24/2018 [facility] Leticia Huffman L03.115 Cellulitis of 10:11a Associrma NP right lower Hospitalists limb I10 Essential (primary) hypertension 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115 [facility] [employer] [employer] right lower limb I10 Essential (primary) hypertension E78.5 Hyperlipidemia, unspecified Office Visit 04/03/2016 [facility] Internal Shemar Thacker, M46.1 Sacroiliitis, not 11:40a [facility] [employer] elsewhere classified Office Visit 03/24/2016 [facility] Internal Shemar Thacker M46.1 Sacroiliitis, not 1:40p [facility] [employer] [employer] elsewhere classified Office Visit 12/25/2015 [facility] Internal Nimesh Cline L03.116 Cellulitis of left 2:20p [facility] lower limb Office Visit 09/19/2015 [facility] M76.821 Posterior tibial 3:30p Services [facility] Wendy Diaz tendinitis, right [facility] 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 Bone(S) Closed 733.94 Stress Fracture Of The Metatarsals Office Visit 10/03/2014 10:00a [facility] Internal Coco Stone, V70.0 Examination [facility] M[facility] General Medical Routine AT Health Care Facility [...] Colon 429.3 Cardiomegaly Office Visit 06/30/2013 4:00p [facility] Internal Coco Stone, 401.1 Hypertension Benign Medicine - M.DJaden [facility] 272.2 Hyperlipidemia Mixed 300.02 Anxiety Disorder Generalized Office Visit 03/03/2013 3:00p [facility] Internal Coco Stone, V70.0 Examination [facility] General Medical Routine AT Health Care Facility 278.00 Obesity Unspec 401.1 Hypertension Benign 257.2 Testicular Hypofunction Other 461.8 Sinusitis Acute Other 272.2 Hyperlipidemia Mixed V76.41 Screening Malignant Neoplasm Rectum V04.81 Need For Prophylactic Vaccination & Inoculation/Influenza Office Visit 08/03/2012 3:00p [facility] Internal Coco V17.49 Family HX Of Other Medicine - Wendy Stone Cardiovascular [facility] Diseases 272.2 Hyperlipidemia Mixed 278.00 Obesity Unspec 401.1 Hypertension Benign 257.2 Testicular Hypofunction Other 787.91 Diarrhea v06.1 Nmnjbwhpfm-Fkolxps-Maiivofr Combined (DTaP) Plan of Treatment Future Appointment(s):03/08/2019 8:15 am - Everette Diaz M.D. at [facility]01/04/2019 - Everette Diaz M.D.M25.571 Pain in right ankle and joints of right footNew Therapy:Physical TherapyFollow up:2 months
[2019-01-17 10:11] VITALS: BP 151/84
--- NOTE | 2019-01-17 10:59 | ED ---
Skin Complaint - HPI Summary HPI Summary: Patient is a 58-year-old male with history of lymphoma and several cellulitic recurrent infections presenting to the ED with left-sided lateral lower extremity erythema and warmth. He states just over 2 weeks ago, he developed the symptoms of erythema, warmth with a large 2.5 cm slightly raised area resembling an abscess which was nonfluctuant at the time. He states he was treated recently with Keflex and Bactrim which completely resolved the symptoms. He states proximal knee after 3 days of being "100% resolved" he developed the same symptoms again. He states he is immunocompromised as he has lymphoma. He was diagnosed with lymphangitis. He denies any fevers, sweats, chills. He denies any other known infections, erythema or redness. Continues to eat and drink okay. He continues to remain ambulatory. He denies any streaking up the leg. Denies tick bites or other bug bites. He states compared to 2 weeks ago, this is much improved to its onset. He states due to his lymphoma, he has needed to be placed on longer courses of antibiotics in the past and is requesting this. He has followed up with Dr. boo in the past, but has not seen him recently. - History of Current Complaint Chief Complaint: EDExtremityLower Time Seen by Provider: 01/17/19 08:38 Stated Complaint: LT LEG INFECTION PER PT Hx Obtained From: Patient Onset/Duration: Started Hours Ago Skin Exposure Onset/Duration: Hours Ago Timing: Constant Onset Severity: Moderate Current Severity: Moderate Pain Intensity: 3 Pain Scale Used: 0-10 Numeric Skin Location: Other: - left lateral leg Character: Redness Aggravating Symptom(s): Nothing Alleviating Symptom(s): Nothing Associated Signs & Symptoms: Negative - Additional Pertinent History Primary Care Physician: [id number] - Allergy/Home Medications Allergies/Adverse Reactions: Allergies Allergy/AdvReac Type Severity Reaction Status Date / Time clavulanic acid Allergy Rash Verified 01/17/19 09:22 tobramycin Allergy Swelling Verified 01/17/19 09:22 Home Medications: Home Medications Folic Acid TAB* 1 mg PO DAILY 01/17/19 [History Confirmed 01/17/19] Vitamin D3 2,000 i.u. PO DAILY 01/17/19 [History Confirmed 01/17/19] PMH/Surg Hx/FS Hx/Imm Hx Previously Healthy: Yes Endocrine/Hematology History: Reports: Hx Blood Disorders - CLL Denies: Hx Diabetes, Hx Systemic Lupus Erythematosus, Hx Thyroid Disease Cardiovascular History: Reports: Hx Hypertension Denies: Hx Congestive Heart Failure Respiratory History: Reports: Hx Asthma Denies: Hx Chronic Obstructive Pulmonary Disease (COPD) GI History: Reports: Hx Gastroesophageal Reflux Disease Denies: Hx Ulcer History: Denies: Hx Dialysis, Hx Renal Disease Musculoskeletal History: Reports: Other Musculoskeletal History - Right Acriomionplasty Denies: Hx Rheumatoid Arthritis, Hx Osteoporosis, Hx Scoliosis Sensory History: Reports: Hx Contacts or Glasses Denies: Hx Hearing Aid Opthamlomology History: Reports: Hx Contacts or Glasses Neurological History: Reports: Hx Headaches Denies: Other Neuro Impairments/Disorders Psychiatric History: Reports: Hx Anxiety, Hx Depression - Cancer History Cancer Type, Location and Year: LYMPHOMA 2015 - Surgical History Surgery Procedure, Year, and Place: Acromioplasty 2007 - Immunization History Date of Tetanus Vaccine: unknown Date of Influenza Vaccine: 2014 Hx Pertussis Vaccination: No Immunizations Up to Date: Yes Infectious Disease History: No Infectious Disease History: Denies: Hx Clostridium Difficile, Hx Hepatitis, Hx Human Immunodeficiency Virus (HIV), Hx of Known/Suspected MRSA, Hx Shingles, Hx Tuberculosis, Hx Known/ Suspected VRE, Hx Known/Suspected VRSA, History Other Infectious Disease, Traveled Outside the [place] in Last 30 Days - Family History Known Family History: Positive: Cardiac Disease, Hypertension Negative: Diabetes - Social History Occupation: Employed Full-time Lives: With Family Alcohol Use: Weekly Alcohol Amount: 3x weekly Hx Substance Use: No Substance Use Type: Reports: None Hx Tobacco Use: Yes Smoking Status (MU): Former Smoker Type: Cigarettes Review of Systems Negative: Fever, Chills, Fatigue, Skin Diaphoresis Negative: Palpitations, Chest Pain Negative: Shortness Of Breath, Cough Genitourinary: Negative Positive: no symptoms reported, see HPI Negative: Arthralgia, Myalgia Positive: Other - 6 cm in diameter erythematous area to the left lateral lower extremity Neurological: Negative All Other Systems Reviewed And Are Negative: Yes Physical Exam Triage Information Reviewed: Yes Vital Signs On Initial Exam: Initial Vitals Temp Pulse Resp BP Pulse Ox 99 F 77 20 136/74 92 01/17/19 08:23 01/17/19 08:23 01/17/19 08:23 01/17/19 08:23 01/17/19 08:23 Vital Signs Reviewed: Yes Appearance: Positive: Well-Appearing Skin: Positive: Skin Color Reflects Adequate Perfusion, Other - Erythematous areas to the left lateral lower extremity Eyes: Positive: EOMI, MARGARET, Conjunctiva Clear Neck: Positive: Supple, No Lymphadenopathy Respiratory/Lung Sounds: Positive: Clear to Auscultation, Breath Sounds Present Cardiovascular: Positive: RRR, Pulses are Symmetrical in both Upper and Lower Extremities Musculoskeletal: Positive: Normal, Strength/ROM Intact Neurological: Positive: Speech Normal Psychiatric: Positive: Affect/Mood Appropriate Diagnostics - Vital Signs Vital Signs Temp Pulse Resp BP Pulse Ox 01/17/19 10:10 97.3 F 77 16 151/84 98 01/17/19 10:08 151/84 01/17/19 10:00 74 98 01/17/19 09:41 69 129/76 96 01/17/19 09:11 74 140/92 96 01/17/19 09:00 74 95 01/17/19 08:54 76 150/97 96 01/17/19 08:43 76 97 01/17/19 08:23 99 F 77 20 136/74 92 - Laboratory Lab Statement: Any lab studies that have been ordered have been reviewed, and results considered in the medical decision making process. Course/Dx - Course Course Of Treatment: During the course treatment, the patient is evaluated for a worsening cellulitic infection to the left lateral lower extremity. The erythema measures approximately 6 cm in diameter with a small nonfluctuant area in the center measuring approximately 1.5 cm. He states this was there in the past. He denies any bug bite or tick bites to the area. Discussed with patient at length the importance of close follow-up with infectious disease, Dr. Boo. He states he is followed up in the past and will do so again. Information for Dr. Boo is given to the patient. He was placed on Keflex and Bactrim 2 weeks ago and states this completely resolved his symptoms. He will be placed on these antibiotics again, a 14 day course, however is greatly encouraged to follow up with Dr. Boo as soon as possible and will get further instructions on whether to stop or further the antibiotics based on his symptoms. He continues to deny any fevers, sweats, chills or other systemic symptoms. He denies any other concerns at this time. He is diagnosed with cellulitis. Patient understands his potassium levels worse with bactrim and will again have repeat potassium levels through his PCP. - Diagnoses Provider Diagnoses: Cellulitis Discharge - Sign-Out/Discharge Documenting (check all that apply): Patient Departure Patient Received Moderate/Deep Sedation with Procedure: No - Discharge Plan Condition: Good Disposition: HOME Prescriptions: Cephalexin CAP* [Keflex CAP*] 500 mg PO TID #42 cap MDD 3 Sulfamethox/Trimethoprim DS* [Bactrim DS 800/160 TAB*] 1 tab PO BID #28 tab Patient Education Materials: Cellulitis (ED) Referrals: Kendy SARAVIA,Marcos Silva [Medical Doctor] - Shemar Thacker NP [Primary Care Provider] - Additional Instructions: Please follow-up with Dr. Boo as soon as possible Keflex 3 times daily 14 days If you develop any worsening or changing symptoms, return to the ED immediately - Billing Disposition and Condition Condition: GOOD Disposition: Home
== END 2019-01-17 10:10 | disposition home or self-care (01) ==
LOC: ED 08:20
DX: L03.116 Cellulitis of left lower limb (principal); Z79.899 Other long term (current) drug therapy; I10 Essential (primary) hypertension; J45.909 Unspecified asthma, uncomplicated; Z85.72 Personal history of non-Hodgkin lymphomas
CPT/HCPCS: 99283